=== PATIENT | male | born 1940 | race Hispanic/Latino ===

== ENCOUNTER 2017-06-06 17:58 | Emergency (ER) | payer OTHER ==
[2017-06-06] MEDS ORDERED: ACETAMINOPHEN 325 MG TABLET ONE (19:05)
[2017-06-06 19:48] LABS: Glucose Level 89 mg/dL (65-120)
[2017-06-06 19:49] LABS: BUN Blood Urea Nitrogen 13 mg/dL (6-20); Glomerular Filtration Rate > 90 mL/min (=/>90)
[2017-06-06 19:52] LABS: Bicarbonate 27 mEq/L (21-31); Potassium 4.5 mEq/L (3.6-5.0); Sodium Level 136 mEq/L (135-145)
[2017-06-06 19:55] LABS: Absolute Lymphocytes (CBC) 1.8 K/uL (0.7-4.9); Absolute Neutrophil 14.5 K/uL (1.8-8.0); Basophils % 0.4 % (0-1.3); Eosinophils % 0.9 % (0-4.4); Hematocrit 45.2 % (39.6-49.0); Lymphocytes % 10.1 % (15.3-44.8); MCH 31.7 pg (27.0-35.0); MCV 93.3 fL (80-100); MPV 8.7 fL (7.6-11.3); Monocytes % 5.5 % (3.3-12.3); RBC Red Blood Cell Count 4.85 M/uL (4.33-5.43)
--- NOTE | 2017-06-06 21:01 | RAD REPORT ---
EXAM DESCRIPTION: RAD - Chest Single View - 06/06/2017 7:02 pm CLINICAL HISTORY: Fever, cough and congestion COMPARISON: April 06, 2017 TECHNIQUE: AP portable chest image was obtained 1854 hours . FINDINGS: No peripheral mass or consolidation. Lung markings are prominent but not clearly different from the comparison. Minimal interstitial edema or infiltrate could be masked by the chronic pattern . Sternotomy wires are in place. Heart and vasculature are normal. No measurable pleural effusion and no pneumothorax. No gross bony abnormality seen. No acute aortic findings suspected. IMPRESSION: No peripheral mass or consolidation. Lung markings are prominent but not clearly different from comparison. Early edema or infiltrate coul d be masked by the chronic lung disease.
[2017-06-06 21:11] LABS: Urine Blood NEGATIVE (NEG); Urine Glucose NEGATIVE (NEG); Urine Protein 1+ (NEG)
--- NOTE | 2017-06-06 22:10 | RAD REPORT ---
EXAM DESCRIPTION: CT - Abdomen Pelvis W Contrast - 06/06/2017 9:57 pm CLINICAL HISTORY: Abdominal pain, cough and congestion COMPARISON: CT May 2016 TECHNIQUE: Biphasic, helical CT imaging of the abdomen and pelvis was performed following 100 ml non -ionic IV contrast. No oral contrast administered. All CT scans are performed using dose optimization technique as appropriate and may include automated exposure control or mA/KV adjustment according to patient size. FINDINGS: Interstitial thickening is present compared to the prior study. This is probably an inters titial edema or infiltrate pattern rather than progressive fibrosis. No consolidation. No pleural eff usion, pleural thickening or pericardial effusion. The liver, spleen, and pancreas show no suspicious findings. Cholecystectomy clips are present. No bi liary tree dilatation. Symmetric renal function is seen with no hydronephrosis or suspicious renal mass. No pyelonephritis o r acute renal parenchymal process. Small renal cysts are present. Ingram of the urinary bladder are mi ldly prominent. This is not specific for cystitis but correlation can be made with UA findings. No gastric dilatation or gastric wall thickening. No dilated small bowel loops. Moderate stool volume in the colon. Left-sided diverticulosis is present. Sigmoid colon is redundant. No measurable divert iculitis identifiable. No colon mass suspected. No free air, free fluid or inflammatory stranding. No mass or bulky lymphadenopathy. Fat extends int o the origin of the inguinal canals. No adrenal abnormality. Prominent disc and bony degenerative change present. No acute finding. IMPRESSION: Prominent diverticulosis is present but no diverticulitis confirmed. No bowel obstruction, free air or surgically emergent finding. Urinary bladder ingram are mildly prominent. This is not specific for cystitis but can be correlated w ith UA findings. Bilateral lung base interstitial infiltrate or edema.
--- NOTE | 2017-06-06 22:28 | EDPHYS ---
Physician Documentation [facility] Name: Musa Lindsay Age: 76 yrs Sex: Male : 1940 Arrival Date: 06/06/2017 Time: 18:05 Bed 20 Private MD: ED Physician Clifford Marshall HPI: 06/06 18:37 This 76 yrs old Male presents to ER via EMS with complaints of Productive kb Cough, Vomiting, Chills, Body Aches. 18:37 The patient or guardian reports cough, that is intermittent, described as moderate, kb with no sputum, flu symptoms, low-grade fever, myalgias. Onset: The symptoms/episode began/occurred 3 day(s) ago. Severity of symptoms: At their worst the symptoms were moderate, in the emergency department the symptoms are unchanged. Modifying factors: The symptoms are alleviated by nothing, the symptoms are aggravated by nothing. Associated signs and symptoms: Pertinent positives: fever, Pertinent negatives: chest pain, diarrhea, ear ache, nausea, rhinorrhea, sore throat, vomiting. The patient has not experienced similar symptoms in the past. The patient has not recently seen a physician. Pt c/o cough for 3 days. Malaise, fever and chills started today. Historical: - Allergies: 18:09 NKA; iw - Home Meds: 18:13 carvedilol 25 mg Oral tab 1 tab 2 times per day [Active]; Crestor 10 mg Oral tab 1 tab iw once daily [Active]; lisinopril 5 mg Oral tab 1 tab once daily [Active]; RENEXA 1000 MG twice a day [Active]; 18:24 Plavix 75 mg Oral tab 1 tab once daily [Active]; glimepiride 2 mg Oral tab 2 tabs once iw daily [Active]; multivitamin oral cap [Active]; Tramadol Oral twice a day [Active]; temazepam Oral nightly [Active]; Clonazepam Oral 2 times per day [Active]; - PMHx: 18:08 Diabetes - NIDDM; High Cholesterol; Hypertension; Hypothyroidism; Myocardial infarction;iw - PSHx: 18:08 CABG; Cholecystectomy; iw - Immunization history:: Adult Immunizations up to date. - Social history:: Smoking status: Patient uses tobacco products, unknown amount. ROS: 18:36 ENT: Negative for injury, pain, and discharge, Neck: Negative for injury, pain, and kb swelling, Cardiovascular: Negative for chest pain, palpitations, and edema, Abdomen/GI: Negative for abdominal pain, nausea, vomiting, diarrhea, and constipation, Back: Negative for injury and pain, MS/Extremity: Negative for injury and deformity, Skin: Negative for injury, rash, and discoloration, Neuro: Negative for headache, weakness, numbness, tingling, and seizure. 18:36 Constitutional: Positive for body aches, chills, fever, malaise, Negative for fatigue, poor PO intake, weight loss. 18:36 Respiratory: Positive for cough, Negative for dyspnea on exertion, hemoptysis, orthopnea, pleurisy, shortness of breath, sputum production, wheezing. Exam: 18:36 Constitutional: This is a well developed, well nourished patient who is awake, alert, kb and in no acute distress. Head/Face: Normocephalic, atraumatic. Chest/axilla: Normal chest wall appearance and motion. Nontender with no deformity. No lesions are appreciated. Cardiovascular: Regular rate and rhythm with a normal S1 and S2. No gallops, murmurs, or rubs. Normal PMI, no JVD. No pulse deficits. Respiratory: Lungs have equal breath sounds bilaterally, clear to auscultation and percussion. No rales, rhonchi or wheezes noted. No increased work of breathing, no retractions or nasal flaring. Abdomen/GI: Soft, non-tender, with normal bowel sounds. No distension or tympany. No guarding or rebound. No evidence of tenderness throughout. Skin: Warm, dry with normal turgor. Normal color with no rashes, no lesions, and no evidence of cellulitis. MS/ Extremity: Pulses equal, no cyanosis. Neurovascular intact. Full, normal range of motion. Neuro: Awake and alert, GCS 15, oriented to person, place, time, and situation. Cranial nerves II-XII grossly intact. Motor strength 5/5 in all extremities. Sensory grossly intact. Cerebellar exam normal. Normal gait. Vital Signs: 18:11 BP 162 / 80; Pulse 88; Resp 24 S; Temp 99.4(O); Pulse Ox 99% on R/A; Weight 89.81 kg; iw Height 5 ft. 9 in. (175.26 cm); Pain 0/10; 19:38 BP 133 / 61; Pulse 89; Resp 20; Pulse Ox 96% on R/A; mt 20:00 BP 125 / 66; Pulse 85; Resp 16; Pulse Ox 99% ; bp 21:00 BP 126 / 77; Pulse 85; Resp 14; Pulse Ox 95% on R/A; bp 22:00 BP 120 / 56; Pulse 81; Resp 15; Pulse Ox 96% on R/A; bp 18:11 Body Mass Index 29.24 (89.81 kg, 175.26 cm) iw MDM: 18:30 Patient medically screened. kb 18:36 Data reviewed: vital signs, nurses notes. Data interpreted: Pulse oximetry: on room air kb is 99 %. Interpretation: normal. 22:26 Counseling: I had a detailed discussion with the patient and/or guardian regarding: the kb historical points, exam findings, and any diagnostic results supporting the discharge/admit diagnosis, lab results, radiology results, the need for outpatient follow up, a family practitioner, to return to the emergency department if symptoms worsen or persist or if there are any questions or concerns that arise at home. ED course: Family states pt has been smoking for many years and still smokes. Pt wants to go home. Family will be with him. Educated to follow up with PCP (Macarena) about COPD. 06/06 18:35 Order name: CBC with Diff; Complete Time: 19:57 kb 06/06 18:35 Order name: Basic Metabolic Panel; Complete Time: 19:53 kb 06/06 18:35 Order name: Blood Culture Adult (2) kb 06/06 18:35 Order name: Lactate; Complete Time: 19:53 kb 06/06 18:35 Order name: Flu; Complete Time: 20:20 kb 06/06 21:10 Order name: Urine Dipstick--Ancillary (enter results); Complete Time: 21:15 em1 06/06 18:35 Order name: Chest Single View XRAY; Complete Time: 21:01 kb 06/06 18:35 Order name: IV Start; Complete Time: 19:23 kb 06/06 20:28 Order name: CT Abd/Pelvis - W/Contrast; Complete Time: 22:11 kb 06/06 20:59 Order name: Urine Dipstick-Ancillary (obtain specimen); Complete Time: 21:06 bp 06/06 22:12 Order name: Urine Microscopic Only; Complete Time: 22:33 kb Administered Medications: 19:10 Drug: Tylenol 650 mg Route: PO; bp 20:24 Follow up: Response: No adverse reaction bp Disposition: 06/07 10:04 Co-signature as Attending Physician, Clifford Marshall MD. rn Disposition: 06/06/17 22:27 Discharged to Home. Impression: Acute upper respiratory infection, unspecified, Elevated white blood cell count. - Condition is Stable. - Discharge Instructions: Chronic Obstructive Pulmonary Disease, Upper Respiratory Infection, Adult, [id number]. - Prescriptions for Levaquin 500 mg Oral Tablet - take 1 tablet by ORAL route once daily for 7 days; 7 tablet. Prednisone 20 mg Oral Tablet - take 1 tablet by ORAL route once daily for 5 days; 5 tablet. Albuterol Sulfate 90 mcg/actuation - inhale 1-2 puff by INHALATION route every 4-6 hours; 1 Inhaler. - Medication Reconciliation Form, Thank You Letter, Antibiotic Education, Prescription Opioid Use form. - Follow up: Emergency Department; When: As needed; Reason: Worsening of condition. Follow up: Private Physician; When: 2 - 3 days; Reason: Recheck today's complaints, Continuance of care, Re-evaluation by your physician. Signatures: Dispatcher [employer] Nicol Mina, AIR DEFENSE CONTROL OFFICER-C AIR DEFENSE CONTROL OFFICER-Yelena Barclay, RN OVIDIO Clifford Marshall MD MD rn Peltier, Brian, RN RN bp Corrections: (The following items were deleted from the chart) 06/06 18:24 18:13 Home Meds: Effient 10 mg Oral tab 1 tab once daily; [facility]
--- NOTE | 2017-06-06 22:28 | ER ---
Nurse's Notes [facility] Name: Musa Lindsay Age: 76 yrs Sex: Male : 1940 Arrival Date: 06/06/2017 Time: 18:05 Bed 20 Private MD: Diagnosis: Acute upper respiratory infection, unspecified;Elevated white blood cell count Presentation: 06/06 18:06 Presenting complaint: EMS states: pt has had cough X 3 days, today felt like he had iw chills and body aches, low grade temp of 99.0 on scene, upon arrival to ER pt vomited 100mL yellow/green bile, denies abd pain or diarrhea. Transition of care: patient was not received from another setting of care. Onset of symptoms was June 03, 2017. Care prior to arrival: Glucose check: 83. 18:06 Method Of Arrival: EMS: [facility] iw 18:06 Acuity: GRICEL 3 iw Triage Assessment: 19:00 General: Appears in no apparent distress. comfortable. Respiratory: Onset: The bp symptoms/episode began/occurred 3 DAYS AGO, the patient has mild shortness of breath. Historical: - Allergies: 18:09 NKA; iw - Home Meds: 18:13 carvedilol 25 mg Oral tab 1 tab 2 times per day [Active]; Crestor 10 mg Oral tab 1 tab iw once daily [Active]; lisinopril 5 mg Oral tab 1 tab once daily [Active]; RENEXA 1000 MG twice a day [Active]; 18:24 Plavix 75 mg Oral tab 1 tab once daily [Active]; glimepiride 2 mg Oral tab 2 tabs once iw daily [Active]; multivitamin oral cap [Active]; Tramadol Oral twice a day [Active]; temazepam Oral nightly [Active]; Clonazepam Oral 2 times per day [Active]; - PMHx: 18:08 Diabetes - NIDDM; High Cholesterol; Hypertension; Hypothyroidism; Myocardial infarction;iw - PSHx: 18:08 CABG; Cholecystectomy; iw - Immunization history:: Adult Immunizations up to date. - Social history:: Smoking status: Patient uses tobacco products, unknown amount. Screenin:10 Abuse screen: Denies threats or abuse. Denies injuries from another. Nutritional bp screening: No deficits noted. Tuberculosis screening: No symptoms or risk factors identified. Fall Risk None identified. Assessment: 19:00 Reassessment: RECD REPORT FROM PRICE NOLAN. 76YO HM P/W 3 DAYS OF FLU-LIKE S/S. NO bp APPARENT DISTRESS, VS STABLE AT THIS TIME. General: Appears in no apparent distress. comfortable, Behavior is calm, cooperative, appropriate for age. Pain: Denies pain. Neuro: Level of Consciousness is awake, alert, obeys commands, Oriented to person, place, time, situation, Appropriate for age. Cardiovascular: Rhythm is sinus rhythm. Respiratory: Airway is patent Respiratory effort is even, unlabored, Breath sounds are clear. GI: No deficits noted. Reports vomiting. : No signs and/or symptoms were reported regarding the genitourinary system. EENT: No deficits noted. Derm: No deficits noted. Musculoskeletal: Circulation, motion, and sensation intact. Range of motion: intact in all extremities. 20:00 Reassessment: ALL CURRENT ORDERS COMPLETED, VS STABLE ON MONITOR. AWAITING PROVIDER bp RE-EVAL FOR DISPO. 21:30 Reassessment: PT TO CT. bp 21:54 Reassessment: PIV INFILTRATED DURING CT, NEW PIV PLACED AND CT PROCEEDING. bp 22:00 Reassessment: PT RETURNED FROM CT, VS STABLE ON MONITOR. bp 22:47 Reassessment: PT D/C HOME, DX WITH COPD AND URI. bp Vital Signs: 18:11 BP 162 / 80; Pulse 88; Resp 24 S; Temp 99.4(O); Pulse Ox 99% on R/A; Weight 89.81 kg; iw Height 5 ft. 9 in. (175.26 cm); Pain 0/10; 19:38 BP 133 / 61; Pulse 89; Resp 20; Pulse Ox 96% on R/A; mt 20:00 BP 125 / 66; Pulse 85; Resp 16; Pulse Ox 99% ; bp 21:00 BP 126 / 77; Pulse 85; Resp 14; Pulse Ox 95% on R/A; bp 22:00 BP 120 / 56; Pulse 81; Resp 15; Pulse Ox 96% on R/A; bp 18:11 Body Mass Index 29.24 (89.81 kg, 175.26 cm) iw ED Course: 18:05 Patient arrived in ED. iw 18:06 Price Love, RN is Primary Nurse. aj 18:08 Triage completed. iw 18:11 Arm band placed on. iw 18:30 Nicol Aparicio FNP-C is PHCP. kb 18:30 Clifford Marshall MD is Attending Physician. kb 18:57 X-ray completed. Portable x-ray completed in exam room. Patient tolerated procedure kc2 well. 18:58 Chest Single View XRAY In Process Unspecified. EDMS 19:10 Primary Nurse role handed off by Price Love, OVIDIO bp 19:10 Darian Cortes, RN is Primary Nurse. bp 19:10 Patient has correct armband on for positive identification. Bed in low position. Call bp light in reach. Side rails up X2. Adult w/ patient. 19:23 Inserted saline lock: 20 gauge in right forearm, using aseptic technique. Blood aj collected. 21:38 Patient moved to [place] via stretcher. nj 21:55 Inserted saline lock: 18 gauge in left forearm, using aseptic technique. IV bp discontinued, intact, bleeding controlled, Pressure dressing applied. 21:58 CT Abd/Pelvis - W/Contrast In Process Unspecified. EDMS 21:58 CT completed. Patient tolerated procedure well. Patient moved back from [place]. nj 22:47 No provider procedures requiring assistance completed. IV discontinued, intact, bp bleeding controlled, Pressure dressing applied. Administered Medications: 19:10 Drug: Tylenol 650 mg Route: PO; bp 20:24 Follow up: Response: No adverse reaction bp Outcome: 22:27 Discharge ordered by MD. kb 22:47 Discharged to home via wheelchair, with family. bp 22:47 Condition: stable 22:47 Discharge instructions given to patient, family, Instructed on discharge instructions, follow up and referral plans. medication usage, Demonstrated understanding of instructions, follow-up care, medications, Prescriptions given X 3. 22:49 Patient left the ED. bp Signatures: Dispatcher [employer] EDMS Nicol Aparicio FNP-C STEEL WHEEL ENGRAVER-Ckb Price Love RN RN aj Williams, Irene, RN RN Shobha Kendall kc2 Tyler Zabala Moriah wa Darian Cortes, OVIDIO RN bp Corrections: (The following items were deleted from the chart) 18:20 18:11 BP 162 / 80; Pulse 88bpm; Resp 24bpm; Spontaneous; Pulse Ox 99% RA; Pain 0/10; iw iw 18:24 18:13 Home Meds: Effient 10 mg Oral tab 1 tab once daily; iw iw
[2017-06-06 22:31] LABS: Urine Bacteria <20 /HPF (NONE SEEN); Urine Culture Reflex Order NOT NEEDED
[2017-06-06 23:04] VITALS: TEMP 99.4
[2017-06-06 23:16] VITALS: BP 120/56; O2SAT 96
== END 2017-06-06 22:49 | disposition home or self-care (01) ==
LOC: ER 17:58
DX: J06.9 Acute upper respiratory infection, unspecified (principal); D72.829 Elevated white blood cell count, unspecified; I10 Essential (primary) hypertension; E11.9 Type 2 diabetes mellitus without complications; E78.00 Pure hypercholesterolemia, unspecified; E03.9 Hypothyroidism, unspecified; I25.2 Old myocardial infarction; Z95.1 Presence of aortocoronary bypass graft; Z79.01 Long term (current) use of anticoagulants; Z72.0 Tobacco use
CPT/HCPCS: 36415; 71045; 74177; 80048; 83605; 85025; 87040 ×2; 87804 ×2; 99285; Q9967; 81003; 81015

== ENCOUNTER 2017-10-29 01:33 | Emergency (ER) | payer OTHER ==
[2017-10-29] MEDS ORDERED: FENTANYL CITR 100 MCG/2 ML ONE (02:24)
[2017-10-29] MEDS ORDERED: ACETAMINOPHEN 500 MG TAB ONE (02:25)
[2017-10-29 03:00] LABS: Absolute Lymphocytes (CBC) 0.8 K/uL (0.7-4.9); Absolute Monocytes 0.6 K/uL (0.1-1.3); Absolute Neutrophil 8.7 K/uL (1.8-8.0); Basophils % 0.3 % (0-1.3); Eosinophils % 1.3 % (0-4.4); Hematocrit 46.7 % (39.6-49.0); Lymphocytes % 8.1 % (15.3-44.8); MCH 33.6 pg (27.0-35.0); MCV 94.9 fL (80-100); MPV 9.1 fL (7.6-11.3); Monocytes % 5.4 % (3.3-12.3); RBC Red Blood Cell Count 4.91 M/uL (4.33-5.43)
[2017-10-29 03:02] LABS: Protime INR 1.13
[2017-10-29 03:16] LABS: Urine Blood TRACE (NEG); Urine Glucose 2+ (NEG); Urine Protein 2+ (NEG); Urine Specific Gravity 1.025 (1.005-1.030)
[2017-10-29 03:17] LABS: Albumin 3.9 g/dL (3.4-5.0); Bilirubin Direct 0.4 mg/dL (0-0.2); Bilirubin Total 1.5 mg/dL (0.2-1.0); Magnesium 2.1 mg/dL (1.8-2.4); Potassium 4.4 mmol/L (3.5-5.1); Protein, Total 7.8 g/dL (6.4-8.2)
[2017-10-29 03:21] LABS: NT PRO-BNP 152 pg/mL (<450); Troponin (Emerg Dept Use Only) < 0.02 ng/mL (0.0-0.045)
[2017-10-29 03:21] LABS: Urine Bacteria <20 /HPF (NONE SEEN); Urine Culture Reflex Order NOT NEEDED; Urine Mucus 3+ /HPF (NONE SEEN); Urine Sperm PRESENT (NONE SEEN)
[2017-10-29 03:22] LABS: Urine RBC <5 /HPF (NONE SEEN)
--- NOTE | 2017-10-29 06:07 | ER ---
Nurse's Notes [facility] Name: Musa Lindsay Age: 76 yrs Sex: Male : 1940 Arrival Date: 10/29/2017 Time: 01:43 Bed 6 Private MD: Diagnosis: Fall;Left Knee Sprain;lower back sprain Presentation: 10/29 01:40 Presenting complaint: EMS states: Pt fell trying to ambulate to the restroom and is now jb4 complaining of backpain. 01:40 Method Of Arrival: EMS: [facility] jb4 01:40 Transition of care: patient was not received from another setting of care. Onset of jb4 symptoms was October 29, 2017. Risk Assessment: Do you want to hurt yourself or someone else? Patient reports no desire to harm self or others. Initial Sepsis Screen: Does the patient meet any 2 criteria? No. Patient's initial sepsis screen is negative. Does the patient have a suspected source of infection? No. Patient's initial sepsis screen is negative. Care prior to arrival: None. 01:40 Acuity: GRICEL 3 jb4 Triage Assessment: 02:00 General: Appears in no apparent distress. uncomfortable, Behavior is calm, cooperative, jb4 appropriate for age. Pain: Complains of pain in low back area and sacrum Pain does not radiate. Pain currently is 8 out of 10 on a pain scale. at worst was 10 out of 10 on a pain scale. Quality of pain is described as grinding Pain began 1 hour ago. Is continuous. EENT: No signs and/or symptoms were reported regarding the EENT system. Neuro: Level of Consciousness is awake, alert, obeys commands, Oriented to person, place, time, situation. Cardiovascular: Heart tones S1 S2 present Patient's skin is warm and dry. Pulses are palpable in right dorsalis pedis artery and left dorsalis pedis artery are 3+ in right dorsalis pedis artery and left dorsalis pedis artery. Respiratory: Airway is patent Respiratory effort is even, unlabored, Respiratory pattern is regular, symmetrical, Breath sounds are clear bilaterally. GI: No signs and/or symptoms were reported involving the gastrointestinal system. : No signs and/or symptoms were reported regarding the genitourinary system. Derm: Skin Intact with scabbed areas noted to legs with multiple bug bites noted to both feet. Skin is pink, warm \T\ dry. Musculoskeletal: Reports weakness in right leg and left leg pain in low back area and sacrum. Historical: - Allergies: 02:00 NKA; jb4 - Home Meds: 02:00 carvedilol 25 mg Oral tab 1 tab 2 times per day [Active]; Clonazepam Oral 2 times per jb4 day [Active]; Crestor 10 mg Oral tab 1 tab once daily [Active]; glimepiride 2 mg Oral tab 2 tabs once daily [Active]; lisinopril 5 mg Oral tab 1 tab once daily [Active]; multivitamin Oral cap [Active]; temazepam Oral nightly [Active]; Plavix 75 mg Oral tab 1 tab once daily [Active]; RENEXA 1000 MG twice a day [Active]; Tramadol Oral twice a day [Active]; - PMHx: 02:00 Diabetes - NIDDM; High Cholesterol; Hypothyroidism; Myocardial infarction; Hypertension;jb4 - PSHx: 02:00 CABG; Cholecystectomy; jb4 - Immunization history:: Adult Immunizations up to date. - Social history:: Smoking status: Patient uses tobacco products, smokes one-half pack cigarettes per day. - Ebola Screening: : No symptoms or risks identified at this time. - Family history:: not pertinent. - Hospitalizations: : No recent hospitalization is reported. Screenin:00 Abuse screen: Denies threats or abuse. Nutritional screening: No deficits noted. jb4 Tuberculosis screening: No symptoms or risk factors identified. Fall Risk Fall in past 12 months (25 points). Secondary diagnosis (15 points) DM, HTN. IV access (20 points). Total Pickett Fall Scale indicates High Risk Score (45 or more points). Fall prevention measures have been instituted. Side Rails Up X 2 Placed Close to Nursing Station 1:1 Attendant Assigned Frequent Obs/Assessments Occuring Family Present and informed to notify staff if the need to leave the bedside. Assessment: 02:00 General: See triage assessment . jb4 03:00 Reassessment: Patient appears in no apparent distress at this time. Patient and/or jb4 family updated on plan of care and expected duration. Pain level reassessed. Patient is alert, oriented x 3, equal unlabored respirations, skin warm/dry/pink. Pt is resting with eyes closed, daughter is at the bedside. 04:30 Reassessment: Patient appears in no apparent distress at this time. Patient and/or jb4 family updated on plan of care and expected duration. Pain level reassessed. Patient is alert, oriented x 3, equal unlabored respirations, skin warm/dry/pink. Pt is resting in bed with eyes closed. Daughter is at the bedside. 05:30 Reassessment: Patient appears in no apparent distress at this time. Patient and/or jb4 family updated on plan of care and expected duration. Pain level reassessed. Patient is alert, oriented x 3, equal unlabored respirations, skin warm/dry/pink. 06:20 Reassessment: Patient appears in no apparent distress at this time. No changes from jb4 previously documented assessment. Patient is alert, oriented x 3, equal unlabored respirations, skin warm/dry/pink. Vital Signs: 01:55 BP 149 / 79; Pulse 86; Resp 18; Pulse Ox 100% on R/A; Weight 97.52 kg; Height 5 ft. 9 jb4 in. (175.26 cm); 02:26 Temp 99.7(TE); ak1 03:30 BP 134 / 56; Pulse 92; Resp 18; Pulse Ox 100% on R/A; jb4 04:30 BP 134 / 73; Pulse 98; Resp 16 S; Pulse Ox 97% on R/A; jb4 05:30 BP 110 / 58; Pulse 93; Resp 18; Pulse Ox 98% on R/A; jb4 01:55 Body Mass Index 31.75 (97.52 kg, 175.26 cm) jb4 ED Course: 01:43 Patient arrived in ED. jd3 01:54 Ramiro Navarro, RN is Primary Nurse. jb4 01:55 Arm band placed on left wrist. jb4 01:55 Repositioned patient. Bath given. Cleaned of incontinence. ak1 01:55 Door closed. Lights dimmed. Warm blanket given. Head of bed elevated. ak1 01:56 Triage completed. jb4 02:00 Patient has correct armband on for positive identification. Placed in gown. Bed in low jb4 position. Call light in reach. Side rails up X2. shelter monitor on. Pulse ox on. NIBP on. 02:01 Ramírez Bowman MD is Attending Physician. tx 02:23 Initial lab(s) drawn, by me, sent to lab. EKG done, by ED staff, reviewed by Ramírez Bowman MD. Inserted saline lock: 20 gauge in left antecubital area, using aseptic technique. Blood collected. 03:41 Knee Left 3 View XRAY In Process Unspecified. EDMS 03:41 Lumbar Spine (3 Views) XRAY In Process Unspecified. EDMS 03:41 XRAY Chest (1 view) In Process Unspecified. EDMS 04:[address] via stretcher. kw1 05:12 CT completed. Patient tolerated procedure well. Patient moved back from CT. kw1 05:25 CT Thoracic Spine Wo Cont In Process Unspecified. EDMS 05:36 CT Lumbar Spine Wo Con In Process Unspecified. EDMS 06:20 No provider procedures requiring assistance completed. IV discontinued, intact, jb4 bleeding controlled. Administered Medications: 02:31 Drug: fentaNYL (PF) 50 mcg Route: IVP; Site: left antecubital; jb4 03:05 Follow up: Response: Pain is decreased jb4 02:32 Drug: Tylenol 1000 mg Route: PO; jb4 03:05 Follow up: Response: No adverse reaction; Pain is decreased jb4 Outcome: 06:06 Discharge ordered by . michael 06:20 Discharged to home ambulatory. jb4 06:20 Condition: stable 06:20 Discharge instructions given to patient, Instructed on discharge instructions, follow up and referral plans. Demonstrated understanding of instructions, follow-up care. 06:21 Patient left the ED. jb4 Signatures: Dispatcher [employer] EDMN Rosmery Pierson RN RN ak1 Ramiro Navarro RN RN jb4 Appiah, William, MD MD wa Davies, Jonathon RN RN Manda Koo kw1 Corrections: (The following items were deleted from the chart) 02:14 02:00 Fall Risk Fall in past 12 months (25 points). Secondary diagnosis (15 points) DM, jb4 HTN. IV access (20 points). jb4 04:57 02:00 Cardiovascular: Heart tones S1 S2 present Patient's skin is warm and dry. jb4 jb4 04:57 02:00 Derm: Skin is pink, warm \T\ dry. jb4 jb4
--- NOTE | 2017-10-29 06:07 | EDPHYS ---
Physician Documentation [facility] Name: Musa Lindsay Age: 76 yrs Sex: Male : 1940 Arrival Date: 10/29/2017 Time: 01:43 Bed 6 Private MD: ED Physician Ramírez Bowman HPI: 10/29 02:10 This 76 yrs old Male presents to ER via EMS with complaints of fall. 02:10 Details of fall: The patient fell from a height, while walking briskly to bathroom. 02:12 Onset: The symptoms/episode began/occurred just prior to arrival. Associated injuries: wa The patient sustained c/o L knee and tailbone pain. Severity of symptoms: At their worst the symptoms were moderate, in the emergency department the symptoms are unchanged. The patient has not experienced similar symptoms in the past. The patient has not recently seen a physician. denies chest pain or SOB. h/o DM. h/o CABG. Historical: - Allergies: 02:00 NKA; jb4 - Home Meds: 02:00 carvedilol 25 mg Oral tab 1 tab 2 times per day [Active]; Clonazepam Oral 2 times per jb4 day [Active]; Crestor 10 mg Oral tab 1 tab once daily [Active]; glimepiride 2 mg Oral tab 2 tabs once daily [Active]; lisinopril 5 mg Oral tab 1 tab once daily [Active]; multivitamin Oral cap [Active]; temazepam Oral nightly [Active]; Plavix 75 mg Oral tab 1 tab once daily [Active]; RENEXA 1000 MG twice a day [Active]; Tramadol Oral twice a day [Active]; - PMHx: 02:00 Diabetes - NIDDM; High Cholesterol; Hypothyroidism; Myocardial infarction; Hypertension;jb4 - PSHx: 02:00 CABG; Cholecystectomy; jb4 - Immunization history:: Adult Immunizations up to date. - Social history:: Smoking status: Patient uses tobacco products, smokes one-half pack cigarettes per day. - Ebola Screening: : No symptoms or risks identified at this time. - Family history:: not pertinent. - Hospitalizations: : No recent hospitalization is reported. ROS: 02:13 Constitutional: Negative for fever, chills, and weight loss, Eyes: Negative for injury, wa pain, redness, and discharge, ENT: Negative for injury, pain, and discharge, Neck: Negative for injury, pain, and swelling, Cardiovascular: Negative for chest pain, palpitations, and edema, Respiratory: Negative for shortness of breath, cough, wheezing, and pleuritic chest pain, Abdomen/GI: Negative for abdominal pain, nausea, vomiting, diarrhea, and constipation, : Negative for injury, bleeding, discharge, and swelling, Skin: Negative for injury, rash, and discoloration, Neuro: Negative for headache, weakness, numbness, tingling, and seizure, Psych: Negative for depression, anxiety, suicide ideation, homicidal ideation, and hallucinations. 02:13 Back: Positive for pain at rest, of the lumbar area and sacrum. 02:13 All other systems are negative. 02:14 MS/extremity: Positive for pain, of the L knee pain. wa Exam: 02:15 Constitutional: This is a well developed, well nourished patient who is awake, alert, wa and in no acute distress. Head/Face: Normocephalic, atraumatic. Eyes: Pupils equal round and reactive to light, extra-ocular motions intact. Lids and lashes normal. Conjunctiva and sclera are non-icteric and not injected. Cornea within normal limits. Periorbital areas with no swelling, redness, or edema. ENT: Nares patent. No nasal discharge, no septal abnormalities noted. Tympanic membranes are normal and external auditory canals are clear. Oropharynx with no redness, swelling, or masses, exudates, or evidence of obstruction, uvula midline. Mucous membranes moist. Neck: Trachea midline, no thyromegaly or masses palpated, and no cervical lymphadenopathy. Supple, full range of motion without nuchal rigidity, or vertebral point tenderness. No Meningismus. Chest/axilla: Normal chest wall appearance and motion. Nontender with no deformity. No lesions are appreciated. Cardiovascular: Regular rate and rhythm with a normal S1 and S2. No gallops, murmurs, or rubs. Normal PMI, no JVD. No pulse deficits. Respiratory: Lungs have equal breath sounds bilaterally, clear to auscultation and percussion. No rales, rhonchi or wheezes noted. No increased work of breathing, no retractions or nasal flaring. Abdomen/GI: Soft, non-tender, with normal bowel sounds. No distension or tympany. No guarding or rebound. No evidence of tenderness throughout. Skin: Warm, dry with normal turgor. Normal color with no rashes, no lesions, and no evidence of cellulitis. Neuro: Awake and alert, GCS 15, oriented to person, place, time, and situation. Cranial nerves II-XII grossly intact. Motor strength 5/5 in all extremities. Sensory grossly intact. Cerebellar exam normal. Normal gait. Psych: Awake, alert, with orientation to person, place and time. Behavior, mood, and affect are within normal limits. 02:15 Back: pain, that is moderate, of the lumbar area and sacrum. 02:15 Musculoskeletal/extremity: Extremities: grossly normal except: noted in the left knee: pain, swelling, tenderness. Vital Signs: 01:55 BP 149 / 79; Pulse 86; Resp 18; Pulse Ox 100% on R/A; Weight 97.52 kg; Height 5 ft. 9 jb4 in. (175.26 cm); 02:26 Temp 99.7(TE); ak1 03:30 BP 134 / 56; Pulse 92; Resp 18; Pulse Ox 100% on R/A; jb4 04:30 BP 134 / 73; Pulse 98; Resp 16 S; Pulse Ox 97% on R/A; jb4 05:30 BP 110 / 58; Pulse 93; Resp 18; Pulse Ox 98% on R/A; jb4 01:55 Body Mass Index 31.75 (97.52 kg, 175.26 cm) jb4 MDM: 02:01 Patient medically screened. pa 02:16 Differential diagnosis: contusion, fracture, sprain, strain. pa 06:03 Data reviewed: vital signs, nurses notes. Test interpretation: by ED physician or pa midlevel provider: EKG: HR 92. LAD. RBBB. labs noted for hyperglycemia. CXR: no acute process. L knee x-ray: no acute fx or dislocation. CT T/L spine: no acute fx. . Response to treatment: the patient's symptoms have markedly improved after treatment. 10/29 02:08 Order name: Basic Metabolic Panel; Complete Time: 03:24 pa 10/29 02:08 Order name: CBC with Diff; Complete Time: 03:07 pa 10/29 02:08 Order name: CPK; Complete Time: 03:25 pa 10/29 02:08 Order name: LFT's; Complete Time: 03:24 pa 10/29 02:08 Order name: Magnesium; Complete Time: 03: pa 10/29 02:11 Order name: NT PRO-BNP; Complete Time: 03:25 pa 10/29 02:07 Order name: Knee Left 3 View XRAY 10/29 02:07 Order name: Lumbar Spine (3 Views) XRAY pa 10/29 02:11 Order name: PT-INR; Complete Time: 03:07 pa 10/29 02:11 Order name: Troponin (emerg Dept Use Only); Complete Time: 03:25 pa 10/29 02:11 Order name: Ckmb; Complete Time: 03: pa 10/29 02:11 Order name: Ptt, Activated; Complete Time: 03: pa 10/29 02:35 Order name: Urine Microscopic Only; Complete Time: 03:25 [facility] 10/29 02:37 Order name: Urine Dipstick--Ancillary (enter results); Complete Time: 03:24 [facility] 10/29 02:08 Order name: XRAY Chest (1 view) pa 10/29 02:08 Order name: EKG; Complete Time: 02: pa 10/29 02:08 Order name: Cardiac monitoring; Complete Time: 02: pa 10/29 02:08 Order name: EKG - Nurse/Tech; Complete Time: 02: pa 10/29 02:08 Order name: IV Saline Lock; Complete Time: 02: pa 10/29 02:08 Order name: Labs collected and sent; Complete Time: 02:32 pa 10/29 02:08 Order name: O2 Sat Monitoring; Complete Time: 02: pa 10/29 02:08 Order name: Urine Dipstick-Ancillary (obtain specimen); Complete Time: 02: pa 10/29 02:11 Order name: O2 Per Protocol; Complete Time: 02:31 10/29 03:27 Order name: CT Thoracic Spine Wo Cont 10/29 03:27 Order name: CT Lumbar Spine Wo Con pa Administered Medications: 02:31 Drug: fentaNYL (PF) 50 mcg Route: IVP; Site: left antecubital; jb4 03:05 Follow up: Response: Pain is decreased jb4 02:32 Drug: Tylenol 1000 mg Route: PO; jb4 03:05 Follow up: Response: No adverse reaction; Pain is decreased jb4 Disposition: 10/29/17 06:06 Discharged to Home. Impression: Fall, Left Knee Sprain, lower back sprain. - Condition is Stable. - Discharge Instructions: Fall Prevention in the Home, Back Pain, Adult, [id number], Back Injury Prevention. - Medication Reconciliation Form, Thank You Letter, Antibiotic Education, Prescription Opioid Use form. - Follow up: Private Physician; When: 1 - 2 days; Reason: Re-evaluation by your physician. - Problem is new. - Symptoms have improved. - Notes: take tylenol for pain as needed. return here for any worsening concerns Signatures: Dispatcher [employer] EDMS Ramiro Navarro RN RN jb4 Ramírez Bowman MD MD wa Corrections: (The following items were deleted from the chart) 06:21 06:06 10/29/2017 06:06 Discharged to Home. Impression: Fall; Left Knee Sprain; lower jb4 back sprain. Condition is Stable. Forms are Medication Reconciliation Form, Thank You Letter, Antibiotic Education, Prescription Opioid Use. Follow up: Private Physician; When: 1 - 2 days; Reason: Re-evaluation by your physician. Problem is new. Symptoms have improved. wa
[2017-10-29 06:28] VITALS: TEMP 99.7
[2017-10-29 06:32] VITALS: BP 110/58; O2SAT 98
--- NOTE | 2017-10-29 11:13 | RAD REPORT ---
EXAM DESCRIPTION: RAD - Chest Single View - 10/29/2017 9:37 am CLINICAL HISTORY: fall Chest pain. COMPARISON: Chest Single View dated 06/06/2017; Chest Single View dated 04/06/2017; Chest Single View dated 07/03/2016; Chest Single View dated 06/26/2016 FINDINGS: Portable technique limits examination quality. Mild interstitial pulmonary edema seen. The heart is mildly enlarged in size with sternotomy wires pr esent. No displaced fractures. IMPRESSION: Mild CHF/ volume overload pattern.
--- NOTE | 2017-10-29 11:16 | RAD REPORT ---
EXAM DESCRIPTION: RAD - Lumbar Spine 3 Views - 10/29/2017 9:37 am CLINICAL HISTORY: fall Radiculopathy COMPARISON: Sacrum And Coccyx dated 06/26/2016 FINDINGS: Diffuse osteopenia is seen. Multilevel degenerative changes throughout the lumbar spine is present small posterior osteophytes. No spondylolysis or spondylolisthesis. Aortic atherosclerosis. IMPRESSION: Advanced diffuse spondylosis of the lumbar spine is present without acute finding.
--- NOTE | 2017-10-29 12:52 | RAD REPORT ---
EXAM DESCRIPTION: CT - Thoracic Spine W/o Cont - 10/29/2017 9:53 am CLINICAL HISTORY: Radiculopathy. fall COMPARISON: No comparisons TECHNIQUE: Axial CT imaging through the thoracic spine was performed with coronal and sagittal re-fo rmatted images. All CT scans are performed using dose optimization technique as appropriate and may include automated exposure control or mA/KV adjustment according to patient size. FINDINGS: Vertebral body heights and disc spaces are maintained. A compression fracture is not prese nt. No significant disc space narrowing. Thoracic spine alignment is within normal limits. No paraspinal masses or hematoma. Bridging osteophy tosis is noted. Intervertebral disc detail is inherently limited on CT without gross findings of canal compromise. IMPRESSION: No acute thoracic spine abnormality suspected.
--- NOTE | 2017-10-29 12:53 | RAD REPORT ---
EXAM DESCRIPTION: CT - Spine Lumbar Wo Con - 10/29/2017 9:53 am CLINICAL HISTORY: Radiculopathy. fall COMPARISON: No comparisons TECHNIQUE: Axial noncontrast CT imaging of the lumbar spine was performed with coronal and sagittal re-formatted images. All CT scans are performed using dose optimization technique as appropriate and may include automated exposure control or mA/KV adjustment according to patient size. FINDINGS: No acute lumbar spine fracture seen. No aggressive marrow pattern or malalignment. Paraspinal tissues are normal in thickness. No paraspinal abscess or hematoma seen. Endplate osteophytic changes are present throughout the lumbar spine with loss of vertebral disc spac e. Severe stenosis not seen. IMPRESSION: No acute lumbar spine abnormality. Consider MRI follow-up for assessment of disc disease if clinically desired.
--- NOTE | 2017-10-30 08:56 | EKG ---
Test Date: 2017-10-29 Test Time: 02:15:37 Photocopying Equipment Mechanic: ODESSA MEASUREMENT RESULTS: Intervals: Rate: 92 MD: 132 QRSD: 126 QT: 398 QTc: 492 [place]: P: 66 MD: 132 QRS: -74 T: 60 INTERPRETIVE STATEMENTS: Normal sinus rhythm Left axis deviation Right bundle branch block Abnormal ECG Compared to ECG 04/06/2017 19:38:03 Left-axis deviation now present Left anterior fascicular block no longer present Bifascicular block no longer present Electronically Signed On 10-30-17 08:53:16 CDT by Drew Mcmillan
--- NOTE | 2017-11-04 16:00 | RAD REPORT ---
EXAM DESCRIPTION: RAD - Knee Left 3 View - 11/04/2017 2:55 pm CLINICAL HISTORY: Fall, knee pain Images were resubmitted for interpretation as the original dictation cannot be retrieved due to techn ical malfunction. COMPARISON: March 2017 FINDINGS: No fracture, dislocation or periosteal reaction.No joint effusion suspected. There is spur ring at the quadriceps insertion and patella tendon origin of the patella. Medial compartment is slig htly narrowed. No suspicious soft tissue finding. Surgical clips in the medial soft tissues are proba juliana from vein harvesting. No foreign body. IMPRESSION: Degenerative change as detailed. No acute bone or joint finding suspected. Findings are not substantially different from the comparison. Clinical concerns for internal derangement or occult bony injury could be further assessed with MR im aging.
== END 2017-10-29 06:21 | disposition home or self-care (01) ==
LOC: ER 01:33
DX: S33.5XXA Sprain of ligaments of lumbar spine, initial encounter (principal); S83.92XA Sprain of unspecified site of left knee, initial encounter; W19.XXXA Unspecified fall, initial encounter; Y93.89 Activity, other specified; Y92.89 Other specified places as the place of occurrence of the external cause; Z79.01 Long term (current) use of anticoagulants; Z95.1 Presence of aortocoronary bypass graft; F17.210 Nicotine dependence, cigarettes, uncomplicated; I10 Essential (primary) hypertension; E78.00 Pure hypercholesterolemia, unspecified; I25.2 Old myocardial infarction; E11.9 Type 2 diabetes mellitus without complications
CPT/HCPCS: 36415; 71045; 72100; 72128; 72131; 73562; 80048; 80076; 82550; 82553; 83735; 83880; 84484; 85025; 85610; 85730; 93005; 96374; 99285; J3010; 81003; 81015

== ENCOUNTER 2018-02-27 23:00 | Inpatient (IN) | payer OTHER ==
[2018-02-27 23:34] LABS: Absolute Lymphocytes (CBC) 3.9 K/uL (0.7-4.9); Absolute Monocytes 0.8 K/uL (0.1-1.3); Absolute Neutrophil 5.5 K/uL (1.8-8.0); Basophils % 0.5 % (0-1.3); Eosinophils % 3.3 % (0-4.4); Lymphocytes % 36.7 % (15.3-44.8); MPV 8.7 fL (7.6-11.3); Monocytes % 7.8 % (3.3-12.3)
[2018-02-27 23:36] LABS: Protime INR 1.1
--- NOTE | 2018-02-27 23:43 | ER ---
Nurse's Notes [facility] Name: Musa Lindsay Age: 77 yrs Sex: Male : 1940 Arrival Date: 02/27/2018 Time: 23:01 Bed 3 Private MD: Diagnosis: Chest pain, unspecified;Dyspnea;Tobacco abuse counseling;Tobacco use;Hypotension-resolved;Obesity, unspecified;Hypokalemia;Diverticular disease of intestine;Diverticulitis of large intestine without perforation or abscess without bleeding-sigmoid Presentation: 02/27 23:07 Presenting complaint: EMS states: Chest pain that began prior to EMS arrival; Patient lp1 took ASA 324mg at home and x3 Nitro tablets that were ; BP low per EMS, Hx of ID in 2000. Transition of care: patient was not received from another setting of care. Onset of symptoms was February 27, 2018. Risk Assessment: Do you want to hurt yourself or someone else? Patient reports no desire to harm self or others. Initial Sepsis Screen: Does the patient meet any 2 criteria? No. Patient's initial sepsis screen is negative. Does the patient have a suspected source of infection? No. Patient's initial sepsis screen is negative. Care prior to arrival: IV initiated. 20 GA, in the left forearm. 23:07 Method Of Arrival: EMS: [facility] lp1 23:07 Acuity: GRICEL 2 lp1 Historical: - Allergies: 23:13 NKA; lp1 - Home Meds: 23:13 Crestor 10 mg Oral tab 1 tab once daily [Active]; carvedilol 12.5 mg oral tab 2 times lp1 per day [Active]; Plavix 75 mg Oral tab 1 tab once daily [Active]; tramadol 50 mg oral tab twice a day [Active]; temazepam 15 mg oral cap once daily [Active]; clonazepam 0.5 mg oral tab 2 times per day [Active]; glimepiride 4 mg oral tab twice a day [Active]; finasteride 5 mg oral tab 1 tab once daily [Active]; - PMHx: 23:13 Diabetes - NIDDM; High Cholesterol; Hypertension; Hypothyroidism; Myocardial lp1 infarction; CHF; - PSHx: 23:13 Heart stents; Heart Surgery; lp1 - Immunization history:: Adult Immunizations up to date. - Ebola Screening: : No symptoms or risks identified at this time. - Social history:: Smoking status: Patient uses tobacco products, smokes one-half pack cigarettes per day. - Family history:: not pertinent, pertinent for diabetes, heart disease. Screenin:14 Abuse screen: Denies threats or abuse. Denies injuries from another. Nutritional lp1 screening: No deficits noted. Tuberculosis screening: No symptoms or risk factors identified. 02/28 00:14 Fall Risk Fall in past 12 months (25 points). IV access (20 points). Ambulatory Aid- ak1 Crutches/Cane/Walker (15 pts). Assessment: 02/27 23:43 General: Appears in no apparent distress. Behavior is cooperative. Pain: Complains of ak1 pain in chest. Neuro: No deficits noted. Cardiovascular: No deficits noted. Respiratory: No deficits noted. GI: Reports constipation, pt with large BM. : No signs and/or symptoms were reported regarding the genitourinary system. EENT: No signs and/or symptoms were reported regarding the EENT system. Derm: No signs and/or symptoms reported regarding the dermatologic system. Musculoskeletal: No signs and/or symptoms reported regarding the musculoskeletal system. 02/28 01:58 Reassessment: Patient's daughter, Aiyana Vargas, left contact phone number [phone]; lp1 Niece, Ainsley Nair, who patient lives with can be contacted at [phone]. 02:12 Reassessment: Patient appears in no apparent distress at this time. Patient and/or ak1 family updated on plan of care and expected duration. Pain level reassessed. Patient is alert, oriented x 3, equal unlabored respirations, skin warm/dry/pink. Dr. Aponte notified of pt vitals Patient denies pain at this time. Vital Signs: 02/27 23:09 BP 108 / 68; Pulse 88; Resp 14; Temp 98(O); Pulse Ox 98% on R/A; Weight 88.45 kg; lp1 Height 5 ft. 9 in. (175.26 cm); Pain 8/10; 02/28 00:13 BP 92 / 68; Pulse 95; Resp 16; Temp 98; Pulse Ox 98% on R/A; ak1 00:36 BP 118 / 77; Pulse 83; Resp 16; Temp 98.1; Pulse Ox 98% on R/A; ak1 02:12 BP 89 / 45; Pulse 84; Resp 17; Temp 98.1; Pulse Ox 97% on R/A; ak1 02:26 BP 90 / 58; Pulse 84; Resp 14; Pulse Ox 97% on R/A; ak1 02:47 BP 106 / 69; Pulse 83; Resp 17; Temp 98.1; Pulse Ox 97% on R/A; ak1 02/27 23:09 Body Mass Index 28.80 (88.45 kg, 175.26 cm) lp1 ED Course: 02/27 23:01 Patient arrived in ED. al2 23:09 Triage completed. lp1 23:09 Arm band placed on right wrist. lp1 23:15 Patient has correct armband on for positive identification. Placed in gown. Bed in low lp1 position. Side rails up X2. teletypesetter monitor on. Pulse ox on. NIBP on. 23:16 Kemal Aponte MD is Attending Physician. steffanie 23:41 Ange Tracy MD is Hospitalizing Provider. steffanie 23:42 Rosmery Pierson, OVIDIO is Primary Nurse. ak1 23:46 X-ray completed. Portable x-ray completed in exam room. Patient tolerated procedure kw well. 23:47 XRAY Chest (1 view) In Process Unspecified. EDMS 02/28 00:36 No provider procedures requiring assistance completed. Inserted saline lock: 20 gauge ak1 in left forearm, using aseptic technique. ,using aseptic technique. placed by [facility] Blood collected. 00:37 Patient admitted, IV remains in place. ak1 03:[address] via stretcher. kw1 03:39 CT completed. Patient tolerated procedure well. Patient moved back from CT. kw1 04:05 Notified ED physician of a critical lab result(s). troponin 3.57 Dr Aponte notified. bb 07:14 Primary Nurse role handed off by Rosmery Pierosn, OVIDIO sv 07:14 Keila Rodriguez, OVIDIO is Primary Nurse. sv Administered Medications: 02/27 23:52 Not Given (Duplicate Order): morphine 4 mg IVP once steffanie 23:52 Not Given (Duplicate Order): Coreg 12.5 mg PO once; administer with food steffanie 02/28 00:09 Drug: fentaNYL (PF) 25 mcg Route: IVP; Site: left forearm; ak1 00:35 Follow up: Response: No adverse reaction ak1 00:09 Drug: Potassium Effervescent Tablet 25 mEq Route: PO; ak1 00:33 Follow up: Response: No adverse reaction ak1 00:12 Drug: PlaVIX 300 mg Route: PO; ak1 00:33 Follow up: Response: No adverse reaction ak1 00:12 Drug: Zofran 4 mg Route: IVP; Site: left forearm; ak1 00:34 Follow up: Response: No adverse reaction ak1 00:12 Drug: Pepcid 20 mg Route: IVP; Site: left forearm; ak1 00:34 Follow up: Response: No adverse reaction ak1 00:34 Follow up: Response: No adverse reaction ak1 00:13 Drug: Aspirin 81 mg Route: PO; ak1 00:33 Follow up: Response: No adverse reaction ak1 00:13 Drug: Lovenox 1 mg/kg Route: Sub-Q; Site: right lower abdomen; ak1 00:34 Follow up: Response: No adverse reaction ak1 00:13 Drug: Coreg 3.125 mg Route: PO; ak1 00:35 Follow up: Response: No adverse reaction ak1 02:11 Drug: NS 0.9% 500 ml Route: IV; Rate: bolus; Site: left forearm; ak1 02:47 Follow up: IV Status: Completed infusion; IV Intake: 500ml ak1 03:39 Drug: NS 0.9% 500 ml Route: IV; Rate: bolus; Site: left forearm; ak1 04:14 Follow up: IV Status: Completed infusion; IV Intake: 500ml ak1 06:23 Drug: Rocephin - (cefTRIAXone) 2 grams Route: IVPB; Infused Over: 30 mins; Site: left ak1 forearm; 06:53 Follow up: IV Status: Completed infusion ak1 06:23 Drug: Flagyl 500 mg Volume: 100 ml; Route: IVPB; Rate: 200 ml/hr; Infused Over: 30 ak1 mins; Site: left forearm; 06:52 Follow up: IV Status: Completed infusion ak1 Point of Care Testing: Blood Glucose: 02/27 23:05 Blood Glucose: 213 mg/dL; ms 02/28 05:50 Blood Glucose: 175 mg/dL; lt1 Ranges: Intake: 02:47 IV: 500ml; Total: 500ml. ak1 04:14 IV: 500ml; Total: 1000ml. ak1 Output: 02/27 23:46 Stool: 1 (Formed Stool) ; Total: 0ml. lt1 Outcome: 23:42 Decision to Hospitalize by Provider. [facility] 02/28 00:37 Condition: stable ak1 Instructed on the need for admit. 06:26 Admitted to ER Hold. Please see [facility] for further documentation. ak1 08:44 Admitted to [facility] accompanied by nurse, accompanied by tech, family with patient, sv via stretcher, on monitor, with chart. 08:44 Patient left the ED. sv Signatures: Dispatcher [employer] EDKeila Caruso RN RN Kemal Vergara MD MD cha Ballard, Brenda, RN RN Sondra Maharaj ms, Jasmin Lennon RN RN lp1 Rosmery Pierson RN RN ak1 Manda Ardon Angelica al2 Tran, Leah 1
--- NOTE | 2018-02-27 23:43 | EDPHYS ---
Physician Documentation [facility] Name: Musa Lindsay Age: 77 yrs Sex: Male : 1940 Arrival Date: 02/27/2018 Time: 23:01 Bed 3 Private MD: ED Physician Kemal Aponte HPI: 02/27 23:37 This 77 yrs old Male presents to ER via EMS with complaints of Chest Pain. steffanie 23:37 The patient or guardian reports chest pain that is located primarily in the substernal steffanie area. Onset: just prior to arrival, today. The pain does not radiate. Associated signs and symptoms: Pertinent positives: shortness of breath. The chest pain is described as a heaviness, causing indigestion, a pressure, sharp. Duration: The patient or guardian reports a single episode, that is still ongoing. Modifying factors: The symptoms are alleviated by nothing. the symptoms are aggravated by nothing. Severity of pain: At its worst the pain was severe in the emergency department the pain has improved moderately. The patient has experienced similar episodes in the past, multiple times. Historical: - Allergies: 23:13 NKA; lp1 - Home Meds: 23:13 Crestor 10 mg Oral tab 1 tab once daily [Active]; carvedilol 12.5 mg oral tab 2 times lp1 per day [Active]; Plavix 75 mg Oral tab 1 tab once daily [Active]; tramadol 50 mg oral tab twice a day [Active]; temazepam 15 mg oral cap once daily [Active]; clonazepam 0.5 mg oral tab 2 times per day [Active]; glimepiride 4 mg oral tab twice a day [Active]; finasteride 5 mg oral tab 1 tab once daily [Active]; - PMHx: 23:13 Diabetes - NIDDM; High Cholesterol; Hypertension; Hypothyroidism; Myocardial lp1 infarction; CHF; - PSHx: 23:13 Heart stents; Heart Surgery; lp1 - Immunization history:: Adult Immunizations up to date. - Ebola Screening: : No symptoms or risks identified at this time. - Social history:: Smoking status: Patient uses tobacco products, smokes one-half pack cigarettes per day. - Family history:: not pertinent, pertinent for diabetes, heart disease. ROS: 23:37 Constitutional: Negative for fever, chills, and weight loss, Eyes: Negative for injury, steffanie pain, redness, and discharge, ENT: Negative for injury, pain, and discharge, Neck: Negative for injury, pain, and swelling, Respiratory: Negative for shortness of breath, cough, wheezing, and pleuritic chest pain, Abdomen/GI: Negative for abdominal pain, nausea, vomiting, diarrhea, and constipation, Back: Negative for injury and pain, : Negative for injury, bleeding, discharge, and swelling, MS/Extremity: Negative for injury and deformity, Skin: Negative for injury, rash, and discoloration, Neuro: Negative for headache, weakness, numbness, tingling, and seizure, Psych: Negative for depression, anxiety, suicide ideation, homicidal ideation, and hallucinations, Allergy/Immunology: Negative for hives, rash, and allergies, Endocrine: Negative for neck swelling, polydipsia, polyuria, polyphagia, and marked weight changes, Hematologic/Lymphatic: Negative for swollen nodes, abnormal bleeding, and unusual bruising. 23:37 Cardiovascular: Positive for chest pain, of the chest. Exam: 23:37 Constitutional: This is a well developed, well nourished patient who is awake, alert, steffanie and in no acute distress. Head/Face: Normocephalic, atraumatic. Eyes: Pupils equal round and reactive to light, extra-ocular motions intact. Lids and lashes normal. Conjunctiva and sclera are non-icteric and not injected. Cornea within normal limits. Periorbital areas with no swelling, redness, or edema. ENT: Nares patent. No nasal discharge, no septal abnormalities noted. Tympanic membranes are normal and external auditory canals are clear. Oropharynx with no redness, swelling, or masses, exudates, or evidence of obstruction, uvula midline. Mucous membranes moist. Neck: Trachea midline, no thyromegaly or masses palpated, and no cervical lymphadenopathy. Supple, full range of motion without nuchal rigidity, or vertebral point tenderness. No Meningismus. Chest/axilla: Normal chest wall appearance and motion. Nontender with no deformity. No lesions are appreciated. Abdomen/GI: Soft, non-tender, with normal bowel sounds. No distension or tympany. No guarding or rebound. No evidence of tenderness throughout. Back: No spinal tenderness. No costovertebral tenderness. Full range of motion. Male : Normal genitalia with no discharge or lesions. Skin: Warm, dry with normal turgor. Normal color with no rashes, no lesions, and no evidence of cellulitis. MS/ Extremity: Pulses equal, no cyanosis. Neurovascular intact. Full, normal range of motion. Neuro: Awake and alert, GCS 15, oriented to person, place, time, and situation. Cranial nerves II-XII grossly intact. Motor strength 5/5 in all extremities. Sensory grossly intact. Cerebellar exam normal. Normal gait. Psych: Awake, alert, with orientation to person, place and time. Behavior, mood, and affect are within normal limits. 23:37 Cardiovascular: Rate: normal, Rhythm: regular, Pulses: Pulses are 4+ in bilateral radial, brachial, femoral, popliteal, posterior tibial and and dorsalis pedis arteries.. Heart sounds: normal, Edema: is not appreciated, JVD: is not appreciated. Vital Signs: 23:09 BP 108 / 68; Pulse 88; Resp 14; Temp 98(O); Pulse Ox 98% on R/A; Weight 88.45 kg; lp1 Height 5 ft. 9 in. (175.26 cm); Pain 8/10; 02/28 00:13 BP 92 / 68; Pulse 95; Resp 16; Temp 98; Pulse Ox 98% on R/A; ak1 00:36 BP 118 / 77; Pulse 83; Resp 16; Temp 98.1; Pulse Ox 98% on R/A; ak1 02:12 BP 89 / 45; Pulse 84; Resp 17; Temp 98.1; Pulse Ox 97% on R/A; ak1 02:26 BP 90 / 58; Pulse 84; Resp 14; Pulse Ox 97% on R/A; ak1 02:47 BP 106 / 69; Pulse 83; Resp 17; Temp 98.1; Pulse Ox 97% on R/A; ak1 02/27 23:09 Body Mass Index 28.80 (88.45 kg, 175.26 cm) lp1 MDM: 02/27 23:16 Patient medically screened. [facility] 23:37 Data reviewed: vital signs, nurses notes, lab test result(s), EKG, radiologic studies, steffanie plain films. 02/27 23:05 Order name: glucometer results - FOR PT WITH NO ID; Complete Time: 01:21 ms 02/28 02:04 Interpretation: GLUCATNOID 213. [facility] 02/27 23:06 Order name: Basic Metabolic Panel; Complete Time: 23:53 lp1 02/27 23:06 Order name: CBC with Diff; Complete Time: 23:37 1 02/27 23:06 Order name: LFT's; Complete Time: 23:53 lp1 02/27 23:06 Order name: Magnesium; Complete Time: 23:53 lp1 02/27 23:06 Order name: NT PRO-BNP; Complete Time: 23:53 lp1 02/27 23:06 Order name: PT-INR; Complete Time: 23:53 lp1 02/27 23:06 Order name: Troponin (emerg Dept Use Only); Complete Time: 23:53 lp1 02/27 23:37 Order name: Urine Culture [facility] 02/28 04:04 Order name: Lipid Profile; Complete Time: 04:05 EDPR 02/28 04:06 Order name: Troponin I EDPR 02/28 04:59 Order name: Urine Dipstick--Ancillary (enter results) ag4 02/28 05:07 Order name: Urine Dipstick-Ancillary EDPR 02/28 06:47 Order name: Glucose, Ancillary Testing EDPR 02/27 23:06 Order name: XRAY Chest (1 view) [facility] 02/28 01:23 Order name: CT Aorta for Dissection [facility] 02/28 06:47 Order name: Glucose, Ancillary Testing EDPR 02/28 08:18 Order name: CT EDPR 02/27 23:06 Order name: EKG; Complete Time: 23:07 [facility] 02/27 23:06 Order name: Cardiac monitoring; Complete Time: 23:14 [facility] 02/27 23:06 Order name: EKG - Nurse/Tech; Complete Time: 23:14 1 02/27 23:06 Order name: IV Saline Lock; Complete Time: 23:14 [facility] 02/27 23:06 Order name: Labs collected and sent; Complete Time: 23:14 [facility] 02/27 23:06 Order name: O2 Per Protocol; Complete Time: 23:14 [facility] 02/27 23:06 Order name: O2 Sat Monitoring; Complete Time: 23:14 [facility] 02/27 23:37 Order name: Urine Dipstick-Ancillary (obtain specimen); Complete Time: 05:13 [facility] Administered Medications: 23:52 Not Given (Duplicate Order): morphine 4 mg IVP once steffanie 23:52 Not Given (Duplicate Order): Coreg 12.5 mg PO once; administer with food steffanie 02/28 00:09 Drug: fentaNYL (PF) 25 mcg Route: IVP; Site: left forearm; ak1 00:35 Follow up: Response: No adverse reaction ak1 00:09 Drug: Potassium Effervescent Tablet 25 mEq Route: PO; ak1 00:33 Follow up: Response: No adverse reaction ak1 00:12 Drug: PlaVIX 300 mg Route: PO; ak1 00:33 Follow up: Response: No adverse reaction ak1 00:12 Drug: Zofran 4 mg Route: IVP; Site: left forearm; ak1 00:34 Follow up: Response: No adverse reaction ak1 00:12 Drug: Pepcid 20 mg Route: IVP; Site: left forearm; ak1 00:34 Follow up: Response: No adverse reaction ak1 00:34 Follow up: Response: No adverse reaction ak1 00:13 Drug: Aspirin 81 mg Route: PO; ak1 00:33 Follow up: Response: No adverse reaction ak1 00:13 Drug: Lovenox 1 mg/kg Route: Sub-Q; Site: right lower abdomen; ak1 00:34 Follow up: Response: No adverse reaction ak1 00:13 Drug: Coreg 3.125 mg Route: PO; ak1 00:35 Follow up: Response: No adverse reaction ak1 02:11 Drug: NS 0.9% 500 ml Route: IV; Rate: bolus; Site: left forearm; ak1 02:47 Follow up: IV Status: Completed infusion; IV Intake: 500ml ak1 03:39 Drug: NS 0.9% 500 ml Route: IV; Rate: bolus; Site: left forearm; ak1 04:14 Follow up: IV Status: Completed infusion; IV Intake: 500ml ak1 06:23 Drug: Rocephin - (cefTRIAXone) 2 grams Route: IVPB; Infused Over: 30 mins; Site: left ak1 forearm; 06:53 Follow up: IV Status: Completed infusion ak1 06:23 Drug: Flagyl 500 mg Volume: 100 ml; Route: IVPB; Rate: 200 ml/hr; Infused Over: 30 ak1 mins; Site: left forearm; 06:52 Follow up: IV Status: Completed infusion ak1 Point of Care Testing: Blood Glucose: 02/27 23:05 Blood Glucose: 213 mg/dL; ms 02/28 05:50 Blood Glucose: 175 mg/dL; lt1 Ranges: Critical Glucose Levels:Adult <50 mg/dl or >400 mg/dl <40 mg/dl or >180 mg/dl Disposition: 02/27/18 23:42 Hospitalization ordered by Ange Tracy for Inpatient Admission. Preliminary diagnosis are Chest pain, unspecified, Dyspnea, Tobacco abuse counseling, Tobacco use, Hypotension - resolved, Obesity, unspecified, Hypokalemia, Diverticular disease of intestine, Diverticulitis of large intestine without perforation or abscess without bleeding - sigmoid. - Bed requested for [facility] ER HOLD. - Status is Inpatient Admission. sv - Condition is Fair. - Problem is new. - Symptoms have improved. UTI on Admission? No Signatures: Dispatcher [employer] EDMS Keila Rodriguez RN RN sv Dottie Moore RN Kemal Ellis MD MD cha Pena, Laura RN RN lp1 Rosmery Pierson RN RN ak1 Corrections: (The following items were deleted from the chart) 02/27 23:43 23:42 Hospitalization Ordered by Ange Tracy MD for Observation. Preliminary [facility] diagnosis is Chest pain, unspecified; Dyspnea; Tobacco abuse counseling; Tobacco use. Bed requested for Telemetry/MedSurg (observation). Status is Observation. Condition is Fair. Problem is new. Symptoms have improved. UTI on Admission? No. steffanie 23:46 23:43 02/27/2018 23:42 Hospitalization Ordered by Ange Tracy MD for Observation. steffanie Preliminary diagnosis is Chest pain, unspecified; Dyspnea; Tobacco abuse counseling; Tobacco use; Hypotension - resolved. Bed requested for Telemetry/MedSurg (observation). Status is Observation. Condition is Fair. Problem is new. Symptoms have improved. UTI on Admission? No. steffanie 23:54 23:46 02/27/2018 23:42 Hospitalization Ordered by Ange Tracy MD for Observation. steffanie Preliminary diagnosis is Chest pain, unspecified; Dyspnea; Tobacco abuse counseling; Tobacco use; Hypotension - resolved; Obesity, unspecified. Bed requested for Telemetry/MedSurg (observation). Status is Observation. Condition is Fair. Problem is new. Symptoms have improved. UTI on Admission? No. steffanie 02/28 00:00 01 23:54 02/27/2018 23:42 Hospitalization Ordered by Ange Tracy MD for mw Observation. Preliminary diagnosis is Chest pain, unspecified; Dyspnea; Tobacco abuse counseling; Tobacco use; Hypotension - resolved; Obesity, unspecified; Hypokalemia. Bed requested for Telemetry/MedSurg (observation). Status is Observation. Condition is Fair. Problem is new. Symptoms have improved. UTI on Admission? No. steffanie 02/28 02:04 02:04 Abnormal: GLUCATNOID [facility]. [facility] 02:13 00:00 02/27/2018 23:42 Hospitalization Ordered by Ange Tracy MD for Observation. [facility] Preliminary diagnosis is Chest pain, unspecified; Dyspnea; Tobacco abuse counseling; Tobacco use; Hypotension - resolved; Obesity, unspecified. Bed requested for Telemetry/MedSurg (observation). Status is Observation. Condition is Fair. Problem is new. Symptoms have improved. UTI on Admission? No. mw 02:19 02:13 02/27/2018 23:42 Hospitalization Ordered by Ange Tracy MD for Inpatient Admission. Preliminary diagnosis is Chest pain, unspecified; Dyspnea; Tobacco abuse counseling; Tobacco use; Hypotension - resolved; Obesity, unspecified; Hypokalemia. Bed requested for Intensive Care Unit. Status is Inpatient Admission. Condition is Fair. Problem is new. Symptoms have improved. UTI on Admission? No. steffanie 06:07 02:19 02/27/2018 23:42 Hospitalization Ordered by Ange Tracy MD for Inpatient [facility] Admission. Preliminary diagnosis is Chest pain, unspecified; Dyspnea; Tobacco abuse counseling; Tobacco use; Hypotension - resolved; Obesity, unspecified; Hypokalemia. Bed requested for [facility] ER HOLD. Status is Inpatient Admission. Condition is Fair. Problem is new. Symptoms have improved. UTI on Admission? No. mw 08:44 06:07 02/27/2018 23:42 Hospitalization Ordered by Ange Tracy MD for Inpatient Admission. Preliminary diagnosis is Chest pain, unspecified; Dyspnea; Tobacco abuse counseling; Tobacco use; Hypotension - resolved; Obesity, unspecified; Hypokalemia; Diverticular disease of intestine; Diverticulitis of large intestine without perforation or abscess without bleeding - sigmoid. Bed requested for [facility] ER HOLD. Status is Inpatient Admission. Condition is Fair. Problem is new. Symptoms have improved. UTI on Admission? No. steffanie
[2018-02-27 23:48] LABS: Potassium 3.4 mmol/L (3.5-5.1)
[2018-02-27 23:49] LABS: Albumin 3.6 g/dL (3.4-5.0); Bilirubin Direct 0.3 mg/dL (0-0.2); Bilirubin Total 0.9 mg/dL (0.2-1.0); Magnesium 2.3 mg/dL (1.8-2.4); Protein, Total 7.2 g/dL (6.4-8.2); Troponin (Emerg Dept Use Only) 0.02 ng/mL (0.0-0.045)
[2018-02-28] MEDS ORDERED: CLOPIDOGREL 75 MG TABLET ONE (00:06)
[2018-02-28] MEDS ORDERED: CARVEDILOL 6.25 MG TAB ONE (00:06)
[2018-02-28] MEDS ORDERED: ASPIRIN 81 MG CHEWABLE TABLET ONE (00:06)
[2018-02-28] MEDS ORDERED: FENTANYL CITR 100 MCG/2 ML ONE ×2 (00:06→08:39)
[2018-02-28] MEDS ORDERED: ONDANSETRON 4 MG/2 ML VIAL ONE (00:07)
[2018-02-28] MEDS ORDERED: ENOXAPARIN 80 MG/0.8 ML SQ ONE (00:07)
[2018-02-28] MEDS ORDERED: FAMOTIDINE 20 MG/2 ML VIAL IV ONE (00:07)
[2018-02-28] MEDS ORDERED: POTASSIUM 25 MEQ EFFERV TAB ONE (00:07)
[2018-02-28] MEDS ORDERED: NA CHLORIDE 0.9% 1,000 ML ONE ×2 (02:16→05:14)
[2018-02-28] MEDS ORDERED: ACETAMINOPHEN 500 MG TAB PO PRN (02:47)
[2018-02-28] MEDS ORDERED: ONDANSETRON 4 MG/2 ML VIAL IV PRN (04:54)
--- NOTE | 2018-02-28 04:57 | P.HP ---
Certification for Inpatient Patient admitted to: Observation With expected LOS: <2 Midnights Practitioner: I am a practitioner with admitting privileges, knowledge of patient current condition, hospital course, and medical plan of care. Services: Services provided to patient in accordance with Admission requirements found in Title 42 Section 412.3 of the Code of Federal Regulations Patient History Date of Service: 02/27/18 Reason for admission: NSTEMI History of Present Illness: Mr Lindsay is a 77 years old male with history of CAD, HTN, DM II, Tobacco abuse , who came to ED complaining severe chest pain, substernal, no radiation, 10/10 of intensity, started 45 minutes prior to arrive, he took 3 Nitros SL without relieve, associated with nausea, vomiting and diaphoresis. He denied SOB. His pain was similar to his previous LA in 2000. At arrival, initial troponin I was negative, however, subsequent was 3.57. EKG shows SR with RBBB similar to prvious EKG. CT dissection shows no dissection, awaiting radiology report. His blood pressure was on the lower side. Allergies No Known Allergies Allergy (Verified 04/07/17 03:07) Home Medications: Carvedilol [Coreg*] 1 tab PO BID 04/07/17 Glimepiride 1 tab PO BID 04/07/17 Temazepam [Restoril*] 1 cap PO BEDTIME PRN PRN 04/07/17 Tramadol HCl [Ultram] 50 mg PO BID 04/07/17 clonazePAM [Klonopin*] 1 tab PO BIDP PRN 04/07/17 Clopidogrel Bisulfate [Plavix*] 75 mg PO DAILY #30 tablet 04/12/17 Finasteride [Proscar] 5 mg PO DAILY 02/28/18 Rosuvastatin [Crestor] 10 mg PO DAILY 02/28/18 - Past Medical/Surgical History Has patient received pneumonia vaccine in the past: Yes Diabetic: Yes -: HTN -: CAD -: Hyperlipidemia -: NIDDM -: INOPERABLE CAD -: LA -: Hypothyroidism -: Cholecystectomy -: Heart Bypass-2000 -: Cardiac stents x5 - Family History Father -: Cancer, Other (see notes) Notes: prostate cancer Mother -: Diabetes - Social History Smoking Status: Current every day smoker Alcohol use: No CD- Drugs: No Caffeine use: Yes Place of Residence: Home Review of Systems 10-point ROS is otherwise unremarkable Physical Examination - Vital Signs Temperature: 98.1 F Blood Pressure: 126/59 Pulse: 80 Respirations: 20 Pulse Ox (%): 100 - Physical Exam General: Alert, In no apparent distress HEENT: Atraumatic, PERRLA, Mucous membr. moist/pink, EOMI, Sclerae nonicteric Neck: Supple, 2+ carotid pulse no bruit, No LAD, Without JVD or thyroid abnormality Respiratory: Diminished, Rhonchi/gurgles Cardiovascular: Regular rate/rhythm, Normal S1 S2 Gastrointestinal: Normal bowel sounds, No tenderness Musculoskeletal: No tenderness Integumentary: No rashes Neurological: Normal speech, Normal strength at 5/5 x4 extr, Normal tone, Normal affect Lymphatics: No axilla or inguinal lymphadenopathy - Studies Laboratory Data (last 24 hrs) 02/27/18 23:00: PT 13.0 H, INR 1.10 02/27/18 23:00: WBC 10.7 D, Hgb 14.7, Hct 44.0, Plt Count 194 02/27/18 23:00: Sodium 141, Potassium 3.4 L, BUN 21 H, Creatinine 0.96, Glucose 214 H, Magnesium 2.3, Total Bilirubin 0.9, AST 14 L, ALT 29, Alkaline Phosphatase 84 Assessment and Plan - Problems (Diagnosis) (1) NSTEMI (non-ST elevated myocardial infarction) Current Visit: Yes Status: Acute (2) Chest pain Onset Date: 03/15/16 Current Visit: No Status: Active (3) Diabetes Onset Date: 06/22/16 Current Visit: No Status: Chronic Qualifiers: Diabetes mellitus type: type 2 Diabetes mellitus chcf insulin use: without regional intermodal truck driver use Diabetes mellitus complication status: with other specified complication Qualified Code(s): E11.69 - Type 2 diabetes mellitus with other specified complication (4) HTN (hypertension) Onset Date: 06/22/16 Current Visit: No Status: Chronic Qualifiers: Hypertension type: essential hypertension Qualified Code(s): I10 - Essential (primary) hypertension (5) Hyperlipidemia Onset Date: 06/22/16 Current Visit: No Status: Chronic Qualifiers: Hyperlipidemia type: unspecified (6) Type 2 diabetes mellitus with diabetic peripheral angiopathy without gangrene Current Visit: No Status: Chronic Qualifiers: Diabetes mellitus chcf insulin use: without chcf use Qualified Code(s): E11.51 - Type 2 diabetes mellitus with diabetic peripheral angiopathy without gangrene - Plan The patient was admitted to the hospital due to chest pain, initial troponin I was mormal, subsequent significant elevated, EKG also has been changed showing ST depression in V2-V3 possible consistent with a posterior acute LA vs NSTEMI. Will continue with ASA, Plavix, Full dose lovenox, Statins, Ballistics Teacher has been contacted, aggreed with current medical treatement. Will prepare the patient for emergenct cardiac cath. - Advance Directives Does patient have a Living Will: No Does patient have a Durable POA for Healthcare: No - Code Status/Comfort Care Code Status Assessed: Yes Code Status: Full Code
[2018-02-28 05:09] LABS: Urine Blood NEGATIVE (NEG); Urine Glucose NEGATIVE (NEG); Urine Protein 2+ (NEG); Urine pH 6.5 (5.0-7.0)
[2018-02-28] MEDS: NA CHLORIDE 0.9% 1,000 ML IV SCH ×2 (05:18→15:40)
[2018-02-28] MEDS ORDERED: PROMETHAZINE 25 MG/ML VIAL IV ONE (05:24)
[2018-02-28] MEDS ORDERED: PROMETHAZINE 25 MG/ML VIAL ONE (05:31)
[2018-02-28] MEDS: INSULIN -REGULAR HUMAN 50 UNIT/0.5 ML ML SQ SCH ×4 (06:00→21:00)
[2018-02-28] MEDS ORDERED: NA CHLORIDE 0.9% 100 ML IV ONE (06:24)
[2018-02-28] MEDS ORDERED: CEFTRIAXONE 1000 MG/VIAL ONE (06:24)
[2018-02-28] MEDS ORDERED: METRONIDAZOLE 500mg IVPB 500 MG/100 ML BAG IV ONE (06:24)
--- NOTE | 2018-02-28 07:33 | EKG ---
Test Date: 2018-02-28 Test Time: 04:58:16 Nursing Unit Coordinator: MEASUREMENT RESULTS: Intervals: Rate: 77 [place]: 146 QRSD: 138 QT: 456 QTc: 516 [place]: P: 21 [place]: 146 QRS: -73 T: -1 INTERPRETIVE STATEMENTS: Normal sinus rhythm Right bundle branch block Left axis Abnormal ECG Compared to ECG 02/28/2018 04:09:52 no significant change from previous ECG Electronically Signed On 02-28-18 07:32:59 OPEN TENTER OPERATOR by Andrey Fontaine
--- NOTE | 2018-02-28 07:33 | EKG ---
Test Date: 2018-02-28 Test Time: 05:24:53 Jump Iron Machine Presser: MEASUREMENT RESULTS: Intervals: Rate: 78 [place]: 140 QRSD: 144 QT: 444 QTc: 506 [place]: P: 16 HI: 140 QRS: -72 T: 27 INTERPRETIVE STATEMENTS: Normal sinus rhythm Left axis deviation Nonspecific intraventricular block Cannot rule out Anterior infarct, age undetermined Abnormal ECG Compared to ECG 02/28/2018 04:58:16 Left-axis deviation now present Myocardial infarct finding now present Right bundle-branch block no longer present Electronically Signed On 02-28-18 07:32:29 MOUNTAIN OR GLACIER GUIDE by Andrey Fontaine
--- NOTE | 2018-02-28 07:34 | EKG ---
Test Date: 2018-02-28 Test Time: 04:09:52 [place] Rafting Guide: HUMAIRA MEASUREMENT RESULTS: Intervals: Rate: 77 [place]: 146 QRSD: 138 QT: 452 QTc: 511 [place]: P: 24 [place]: 146 QRS: -71 T: -18 INTERPRETIVE STATEMENTS: Normal sinus rhythm Right bundle branch block Left axis Abnormal ECG Compared to ECG 10/29/2017 02:15:37 no significant change from previous ECG Electronically Signed On 02-28-18 07:33:31 BOX SORTER by Andrey Fontaine
[2018-02-28] MEDS ORDERED: INFLUENZA VACCINE (for 3y+) 0.5 ML DOSE IMVAC ONE (08:00)
--- NOTE | 2018-02-28 08:18 | RAD REPORT ---
EXAM DESCRIPTION: CT - Angio Aorta For Dissection - 02/28/2018 3:39 am CLINICAL HISTORY: . Chest and abdominal pain COMPARISON: CT abdomen May 2001 TECHNIQUE: Computed tomography angiography of the chest, abdomen pelvis were obtained. 100 cc Isovue 370 was administered intravenously. Coronal and sagittal reconstruction were performed. Preliminary report generated by virtual radiologic and reviewed prior to dictation MIP 3D reconstruction was performed. 40 cc of contrast infiltrated into the arm. Patient's nurse was notified. All CT scans are performed using dose optimization technique as appropriate and may include automated exposure control or mA/KV adjustment according to patient size. FINDINGS: An aortic dissection is not seen. An aortic aneurysm is not displayed. Bovine aorta. Thro mbus within the left proximal superficial femoral artery results in a 95% stenosis The celiac, SMA and MAO are patent . A lung consolidation is not present. A pericardial effusion is not seen. A pleural effusion is not n oted. The liver,spleen, pancreas adrenals kidneys demonstrate no significant abnormality. The appendix is normal. Mild stranding adjacent to the proximal sigmoid colon is seen. Diverticulosis present. Small inguinal hernias contain fat IMPRESSION: Negative for an aortic dissection. Thrombus within the left proximal superficial femoral artery results in a 95% stenosis Mild sigmoid diverticulitis
--- NOTE | 2018-02-28 08:19 | RAD REPORT ---
EXAM DESCRIPTION: Lisseth Single View02/27/2018 11:53 pm CLINICAL HISTORY: Chest pain COMPARISON: October 2017 FINDINGS: The lungs appear clear of acute infiltrate. The heart is mildly enlarged. Postsurgical changes involve the chest. IMPRESSION: No acute abnormalities displayed
[2018-02-28] MEDS ORDERED: MIDAZOLAM HCL 2 MG/2 ML INJ ONE (08:38)
[2018-02-28] MEDS ORDERED: ATROPINE SULF 1 MG/10 ML SYR IV ONE (08:39)
[2018-02-28] MEDS ORDERED: NA CHLORIDE 0.9% 0 ML ONE ×2 (08:39→08:58)
[2018-02-28] MEDS ORDERED: LIDOCAINE 1% MPF 5 ML VIAL ONE (08:40)
[2018-02-28] MEDS ORDERED: HEPA 1000U/500MLS 1,000 UNIT/500 ML BAG IV ONE ×2 (08:44→08:45)
[2018-02-28] MEDS: CLOPIDOGREL 75 MG TABLET PO SCH (09:00)
[2018-02-28] MEDS ORDERED: ENOXAPARIN 40 MG/0.4 ML SQ SCH (09:00)
[2018-02-28] MEDS: ASPIRIN EC 81 MG TAB PO SCH (09:00)
[2018-02-28] MEDS ORDERED: ENOXAPARIN 100 MG/ML SYR SQ SCH (09:00)
[2018-02-28] MEDS ORDERED: NITROGLYCERIN 0.4 MG/TAB SL PRN (12:00)
[2018-02-28] MEDS ORDERED: ACETAMINOPHEN 325 MG TABLET PO PRN (12:00)
[2018-02-28] MEDS: ROSUVASTATIN 10 MG TAB PO SCH (12:54)
[2018-02-28] MEDS: TRAMADOL HCL 50 MG TAB PO SCH ×2 (14:59→21:18)
[2018-02-28] MEDS: CARVEDILOL 12.5 MG TAB PO SCH ×2 (14:59→21:18)
[2018-02-28] MEDS: FINASTERIDE 5 MG TAB PO SCH (14:59)
--- NOTE | 2018-02-28 15:29 | P.PN ---
Date of Service: 02/28/18 Patient seen and examined at bedside with RN. Chart reviewed. Case discussed with cardiology. Currently patient is status post cardiac catheterization. No stand needed. Patient with previous bypass surgeries. The occluded OM and RCA graft. However LAD, OM a, RCA still patent. No further surgical intervention required. Cardiology recommended medical management at this time. Will observe patient for next 24-48 hr. Most likely discharge in next 24-48 hr after observations.
[2018-02-28] MEDS ORDERED: D50W 25 GM/50 ML SYRINGE IV PRN (21:05)
[2018-02-28] MEDS ORDERED: GLUCAGON 1 MG/VIAL IM PRN (21:05)
[2018-02-28] MEDS: TEMAZEPAM 15 MG CAP PO PRN (21:18)
[2018-03-01 06:07] VITALS: BMI 31.4
[2018-03-01] MEDS: INSULIN -REGULAR HUMAN 50 UNIT/0.5 ML ML SQ SCH ×4 (07:30→20:27)
[2018-03-01] MEDS: FINASTERIDE 5 MG TAB PO SCH (09:20)
[2018-03-01] MEDS: TRAMADOL HCL 50 MG TAB PO SCH ×2 (09:20→20:25)
[2018-03-01] MEDS: CLOPIDOGREL 75 MG TABLET PO SCH (09:20)
[2018-03-01] MEDS: ASPIRIN EC 81 MG TAB PO SCH (09:20)
[2018-03-01] MEDS: ROSUVASTATIN 10 MG TAB PO SCH (09:20)
[2018-03-01] MEDS: CARVEDILOL 12.5 MG TAB PO SCH ×2 (09:21→20:26)
--- NOTE | 2018-03-01 11:44 | CON ---
Date of Consultation: 02/28/2018 Reason For Request: Non-ST elevation myocardial infarction. History Of Present Illness: Mr. Lindsay is a 77-year-old male. He typically sees Dr. Fischer. He has had a complicated past medical history. He has had a history of coronary artery di sease. He has had coronary artery bypass surgery with a vein graft to the OM, vein graft to the RCA, and the WESTBROOK to the LAD. Since his bypass surgery, he underwent a stent to the graft to the RCA. Jeanne figueroa also has a history of congestive heart failure, hypothyroidism, hypertension, diabetes, and dyslipi demia. Apparently, has not taken his medications for approximately a week and came in with severe ch est pain radiating to the back of the shoulders with shortness of breath, nausea and diaphoresis that has been going on for approximately 12 hours. He denied any PND, orthopnea, pedal edema, palpitatio ns, or syncope. In the emergency room, his troponin was 3.57. His EKG showed right bundle-branch bl ock. Chest x-ray is negative. He was also found to have a stenosis in the left SFA by CT angiogram. Past Medical History: As stated above his. Allergies: NONE. Review of Systems: Negative. Social History: Negative. Family History: Positive for diabetes and heart disease. Medications: At home include Coreg, Plavix, Proscar, glimepiride, Crestor, Ultram, Restoril, and Klo nopin. Physical Examination: General: Mr. Lindsay was obese. He was in no acute distress. Vital Signs: Stable. He was afebrile. He was in a sinus rhythm. HEENT: Negative. Neck: Supple without any bruit, lymphadenopathy, JVD, or thyromegaly. Chest: Clear to auscultation and percussion. Cardiac: Revealed a regular rhythm and rate with S4 gallops. He also had an aortic sclerosis murmur . No rubs. Abdomen: Obese, but benign. Extremities: Revealed trace edema. Skin: Dry and intact. Pulses were decreased bilaterally in the dorsalis pedis and posterior tibial. Neurologic: He was nonfocal. Diagnostic Data: As stated earlier. Impression And Plan: 1.Non-ST elevation myocardial infarction in a patient with history of coronary artery disease status post bypass to the obtuse marginal and right coronary artery, and the left internal mammary artery t o the left anterior descending. He is status post right coronary artery graft stent as well. He has already received some Lovenox, aspirin, and beta-blockers. I will proceed with a left heart cathete rization today. He understands the risk and the benefits of the procedure, and he agreed to proceed. He needs to be on his medications at home, which do include Plavix and Crestor. 2.Left superficial femoral artery stenosis, possibly a thrombus by CT of the abdomen. We will deal with that later. No symptoms in that regard. 3.Right bundle branch block. 4.Diabetes. 5.Benign prostatic hypertrophy. 6.Hypothyroidism. 7.Dyslipidemia. 8.Hypertension, well controlled. 9.History of congestive heart failure, chronic systolic, that is stable. We will see what the heart catheterization showed. Continue present therapy. I will discuss the case further with Dr. Frost. LETICIA/MARY Voice ID: [id number] Report ID: [id number]
--- NOTE | 2018-03-01 16:26 | P.PN ---
Subjective Date of Service: 03/01/18 Primary Care Provider: Dr. Santos; Cardiology-Dr. Fischer Chief Complaint: NSTEMI Subjective: Improving Physical Examination - Vital Signs Temperature: 97.9 F Blood Pressure: 131/73 Pulse: 73 Respirations: 20 Pulse Ox (%): 97 - Physical Exam General: Alert, In no apparent distress, Oriented x3, Cooperative HEENT: Atraumatic Neck: Supple Respiratory: Clear to auscultation bilaterally, Normal air movement Cardiovascular: Normal pulses, Regular rate/rhythm Gastrointestinal: Normal bowel sounds, Soft and benign, Non-distended Musculoskeletal: No erythema, No tenderness, No warmth Integumentary: No erythema, No warmth, No cyanosis Neurological: Normal speech, Normal strength at 5/5 x4 extr, Normal tone, Normal affect - Studies Medications List Reviewed: Yes Assessment & Plan Discharge Plan: Home Plan to discharge in: 24 Hours Physician Review Additional Text: Impression: Non ST wave [place] with history of CAD and CABG status post heart catheterization Left superficial femoral artery stenosis Right bundle branch block Diabetes mellitus type 2 Benign prostatic hyperplasia Hypothyroidism Hyperlipidemia Hypertension Chronic systolic CHF Plan: Non ST wave MO with history of CAD and CABG status post heart catheterization: Cardiology was performed heart catheterization. Case reviewed with cardiology. Continue with medical management. Will transfer patient to the floor. Will have physical therapy ambulate. Anticipate discharge in the next 24 hr. Left superficial femoral artery stenosis: Will monitor closely. Will discuss with cardiology. Right bundle branch block: Will continue to monitor. Diabetes mellitus type 2: Continue sliding scale. Will check A1c. Benign prostatic hyperplasia: Continue the medication Hypothyroidism: Will need to verify him home medication. Will check tsh. Continue the medication. Hyperlipidemia: Continue medication. Hypertension: Continue to adjust medication. Chronic systolic CHF: Continue the medication. Encourage 1500 cc per day fluid restriction. Time Spent Managing Pts Care (In Minutes): 55
[2018-03-01] MEDS ORDERED: INFLUENZA VACCINE (for 3y+) 0.5 ML DOSE IMVAC ONE (17:00)
[2018-03-01 17:45] LABS: Thyroid Stimulating Hormone 21.9 uIU/mL (0.360-3.740)
[2018-03-01] MEDS: TEMAZEPAM 15 MG CAP PO PRN (20:29)
[2018-03-02 06:43] LABS: Absolute Lymphocytes (CBC) 1.9 K/uL (0.7-4.9); Absolute Monocytes 0.8 K/uL (0.1-1.3); Absolute Neutrophil 5.2 K/uL (1.8-8.0); Basophils % 0.3 % (0-1.3); Eosinophils % 4.6 % (0-4.4); Hematocrit 44.2 % (39.6-49.0); MPV 8.4 fL (7.6-11.3); Monocytes % 9.7 % (3.3-12.3); RBC Red Blood Cell Count 4.68 M/uL (4.33-5.43)
[2018-03-02 07:09] LABS: BUN Blood Urea Nitrogen 13 mg/dL (7-18); Bicarbonate 26 mmol/L (21-32); Glucose Level 155 mg/dL (74-106); Potassium 3.7 mmol/L (3.5-5.1); Sodium Level 137 mmol/L (136-145)
[2018-03-02] MEDS: INSULIN -REGULAR HUMAN 50 UNIT/0.5 ML ML SQ SCH ×2 (07:30→11:26)
[2018-03-02] MEDS: ROSUVASTATIN 10 MG TAB PO SCH (08:42)
[2018-03-02] MEDS: TRAMADOL HCL 50 MG TAB PO SCH (08:43)
[2018-03-02] MEDS: CARVEDILOL 12.5 MG TAB PO SCH (08:43)
[2018-03-02] MEDS: ASPIRIN EC 81 MG TAB PO SCH (08:43)
[2018-03-02] MEDS: CLOPIDOGREL 75 MG TABLET PO SCH (08:43)
[2018-03-02] MEDS: FINASTERIDE 5 MG TAB PO SCH (08:44)
[2018-03-02 09:09] VITALS: O2SAT 96
--- NOTE | 2018-03-02 11:46 | P.DS ---
Admission Date: 02/28/18 Discharge Date: 03/02/18 Primary Care Provider: Dr. Santos; Cardiology-Dr. Fischer Disposition: ROUTINE DISCHARGE Discharge Condition: GOOD Reason for Admission: NSTEMI Consultations: Cardiology-Dr. Fontaine/Dr. Mcmillan Procedures: CT scan: COMPARISON: CT abdomen May 2001 TECHNIQUE: Computed tomography angiography of the chest, abdomen pelvis were obtained. 100 cc Isovue 370 was administered intravenously. Coronal and sagittal reconstruction were performed. Preliminary report generated by [facility] and reviewed prior to dictation MIP 3D reconstruction was performed. 40 cc of contrast infiltrated into the arm. Patient's nurse was notified. All CT scans are performed using dose optimization technique as appropriate and may include automated exposure control or mA/KV adjustment according to patient size. FINDINGS: An aortic dissection is not seen. An aortic aneurysm is not displayed. Bovine aorta. Thrombus within the left proximal superficial femoral artery results in a 95% stenosis The celiac, SMA and MAO are patent . A lung consolidation is not present. A pericardial effusion is not seen. A pleural effusion is not noted. The liver,spleen, pancreas adrenals kidneys demonstrate no significant abnormality. The appendix is normal. Mild stranding adjacent to the proximal sigmoid colon is seen. Diverticulosis present. Small inguinal hernias contain fat IMPRESSION: Negative for an aortic dissection. Thrombus within the left proximal superficial femoral artery results in a 95% stenosis Mild sigmoid diverticulitis Heart catheterization: Performed and reviewed with cardiology Medical Problem List: Non ST wave [place] with history of CAD and CABG status post heart catheterization Left superficial femoral artery stenosis Right bundle branch block Diabetes mellitus type 2 Benign prostatic hyperplasia Hypothyroidism Hyperlipidemia Hypertension Chronic systolic CHF Brief History of Present Illness: 77-year-old male presented emergency room with chest pain. Patient found to have non ST wave NJ. Patient with history of CAD and CABG. Patient admitted for further evaluation and treatment. Hospital Course: Patient presented with chest pain secondary to non ST wave NJ with history of CAD and CABG. Patient was evaluated by cardiology. Heart catheterization was performed. Cardiology recommends medical management. Patient will need to follow up with cardiology in 1 week to follow up this hospitalization. At discharge he will continue with aspirin 81 mg daily and Plavix 75 mg daily. Compliance with medication will need to be enforced. Patient also found to have left superficial femoral artery stenosis. Case discussed at length with cardiology. Cardiology plans to follow up with his heat treat supervisor as an outpatient. This will need to be addressed within the next 4 weeks. Patient will likely require intervention and treatment. Cardiology also mention that if he is not able to get in contact with his heat treat supervisor the patient can him to address. Patient with diabetes type 2. A1c 8.6. Patient will continue with glimepiride 4 mg twice daily. Recommendation is to maintain blood sugars less 140 fasting and less than 200 after meals. Further adjustment can be done by his PCP. Patient with BPH. Patient will continue with Proscar 5 mg daily. Patient with hypothyroidism. Patient likely non compliant due to elevated tsh. Patient will be started on medication. At discharge he will continue with Levoxyl 50 mcg daily. Recommendation to recheck tsh and free T4 in 4-6 weeks to monitor his progress. Further adjustment may be required thereafter. Further adjustment can be done by his PCP. Patient with hyperlipidemia. Patient will continue with medication-Crestor 10 mg daily. Patient with hypertension. Patient will continue with medication-carvedilol 12.5 mg 1 pill twice daily. Recommendation to maintain blood pressures less 150 /80. Further adjustment can be done by his PCP. Patient with chronic systolic CHF. Patient encouraged to continue with a 1500 cc per day fluid restriction and low-salt diet. Patient may require Lasix in the future. This can be further addressed by his PCP or cardiology. Patient is to monitor his weight daily. If his weight increases by more than 5 lb he is to contact his PCP or cardiology for further recommendation. Vital Signs/Physical Exam: Temp Pulse Resp BP Pulse Ox 98.0 F 72 18 136/69 97 03/02/18 08:00 03/02/18 08:43 03/02/18 08:00 03/02/18 08:43 03/01/18 16:27 General: Alert, In no apparent distress, Oriented x3, Cooperative HEENT: Atraumatic Neck: Supple Respiratory: Clear to auscultation bilaterally, Normal air movement Cardiovascular: Normal pulses, Regular rate/rhythm Gastrointestinal: Normal bowel sounds, Soft and benign, Non-distended, No tenderness, No masses, No rebound, No guarding Musculoskeletal: No erythema, No tenderness, No warmth Integumentary: No tenderness/swelling, No erythema, No warmth, No cyanosis Neurological: Normal speech, Normal strength at 5/5 x4 extr, Normal tone, Normal affect Lymphatics: No axilla or inguinal lymphadenopathy Laboratory Data at Discharge: WBC 8.4 K/uL (4.3-10.9) D 03/02/18 06:14 Hgb 15.2 g/dL (13.6-17.9) 03/02/18 06:14 Hct 44.2 % (39.6-49.0) 03/02/18 06:14 Plt Count 159 K/uL (152-406) 03/02/18 06:14 PT 13.0 SECONDS (9.5-12.5) H 02/27/18 23:00 INR 1.10 02/27/18 23:00 Sodium 137 mmol/L (136-145) 03/02/18 06:14 Potassium 3.7 mmol/L (3.5-5.1) 03/02/18 06:14 BUN 13 mg/dL (7-18) 03/02/18 06:14 Creatinine 0.63 mg/dL (0.55-1.3) 03/02/18 06:14 Glucose 155 mg/dL (74-106) H 03/02/18 06:14 Magnesium 2.0 mg/dL (1.8-2.4) 03/02/18 06:14 Total Bilirubin 0.9 mg/dL (0.2-1.0) 02/27/18 23:00 AST 14 U/L (15-37) L 02/27/18 23:00 ALT 29 U/L (12-78) 02/27/18 23:00 Alkaline Phosphatase 84 U/L (45-117) 02/27/18 23:00 Troponin I 4.40 ng/mL (0.0-0.045) H* D 02/28/18 18:58 Triglycerides 225 mg/dL (<150) H 02/28/18 03:15 Cholesterol 145 mg/dL (<200) 02/28/18 03:15 HDL Cholesterol 25 mg/dL (40-60) L 02/28/18 03:15 Cholesterol/HDL Ratio 5.80 02/28/18 03:15 Home Medications: Glimepiride 1 tab PO BID 04/07/17 Temazepam [Restoril*] 1 cap PO BEDTIME PRN PRN 04/07/17 Tramadol HCl [Ultram] 50 mg PO BID 04/07/17 clonazePAM [Klonopin*] 1 tab PO BIDP PRN 04/07/17 Finasteride [Proscar*] 5 mg PO DAILY 02/28/18 Aspirin [Aspirin EC 81 MG] 81 mg PO DAILY #90 tablet. 03/02/18 Carvedilol [Coreg*] 1 tab PO BID #60 tab 03/02/18 Clopidogrel Bisulfate [Plavix*] 75 mg PO DAILY #30 tablet 03/02/18 Levothyroxine Sodium 50 mcg PO DAILY #30 tablet 03/02/18 Nitroglycerin [Nitrostat*] 1 mg SL UD PRN #30 tab 03/02/18 Rosuvastatin [Crestor*] 10 mg PO DAILY #30 tab 03/02/18 New Medications: Aspirin [Aspirin EC 81 MG] 81 mg PO DAILY #90 tablet. Carvedilol [Coreg*] 1 tab PO BID #60 tab Clopidogrel Bisulfate [Plavix*] 75 mg PO DAILY #30 tablet Levothyroxine Sodium 50 mcg PO DAILY #30 tablet Nitroglycerin [Nitrostat*] 1 mg SL UD PRN #30 tab PRN Reason: Chest Pain Rosuvastatin [Crestor*] 10 mg PO DAILY #30 tab Patient Discharge Instructions: 1. Patient will need to follow up with a PCP to establish care and follow up this hospitalization. 2. Patient presented with chest pain secondary to non ST wave NJ with history of CAD and CABG. Patient was evaluated by cardiology. Heart catheterization was performed. Cardiology recommends medical management. Patient will need to follow up with cardiology in 1 week to follow up this hospitalization. At discharge he will continue with aspirin 81 mg daily and Plavix 75 mg daily. Compliance with medication will need to be enforced. 3. Patient also found to have left superficial femoral artery stenosis. Case discussed at length with cardiology. Cardiology plans to follow up with his heat treat supervisor as an outpatient. This will need to be addressed within the next 4 weeks. Patient will likely require intervention and treatment. Cardiology also mention that if he is not able to get in contact with his heat treat supervisor the patient can him to address. 4. Patient with diabetes type 2. A1c 8.6. Patient will continue with glimepiride 4 mg twice daily. Recommendation is to maintain blood sugars less 140 fasting and less than 200 after meals. Further adjustment can be done by his PCP. 5. Patient with BPH. Patient will continue with Proscar 5 mg daily. 6. Patient with hypothyroidism. Patient likely non compliant due to elevated tsh. Patient will be started on medication. At discharge he will continue with Levoxyl 50 mcg daily. Recommendation to recheck tsh and free T4 in 4-6 weeks to monitor his progress. Further adjustment may be required thereafter. Further adjustment can be done by his PCP. 7. Patient with hyperlipidemia. Patient will continue with medication-Crestor 10 mg daily. 8. Patient with hypertension. Patient will continue with medication-carvedilol 12.5 mg 1 pill twice daily. Recommendation to maintain blood pressures less 150/80. Further adjustment can be done by his PCP. 9. Patient with chronic systolic CHF. Patient encouraged to continue with a 1500 cc per day fluid restriction and low- salt diet. Patient may require Lasix in the future. This can be further addressed by his PCP or cardiology. Patient is to monitor his weight daily. If his weight increases by more than 5 lb he is to contact his PCP or cardiology for further recommendation. Diet: AHA Activity: Ad kaylee Time spent managing pt's care (in minutes): 55
[2018-03-02 12:25] VITALS: BP 108/64; TEMP 97.5
--- NOTE | 2018-03-03 03:22 | OP ---
Date of Procedure: 02/28/2018 Surgeon: Drew Mcmillan MD Rebrander: Julienne Sylvester. The patient was admitted on 02/28/2018 with [id number] myocardial infarction. The procedure wa s done on 02/28/2018. Procedures: Left heart catheterization, selective coronary arteriogram, left ventriculogram, aortic root injection, left internal mammary artery injection, vein graft injection of the right coronary ar frederick graft and obtuse marginal graft. Indication: [id number] myocardial infarction. Description Of Procedure: The patient was brought from the emergency room to the catheterization lab on 02/28/2018. He was prepped and draped in the routine sterile fashion. He was given 3 mg of Vers ed and 25 of fentanyl for sedation. A 6-Liberian sheath was introduced in the right common femoral art kitty. Angiography there was normal, and Angio-Seal was used to close the case; 6-Liberian catheters wer e used initially for the left main. It was a 6-Liberian JL4. This showed a completely occluded LAD, s evere disease in the proximal circumflex, and a completely occluded OM. A JR4 was used to do the res t of the case. He had actually a patent [place] RCA with some minimal diffuse plaquing throughout the blood vessel. He also had an RCA graft that was cannulated, and it had a flush occlusion at the shane y ostium of the RCA graft with what looked like occluded stents distally in the RCA graft. The OM gr aft was cannulated. There was also an ostial occlusion that appeared to be old. The WESTBROOK was patent to the LAD with good distal flow. Aortogram showed no other graft. LV-gram was positive for infero posterior hypokinesis with an ejection fraction of 40% to 45%. Plan: Plan was for medical therapy for severe coronary artery disease. There were no complications. Blood Loss: 5 cc. Total conscious sedation was 45 minutes. NB/MODL Voice ID: [id number] Report ID: [id number]
== END 2018-03-02 15:16 | disposition home or self-care (01) | DRG 281 ==
LOC: ER 23:00 → ERHOLD 23:42 → OBSVTOIN 02-28 08:17 → 3RD-ICU 02-28 10:11 → 2ND 03-01 11:28
PROVIDERS: ADMIT Internal Medicine; ATTEND Family Medicine
PROC: 4A023N7 Measurement of Cardiac Sampling and Pressure, Left Heart, Percutaneous Approach (ICD-10-PCS; principal; 2018-02-28)
PROC: B211YZZ Fluoroscopy of Multiple Coronary Arteries using Other Contrast (ICD-10-PCS; 2018-02-28)
PROC: B215YZZ Fluoroscopy of Left Heart using Other Contrast (ICD-10-PCS; 2018-02-28)
PROC: B310YZZ Fluoroscopy of Thoracic Aorta using Other Contrast (ICD-10-PCS; 2018-02-28)
PROC: B218YZZ Fluoroscopy of Left Internal Mammary Bypass Graft using Other Contrast (ICD-10-PCS; 2018-02-28)
PROC: B213YZZ Fluoroscopy of Multiple Coronary Artery Bypass Grafts using Other Contrast (ICD-10-PCS; 2018-02-28)
DX: I21.4 Non-ST elevation (NSTEMI) myocardial infarction (principal); I50.22 Chronic systolic (congestive) heart failure; I25.10 Atherosclerotic heart disease of native coronary artery without angina pectoris; Z95.1 Presence of aortocoronary bypass graft; I70.202 Unspecified atherosclerosis of native arteries of extremities, left leg; I45.10 Unspecified right bundle-branch block; N40.0 Benign prostatic hyperplasia without lower urinary tract symptoms; E03.9 Hypothyroidism, unspecified; E78.5 Hyperlipidemia, unspecified; I11.0 Hypertensive heart disease with heart failure; Z79.84 Long term (current) use of oral hypoglycemic drugs; F17.210 Nicotine dependence, cigarettes, uncomplicated; E11.51 Type 2 diabetes mellitus with diabetic peripheral angiopathy without gangrene
CPT/HCPCS: 36415; 71045; 71275; 74175; 80048; 80061; 80076; 81003; 82962; 83036; 83735; 83880; 84439; 84443; 84484; 85025; 85610; 87086; 87088; 93005; 93458; 93567; 96361; 96365; 96368; 96372; 96375; 97110; 97116; 97163; 97530; 99285; C1760; C1893; G0008; J0583; J1650; J2250; J2405; J2550; J3010; J7030; Q2035; Q9967

== ENCOUNTER 2020-02-12 15:02 | Observation (INO) | payer OTHER ==
--- OUTSIDE RECORDS SUMMARY | 2020-02-12 15:04 | XMS REPORT | Continuity of Care Document ---
:1940 Author Organization [facility] t Address [address] [place] [address] Care Team Providers Name Role Phone Unavailable Unavailable Unavailable Payers Payer Name Policy Type Policy Number Effective Date Expiration Date S ource Problems This patient has no known problems. Allergies, Adverse Reactions, Alerts Allergy Allergy Status Severity Reaction(s) Onset Inactive Treating Comm ents Source Name Type Date Date Clinician No Known DA Active U [facility] Allergie 11-16 00:00: [address] Medications This patient has no known medications. Procedures This patient has no known procedures. Results Test Description Test Time Test Comments Results Result Comments Source ACT-ISTAT 2019-10-13 15:07:00 Test Item Value Reference Range Interpretation Comme nts ACT-ISTAT (test code = ACTI) 202 SEC 74-137 H BASIC METABOLIC [id number] 07:50:00 Test Item Value Reference Range Interpretation Comments SODIUM (test code = 140 MMOL/L 137-145 N NA) POTASSIUM (test code = 4.6 MMOL/L 3.5-5.1 N K) CHLORIDE (test code = 102 MMOL/L 98-107 N CL) CARBON DIOXIDE (test 30 MMOL/L 22-30 N code = CO2) ANION GAP (test code = 13 MMOL/L 14-24 L GAP) GLUCOSE (test code = 277 MG/DL 74-106 H GLU) BLOOD UREA NITROGEN 25 MG/DL 9-20 H (test code = BUN) GLOMERULAR FILTRATION > 60 Report ing units: RATE (test code = GFR) ml/mi n/1.73 m2 (Modified MDRD Formula)Referen ce Range: > or = 6 0 ml/min/1.73 m2 CREATININE (test code 0.90 MG/DL 0.66-1.25 N = CREAT) CALCIUM (test code = 9.2 MG/DL 8.4-10.2 N CA) LIPID PROFILE (CORONARY RISK)2019-10-13 07:50:00 Test Item Value Reference Range Interpretation Comments TRIGLYCERIDES (test 218 MG/DL TRIGLYCE RIDES code = TRIG) REFERENCE RANGE:Normal: < 150 mg/dLBorderline High: 150-199 mg/dLHi gh: 200-499 mg/dLVe ry High: >=500 mg/ dL CHOLESTEROL (test code 102 MG/DL <200 = CHOL) HDL CHOLESTEROL (test 21 MG/DL 40-59 L code = HDL) LIPOPROTEIN LDL (test 57 MG/DL 0-99 N code = LDL) OPTIMAL........ .<100 mg/dLNEAR OPTIMAL/ABOVE OPTIMAL........ .100-12 9 mg/dL BORDERLINE HIGH.........13 0-159 mg/dL HIGH.........16 0-189 mg/dL VERY HIGH...... ...>/= 190 mg/dL [id number] 07:50:00 Test Item Value Reference Range Interpretation Comments MAGNESIUM (test code = MAG) 2.2 MG/DL 1.6-2.3 N BASIC METABOLIC [id number] 07:39:00 Test Item Value Reference Range Interpretation Comments SODIUM (test code = 140 MMOL/L 137-145 N NA) POTASSIUM (test code = 4.6 MMOL/L 3.5-5.1 N K) CHLORIDE (test code = 102 MMOL/L 98-107 N CL) CARBON DIOXIDE (test 30 MMOL/L 22-30 N code = CO2) ANION GAP (test code = 13 MMOL/L 14-24 L GAP) GLUCOSE (test code = 277 MG/DL 74-106 H GLU) BLOOD UREA NITROGEN 25 MG/DL 9-20 H (test code = BUN) GLOMERULAR FILTRATION > 60 Report ing units: RATE (test code = GFR) ml/mi n/1.73 m2 (Modified MDRD Formula)Referen ce Range: > or = 6 0 ml/min/1.73 m2 CREATININE (test code 0.90 MG/DL 0.66-1.25 N = CREAT) CALCIUM (test code = 9.2 MG/DL 8.4-10.2 N CA) LIPID PROFILE (CORONARY RISK)2019-10-13 07:39:00 Test Item Value Reference Range Interpretation Comments TRIGLYCERIDES (test 218 MG/DL TRIGLYCE RIDES code = TRIG) REFERENCE RANGE:Normal: < 150 mg/dLBorderline High: 150-199 mg/dLHi gh: 200-499 mg/dLVe ry High: >=500 mg/ dL CHOLESTEROL (test code 102 MG/DL <200 = CHOL) HDL CHOLESTEROL (test 21 MG/DL 40-59 L code = HDL) LIPOPROTEIN LDL (test MG/DL 0-99 code = LDL) [id number] 07:39:00 Test Item Value Reference Range Interpretation Comments MAGNESIUM (test code = MAG) 2.2 MG/DL 1.6-2.3 N BASIC METABOLIC [id number] 07:38:00 Test Item Value Reference Range Interpretation Comments SODIUM (test code = 140 MMOL/L 137-145 N NA) POTASSIUM (test code = 4.6 MMOL/L 3.5-5.1 N K) CHLORIDE (test code = 102 MMOL/L 98-107 N CL) CARBON DIOXIDE (test 30 MMOL/L 22-30 N code = CO2) ANION GAP (test code = 13 MMOL/L 14-24 L GAP) GLUCOSE (test code = 277 MG/DL 74-106 H GLU) BLOOD UREA NITROGEN 25 MG/DL 9-20 H (test code = BUN) GLOMERULAR FILTRATION > 60 Report ing units: RATE (test code = GFR) ml/mi n/1.73 m2 (Modified MDRD Formula)Referen ce Range: > or = 6 0 ml/min/1.73 m2 CREATININE (test code 0.90 MG/DL 0.66-1.25 N = CREAT) CALCIUM (test code = MG/DL 8.7-9.7 CA) LIPID PROFILE (CORONARY RISK)2019-10-13 07:38:00 Test Item Value Reference Range Interpretation Comments TRIGLYCERIDES (test 218 MG/DL TRIGLYCE RIDES code = TRIG) REFERENCE RANGE:Normal: < 150 mg/dLBorderline High: 150-199 mg/dLHi gh: 200-499 mg/dLVe ry High: >=500 mg/ dL CHOLESTEROL (test code 102 MG/DL <200 = CHOL) HDL CHOLESTEROL (test MG/DL 40-59 code = HDL) LIPOPROTEIN LDL (test MG/DL 0-99 code = LDL) [id number] 07:38:00 Test Item Value Reference Range Interpretation Comments MAGNESIUM (test code = MAG) MG/DL 1.6-2.3 BASIC METABOLIC [id number] 07:36:00 Test Item Value Reference Range Interpretation Comments SODIUM (test code = NA) 140 MMOL/L 137-145 N POTASSIUM (test code = K) 4.6 MMOL/L 3.5-5.1 N CHLORIDE (test code = CL) 102 MMOL/L 98-107 N CARBON DIOXIDE (test code = CO2) MMOL/L 22-30 GLUCOSE (test code = GLU) MG/DL 74-106 BLOOD UREA NITROGEN (test code = MG/DL 9-20 BUN) GLOMERULAR FILTRATION RATE (test code = GFR) CREATININE (test code = CREAT) MG/DL 0.66-1.25 CALCIUM (test code = CA) MG/DL 8.7-9.7 LIPID PROFILE (CORONARY RISK)2019-10-13 07:36:00 Test Item Value Reference Range Interpretation Comments TRIGLYCERIDES (test code = TRIG) MG/DL CHOLESTEROL (test code = CHOL) MG/DL <200 HDL CHOLESTEROL (test code = HDL) MG/DL 40-59 LIPOPROTEIN LDL (test code = LDL) MG/DL 0-99 [id number] 07:36:00 Test Item Value Reference Range Interpretation Comments MAGNESIUM (test code = MAG) MG/DL 1.6-2.3 BASIC METABOLIC [id number] 07:35:00 Test Item Value Reference Range Interpretation Comments SODIUM (test code = NA) MMOL/L 137-145 POTASSIUM (test code = K) MMOL/L 3.5-5.1 CHLORIDE (test code = CL) 102 MMOL/L 98-107 N CARBON DIOXIDE (test code = CO2) MMOL/L 22-30 GLUCOSE (test code = GLU) MG/DL 74-106 BLOOD UREA NITROGEN (test code = MG/DL 9-20 BUN) GLOMERULAR FILTRATION RATE (test code = GFR) CREATININE (test code = CREAT) MG/DL 0.66-1.25 CALCIUM (test code = CA) MG/DL 8.7-9.7 LIPID PROFILE (CORONARY RISK)2019-10-13 07:35:00 Test Item Value Reference Range Interpretation Comments TRIGLYCERIDES (test code = TRIG) MG/DL CHOLESTEROL (test code = CHOL) MG/DL <200 HDL CHOLESTEROL (test code = HDL) MG/DL 40-59 LIPOPROTEIN LDL (test code = LDL) MG/DL 0-99 [id number] 07:35:00 Test Item Value Reference Range Interpretation Comments MAGNESIUM (test code = MAG) MG/DL 1.6-2.3 PROTHROMBIN [id number] 07:19:00 Test Item Value Reference Range Interpretation Comments PROTHROMBIN TIME 12.4 SECONDS 9.4-12.5 N PATIENT (test code = PTP) INTERNATIONAL NORMAL 1.1 The INR is to be RATIO (test code = used only for INR) monitoring oral anticoagulantth erap y. INDICATION I NR VALUE ---- ---- ---- -------1. Prophylaxis, de ep venous thrombos is, including hig h risk surgery. 2.0 - 3.0 2. Prophylaxis, de ep venous thrombos is, hip surgery, treatment for d eep venous thrombosis or pulmonary prevention of systemic emboli sm in patients wit h valvular heart disease, atrial fibrillation, tissue heart va lve, or acute myocar dial infarction. 2.0 - 3 .0 3. Mechanical prosthesis hear t valves, recurrent syste ramone embolism. 3.0 - 4.5 PTT [id number] 07:19:00 Test Item Value Reference Range Interpretation Comments PTT ACTIVATED (test code = APTT) 36.5 SECONDS 25.1-36.5 N CBC W/AUTO [id number] 07:06:00 Test Item Value Reference Range Interpretation Comments WHITE BLOOD CELL (test code = 8.8 K/MM3 3.8-9.8 N WBC) RED BLOOD CELL (test code = 4.07 M/MM3 3.95-5.67 N RBC) HEMOGLOBIN (test code = HGB) 13.0 G/DL 12.4-16.7 N HEMATOCRIT (test code = HCT) 40.1 % 35.9-49.5 N MEAN CELL VOLUME (test code = 99 fL 81.7-96.1 H MCV) MEAN CELL HGB (test code = MCH) 31.9 pg 27.6-33.2 N MEAN CELL HGB CONCETRATION 32.4 % 32.9-35.5 L (test code = MCHC) RED CELL DISTRIBUTION WIDTH 14.3 % 12.1-15.2 N (test code = RDW) PLATELET COUNT (test code = 157 K/MM3 129-368 N PLT) MEAN PLATELET VOLUME (test code 10.1 fl 7.4-10.4 N = MPV) NEUTROPHIL % (test code = NT%) 63.8 % 43-75 N IMMATURE GRANULOCYTE % (test 0.2 % 0.0-2.0 N code = IG%) LYMPHOCYTE % (test code = LY%) 22.2 % 14-44 N MONOCYTE % (test code = MO%) 9.1 % 4-13 N EOSINOPHIL % (test code = EO%) 3.9 % 0-6 N BASOPHIL % (test code = BA%) 0.8 % 0-2 N NUCLEATED RBC % (test code = 0.0 % 0-1.0 N NRBC%) NEUTROPHIL # (test code = NT#) 5.59 K/mm3 2.0-7.6 N IMMATURE GRANULOCYTE # (test 0.02 x10 3/uL 0-0.03 N code = IG#) LYMPHOCYTE # (test code = LY#) 1.95 K/mm3 1.0-3.8 N MONOCYTE # (test code = MO#) 0.80 K/mm3 0.1-0.8 N EOSINOPHIL # (test code = EO#) 0.34 K/mm3 0.0-0.2 H BASOPHIL # (test code = BA#) 0.07 K/mm3 0.0-0.2 N NUCLEATED RBC # (test code = 0.00 K/mm3 0.0-0.1 N NRBC#) COVID 19 Asymptomatic IH [id number] 06:16:00 Test Item Value Reference Range Interpretation Comments COVID 19 NEGATIVE Negative "Negative resul ts from Asymptomatic IH AG patients with symptom (test code = onset beyondfiv e days, COVNONPUIAG) should be kiki anastacio as presumptive, andconfirmation with a molecular assay , if necessary forpa tient management may be performed. Nega tive results do notr ule out COVID-19 and sh ould not be used as the sole basisfor treatm ent or patient managem ent decisions, includinginfect ion control decisio ns. Negative result s should beconsidered in the context of a pa tients recent exposure s,history, and the presenc e of clinical signs and symptomsconsist ent with COVID-19.This t est detects both vi able andnon-viable S ARS-CoV and SARS CoV-2. Test performance dep endson the amount of virus (antigen) in the sample." [id number] 09:49:00 Test Item Value Reference Range Interpretation Comments ACT-ISTAT (test code = ACTI) 241 SEC 74-137 H BASIC METABOLIC [id number] 07:42:00 Test Item Value Reference Range Interpretation Comments SODIUM (test code = 134 MMOL/L 137-145 L NA) POTASSIUM (test code = 5.0 MMOL/L 3.5-5.1 N K) CHLORIDE (test code = 100 MMOL/L 98-107 N CL) CARBON DIOXIDE (test 26 MMOL/L 22-30 N code = CO2) GLUCOSE (test code = 243 MG/DL 74-106 H GLU) BLOOD UREA NITROGEN 13 MG/DL 9-20 N (test code = BUN) GLOMERULAR FILTRATION > 60 Report ing units: RATE (test code = GFR) ml/mi n/1.73 m2 (Modified MDRD Formula)Referen ce Range: > or = 6 0 ml/min/1.73 m2 CREATININE (test code 0.50 MG/DL 0.66-1.25 L = CREAT) CALCIUM (test code = 8.9 MG/DL 8.4-10.2 N CA) LIPID PROFILE (CORONARY RISK)2019-08-11 07:42:00 Test Item Value Reference Range Interpretation Comments TRIGLYCERIDES (test 177 MG/DL TRIGLYCE RIDES code = TRIG) REFERENCE RANGE:Normal: < 150 mg/dLBorderline High: 150-199 mg/dLHi gh: 200-499 mg/dLVe ry High: >=500 mg/ dL CHOLESTEROL (test code 116 MG/DL <200 = CHOL) HDL CHOLESTEROL (test 25 MG/DL 40-59 L code = HDL) LIPOPROTEIN LDL (test 70 MG/DL 0-99 N code = LDL) OPTIMAL........ .<100 mg/dLNEAR OPTIMAL/ABOVE OPTIMAL........ .100-12 9 mg/dL BORDERLINE HIGH.........13 0-159 mg/dL HIGH.........16 0-189 mg/dL VERY HIGH...... ...>/= 190 mg/dL [id number] 07:42:00 Test Item Value Reference Range Interpretation Comments MAGNESIUM (test code = MAG) 1.8 MG/DL 1.6-2.3 N BASIC METABOLIC [id number] 07:31:00 Test Item Value Reference Range Interpretation Comments SODIUM (test code = 134 MMOL/L 137-145 L NA) POTASSIUM (test code = 5.0 MMOL/L 3.5-5.1 N K) CHLORIDE (test code = 100 MMOL/L 98-107 N CL) CARBON DIOXIDE (test 26 MMOL/L 22-30 N code = CO2) GLUCOSE (test code = 243 MG/DL 74-106 H GLU) BLOOD UREA NITROGEN 13 MG/DL 9-20 N (test code = BUN) GLOMERULAR FILTRATION > 60 Report ing units: RATE (test code = GFR) ml/mi n/1.73 m2 (Modified MDRD Formula)Referen ce Range: > or = 6 0 ml/min/1.73 m2 CREATININE (test code 0.50 MG/DL 0.66-1.25 L = CREAT) CALCIUM (test code = 8.9 MG/DL 8.4-10.2 N CA) LIPID PROFILE (CORONARY RISK)2019-08-11 07:31:00 Test Item Value Reference Range Interpretation Comments TRIGLYCERIDES (test 177 MG/DL TRIGLYCE RIDES code = TRIG) REFERENCE RANGE:Normal: < 150 mg/dLBorderline High: 150-199 mg/dLHi gh: 200-499 mg/dLVe ry High: >=500 mg/ dL CHOLESTEROL (test code 116 MG/DL <200 = CHOL) HDL CHOLESTEROL (test 25 MG/DL 40-59 L code = HDL) LIPOPROTEIN LDL (test MG/DL 0-99 code = LDL) [id number] 07:31:00 Test Item Value Reference Range Interpretation Comments MAGNESIUM (test code = MAG) 1.8 MG/DL 1.6-2.3 N BASIC METABOLIC [id number] 07:30:00 Test Item Value Reference Range Interpretation Comments SODIUM (test code = NA) 134 MMOL/L 137-145 L POTASSIUM (test code = K) 5.0 MMOL/L 3.5-5.1 N CHLORIDE (test code = CL) 100 MMOL/L 98-107 N CARBON DIOXIDE (test code = CO2) MMOL/L 22-30 GLUCOSE (test code = GLU) MG/DL 74-106 BLOOD UREA NITROGEN (test code = MG/DL 9-20 BUN) GLOMERULAR FILTRATION RATE (test code = GFR) CREATININE (test code = CREAT) MG/DL 0.66-1.25 CALCIUM (test code = CA) MG/DL 8.7-9.7 LIPID PROFILE (CORONARY RISK)2019-08-11 07:30:00 Test Item Value Reference Range Interpretation Comments TRIGLYCERIDES (test code = TRIG) MG/DL CHOLESTEROL (test code = CHOL) 116 MG/DL <200 HDL CHOLESTEROL (test code = HDL) MG/DL 40-59 LIPOPROTEIN LDL (test code = LDL) MG/DL 0-99 [id number] 07:30:00 Test Item Value Reference Range Interpretation Comments MAGNESIUM (test code = MAG) MG/DL 1.6-2.3 BASIC METABOLIC [id number] 07:28:00 Test Item Value Reference Range Interpretation Comments SODIUM (test code = NA) 134 MMOL/L 137-145 L POTASSIUM (test code = K) 5.0 MMOL/L 3.5-5.1 N CHLORIDE (test code = CL) 100 MMOL/L 98-107 N CARBON DIOXIDE (test code = CO2) MMOL/L 22-30 GLUCOSE (test code = GLU) MG/DL 74-106 BLOOD UREA NITROGEN (test code = MG/DL 9-20 BUN) GLOMERULAR FILTRATION RATE (test code = GFR) CREATININE (test code = CREAT) MG/DL 0.66-1.25 CALCIUM (test code = CA) MG/DL 8.7-9.7 LIPID PROFILE (CORONARY RISK)2019-08-11 07:28:00 Test Item Value Reference Range Interpretation Comments TRIGLYCERIDES (test code = TRIG) MG/DL CHOLESTEROL (test code = CHOL) MG/DL <200 HDL CHOLESTEROL (test code = HDL) MG/DL 40-59 LIPOPROTEIN LDL (test code = LDL) MG/DL 0-99 [id number] 07:28:00 Test Item Value Reference Range Interpretation Comments MAGNESIUM (test code = MAG) MG/DL 1.6-2.3 PROTHROMBIN [id number] 07:16:00 Test Item Value Reference Range Interpretation Comments PROTHROMBIN TIME 12.5 SECONDS 9.4-12.5 N PATIENT (test code = PTP) INTERNATIONAL NORMAL 1.1 The INR is to be RATIO (test code = used only for INR) monitoring oral anticoagulantth erap y. INDICATION I NR VALUE ---- ---- ---- -------1. Prophylaxis, de ep venous thrombos is, including hig h risk surgery. 2.0 - 3.0 2. Prophylaxis, de ep venous thrombos is, hip surgery, treatment for d eep venous thrombosis or pulmonary prevention of systemic emboli sm in patients wit h valvular heart disease, atrial fibrillation, tissue heart va lve, or acute myocar dial infarction. 2.0 - 3 .0 3. Mechanical prosthesis hear t valves, recurrent syste ramone embolism. 3.0 - 4.5 PTT [id number] 07:16:00 Test Item Value Reference Range Interpretation Comments PTT ACTIVATED (test code = APTT) 33.9 SECONDS 25.1-36.5 N CBC W/AUTO [id number] 07:05:00 Test Item Value Reference Range Interpretation Comments WHITE BLOOD CELL (test code = 7.1 K/MM3 3.8-9.8 N WBC) RED BLOOD CELL (test code = 4.67 M/MM3 3.95-5.67 N RBC) HEMOGLOBIN (test code = HGB) 14.7 G/DL 12.4-16.7 N HEMATOCRIT (test code = HCT) 44.0 % 35.9-49.5 N MEAN CELL VOLUME (test code = 94 fL 81.7-96.1 N MCV) MEAN CELL HGB (test code = MCH) 31.5 pg 27.6-33.2 N MEAN CELL HGB CONCETRATION 33.4 % 32.9-35.5 N (test code = MCHC) RED CELL DISTRIBUTION WIDTH 13.2 % 12.1-15.2 N (test code = RDW) PLATELET COUNT (test code = 170 K/MM3 129-368 N PLT) MEAN PLATELET VOLUME (test code 10.5 fl 7.4-10.4 H = MPV) NEUTROPHIL % (test code = NT%) 57.3 % 43-75 N IMMATURE GRANULOCYTE % (test 0.4 % 0.0-2.0 N code = IG%) LYMPHOCYTE % (test code = LY%) 27.4 % 14-44 N MONOCYTE % (test code = MO%) 10.0 % 4-13 N EOSINOPHIL % (test code = EO%) 4.2 % 0-6 N BASOPHIL % (test code = BA%) 0.7 % 0-2 N NUCLEATED RBC % (test code = 0.0 % 0-1.0 N NRBC%) NEUTROPHIL # (test code = NT#) 4.07 K/mm3 2.0-7.6 N IMMATURE GRANULOCYTE # (test 0.03 x10 3/uL 0-0.03 N code = IG#) LYMPHOCYTE # (test code = LY#) 1.95 K/mm3 1.0-3.8 N MONOCYTE # (test code = MO#) 0.71 K/mm3 0.1-0.8 N EOSINOPHIL # (test code = EO#) 0.30 K/mm3 0.0-0.2 H BASOPHIL # (test code = BA#) 0.05 K/mm3 0.0-0.2 N NUCLEATED RBC # (test code = 0.00 K/mm3 0.0-0.1 N NRBC#) Novel Coronavirus 03:11:00 Test Item Value Reference Range Interpretation Comments Novel Coronavirus Negative Negative Positive r esults are 2019 Inhouse (test indicativ e of the presence code = [id number]) ofSARS-CoV -2 RNA, clinical correlation wit h patient historyand othe r diagnostic info rmation is necessary to determinepatien t infection status. Positiv e results do not rule out bacterial infection or co -infection with other viru ses. Negative result s do not preclude SARS-C oV-2 infection andsh ould not be used as the daniela e basis for patient managementdecis ions. Negative result s must be combined with otherclinical observations, p atient history, and epidemiological information . Detection of SARS-CoV-2 RNA may be affe cted bysample collec tion methods, storag e conditions, and /or stageof infection. Santa l RNA mutations, vacc inations, antiviraltherap eutics, antibiotics, chemotherapeuti c orimmunosuppres scar drugs have not been e valuated for effectson d etection. Results are for the identification of SARS-CoV-2 RNA usingthe [employer] M2000 Sy stem under the [facility] Emergen cy UseAuthorizatio n. The testing is perf ormed by pancho delvalle in the procedures for the [employer] M2000 molecular diagnostic SARS-CoV-2 assa y in vitro. Novel Coronavirus 03:11:00 Test Item Value Reference Range Interpretation Comments Novel Coronavirus Negative Negative Positive r esults are 2019 Inhouse (test indicativ e of the presence code = [id number]) ofSARS-CoV -2 RNA, clinical correlation wit h patient historyand othe r diagnostic info rmation is necessary to determinepatien t infection status. Positiv e results do not rule out bacterial infection or co -infection with other viru ses. Negative result s do not preclude SARS-C oV-2 infection andsh ould not be used as the daniela e basis for patient managementdecis ions. Negative result s must be combined with otherclinical observations, p atient history, and epidemiological information . Detection of SARS-CoV-2 RNA may be affe cted bysample collec tion methods, storag e conditions, and /or stageof infection. Santa l RNA mutations, vacc inations, antiviraltherap eutics, antibiotics, chemotherapeuti c orimmunosuppres scar drugs have not been e valuated for effectson d etection. Results are for the identification of SARS-CoV-2 RNA usingthe [employer] M2000 Sy stem under the FDA Emergen cy UseAuthorizatio n. The testing is perf ormed by pancho delvalle in the procedures for the [employer] M2000 molecular diagnostic SARS-CoV-2 assa y in vitro.
[2020-02-12] MEDS ORDERED: ACETAMINOPHEN 500 MG TAB ONE (15:56)
[2020-02-12 16:20] LABS: Absolute Lymphocytes (CBC) 1.3 K/uL (0.7-4.9); Basophils % 0.5 % (0-1.3); Hematocrit 42.5 % (39.6-49.0); RBC Red Blood Cell Count 4.57 M/uL (4.33-5.43)
[2020-02-12 16:24] LABS: Protime INR 1.22
[2020-02-12] MEDS ORDERED: NA CHLORIDE 0.9% 500 ML ONE (16:28)
[2020-02-12 16:44] LABS: ALT/SGPT 44 U/L (12-78); AST/SGOT 36 U/L (15-37); Albumin 3.9 g/dL (3.4-5.0); Alkaline Phosphatase 79 U/L (45-117); Amylase 25 U/L (25-115); BUN Blood Urea Nitrogen 17 mg/dL (7-18); Bicarbonate 28 mmol/L (21-32); Bilirubin Direct 0.4 mg/dL (0-0.2); Bilirubin Total 1.4 mg/dL (0.2-1.0); CKMB Creatine Kinase MB < 1.0 ng/mL (0.3-3.6); Creatine Phosphokinase 47 U/L (39-308); Glucose Level 183 mg/dL (74-106); Lipase 37 U/L (73-393); Potassium 4.2 mmol/L (3.5-5.1); Protein, Total 8.1 g/dL (6.4-8.2); Sodium Level 138 mmol/L (136-145); Troponin (Emerg Dept Use Only) < 0.02 ng/mL (0.0-0.045)
--- NOTE | 2020-02-12 16:51 | RAD REPORT ---
EXAM DESCRIPTION: RAD - Chest Single View - 02/12/2020 4:33 pm CLINICAL HISTORY: ams, cough COMPARISON: Portable February 2018 TECHNIQUE: AP portable chest image was obtained 02/12/2020 4:33 pm . FINDINGS: No peripheral mass or consolidation. Interstitial opacification is present, increased over the baseline chronic pattern. Trachea is midline. Heart size within normal limits. Vasculature is in creased slightly. No measurable pleural effusion and no pneumothorax. No acute bony abnormality seen. No acute aortic findings suspected. IMPRESSION: Vasculature and interstitial markings are increased slightly over the baseline pattern f rom February 2018. Mild interstitial edema or infiltrate would be considerations in the acute clinical setting. A mild o r early failure would be possible.
[2020-02-12] MEDS ORDERED: CEFTRIAXONE/SWI 1gm 1 GM/10 ML SYR ONE (18:18)
[2020-02-12] MEDS ORDERED: IBUPROFEN 400 MG TAB ONE (18:18)
[2020-02-12] MEDS ORDERED: IBUPROFEN 200 MG TAB PO ONE (18:18)
--- NOTE | 2020-02-12 18:20 | ER ---
Nurse's Notes [facility] Name: Musa Lindsay Age: 79 yrs Sex: Male : 1940 Arrival Date: 02/12/2020 Time: 15:08 Bed 13 Private MD: Diagnosis: Fever, unspecified;Viral infection, unspecified;Altered mental status, unspecified Presentation: 02/11 15:08 Chief complaint: EMS states: pt from home, family states he is normally a\T\o x 4 but tw2 this morning and last night he started having a new cough and n/v, i have gone by his house before and he is normally at a\T\ox 2 its like his memory comes and goes , bgl 193. Coronavirus screen: cough unrelated to allergies, fever, nausea, vomiting. Ebola Screen: Patient denies travel to an Ebola-affected area in the 21 days before illness onset. Initial Sepsis Screen: Does the patient meet any 2 criteria? Altered Mental Status. HR > 90 bpm. Yes Does the patient have a suspected source of infection? Yes: Productive cough/pneumonia. Risk Assessment: Do you want to hurt yourself or someone else? Patient reports no desire to harm self or others. Onset of symptoms was February 12, 2020. 15:08 Method Of Arrival: EMS: [facility] tw2 15:08 Acuity: GRICEL 3 tw2 Triage Assessment: 21:03 General: Appears in no apparent distress. Behavior is cooperative, nonsensical ll2 speaking. Pain: Denies pain. Neuro: Level of Consciousness is awake, alert, Oriented to person, place, time, situation. Historical: - Allergies: 21:02 NKA; ll2 - PMHx: 15:11 Diabetes - NIDDM; High Cholesterol; Hypertension; Hypothyroidism; Myocardial infarction;tw2 21:02 CHF; ll2 - PSHx: 15:11 Heart stents; Heart Surgery; tw2 - Immunization history:: Adult Immunizations. - Social history:: Smoking status: . Screenin:08 Abuse screen: Denies threats or abuse. Nutritional screening: No deficits noted. tw2 Tuberculosis screening: No symptoms or risk factors identified. Fall Risk None identified. Assessment: 15:50 Reassessment: Received VO from Dr Hurt to input a sepsis workup. sv 16:11 Reassessment: Patient appears in no apparent distress at this time. No changes from tw2 previously documented assessment. Patient and/or family updated on plan of care and expected duration. Pain level reassessed. 17:09 Reassessment: Patient appears in no apparent distress at this time. No changes from tw2 previously documented assessment. Patient and/or family updated on plan of care and expected duration. Pain level reassessed. 17:37 Reassessment: pt urinated on himself when trying to use a urinal, pt cleaned and placed tw2 in brief, linens changed at this time, OVIDIO Tan helped and served as electric drill operator, provider notified. 19:20 Reassessment: Patient and/or family updated on plan of care and expected duration. Pain ll2 level reassessed. Patient is alert, oriented x 3, equal unlabored respirations, skin warm/dry/pink. 19:52 Reassessment: Patient and/or family updated on plan of care and expected duration. Pain ll2 level reassessed. Patient is alert, oriented x 3, equal unlabored respirations, skin warm/dry/pink. assessed with family at family at bedside. 21:01 Reassessment: Patient and/or family updated on plan of care and expected duration. Pain ll2 level reassessed. Patient is alert, oriented x 3, equal unlabored respirations, skin warm/dry/pink. family updated on room assignment and nurse taking over care. Vital Signs: 15:08 BP 133 / 73; Pulse 78; Resp 18; Temp 101.9; Pulse Ox 94% on R/A; Weight 133.81 kg; tw2 Height 5 ft. 9 in. (175.26 cm); 16:10 BP 135 / 72; Pulse 83; Resp 22; Pulse Ox 94% on R/A; tw2 16:46 Temp 99.6(O); jd3 17:09 BP 124 / 67; Pulse 81; Resp 22; Pulse Ox 94% on R/A; tw2 17:38 BP 124 / 67; Pulse 79; Resp 19; Temp 102; Pulse Ox 94% on R/A; tw2 15:08 Body Mass Index 43.56 (133.81 kg, 175.26 cm) tw2 17:38 provider notified tw2 ED Course: 15:08 Patient arrived in ED. tw2 15:08 Bed in low position. Call light in reach. Side rails up X2. apprentice painter neckties on. Pulse tw2 ox on. NIBP on. 15:10 Triage completed. tw2 15:10 Arm band placed on. tw2 15:25 Patrice Hurt MD is Attending Physician. kdr 15:40 Vanessa Germain RN is Primary Nurse. tw2 16:00 Initial lab(s) drawn, by me, sent to lab. First set of blood cultures drawn. Inserted tw2 saline lock: 20 gauge in right wrist, using aseptic technique. ,using aseptic technique. blood collected. 16:05 EKG done, by ED staff, reviewed by Patrice Hurt MD. sv 16:30 Second set of blood cultures drawn by me. tw2 16:33 Chest Single View XRAY In Process Unspecified. EDMS 17:57 Straight cath inserted, using sterile technique, 16 Fr. Specimen obtained. Returned tw2 approx 300 ml urine, OVIDIO Tan served as electric drill operator. Patient tolerated well. 18:13 CT Head Brain wo Cont In Process Unspecified. EDMS 18:18 Mick Marshall MD is Hospitalizing Provider. kdr 18:38 Aston Pineda DO is Hospitalizing Provider. la1 19:00 Report given to OVIDIO Lawson. tw2 20:17 Primary Nurse role handed off by Vanessa Germain RN ar5 20:34 Lulu Lutz RN is Primary Nurse. ll2 21:02 Report given to report given to OVIDIO Soni. ll2 21:02 No provider procedures requiring assistance completed. Patient admitted, IV remains in ll2 place. Administered Medications: 15:45 Drug: Tylenol 1000 mg Route: PO; tw2 16:51 Follow up: Response: No adverse reaction; Temperature is decreased tw2 16:33 Drug: NS 0.9% 500 ml Route: IV; Rate: bolus; Site: right wrist; tw2 17:20 Follow up: Response: No adverse reaction; IV Status: Completed infusion; IV Intake: tw2 500ml 18:02 Drug: Ibuprofen 600 mg Route: PO; tw2 19:05 Follow up: Response: No adverse reaction ll2 18:02 Drug: Rocephin - (cefTRIAXone) 1 grams {Note: IVP available only.} Route: IVPB; Infused tw2 Over: 5 mins; Site: right wrist; 18:07 Follow up: Response: No adverse reaction; IV Status: Completed infusion; IV Intake: [id number] 19:51 Drug: Zithromax 500 mg Route: IVPB; Infused Over: 1 hrs; Site: right wrist; ll2 20:38 Follow up: Response: No adverse reaction; IV Status: Completed infusion ll2 Intake: 17:20 IV: 500ml; Total: 500ml. tw2 18:07 IV: 10ml; Total: 510ml. tw2 Outcome: 18:19 Decision to Hospitalize by Provider. kdr 21:02 Admitted to Med/surg accompanied by tech, via stretcher, Report called to OVIDIO soni ll2 21:04 Condition: stable ll2 21:04 Instructed on the need for admit. 21:05 Patient left the ED. ll2 Signatures: Dispatcher [employer] EDKeila Caruso RN RN sv Rittger, Kevin, MD MD kdr Attema, Jewel, HAND STEMMER-C HAND STEMMER-Cla1 Vanessa Germain RN RN 2 Dallin Yip RN RN jd3 Robles, Autumn msLulu Mcallister RN RN 2 Corrections: (The following items were deleted from the chart) 19:08 19:08 Report given to OVIDIO Lawson 2 tw2 20:18 15:11 Allergies: NKA; 2 2 21:02 15:11 PMHx: CHF; tw2 ll2 21:02 20:18 Allergies: NKA; ll2 ll2
--- NOTE | 2020-02-12 18:20 | EDPHYS ---
Physician Documentation [facility] Name: Musa Lindsay Age: 79 yrs Sex: Male : 1940 Arrival Date: 02/12/2020 Time: 15:08 Bed 13 Private MD: ED Physician Patrice Hurt HPI: 02/12 19:14 This 79 yrs old Male presents to ER via EMS with complaints of Altered Mental kdr Status. 19:14 The patient presents with confusion. Onset: The symptoms/episode began/occurred kdr gradually, at an unknown time. Possible causes: CVA or TIA, sepsis. Associated signs and symptoms: The patient has no apparent associated signs or symptoms, Pertinent positives:. Current symptoms: In the emergency department the patient's symptoms are unchanged from the initial presentation. Patient's baseline: Neuro: alert and fully oriented, Motor: no deficits, Ambulation: walks without assistance, Speech: normal, normal for age. It is unknown whether or not the patient has had similar symptoms in the past. The patient has not recently seen a physician. Historical: - Allergies: 02/11 21:02 NKA; ll2 - PMHx: 15:11 Diabetes - NIDDM; High Cholesterol; Hypertension; Hypothyroidism; Myocardial infarction;tw2 21:02 CHF; ll2 - PSHx: 15:11 Heart stents; Heart Surgery; tw2 - Immunization history:: Adult Immunizations. - Social history:: Smoking status: . ROS: 02/12 19:14 Constitutional: Cecy ble to assess due to AMS kdr Unable to obtain ROS due to altered mental status. Exam: 02/11 18:21 ECG was reviewed by the Attending Physician. kdr 02/12 19:14 Constitutional: This is a well developed, well nourished patient who is awake, alert, kdr and in mild distress. Head/Face: Normocephalic, atraumatic. Eyes: Pupils equal round and reactive to light, extra-ocular motions intact. Lids and lashes normal. Conjunctiva and sclera are non-icteric and not injected. Cornea within normal limits. Periorbital areas with no swelling, redness, or edema. Neck: Trachea midline, no thyromegaly or masses palpated, and no cervical lymphadenopathy. Supple, full range of motion without nuchal rigidity, or vertebral point tenderness. No Meningismus. Chest/axilla: Normal chest wall appearance and motion. Nontender with no deformity. No lesions are appreciated. Cardiovascular: Regular rate and rhythm with a normal S1 and S2. No gallops, murmurs, or rubs. Normal PMI, no JVD. No pulse deficits. Respiratory: Lungs have equal breath sounds bilaterally, clear to auscultation and percussion. No rales, rhonchi or wheezes noted. No increased work of breathing, no retractions or nasal flaring. Abdomen/GI: Soft, non-tender, with normal bowel sounds. No distension or tympany. No guarding or rebound. No evidence of tenderness throughout. Back: No spinal tenderness. No costovertebral tenderness. Full range of motion. Skin: Warm, dry with normal turgor. Normal color with no rashes, no lesions, and no evidence of cellulitis. MS/ Extremity: Pulses equal, no cyanosis. Neurovascular intact. Full, normal range of motion. Neuro: Orientation: to person, Mentation: inappropriate for stated age, slow to respond, confused, Motor: moves all fours, Gait: not tested. Vital Signs: 02/11 15:08 BP 133 / 73; Pulse 78; Resp 18; Temp 101.9; Pulse Ox 94% on R/A; Weight 133.81 kg; tw2 Height 5 ft. 9 in. (175.26 cm); 16:10 BP 135 / 72; Pulse 83; Resp 22; Pulse Ox 94% on R/A; tw2 16:46 Temp 99.6(O); jd3 17:09 BP 124 / 67; Pulse 81; Resp 22; Pulse Ox 94% on R/A; tw2 17:38 BP 124 / 67; Pulse 79; Resp 19; Temp 102; Pulse Ox 94% on R/A; tw2 15:08 Body Mass Index 43.56 (133.81 kg, 175.26 cm) tw2 17:38 provider notified tw2 MDM: 18:19 Patient medically screened. kdr 02/12 19:14 Data reviewed: vital signs, nurses notes, lab test result(s), radiologic studies. kdr Counseling: I had a detailed discussion with the patient and/or guardian regarding: the historical points, exam findings, and any diagnostic results supporting the discharge/admit diagnosis, lab results, radiology results, the need for further work-up and treatment in the hospital. 02/11 15:50 Order name: Amylase, Serum; Complete Time: 17:56 sv 02/11 15:50 Order name: Basic Metabolic Panel; Complete Time: 17:56 sv 02/11 15:50 Order name: Blood Culture Adult (2) sv 02/11 15:50 Order name: CBC with Diff; Complete Time: 17:56 sv 02/11 15:50 Order name: Ckmb; Complete Time: 17:56 sv 02/11 15:50 Order name: CPK; Complete Time: 17:56 sv 02/11 15:50 Order name: Lactate; Complete Time: 17:56 sv 02/11 15:50 Order name: LFT's; Complete Time: 17:56 sv 02/11 15:50 Order name: Lipase; Complete Time: 17:56 sv 02/11 15:50 Order name: Procalcitonin; Complete Time: 17:56 sv 02/11 15:50 Order name: Protime (+inr); Complete Time: 17:56 sv 02/11 15:50 Order name: Ptt, Activated; Complete Time: 17:56 sv 02/11 15:50 Order name: Troponin (emerg Dept Use Only); Complete Time: 17:56 sv 02/11 15:50 Order name: Urine Microscopic Only; Complete Time: 19:07 sv 02/11 15:50 Order name: Chest Single View XRAY; Complete Time: 17:56 sv 02/11 15:50 Order name: Cardiac monitoring; Complete Time: 16:08 sv 02/11 15:50 Order name: EKG - Nurse/Tech; Complete Time: 16:08 sv 02/11 15:50 Order name: IV Saline Lock - Large Bore; Complete Time: 16:09 sv 02/11 15:50 Order name: Labs collected and sent; Complete Time: 16:09 sv 02/11 17:57 Order name: CT Head Brain wo Cont; Complete Time: 19:07 kdr 02/11 18:10 Order name: Urine Dipstick--Ancillary (enter results); Complete Time: 19:07 bd 02/11 19:59 Order name: SARS-COV-2 RT PCR EDMS 02/11 15:50 Order name: O2 Per Protocol; Complete Time: 16:08 sv 02/11 15:50 Order name: O2 Sat Monitoring; Complete Time: 16:08 sv 02/11 15:50 Order name: Urine Dipstick-Ancillary (obtain specimen); Complete Time: 18:19 sv 02/11 17:59 Order name: Straight Cath - Urine; Complete Time: 17:59 tw2 EC/22 18:21 Rate is 88 beats/min. Rhythm is regular, Sinus Rhythm with No ectopy, Right bundle kdr branch block. QRS [place] is Normal. MO interval is normal. QRS interval is normal. QT interval is normal. Clinical impression: NSR w/ Non-specific ST/T Changes. Administered Medications: 15:45 Drug: Tylenol 1000 mg Route: PO; tw2 16:51 Follow up: Response: No adverse reaction; Temperature is decreased tw2 16:33 Drug: NS 0.9% 500 ml Route: IV; Rate: bolus; Site: right wrist; tw2 17:20 Follow up: Response: No adverse reaction; IV Status: Completed infusion; IV Intake: tw2 500ml 18:02 Drug: Ibuprofen 600 mg Route: PO; tw2 19:05 Follow up: Response: No adverse reaction ll2 18:02 Drug: Rocephin - (cefTRIAXone) 1 grams {Note: IVP available only.} Route: IVPB; Infused tw2 Over: 5 mins; Site: right wrist; 18:07 Follow up: Response: No adverse reaction; IV Status: Completed infusion; IV Intake: 22ncyk2 19:51 Drug: Zithromax 500 mg Route: IVPB; Infused Over: 1 hrs; Site: right wrist; ll2 20:38 Follow up: Response: No adverse reaction; IV Status: Completed infusion ll2 Disposition: 02/12/20 18:19 Hospitalization ordered by Astno Pineda for Observation. Preliminary diagnosis are Fever, unspecified, Viral infection, unspecified, Altered mental status, unspecified. - Bed requested for Telemetry/MedSurg (observation). - Status is Observation. ll2 - Condition is Fair. - Problem is new. - Symptoms are unchanged. Signatures: Dispatcher [employer] EDKeila Caruso RN RN sv Woody, Diana, RN RN dw Rittger, Kevin, MD MD kdr Attema, Lee, DICTAPHONE TYPIST-C DICTAPHONE TYPIST-Cla1 Vanessa Germain RN RN tw2 Lulu Lutz RN RN ll2 Corrections: (The following items were deleted from the chart) 16:08 15:50 Accucheck ordered. sv tw2 18:38 18:19 Hospitalization Ordered by Mick Marshall MD for Observation. Preliminary la1 diagnosis is Fever, unspecified; Viral infection, unspecified; Altered mental status, unspecified. Bed requested for Telemetry/MedSurg (observation). Status is Observation. Condition is Fair. Problem is new. Symptoms are unchanged. [facility] 19:09 18:18 CORONAVIRUS ordered. EDUT EDMS 19:22 18:18 CORONAVIRUS+MR.LAB.BRZ ordered. EDUT EDMS 20:14 18:38 02/12/2020 18:19 Hospitalization Ordered by Aston Pineda DO for Observation. dw Preliminary diagnosis is Fever, unspecified; Viral infection, unspecified; Altered mental status, unspecified. Bed requested for Telemetry/MedSurg (observation). Status is Observation. Condition is Fair. Problem is new. Symptoms are unchanged. la1 20:18 15:11 Allergies: NKA; tw2 ll2 20:43 20:14 02/12/2020 18:19 Hospitalization Ordered by Aston Pineda DO for Observation. dw Preliminary diagnosis is Fever, unspecified; Viral infection, unspecified; Altered mental status, unspecified. Bed requested for Telemetry/MedSurg (observation). Status is Observation. Condition is Fair. Problem is new. Symptoms are unchanged. dw 21:02 15:11 PMHx: CHF; tw2 ll2 21:02 20:18 Allergies: NKA; ll2 ll2 21:05 20:43 02/12/2020 18:19 Hospitalization Ordered by Aston Pineda DO for Observation. ll2 Preliminary diagnosis is Fever, unspecified; Viral infection, unspecified; Altered mental status, unspecified. Bed requested for Telemetry/MedSurg (observation). Status is Observation. Condition is Fair. Problem is new. Symptoms are unchanged. dw
--- NOTE | 2020-02-12 18:37 | RAD REPORT ---
EXAM DESCRIPTION: CT - Head Brain Wo Cont - 02/12/2020 6:13 pm CLINICAL HISTORY: CONFUSED, transient alteration of awareness COMPARISON: Head Brain Wo Cont dated 04/11/2017 TECHNIQUE: Axial 5 mm thick images of the head were obtained without IV contrast. All CT scans are performed using dose optimization technique as appropriate and may include automated exposure control or mA/KV adjustment according to patient size. FINDINGS: No intracranial hemorrhage, mass, edema or shift of mid-line structures. No acute infarcti on changes seen. No cortical edema or sulcal effacement. Moderate severity atrophy is present with mo derate chronic ischemic change in the cerebral white matter. Ventricles are in proportion to volume l oss. The intracranial findings are similar to comparison. Mastoid air cells and visualized portions of the paranasal sinuses are clear. No acute bony findings. IMPRESSION: Moderate atrophy moderate chronic ischemic changes are present similar to comparison. No acute intracranial finding.
[2020-02-12 18:45] LABS: Urine Glucose NEGATIVE (NEG); Urine Specific Gravity 1.025 (1.005-1.030)
[2020-02-12 18:46] LABS: Urine Blood NEGATIVE (NEG); Urine Protein 3+ (NEG)
[2020-02-12 19:05] LABS: Urine Bacteria <20 /HPF (NONE SEEN); Urine RBC <5 /HPF (NONE SEEN)
--- NOTE | 2020-02-12 19:33 | P.HP ---
Certification for Inpatient Patient admitted to: Observation With expected LOS: <2 Midnights Patient will require the following post-hospital care: None Practitioner: I am a practitioner with admitting privileges, knowledge of patient current condition, hospital course, and medical plan of care. Services: Services provided to patient in accordance with Admission requirements found in Title 42 Section 412.3 of the Code of Federal Regulations <Jewel Quispe - Last Filed: 02/12/20 19:29> Patient admitted to: Observation <DeniseakilAston - Last Filed: 02/13/20 08:31> Patient History Date of Service: 02/12/20 Reason for admission: Dyspnea, fever History of Present Illness: 79-year-old male with history of diabetes, hypertension, hyperlipidemia, coronary artery disease S/P multiple CABG, tobacco abuse presents emergency department for fever, shortness of breath, cough. Patient r eports he has had cough and shortness of breath for a couple of days but fever just began today. Patient's workup in the emergency department revealed mild elevation white blood cell count with left shift. White blood cell count 14.3 lactic acid 2.2 pro calcitonin 0.07 urine negative for signs of infection chest x-ray shows vascular interstitial markings increased slightly over baseline pattern, mild interstitial edema or infiltrate would be considerations in acute clinical setting. Patient's vital signs stable, does not appear septic at this time. Patient given fluids, Rocephin in the emergency department. When I saw the patient in the ER she was awake, alert, oriented x3. Add on Zithromax to patient's antibiotic regimen and will admit for further evaluation and management. No signs of infection anywhere else on body, neck is supple, patient denies headache, no skin lesions noted on exam. Abdomen soft, nondistended, nontender. - Past Medical/Surgical History Diabetic: Yes -: HTN -: CAD -: Hyperlipidemia -: NIDDM -: INOPERABLE CAD -: [place] -: Hypothyroidism -: Cholecystectomy -: Heart Bypass-2000 -: Cardiac stents x5 Psychosocial/ Personal History: Patient lives at home with his granddaughter and is retired - Family History Father -: Cancer, Other (see notes) Notes: prostate cancer Mother -: Diabetes - Social History Smoking Status: Current every day smoker Counseled patient to stop smoking for: less than 10 minutes Smoking therapy provided: Yes Alcohol use: No CD- Drugs: No Caffeine use: Yes <Jewel Quispe - Last Filed: 02/12/20 19:29> Date of Service: 02/13/20 Home medications list reviewed: Yes - Social History Place of Residence: Home <MiriamAston - Last Filed: 02/13/20 08:31> Allergies No Known Allergies Allergy (Verified 04/07/17 03:07) Home Medications: Glimepiride 1 tab PO BIDWM 04/07/17 Temazepam [Restoril*] 1 cap PO BEDTIME PRN PRN 04/07/17 Tramadol HCl [Ultram] 50 mg PO BID PRN 04/07/17 clonazePAM [Klonopin*] 1 tab PO BID 04/07/17 Finasteride [Proscar*] 5 mg PO DAILY 02/28/18 Clopidogrel Bisulfate [Plavix*] 75 mg PO DAILY #30 tablet 03/02/18 carvediloL [Coreg*] 1 tab PO BID #60 tab 03/02/18 Aspirin [Aspirin EC 81 MG] 81 mg PO DAILY 02/12/20 Isosorbide Mononitrate [Isosorbide Mononitrate ER] 30 mg PO DAILY 02/12/20 Joint Support Advanced Formula 1 tab PO DAILY 02/12/20 Losartan Potassium 100 mg PO DAILY 02/12/20 Metformin HCl 1,000 mg PO BIDWM 02/12/20 Multivit-Min/FA/Lycopen/Lutein [Centrum Silver Tablet] 1 each PO DAILY 02/12/20 Rosuvastatin [Crestor*] 20 mg PO DAILY 02/12/20 Sertraline HCl 50 mg PO DAILY 02/12/20 Review of Systems 10-point ROS is otherwise unremarkable General: Fever, Chills, Weakness, Malaise Respiratory: Cough, Shortness of Breath, SOB with Excertion, Sputum <Jewel Quispe - Last Filed: 02/12/20 19:29> Physical Examination - Physical Exam General: Alert, In no apparent distress HEENT: Atraumatic, PERRLA, Other (Mucous membranes dry) Neck: Supple, 2+ carotid pulse no bruit, No LAD Respiratory: Normal air movement, Diminished (Bilaterally with coarse breath sounds) Cardiovascular: Regular rate/rhythm, Normal S1 S2 Capillary refill: <2 Seconds Gastrointestinal: Normal bowel sounds, No tenderness, No masses, No rebound, No guarding Musculoskeletal: No contractures, No erythema, No tenderness Integumentary: No rashes, No tenderness/swelling, No erythema, No warmth Neurological: Normal gait, Normal speech, Normal strength at 5/5 x4 extr, Normal tone, Normal affect - Studies Laboratory Data (last 24 hrs) 02/12/20 16:00: PT 14.3 H, INR 1.22, APTT 32.2 02/12/20 16:00: WBC 14.3 H, Hgb 14.5, Hct 42.5, Plt Count 175 02/12/20 16:00: Sodium 138, Potassium 4.2, BUN 17, Creatinine 0.91, Glucose 183 H, Total Bilirubin 1.4 H, AST 36, ALT 44, Alkaline Phosphatase 79, Amylase 25, Lipase 37 L <Jewel Quispe - Last Filed: 02/12/20 19:29> - Studies Laboratory Data (last 24 hrs) 02/12/20 16:00: PT 14.3 H, INR 1.22, APTT 32.2 02/12/20 16:00: WBC 14.3 H, Hgb 14.5, Hct 42.5, Plt Count 175 02/12/20 16:00: Sodium 138, Potassium 4.2, BUN 17, Creatinine 0.91, Glucose 183 H, Total Bilirubin 1.4 H, AST 36, ALT 44, Alkaline Phosphatase 79, Amylase 25, Lipase 37 L <Aston Pineda - Last Filed: 02/13/20 08:31> Assessment and Plan - Plan Assessment Dyspnea, fever suspect underlying bacterial pneumonia Diabetes mellitus type 2 Hypertension Hyperlipidemia CAD s/p multiple CABG Depression with anxiety Plan Dyspnea, fever suspect underlying bacterial pneumonia: Blood cultures obtained in the emergency department, lactate 2.2, patient was given IV fluids will trend lactate. Patient does not appear septic at this time. Patient started on Rocephin/Zithromax, will continue to monitor closely overnight. Patient does appear dry, continue with gentle hydration overnight. Recheck labs in the morning. DVT prophylaxis Lovenox 40 mg subcutaneous once daily. Diabetes mellitus type 2: A.c. HS Accu-Cheks, sliding scale insulin therapy. A1c with morning labs. Hypertension: Home medications have been continued Hyperlipidemia: Home medications have been continued CAD s/p multiple CABG: Home medications have been continued Depression with anxiety: Home medications have been continued Discharge Plan: Home Plan to discharge in: 24 Hours - Advance Directives Does patient have a Living Will: No Does patient have a Durable POA for Healthcare: No - Code Status/Comfort Care Code Status Assessed: Yes (Full code) Critical Care: No Time Spent Managing Pts Care (In Minutes): 55 <Jewel Quispe - Last Filed: 02/12/20 19:29> - Plan Case discussed in detail with nurse practitioner. Agree with plan of care. Please review progress no for details. Continue antibiotic therapy. Will adjust medications. Restart thyroid medication. Will check orthostatics. Physical therapy order. <Aston Pineda - Last Filed: 02/13/20 08:31>
[2020-02-12] MEDS ORDERED: AZITHROMYCIN 500 MG INJ IVPB ONE (19:44)
[2020-02-12] MEDS ORDERED: NA CHLORIDE 0.9% 250 ML ONE (19:45)
[2020-02-12] MEDS: INSULIN -REGULAR HUMAN 50 UNIT/0.5 ML ML SQ SCH (21:30)
[2020-02-12] MEDS ORDERED: TEMAZEPAM 15 MG CAP PO PRN (21:30)
[2020-02-12] MEDS: ROSUVASTATIN 10 MG TAB PO SCH (21:30)
[2020-02-12] MEDS ORDERED: ONDANSETRON 4 MG/2 ML VIAL IV PRN (21:30)
[2020-02-12] MEDS ORDERED: NA CHLORIDE 0.9% 1,000 ML IV SCH (21:30)
[2020-02-12] MEDS ORDERED: ACETAMINOPHEN 325 MG TABLET PO PRN (21:30)
[2020-02-12] MEDS: FINASTERIDE 5 MG TAB PO SCH (21:30)
[2020-02-12] MEDS ORDERED: carvediloL 6.25 MG TAB PO SCH (21:30)
[2020-02-12] MEDS ORDERED: clonazePAM 0.5 MG TAB PO PRN (21:30)
[2020-02-12] MEDS ORDERED: TRAMADOL HCL 50 MG TAB PO PRN (21:30)
[2020-02-12 23:00] VITALS: BMI 30.4
[2020-02-13 04:42] LABS: Absolute Lymphocytes (CBC) 1.7 K/uL (0.7-4.9); Basophils % 0.6 % (0-1.3); Hematocrit 38.5 % (39.6-49.0); Lymphocytes % 13.3 % (15.3-44.8); MPV 8.7 fL (7.6-11.3); RBC Red Blood Cell Count 4.17 M/uL (4.33-5.43)
[2020-02-13 05:07] LABS: Magnesium 1.8 mg/dL (1.8-2.4); Potassium 3.6 mmol/L (3.5-5.1)
[2020-02-13 05:11] LABS: Thyroid Stimulating Hormone 19.3 uIU/mL (0.360-3.740)
[2020-02-13] MEDS ORDERED: MAGNESIUM SULFATE 1 gm IVPB 1 GM/100 ML BAG IV ONE (05:26)
[2020-02-13] MEDS ORDERED: POTASSIUM 25 MEQ EFFERV TAB PO ONE (05:26)
--- NOTE | 2020-02-13 07:03 | RAD REPORT ---
EXAM DESCRIPTION: RAD - Chest Single View - 02/13/2020 6:52 am CLINICAL HISTORY: re evaluatepneumonia, shortness of breath COMPARISON: February 11 TECHNIQUE: AP portable chest image was obtained 02/13/2020 6:52 am . FINDINGS: Lung volumes are low compared to prior study. This accentuates the interstitial and centra l vascular pattern. Cardiac silhouette is enlarged. No focal pneumonia identified. Mild failure or vo lume overload component is possible. CABG surgical changes are evident. No measurable pleural effusio n and no pneumothorax. No acute bony abnormality seen. No acute aortic findings suspected. IMPRESSION: No focal consolidation to localize a bacterial pneumonia. Heart, vasculature and lung markings are all prominent, accentuated by shallow inspiration. Mild fail ure or volume overload cannot be excluded.
[2020-02-13] MEDS: INSULIN -REGULAR HUMAN 50 UNIT/0.5 ML ML SQ SCH ×4 (07:30→21:00)
--- NOTE | 2020-02-13 08:29 | P.PN ---
Subjective Date of Service: 02/13/20 Primary Care Provider: Dr. Santos; Cardiology-Dr. Fischer Chief Complaint: Dyspnea, fever Subjective: Other (Patient reports improvement. Some cough and congestion noted.) Physical Examination - Vital Signs Temperature: 97.4 F Blood Pressure: 142/64 Pulse: 73 Respirations: 18 Pulse Ox (%): 94 - Physical Exam General: Alert, In no apparent distress, Oriented x3, Cooperative HEENT: Atraumatic Neck: Supple Respiratory: Crackles/rales (Crackles to the bases) Cardiovascular: Normal pulses, Regular rate/rhythm Musculoskeletal: No erythema, No tenderness, No warmth Integumentary: No tenderness/swelling Neurological: Normal speech, Normal strength at 5/5 x4 extr, Normal tone, Normal affect - Studies Laboratory Data (last 24 hrs) 02/12/20 16:00: PT 14.3 H, INR 1.22, APTT 32.2 02/12/20 16:00: WBC 14.3 H, Hgb 14.5, Hct 42.5, Plt Count 175 02/12/20 16:00: Sodium 138, Potassium 4.2, BUN 17, Creatinine 0.91, Glucose 183 H, Total Bilirubin 1.4 H, AST 36, ALT 44, Alkaline Phosphatase 79, Amylase 25, Lipase 37 L Medications List Reviewed: Yes Assessment & Plan Discharge Plan: Home Plan to discharge in: 24 Hours Physician Review Additional Text: Assessment Dyspnea, fever suspect underlying bacterial pneumonia Diabetes mellitus type 2 Hypertension Hyperlipidemia CAD s/p multiple CABG Depression with anxiety BPH Hypothyroidism Plan Dyspnea, fever suspect underlying bacterial pneumonia: Clinically patient appears to have cough. No longer requiring oxygen. COVID test negative. Strep and flu negative. Continue antibiotic therapy. Blood pressure stable. Discontinue IV fluids. Will check orthostatics. Patient still feeling panel weak. Will have physical therapy assess ambulation. Patient does not require any oxygen. Continue antibiotics. Will reassess later today. If significantly improved possible discharge later or possible tomorrow. Diabetes mellitus type 2: A1c 9.2. Continue Accu-Cheks and sliding scale. Will review home medication. Hypertension: Will adjust blood pressure medication Hyperlipidemia: Continue medication CAD s/p multiple CABG: Continue medication Depression with anxiety: Continue medication BPH: Continue medication Hypothyroidism: Tsh and free T4 abnormal. Patient reports that he stop taking his medication. Will need to restart medication. Will check to confirm if patient has medication at home. Time Spent Managing Pts Care (In Minutes): 55
[2020-02-13] MEDS: MULTIVIT W/ MINERAL TAB PO SCH (08:54)
[2020-02-13] MEDS: SERTRALINE HCL 50 MG TAB PO SCH (08:54)
[2020-02-13] MEDS: CLOPIDOGREL 75 MG TABLET PO SCH (08:54)
[2020-02-13] MEDS: LOSARTAN POTASSIUM 50 MG TABLET PO SCH (08:54)
[2020-02-13] MEDS: ASPIRIN EC 81 MG TAB PO SCH (08:54)
[2020-02-13] MEDS: carvediloL 6.25 MG TAB PO SCH ×2 (08:54→20:26)
[2020-02-13] MEDS: ENOXAPARIN 40 MG/0.4 ML SQ SCH (08:55)
[2020-02-13] MEDS: LEVOTHYROXINE SOD 0.05 MG TABLET PO SCH (08:57)
[2020-02-13] MEDS: ISOSORBIDE MONO SR 30 MG TAB PO SCH ×2 (09:00→11:56)
[2020-02-13] MEDS ORDERED: CEFTRIAXONE 1 GM/NS 50 ML 1 GM/50 ML BAG IV SCH (09:00)
[2020-02-13] MEDS ORDERED: LOSARTAN POTASSIUM 50 MG TABLET PO SCH ×2 (09:00)
[2020-02-13] MEDS ORDERED: carvediloL 12.5 MG TAB PO SCH (09:00)
[2020-02-13] MEDS ORDERED: CEFTRIAXONE/SWI 1gm 1 GM/10 ML SYR IV SCH (18:00)
[2020-02-13] MEDS ORDERED: AZITHROMYCIN IV 500 MG in NA CHLORIDE 0.9% 250 ML IVPB SCH (20:00)
[2020-02-13] MEDS: FINASTERIDE 5 MG TAB PO SCH (20:26)
[2020-02-13] MEDS: ROSUVASTATIN 10 MG TAB PO SCH (20:26)
[2020-02-14 04:11] VITALS: O2SAT 98
[2020-02-14 04:58] LABS: Absolute Lymphocytes (CBC) 1.7 K/uL (0.7-4.9); Basophils % 0.8 % (0-1.3); Hematocrit 36.4 % (39.6-49.0); Lymphocytes % 23.6 % (15.3-44.8); MPV 9.1 fL (7.6-11.3)
[2020-02-14 05:05] LABS: BUN Blood Urea Nitrogen 14 mg/dL (7-18); Bicarbonate 28 mmol/L (21-32); Glucose Level 109 mg/dL (74-106); Potassium 3.6 mmol/L (3.5-5.1); Sodium Level 139 mmol/L (136-145)
[2020-02-14 05:06] LABS: Magnesium 2.2 mg/dL (1.8-2.4)
[2020-02-14 05:34] VITALS: TEMP 97.6
[2020-02-14] MEDS: LEVOTHYROXINE SOD 0.05 MG TABLET PO SCH (05:50)
[2020-02-14] MEDS: INSULIN -REGULAR HUMAN 50 UNIT/0.5 ML ML SQ SCH (07:30)
--- NOTE | 2020-02-14 08:20 | RAD REPORT ---
EXAM DESCRIPTION: Lisseth Cole (2 Views)02/14/2020 7:58 am CLINICAL HISTORY: Cough COMPARISON: February 12 FINDINGS: The lungs appear clear of acute infiltrate. The heart is mildly enlarged. Postsurgical ch anges involve the chest IMPRESSION: No acute abnormalities displayed
[2020-02-14] MEDS ORDERED: POTASSIUM CL SA 10 MEQ TAB PO ONE (09:00)
--- NOTE | 2020-02-14 09:11 | P.DS ---
Admission Date: 02/12/20 Discharge Date: 02/14/20 Primary Care Provider: Dr. Santos; Cardiology-Dr. Fischer Disposition: DC HOME/HOME HEALTH CARE Discharge Condition: GOOD Reason for Admission: Dyspnea, fever Consultations: none Procedures: COVID: Negative CT Head: FINDINGS: No intracranial hemorrhage, mass, edema or shift of mid-line structures. No acute infarction changes seen. No cortical edema or sulcal effacement. Moderate severity atrophy is present with moderate chronic ischemic change in the cerebral white matter. Ventricles are in proportion to volume loss. The intracranial findings are similar to comparison. Mastoid air cells and visualized portions of the paranasal sinuses are clear. No acute bony findings. IMPRESSION: Moderate atrophy moderate chronic ischemic changes are present similar to comparison. No acute intracranial finding. CXR: FINDINGS: Lung volumes are low compared to prior study. This accentuates the interstitial and central vascular pattern. Cardiac silhouette is enlarged. No focal pneumonia identified. Mild failure or volume overload component is possible. CABG surgical changes are evident. No measurable pleural effusion and no pneumothorax. No acute bony abnormality seen. No acute aortic findings suspected. IMPRESSION: No focal consolidation to localize a bacterial pneumonia. Heart, vasculature and lung markings are all prominent, accentuated by shallow inspiration. Mild failure or volume overload cannot be excluded. Follow up CXR: COMPARISON: February 12 FINDINGS: The lungs appear clear of acute infiltrate. The heart is mildly enlarged. Postsurgical changes involve the chest IMPRESSION: No acute abnormalities displayed Medical Problem List: Dyspnea, fever suspect underlying bacterial pneumonia likely with underlying COPD Diabetes mellitus type 2 Hypertension Hyperlipidemia CAD s/p multiple CABG Depression with anxiety BPH Hypothyroidism Brief History of Present Illness: 79-year-old male with history of diabetes, hypertension, hyperlipidemia, coronary artery disease S/P multiple CABG, tobacco abuse presents emergency department for fever, shortness of breath, cough. Patient reports he has had cough and shortness of breath for a couple of days but fever just began today. Patient's workup in the emergency department revealed mild elevation white blood cell count with left shift. White blood cell count 14.3 lactic acid 2.2 pro calcitonin 0.07 urine negative for signs of infection chest x-ray shows vascular interstitial markings increased slightly over baseline pattern, mild interstitial edema or infiltrate would be considerations in acute clinical setting. Patient's vital signs stable, does not appear septic at this time. Patient given fluids, Rocephin in the emergency department. Patient continued with IV antibiotic therapy. Patient admitted for further evaluation and treatment. Hospital Course: Patient presented with dyspnea, fever and dehydration. Initial workup showed COVID test negative. Urine culture negative. Blood culture negative. Chest x- ray showed possible pneumonia. Patient with history of tobacco abuse. Patient was treated with IV antibiotic therapy with improvement. White count now normal. Patient not requiring any oxygen at this time. Patient has significantly improved. Patient without significant shortness of breath or fever. At discharge patient will continue with Augmentin 500 mg 1 pill twice daily for 7 days. Patient may also have underlying COPD due to his chronic tobacco history. Patient still smokes regularly. Tobacco cessation addressed in detail. At discharge will also recommend to start Symbicort 2 puffs twice daily and albuterol 2 puffs 3 times a day as needed for shortness of breath. Patient would benefit with pulmonary function test to further evaluate. This can be done with the help of his PCP or in consultation with pulmonology. Recommend follow up with PCP in 1 week to follow up his care. Patient with diabetes mellitus type 2. A1c 9.2. At discharge patient will continue with his current medication-glimepiride 4 mg 1 pill twice daily and metformin 1000 mg 1 pill twice daily. Recommend to maintain blood sugars less 140 fasting and less than 200 after meals. May need to hold glimepiride if with hypoglycemia. Education provided. Further adjustment can be done by his PCP. Patient with hypertension. Blood pressure was slightly low. Medications were adjusted. Both medications losartan and carvedilol were decreased. At discharge he will continue with carvedilol 6.25 mg 1 pill twice daily and losartan 25 mg daily. Recommend to monitor blood pressure daily. Recommend to maintain blood pressure less than 130/80. Recommend to hold medication if blood pressure systolic less than 110. If blood pressure remains above 140/90 then further adjustment in medication may be required. This can be done with the help of his PCP. Patient with hyperlipidemia and CAD with prior CABG. Patient non operable at this time. At discharge he will continue with his current medications including aspirin 81 mg daily, Plavix 75 mg daily, Crestor 20 mg daily and isosorbide mononitrate 30 mg daily. Recommend follow up with cardiology as directed. The importance of tobacco cessation addressed in detail. Patient with depression anxiety. This appears stable. At discharge he will continue with his medication sertraline 50 mg daily. Will recommend to wean off temazepam and Klonopin. Both medications are addictive and may cause increase sedation. Patient with BPH. At discharge he will continue with his current medications Proscar 5 mg daily. Patient with hypothyroidism. Tsh and free T4 abnormal. Patient had stopped his medication in the past. Will recommend to restart Synthroid 50 mcg daily. Recommend to recheck lab-tsh and free T4 in 4-6 weeks to further adjust. This can be done with the help of his PCP. Patient with diabetic neuropathy. Fall precautions in place. Patient will continue with home health at discharge. Patient will continue with tramadol as directed for pain. Vital Signs/Physical Exam: Temp Pulse Resp BP Pulse Ox 97.6 F 76 18 124/67 96 02/14/20 04:00 02/14/20 04:00 02/14/20 04:00 02/14/20 04:00 02/14/20 04:00 General: Alert, In no apparent distress, Oriented x3, Cooperative HEENT: Atraumatic Neck: Supple Respiratory: Clear to auscultation bilaterally, Normal air movement Cardiovascular: Normal pulses, Regular rate/rhythm Gastrointestinal: Normal bowel sounds, No tenderness, No masses, No rebound, No guarding Musculoskeletal: No tenderness, No warmth, Other (Patient uses wheelchair.) Neurological: Normal speech, Normal strength at 5/5 x4 extr, Normal tone, Normal affect Laboratory Data at Discharge: WBC 7.1 K/uL (4.3-10.9) D 02/14/20 04:32 Hgb 12.3 g/dL (13.6-17.9) L 02/14/20 04:32 Hct 36.4 % (39.6-49.0) L 02/14/20 04:32 Plt Count 145 K/uL (152-406) L 02/14/20 04:32 PT 14.3 SECONDS (9.5-12.5) H 02/12/20 16:00 INR 1.22 02/12/20 16:00 APTT 32.2 SECONDS (24.3-36.9) 02/12/20 16:00 Sodium 139 mmol/L (136-145) 02/14/20 04:32 Potassium 3.6 mmol/L (3.5-5.1) 02/14/20 04:32 BUN 14 mg/dL (7-18) 02/14/20 04:32 Creatinine 0.70 mg/dL (0.55-1.3) 02/14/20 04:32 Glucose 109 mg/dL (74-106) H 02/14/20 04:32 Magnesium 2.2 mg/dL (1.8-2.4) 02/14/20 04:32 Total Bilirubin 1.4 mg/dL (0.2-1.0) H 02/12/20 16:00 AST 36 U/L (15-37) 02/12/20 16:00 ALT 44 U/L (12-78) 02/12/20 16:00 Alkaline Phosphatase 79 U/L (45-117) 02/12/20 16:00 Amylase 25 U/L (25-115) 02/12/20 16:00 Lipase 37 U/L (73-393) L 02/12/20 16:00 Home Medications: Glimepiride 1 tab PO BIDWM 04/07/17 Tramadol HCl [Ultram] 50 mg PO BID PRN 04/07/17 Finasteride [Proscar*] 5 mg PO DAILY 02/28/18 Clopidogrel Bisulfate [Plavix*] 75 mg PO DAILY #30 tablet 03/02/18 Aspirin [Aspirin EC 81 MG] 81 mg PO DAILY 02/12/20 Isosorbide Mononitrate [Isosorbide Mononitrate ER] 30 mg PO DAILY 02/12/20 Joint Support Advanced Formula 1 tab PO DAILY 02/12/20 Metformin HCl 1,000 mg PO BIDWM 02/12/20 Multivit-Min/FA/Lycopen/Lutein [Centrum Silver Tablet] 1 each PO DAILY 02/12/20 Rosuvastatin [Crestor*] 20 mg PO DAILY 02/12/20 Sertraline HCl 50 mg PO DAILY 02/12/20 Albuterol Inhaler [Ventolin Inhaler*] 2 puff IH TID PRN #1 hfa.aer.ad 02/14/20 Amox/Clavulanate [Augmentin 500-125 mg Tab] 500 mg PO BID #14 tab 02/14/20 Budesonide/Formoterol Fumarate [Symbicort 160-4.5 Mcg Inhaler] 2 puff IH BID #1 hfa.aer.ad 02/14/20 Levothyroxine [Synthroid*] 0.05 mg PO DAILYAC #30 tablet 02/14/20 Losartan Potassium 25 mg PO DAILY #30 tablet 02/14/20 carvediloL [Coreg*] 6.25 mg PO BID #60 tab 02/14/20 New Medications: Amox/Clavulanate [Augmentin 500-125 mg Tab] 500 mg PO BID #14 tab carvediloL [Coreg*] 6.25 mg PO BID #60 tab Losartan Potassium 25 mg PO DAILY #30 tablet Budesonide/Formoterol Fumarate [Symbicort 160-4.5 Mcg Inhaler] 2 puff IH BID #1 hfa.aer.ad Levothyroxine [Synthroid*] 0.05 mg PO DAILYAC #30 tablet Albuterol Inhaler [Ventolin Inhaler*] 2 puff IH TID PRN #1 hfa.aer.ad PRN Reason: Shortness Of Breath Patient Discharge Instructions: 1. Follow up with PCP in 1 week. 2. Patient presented with dyspnea, fever and dehydration. Initial workup showed COVID test negative. Urine culture negative. Blood culture negative. Chest x-ray showed possible pneumonia. Patient with history of tobacco abuse. Patient was treated with IV antibiotic therapy with improvement. White count now normal. Patient not requiring any oxygen at this time. Patient has significantly improved. Patient without significant shortness of breath or fever. At discharge patient will continue with Augmentin 500 mg 1 pill twice daily for 7 days. Patient may also have underlying COPD due to his chronic tobacco history. Patient still smokes regularly. Tobacco cessation addressed in detail. At discharge will also recommend to start Symbicort 2 puffs twice daily and albuterol 2 puffs 3 times a day as needed for shortness of breath. Patient would benefit with pulmonary function test to further evaluate. This can be done with the help of his PCP or in consultation with pulmonology. Recommend follow up with PCP in 1 week to follow up his care. 3. Patient with diabetes mellitus type 2. A1c 9.2. At discharge patient will continue with his current medication-glimepiride 4 mg 1 pill twice daily and metformin 1000 mg 1 pill twice daily. Recommend to maintain blood sugars less 140 fasting and less than 200 after meals. May need to hold glimepiride if with hypoglycemia. Education provided. Further adjustment can be done by his PCP. 4. Patient with hypertension. Blood pressure was slightly low. Medications were adjusted. Both medications losartan and carvedilol were decreased. At discharge he will continue with carvedilol 6.25 mg 1 pill twice daily and losartan 25 mg daily. Recommend to monitor blood pressure daily. Recommend to maintain blood pressure less than 130/80. Recommend to hold medication if blood pressure systolic less than 110. If blood pressure remains above 140/90 then further adjustment in medication may be required. This can be done with the help of his PCP. 5. Patient with hyperlipidemia and CAD with prior CABG. Patient non operable at this time. At discharge he will continue with his current medications including aspirin 81 mg daily, Plavix 75 mg daily, Crestor 20 mg daily and isosorbide mononitrate 30 mg daily. Recommend follow up with cardiology as directed. The importance of tobacco cessation addressed in detail. 6. Patient with depression anxiety. This appears stable. At discharge he will continue with his medication sertraline 50 mg daily. Will recommend to wean off temazepam and Klonopin. Both medications are addictive and may cause increase sedation. 7. Patient with BPH. At discharge he will continue with his current medications Proscar 5 mg daily. 8. Patient with hypothyroidism. Tsh and free T4 abnormal. Patient had stopped his medication in the past. Will recommend to restart Synthroid 50 mcg daily. Recommend to recheck lab-tsh and free T4 in 4-6 weeks to further adjust. This can be done with the help of his PCP. 9. Patient with diabetic neuropathy. Fall precautions in place. Patient will continue with home health at discharge. Patient may continue with tramadol as directed. Diet: ADA Activity: Fall precautions Followup: Unknown,U [Primary Care Provider] - Time spent managing pt's care (in minutes): 55
[2020-02-14] MEDS: ISOSORBIDE MONO SR 30 MG TAB PO SCH (09:35)
[2020-02-14] MEDS: ENOXAPARIN 40 MG/0.4 ML SQ SCH (09:35)
[2020-02-14] MEDS: carvediloL 6.25 MG TAB PO SCH (09:36)
[2020-02-14] MEDS: SERTRALINE HCL 50 MG TAB PO SCH (09:36)
[2020-02-14] MEDS: CLOPIDOGREL 75 MG TABLET PO SCH (09:36)
[2020-02-14] MEDS: MULTIVIT W/ MINERAL TAB PO SCH (09:36)
[2020-02-14] MEDS: LOSARTAN POTASSIUM 50 MG TABLET PO SCH (09:36)
[2020-02-14] MEDS: ASPIRIN EC 81 MG TAB PO SCH (09:37)
[2020-02-14 09:38] VITALS: BP 138/62
== END 2020-02-14 11:05 | disposition home health service (06) ==
LOC: ER 15:02 → ERHOLD 19:29 → 2ND 20:40
PROVIDERS: ADMIT Family Medicine; ATTEND Family Medicine
DX: R50.9 Fever, unspecified (principal); J44.9 Chronic obstructive pulmonary disease, unspecified; E11.40 Type 2 diabetes mellitus with diabetic neuropathy, unspecified; I10 Essential (primary) hypertension; E78.5 Hyperlipidemia, unspecified; I25.10 Atherosclerotic heart disease of native coronary artery without angina pectoris; Z95.1 Presence of aortocoronary bypass graft; Z20.828 Contact with and (suspected) exposure to other viral communicable diseases; F41.8 Other specified anxiety disorders; N40.0 Benign prostatic hyperplasia without lower urinary tract symptoms; E03.9 Hypothyroidism, unspecified; R94.31 Abnormal electrocardiogram [ECG] [EKG]; E86.0 Dehydration; Z79.84 Long term (current) use of oral hypoglycemic drugs; Z95.5 Presence of coronary angioplasty implant and graft
CPT/HCPCS: 96365; 96361; 93005; 87040 ×2; 87070; 85025 ×3; 80048 ×3; 36415 ×2; 82150; 83735 ×2; 82550; 85610; 82947 ×6; 80076; 87081; 83605 ×3; 85730; 84443; 83036; 84484; 82553; 84439; 83690; 84145; 87804 ×2; 70450; 71045 ×2; 71046; 97161; 97530; 94010; 51702; 96375; 99285; U0003; J0456 ×3; J1650 ×2; J3475; J0696 ×2; J7050 ×3; J7040; J7030; 81003; 81015; G0378

== ENCOUNTER 2020-05-21 22:24 | Inpatient (IN) | payer OTHER ==
--- OUTSIDE RECORDS SUMMARY | 2020-05-21 22:27 | XMS REPORT | Continuity of Care Document ---
:1940 Author Organization [facility] t Address [address] [place] [address] Care Team Providers Name Role Phone Unavailable Unavailable Unavailable Payers Payer Name Policy Type Policy Number Effective Date Expiration Date S ource Problems This patient has no known problems. Allergies, Adverse Reactions, Alerts Allergy Allergy Status Severity Reaction(s) Onset Inactive Treating Comm ents Source Name Type Date Date Clinician No Known DA Active [facility] Allergie 11-16 s 00:00: [address] Medications This patient has no known medications. Procedures This patient has no known procedures. Results Test Description Test Time Test Comments Results Result Comments Source ACT-ISTAT 2019-10-13 15:07:00 Test Item Value Reference Range Interpretation Comme nts ACT-ISTAT (test code = ACTI) 202 SEC 74-137 H BASIC METABOLIC [id number] 07:50:00 Test Item Value Reference Range Interpretation [...] 0-189 mg/dL VERY HIGH...... ...>/= 190 mg/dL [id number] 07:50:00 Test Item Value Reference Range Interpretation Comments MAGNESIUM (test code = MAG) 2.2 MG/DL 1.6-2.3 N BASIC METABOLIC [id number] 07:39:00 Test Item Value Reference Range Interpretation [...] LDL (test MG/DL 0-99 code = LDL) [id number] 07:39:00 Test Item Value Reference Range Interpretation Comments MAGNESIUM (test code = MAG) 2.2 MG/DL 1.6-2.3 N BASIC METABOLIC [id number] 07:38:00 Test Item Value Reference Range Interpretation [...] LDL (test MG/DL 0-99 code = LDL) [id number] 07:38:00 Test Item Value Reference Range Interpretation Comments MAGNESIUM (test code = MAG) MG/DL 1.6-2.3 BASIC METABOLIC [id number] 07:36:00 Test Item Value Reference Range Interpretation [...] LDL (test code = LDL) MG/DL 0-99 [id number] 07:36:00 Test Item Value Reference Range Interpretation Comments MAGNESIUM (test code = MAG) MG/DL 1.6-2.3 BASIC METABOLIC [id number] 07:35:00 Test Item Value Reference Range Interpretation [...] LDL (test code = LDL) MG/DL 0-99 [id number] 07:35:00 Test Item Value Reference Range Interpretation Comments MAGNESIUM (test code = MAG) MG/DL 1.6-2.3 PROTHROMBIN [id number] 07:19:00 Test Item Value Reference Range Interpretation [...] syste ramone embolism. 3.0 - 4.5 PTT [id number] 07:19:00 Test Item Value Reference Range Interpretation Comments PTT ACTIVATED (test code = APTT) 36.5 SECONDS 25.1-36.5 N CBC W/AUTO [id number] 07:06:00 Test Item Value Reference Range Interpretation [...] 0.0-0.1 N NRBC#) COVID 19 Asymptomatic IH [id number] 06:16:00 Test Item Value Reference Range Interpretation [...] amount of virus (antigen) in the sample." [id number] 09:49:00 Test Item Value Reference Range Interpretation Comments ACT-ISTAT (test code = ACTI) 241 SEC 74-137 H BASIC METABOLIC [id number] 07:42:00 Test Item Value Reference Range Interpretation [...] 0-189 mg/dL VERY HIGH...... ...>/= 190 mg/dL [id number] 07:42:00 Test Item Value Reference Range Interpretation Comments MAGNESIUM (test code = MAG) 1.8 MG/DL 1.6-2.3 N BASIC METABOLIC [id number] 07:31:00 Test Item Value Reference Range Interpretation [...] LDL (test MG/DL 0-99 code = LDL) [id number] 07:31:00 Test Item Value Reference Range Interpretation Comments MAGNESIUM (test code = MAG) 1.8 MG/DL 1.6-2.3 N BASIC METABOLIC [id number] 07:30:00 Test Item Value Reference Range Interpretation [...] LDL (test code = LDL) MG/DL 0-99 [id number] 07:30:00 Test Item Value Reference Range Interpretation Comments MAGNESIUM (test code = MAG) MG/DL 1.6-2.3 BASIC METABOLIC [id number] 07:28:00 Test Item Value Reference Range Interpretation [...] LDL (test code = LDL) MG/DL 0-99 [id number] 07:28:00 Test Item Value Reference Range Interpretation Comments MAGNESIUM (test code = MAG) MG/DL 1.6-2.3 PROTHROMBIN [id number] 07:16:00 Test Item Value Reference Range Interpretation [...] syste ramone embolism. 3.0 - 4.5 PTT [id number] 07:16:00 Test Item Value Reference Range Interpretation Comments PTT ACTIVATED (test code = APTT) 33.9 SECONDS 25.1-36.5 N CBC W/AUTO [id number] 07:05:00 Test Item Value Reference Range Interpretation [...] 0.00 K/mm3 0.0-0.1 N NRBC#) Novel Coronavirus [id number] 03:11:00 Test Item Value Reference Range Interpretation Comments Novel Coronavirus Negative Negative Positive r esults are 2019 Inhouse (test indicativ e of the presence code = [id number]) ofSARS-CoV -2 RNA, clinical correlation wit h [...] for the identification of SARS-CoV-2 RNA usingthe Storrz M2000 Sy stem under the [facility] Emergen cy UseAuthorizatio n. The testing is perf ormed by pancho delvalle in the procedures for the GOBA000 molecular diagnostic SARS-CoV-2 assa y in vitro. Novel Coronavirus [id number] 03:11:00 Test Item Value Reference Range Interpretation Comments Novel Coronavirus Negative Negative Positive r esults are 2019 Inhouse (test indicativ e of the presence code = [id number]) ofSARS-CoV -2 RNA, clinical correlation wit h [...] for the identification of SARS-CoV-2 RNA usingthe Storrz M2000 Sy stem under the FDA Emergen cy UseAuthorizatio n. The testing is perf ormed by pancho delvalle in the procedures for the Storrz M2000 molecular diagnostic SARS-CoV-2 assa y in vitro.
[2020-05-21] MEDS: NA CHLORIDE 0.9% 1,000 ML IV SCH (22:54)
[2020-05-21] MEDS ORDERED: ACETAMINOPHEN 500 MG TAB ONE (23:02)
[2020-05-21] MEDS ORDERED: ONDANSETRON 4 MG/2 ML VIAL ONE (23:03)
[2020-05-21] MEDS ORDERED: NA CHLORIDE 0.9% 1,000 ML ONE (23:03)
[2020-05-21] MEDS ORDERED: MORPHINE 4 MG/ML SYR ONE (23:03)
[2020-05-21 23:14] LABS: Absolute Lymphocytes (CBC) 2.1 K/uL (0.7-4.9); Basophils % 0.6 % (0-1.3); Hematocrit 41.3 % (39.6-49.0); Lymphocytes % 15.5 % (15.3-44.8); MPV 9.4 fL (7.6-11.3); RBC Red Blood Cell Count 4.38 M/uL (4.33-5.43)
[2020-05-21 23:27] LABS: ALT/SGPT 34 U/L (12-78); AST/SGOT 25 U/L (15-37); Albumin 3.9 g/dL (3.4-5.0); Alkaline Phosphatase 86 U/L (45-117); BUN Blood Urea Nitrogen 17 mg/dL (7-18); Bicarbonate 31 mmol/L (21-32); Bilirubin Direct 0.3 mg/dL (0-0.2); Glucose Level 165 mg/dL (74-106); Lipase 78 U/L (73-393); Protein, Total 8.2 g/dL (6.4-8.2); Sodium Level 139 mmol/L (136-145)
[2020-05-21] MEDS ORDERED: PIPER/TAZO/NS 3.375gm 3.375 GM/100 ML BAG ONE (23:48)
[2020-05-22 01:01] LABS: Urine Blood Trace-lysed (Negative); Urine Glucose Negative (Negative); Urine Protein 2+ (Negative)
[2020-05-22 01:21] LABS: Urine Bacteria <20 /HPF (NONE SEEN); Urine RBC <5 /HPF (NONE SEEN); Urine Sperm PRESENT (NONE SEEN)
[2020-05-22 02:16] LABS: SARS-COV-2 RT PCR NEGATIVE (NEGATIVE)
--- NOTE | 2020-05-22 02:53 | EDPHYS ---
Physician Documentation [facility] Name: Musa Lindsay Age: 79 yrs Sex: Male : 1940 Arrival Date: 05/21/2020 Time: 22:25 Bed 7 Private MD: ED Physician Clifford Marshall HPI: 05/22 17:11 This 79 yrs old Male presents to ER via EMS with complaints of Flank Pain. jr8 05/21 22:34 Patient presents via EMS for abd and R sided flank pain. He reports it started today jr8 and also developed nausea. He has extensive cardiac hx and DM. Reports still having appendix. . Historical: - Allergies: 22:30 NKA; sf - Home Meds: 22:30 carvedilol 12.5 mg Oral tab 2 times per day [Active]; clonazepam 0.5 mg Oral tab 2 sf times per day [Active]; Plavix 75 mg Oral tab 1 tab once daily [Active]; finasteride 5 mg Oral tab 1 tab once daily [Active]; glimepiride 4 mg Oral tab twice a day [Active]; Isosorbide Mononitrate Oral [Active]; losartan oral oral [Active]; Metformin Oral [Active]; Crestor 10 mg Oral tab 1 tab once daily [Active]; temazepam 15 mg Oral cap once daily [Active]; tramadol 50 mg Oral tab twice a day [Active]; - PMHx: 22:30 Myocardial infarction; Hypothyroidism; Hypertension; High Cholesterol; Diabetes - sf NIDDM; CHF; - PSHx: 22:30 Heart stents; sf - Immunization history:: Adult Immunizations up to date, Last tetanus immunization: up to date Pneumococcal vaccine is up to date, Flu vaccine is up to date. - Social history:: Smoking status: Patient reports the use of cigarette tobacco products, smokes one-half pack cigarettes per day, Patient/guardian denies using alcohol, street drugs, IV drugs. ROS: 22:35 Cardiovascular: Negative for chest pain, palpitations, and edema, Respiratory: Negative jr8 for shortness of breath, cough, wheezing, and pleuritic chest pain. 22:35 Abdomen/GI: Positive for abdominal pain, nausea, abdominal distension, of the abdomen diffusely. 22:35 Back: Positive for flank pain, on the right. 22:35 Skin: Positive for discoloration. 22:36 All other systems are negative. jr8 Exam: 22:36 Chest/axilla: Normal chest wall appearance and motion. Nontender with no deformity. jr8 No lesions are appreciated. Cardiovascular: Regular rate and rhythm with a normal S1 and S2. No gallops, murmurs, or rubs. Normal PMI, no JVD. No pulse deficits. Respiratory: Lungs have equal breath sounds bilaterally, clear to auscultation and percussion. No rales, rhonchi or wheezes noted. No increased work of breathing, no retractions or nasal flaring. 22:36 Abdomen/GI: Inspection: obese Bowel sounds: normal, in all quadrants, Palpation: severe abdominal tenderness, in all quadrants, Mostly RLQ, involuntary guarding, is elicited in all quadrants. 22:36 : CVA tenderness, on the right. Vital Signs: 22:30 BP 167 / 87; Pulse 80; Resp 20; Temp 102.5; Pulse Ox 96% ; Weight 90.72 kg; Height 5 sf ft. 5 in. (165.10 cm); Pain 6/10; 04 02:04 BP 93 / 48; Pulse 87; Resp 18; Temp 99.8; Pulse Ox 89% ; ea 02:07 BP 110 / 68; ea 05/21 22:30 Body Mass Index 33.28 (90.72 kg, 165.10 cm) sf MDM: 05/21 22:27 Patient medically screened. jr8 05/22 02:51 Differential diagnosis: nephrolithiasis, pyelonephritis, UTI, diverticulitis, rn appendicitis, UTI. Data reviewed: vital signs, nurses notes, lab test result(s), radiologic studies, CT scan, and as a result, I will admit patient. Counseling: I had a detailed discussion with the patient and/or guardian regarding: the historical points, exam findings, and any diagnostic results supporting the discharge/admit diagnosis, lab results, radiology results, the need for outpatient follow up, to return to the emergency department if symptoms worsen or persist or if there are any questions or concerns that arise at home. Response to treatment: the patient's symptoms have mildly improved after treatment, and as a result, I will admit patient. Admission orders: after a detailed discussion of the patient's condition and case, the admit orders are written by me. ED course: Pt with fever of unknown origin, no acute findings on ct, + elevated WBC, still with abd tenderness, neg covid, will obs to Dr. Pineda. . 05/21 22:34 Order name: Basic Metabolic Panel; Complete Time: 04:46 ea 05/21 22:34 Order name: CBC with Diff; Complete Time: 23:17 ea 05/21 22:34 Order name: Hepatic Function; Complete Time: 04:46 ea 05/21 22:34 Order name: Lipase; Complete Time: 04:46 ea 05/21 22:34 Order name: Basic Metabolic Panel [facility] 05/21 22:34 Order name: CBC with Diff [facility] 05/21 22:34 Order name: Hepatic Function [facility] 05/21 22:34 Order name: Lipase [facility] 05/22 00:46 Order name: Urine Microscopic Only; Complete Time: 01:36 ea 05/22 01:01 Order name: Urine Dipstick-Ancillary MS 05/22 02:17 Order name: SARS-COV-2 RT PCR; Complete Time: 02:33 EDMS 05/22 02:55 Order name: Blood Culture Adult (2) [facility] 05/22 02:55 Order name: Procalcitonin; Complete Time: 17:10 co1 05/22 03:16 Order name: COVID-19/FLU A+B; Complete Time: 03:32 EDMS 05/22 03:49 Order name: Troponin (Emerg Dept Use Only); Complete Time: 04:46 EDMS 05/22 03:49 Order name: NT PRO-BNP; Complete Time: 04:46 EDMS 05/22 05:49 Order name: Comprehensive Metabolic Panel; Complete Time: 17:10 EDMS 05/22 05:49 Order name: T4 Free; Complete Time: 17:10 EDMS 05/22 05:49 Order name: Magnesium; Complete Time: 17:10 EDMS 05/22 05:49 Order name: Thyroid Stimulating Hormone; Complete Time: 17:10 EDMS 05/22 06:35 Order name: CBC with Automated Diff; Complete Time: 17:10 EDMS 05/22 07:37 Order name: Glucose, Ancillary Testing; Complete Time: 17:10 EDMS 05/21 22:34 Order name: IV Saline Lock; Complete Time: 22:53 ea 05/21 22:34 Order name: Labs collected and sent; Complete Time: 22:54 05/21 22:34 Order name: IV Saline Lock; Complete Time: 22:54 [facility] 05/21 22:34 Order name: Labs collected and sent; Complete Time: 22:54 [facility] 05/21 22:35 Order name: CT Abd/Pelvis - IV Contrast Only; Complete Time: 17:10 8 05/22 00:46 Order name: Urine Dipstick-Ancillary (obtain specimen); Complete Time: 01:00 05/22 03:06 Order name: XRAY Chest (1 view) 2 05/22 03:06 Order name: Chest Single View; Complete Time: 17:10 EDMS 05/22 07:45 Order name: Hemoglobin A1c; Complete Time: 17:10 EDMS 05/22 08:07 Order name: US; Complete Time: 17:10 EDMS Administered Medications: 05/21 22:34 CANCELLED (Physician Discretion): Tylenol 1000 mg PO once [facility] 22:54 Drug: Tylenol 1000 mg Route: PO; rn 05/22 00:47 Follow up: Response: No adverse reaction 05/21 22:54 Drug: NS 0.9% 1000 ml Route: IV; Rate: 100 ml/hr; Site: right antecubital; rn 05/22 03:31 Follow up: Response: No adverse reaction; IV Status: Infusion continued upon admission 05/21 22:55 Not Given (Duplicate Order): morphine 4 mg Sub-Q once; RASS on ADMIN: Combtv4, Very rn Agttd3, Agttd2, Rstlss1, AlertClm0, Drwsy-1, Lt Sdtn-2, Mod Sdtn-3, Dp Sdtn-4, UnArsble-5 22:55 Drug: Zofran (Ondansetron) 4 mg Route: IVP; Site: right antecubital; rn 05/22 00:47 Follow up: Response: No adverse reaction 05/21 22:56 Drug: morphine 4 mg Route: IVP; Site: right antecubital; rn 05/22 00:47 Follow up: Response: No adverse reaction 05/21 23:44 Drug: Zosyn 3.375 grams Route: IVPB; Infused Over: 60 mins; Site: right antecubital; ea 05/22 03:31 Follow up: Response: No adverse reaction; IV Status: Completed infusion ea 05:46 Drug: NS 0.9% 1000 ml Route: IV; Rate: 100 ml/hr; Site: right forearm; ea Disposition: 05/22/20 02:52 Hospitalization ordered by Aston Pineda for Inpatient Admission. Preliminary diagnosis are Unspecified abdominal pain, Fever of other and unknown origin. - Bed requested for Telemetry/MedSurg (Inpatient). - Status is Inpatient Admission. ss - Condition is Stable. - Problem is new. - Symptoms have improved. Addendum: 05/26/2020 07:09 Co-signature as Attending Physician, Clifford Marshall MD. r n Signatures: Dispatcher [employer] EDDE Clifford Marshall MD MD rn Gui Abernathy [facility] Simi Tena RN RN ss Roszak, Josh, PA PA jr8 Jewel Quispe, COMPUTING MACHINE OPERATOR-C COMPUTING MACHINE OPERATOR-Cla1 Vivi Barlow, Alondra Lima RN, RN RN ea Fitzpatrick, Steven RN RN sf Corrections: (The following items were deleted from the chart) 05/21 22:34 22:34 Tylenol 1000 mg PO once ordered. jr8 jr8 22:35 22:35 Basic Metabolic Panel ordered. [facility] 22:35 22:35 Basic Metabolic Panel ordered. [facility] EDDE 22:35 22:35 CBC with Automated Diff ordered. EDDE EDDE 22:35 22:35 CBC with Automated Diff ordered. EDDE EDDE 22:35 22:35 Liver (Hepatic) Function ordered. [facility] EDDE 22:35 22:35 Liver (Hepatic) Function ordered. EDDE EDDE 22:35 22:35 Lipase ordered. EDDE EDDE 22:35 22:35 [facility]. [facility] 05/[facility] 03:17 02:11 CORONAVIRUS+MR.LAB.BRZ ordered. EDDE EDDE 03:17 02:55 Influenza Screen (A \T\ B)+BA.LAB.BRZ ordered. EDDE EDDE 03:22 02:52 Hospitalization Ordered by Aston Pineda DO for Observation. Preliminary cg diagnosis is Unspecified abdominal pain; Fever of other and unknown origin. Bed requested for Telemetry/MedSurg (observation). Status is Observation. Condition is Stable. Problem is new. Symptoms have improved. rn 03:36 02:55 Chest Pa And Lat (2 Views)+RAD.RAD.BRZ ordered. EDMS EDMS 03:49 03:42 PROBNP+C.LAB.BRZ ordered. EDMS EDMS 03:49 03:42 TROPONIN (EMERG DEPT USE ONLY)+C.LAB.BRZ ordered. EDDE EDMS 04:46 03:22 05/22/2020 02:52 Hospitalization Ordered by Aston Pineda DO for Observation. la1 Preliminary diagnosis is Unspecified abdominal pain; Fever of other and unknown origin. Bed requested for [facility] ER HOLD. Status is Observation. Condition is Stable. Problem is new. Symptoms have improved. cg 10:07 04:46 05/22/2020 02:52 Hospitalization Ordered by Aston Pineda DO for Inpatient em1 Admission. Preliminary diagnosis is Unspecified abdominal pain; Fever of other and unknown origin. Bed requested for [facility] ER HOLD. Status is Inpatient Admission. Condition is Stable. Problem is new. Symptoms have improved. la1 11:23 10:07 05/22/2020 02:52 Hospitalization Ordered by Aston Pineda DO for Inpatient ss Admission. Preliminary diagnosis is Unspecified abdominal pain; Fever of other and unknown origin. Bed requested for Telemetry/MedSurg (Inpatient). Status is Inpatient Admission. Condition is Stable. Problem is new. Symptoms have improved. em1
--- NOTE | 2020-05-22 02:53 | ER ---
Nurse's Notes [facility] Name: Musa Lindsay Age: 79 yrs Sex: Male : 1940 Arrival Date: 05/21/2020 Time: 22:25 Bed 7 Private MD: Diagnosis: Unspecified abdominal pain;Fever of other and unknown origin Presentation: 05/21 22:30 Chief complaint: Patient states: Right flank pain for the last 2 days, worse today with sf nausea. BM yesterday. Coronavirus screen: Client denies travel out of the [place] in the last 14 days. fever, nausea, Client presents with at least one sign or symptom that may indicate coronavirus-19. Standard/surgical mask placed on the client. Provider contacted for isolation considerations. Ebola Screen: Patient negative for fever greater than or equal to 101.5 degrees Fahrenheit, and additional compatible Ebola Virus Disease symptoms Patient denies exposure to infectious person. Patient denies travel to an Ebola-affected area in the 21 days before illness onset. No symptoms or risks identified at this time. 22:30 Method Of Arrival: EMS: [facility] 22:30 Initial Sepsis Screen: Does the patient meet any 2 criteria? Temp <36.0*C (96.8*F)) or sf > 38.3*C (100.9*F). No. Patient's initial sepsis screen is negative. Does the patient have a suspected source of infection? Yes: Acute abdominal pain. Risk Assessment: Do you want to hurt yourself or someone else? Patient reports no desire to harm self or others. Onset of symptoms was May 19, 2020. 22:30 Acuity: GRICEL 2 sf Triage Assessment: 22:30 General: Appears uncomfortable, unkempt, well developed, Behavior is calm, cooperative, sf appropriate for age. Pain: Complains of pain in right lower quadrant Pain does not radiate. Pain currently is 8 out of 10 on a pain scale. EENT: No signs and/or symptoms were reported regarding the EENT system. Neuro: No deficits noted. Level of Consciousness is awake, alert, Oriented to person, place, time, situation. Cardiovascular: No deficits noted. Patient's skin is warm and dry. Respiratory: No deficits noted. Airway is patent Respiratory effort is even, unlabored, Respiratory pattern is regular, symmetrical. GI: Abdomen is round Abdomen is tender to palpation in right lower quadrant Reports lower abdominal pain, nausea, Patient currently denies constipation, diarrhea, vomiting. : No signs and/or symptoms were reported regarding the genitourinary system. Derm: No signs and/or symptoms reported regarding the dermatologic system. Musculoskeletal: No signs and/or symptoms reported regarding the musculoskeletal system. Historical: - Allergies: 22:30 NKA; sf - Home Meds: 22:30 carvedilol 12.5 mg Oral tab 2 times per day [Active]; clonazepam 0.5 mg Oral tab 2 sf times per day [Active]; Plavix 75 mg Oral tab 1 tab once daily [Active]; finasteride 5 mg Oral tab 1 tab once daily [Active]; glimepiride 4 mg Oral tab twice a day [Active]; Isosorbide Mononitrate Oral [Active]; losartan oral oral [Active]; Metformin Oral [Active]; Crestor 10 mg Oral tab 1 tab once daily [Active]; temazepam 15 mg Oral cap once daily [Active]; tramadol 50 mg Oral tab twice a day [Active]; - PMHx: 22:30 Myocardial infarction; Hypothyroidism; Hypertension; High Cholesterol; Diabetes - sf NIDDM; CHF; - PSHx: 22:30 Heart stents; sf - Immunization history:: Adult Immunizations up to date, Last tetanus immunization: up to date Pneumococcal vaccine is up to date, Flu vaccine is up to date. - Social history:: Smoking status: Patient reports the use of cigarette tobacco products, smokes one-half pack cigarettes per day, Patient/guardian denies using alcohol, street drugs, IV drugs. Screenin/01 02:17 Abuse screen: Denies threats or abuse. Nutritional screening: No deficits noted. ea Tuberculosis screening: No symptoms or risk factors identified. Fall Risk IV access (20 points). Assessment: 05/21 22:30 General: Appears in no apparent distress. Behavior is calm, cooperative, appropriate ea for age. Pain: Complains of pain in right lower quadrant. Neuro: Level of Consciousness is awake, alert, obeys commands, Oriented to person, place, situation. Cardiovascular: Patient's skin is warm and dry. Respiratory: Airway is patent Respiratory effort is even, unlabored, Respiratory pattern is regular, symmetrical. Derm: Skin is pink, warm \T\ dry. Vital Signs: 22:30 BP 167 / 87; Pulse 80; Resp 20; Temp 102.5; Pulse Ox 96% ; Weight 90.72 kg; Height 5 sf ft. 5 in. (165.10 cm); Pain 6/10; 05/22 02:04 BP 93 / 48; Pulse 87; Resp 18; Temp 99.8; Pulse Ox 89% ; ea 02:07 BP 110 / 68; ea 05/21 22:30 Body Mass Index 33.28 (90.72 kg, 165.10 cm) ED Course: 05/21 22:25 Patient arrived in ED. cl3 22:27 Maurisio Jeff PA is PHCP. jr8 22:27 Clifford Marshall MD is Attending Physician. jr8 22:30 Arm band placed on. sf 22:34 Triage completed. sf 22:40 Initial lab(s) drawn, by vt, sent to lab. Inserted saline lock: 20 gauge in right sf antecubital area, using aseptic technique. Blood collected. 23:44 Alondra Light, RN is Primary Nurse. ea 05/22 00:23 CT Abd/Pelvis - IV Contrast Only In Process Unspecified. EDMS 02:17 Patient has correct armband on for positive identification. Bed in low position. Call ea light in reach. Side rails up X2. 02:52 Aston Pineda DO is Hospitalizing Provider. rn 03:30 No provider procedures requiring assistance completed. Patient admitted, IV remains in ea place. 03:41 Chest Single View In Process Unspecified. EDMS 04:49 Inserted saline lock: 20 gauge in right forearm, using aseptic technique. ea 07:31 Lipase Sent. sv 07:32 Hepatic Function Sent. sv 07:32 CBC with Diff Sent. sv 07:32 Basic Metabolic Panel Sent. sv 07:32 XRAY Chest (1 view) Sent. sv Administered Medications: 05/21 22:34 CANCELLED (Physician Discretion): Tylenol 1000 mg PO once jr8 22:54 Drug: Tylenol 1000 mg Route: PO; rn 05/22 00:47 Follow up: Response: No adverse reaction ea 05/21 22:54 Drug: NS 0.9% 1000 ml Route: IV; Rate: 100 ml/hr; Site: right antecubital; rn 05/22 03:31 Follow up: Response: No adverse reaction; IV Status: Infusion continued upon admission ea 05/21 22:55 Not Given (Duplicate Order): morphine 4 mg Sub-Q once; RASS on ADMIN: Combtv4, Very rn Agttd3, Agttd2, Rstlss1, AlertClm0, Drwsy-1, Lt Sdtn-2, Mod Sdtn-3, Dp Sdtn-4, UnArsble-5 22:55 Drug: Zofran (Ondansetron) 4 mg Route: IVP; Site: right antecubital; rn 05/22 00:47 Follow up: Response: No adverse reaction ea 05/21 22:56 Drug: morphine 4 mg Route: IVP; Site: right antecubital; rn 05/22 00:47 Follow up: Response: No adverse reaction ea 05/21 23:44 Drug: Zosyn 3.375 grams Route: IVPB; Infused Over: 60 mins; Site: right antecubital; ea 05/22 03:31 Follow up: Response: No adverse reaction; IV Status: Completed infusion ea 05:46 Drug: NS 0.9% 1000 ml Route: IV; Rate: 100 ml/hr; Site: right forearm; ea Outcome: 02:52 Decision to Hospitalize by Provider. rn 03:30 Admitted to ER Hold. Please see [facility] for further documentation. ea 03:30 Condition: stable 03:30 Instructed on the need for admit. 11:23 Patient left the ED. Signatures: Dispatcher [employer] Keila Forbes RN RN sv Nieto, Roman, MD MD rn Smirch, Shelby, RN RN ss Roszak, Josh, PA PA jr8 Alondra Light RN RN ea Lewis, Charde cl3 Franklin Lott RN RN sf
[2020-05-22 04:06] VITALS: BMI 33.3
--- NOTE | 2020-05-22 04:15 | P.HP ---
Certification for Inpatient Patient admitted to: Inpatient With expected LOS: >2 Midnights Patient will require the following post-hospital care: None Practitioner: I am a practitioner with admitting privileges, knowledge of patient current condition, hospital course, and medical plan of care. Services: Services provided to patient in accordance with Admission requirements found in Title 42 Section 412.3 of the Code of Federal Regulations Patient History Date of Service: 05/22/20 Primary Care Provider: Dr. Fiore Reason for admission: Fever, abdominal tenderness History of Present Illness: 79-year-old male with history of diabetes mellitus type 2, hypertension, hyperlipidemia, suspected COPD, CAD status post CABG presents emergency department for right flank/lower quadrant abdominal pain. Patient reports pain for 1 day, history of cholecystectomy. Evaluation in the emergency department demonstrates white blood cell count 13.3 negative for Fischer virus, influenza, UTI. CT abdomen pelvis was negative for any acute findings. Patient does have history of diverticulitis, patient denies any shortness of breath, does report intermittent chronic cough, also reports smoking half pack per day. Rest of ROS is negative, patient was still some right lower quadrant abdominal tenderness on exam. ED provider wishes to admit patient for fever, abdominal tenderness. Allergies No Known Allergies Allergy (Verified 04/07/17 03:07) Home Medications: Glimepiride 1 tab PO BIDWM 04/07/17 Tramadol HCl [Ultram] 50 mg PO BID PRN 04/07/17 Finasteride [Proscar*] 5 mg PO DAILY 02/28/18 Clopidogrel Bisulfate [Plavix*] 75 mg PO DAILY #30 tablet 03/02/18 Aspirin [Aspirin EC 81 MG] 81 mg PO DAILY 02/12/20 Isosorbide Mononitrate [Isosorbide Mononitrate ER] 30 mg PO DAILY 02/12/20 Joint Support Advanced Formula 1 tab PO DAILY 02/12/20 Metformin HCl 1,000 mg PO BIDWM 02/12/20 Multivit-Min/FA/Lycopen/Lutein [Centrum Silver Tablet] 1 each PO DAILY 02/12/20 Rosuvastatin [Crestor*] 20 mg PO DAILY 02/12/20 Sertraline HCl 50 mg PO DAILY 02/12/20 Albuterol Inhaler [Ventolin Inhaler*] 2 puff IH TID PRN #1 hfa.aer.ad 02/14/20 Amox/Clavulanate [Augmentin 500-125 mg Tab] 500 mg PO BID #14 tab 02/14/20 Budesonide/Formoterol Fumarate [Symbicort 160-4.5 Mcg Inhaler] 2 puff IH BID #1 hfa.aer.ad 02/14/20 Fluticasone/Salmeterol [Advair 250-50 Diskus] 1 each IH BID #1 blst.w.dev 02/14/20 Levothyroxine [Synthroid*] 0.05 mg PO DAILYAC #30 tablet 02/14/20 Losartan Potassium 25 mg PO DAILY #30 tablet 02/14/20 carvediloL [Coreg*] 6.25 mg PO BID #60 tab 02/14/20 - Past Medical/Surgical History Diabetic: Yes -: HTN -: CAD -: Hyperlipidemia -: NIDDM -: INOPERABLE CAD s/p CABG -: MO -: Hypothyroidism -: Neuropathy -: Suspected COPD -: Cholecystectomy -: Heart Bypass-2000 -: Cardiac stents x5 Psychosocial/ Personal History: Patient lives at home with his granddaughter and is retired - Family History Father -: Cancer, Other (see notes) Notes: prostate cancer Mother -: Diabetes Brother -: Heart disease - Social History Smoking Status: Current every day smoker Counseled patient to stop smoking for: less than 10 minutes Smoking therapy provided: Yes Alcohol use: No CD- Drugs: No Caffeine use: Yes Place of Residence: Home Review of Systems 10-point ROS is otherwise unremarkable General: Weakness, Malaise Respiratory: Cough Gastrointestinal: Nausea, Abdominal Pain Physical Examination - Physical Exam General: Alert, In no apparent distress HEENT: Atraumatic, PERRLA, Mucous membr. moist/pink Neck: Supple, 2+ carotid pulse no bruit, No LAD Respiratory: Normal air movement, Diminished (Diminished bilaterally) Cardiovascular: Regular rate/rhythm, Normal S1 S2 Capillary refill: <2 Seconds Gastrointestinal: Normal bowel sounds, Tenderness (Mild abdominal tenderness right lower quadrant) Musculoskeletal: No contractures, No erythema, No tenderness Integumentary: No rashes Neurological: Normal speech, Normal strength at 5/5 x4 extr, Normal tone, Normal affect - Studies Laboratory Data (last 24 hrs) 05/21/20 22:50: WBC 13.30 H, Hgb 13.9, Hct 41.3, Plt Count 180 05/21/20 22:50: Sodium 139, Potassium 4.0, BUN 17, Creatinine 0.91, Glucose 165 H, Total Bilirubin 1.0, AST 25, ALT 34, Alkaline Phosphatase 86, Lipase 78 Assessment and Plan - Plan Assessment Fever, leukocytosis, abdominal tenderness suspect early diverticulitis Hypoxia with Bilateral perihilar opacities likely representing early pneumonia with suspected underlying COPD Diabetes mellitus type 2 Hypertension Hyperlipidemia Inoperable CAD status post CABG Plan Fever, leukocytosis, abdominal tenderness suspect early diverticulitis: CT negative for acute findings, still with some right lower quadrant abdominal tenderness on exam, urinalysis negative. Continue with Levaquin/Flagyl for coverage of possible pneumonia as well as abdominal infection. Full liquid diet, advance as tolerated. Patient reports normal bowel movement yesterday denies vomiting, diarrhea. Does have a history of diverticulitis. Feeder could well be related to pneumonia. DVT prophylaxis Lovenox 40 mg subcutaneous once daily. Hypoxia with Bilateral perihilar opacities likely representing early pneumonia with suspected underlying COPD: Patient noted to have oxygen saturation around 89% on room air while in the emergency department. Continue with Levaquin, Flagyl, incentive spirometer, inhalers. No wheezing on exam at this time. Diabetes mellitus type 2: A.c. HS Accu-Cheks, sliding scale insulin therapy. A1c with morning labs Hypertension: Blood pressure soft at this time, hold blood pressure medications. Hyperlipidemia: Continue Crestor Inoperable CAD status post CABG : Continue aspirin, Plavix Discharge Plan: Home Plan to discharge in: 24 Hours - Advance Directives Does patient have a Living Will: Yes Does patient have a Durable POA for Healthcare: Yes - Code Status/Comfort Care Code Status Assessed: Yes (Full code) Critical Care: No Time Spent Managing Pts Care (In Minutes): 55
[2020-05-22] MEDS ORDERED: ALBUTEROL INHALER 60 PUFF/8 GM IH PRN (04:32)
[2020-05-22] MEDS ORDERED: ONDANSETRON 4 MG/2 ML VIAL IV PRN (04:32)
[2020-05-22 04:39] LABS: NT PRO-BNP 233 pg/mL (<450); Troponin (Emerg Dept Use Only) < 0.02 ng/mL (0.0-0.045)
[2020-05-22 05:35] LABS: Albumin 3.1 g/dL (3.4-5.0); Magnesium 1.8 mg/dL (1.8-2.4); Potassium 4.1 mmol/L (3.5-5.1); Protein, Total 6.9 g/dL (6.4-8.2)
[2020-05-22 05:49] LABS: Thyroid Stimulating Hormone 15.5 uIU/mL (0.360-3.740)
[2020-05-22] MEDS ORDERED: NA CHLORIDE 0.9% 1,000 ML ONE (05:56)
[2020-05-22 06:31] LABS: Absolute Lymphocytes (CBC) 2.3 K/uL (0.7-4.9); Basophils % 0.6 % (0-1.3); Hematocrit 37.1 % (39.6-49.0); Lymphocytes % 19.1 % (15.3-44.8); MPV 9.1 fL (7.6-11.3); RBC Red Blood Cell Count 3.93 M/uL (4.33-5.43)
[2020-05-22] MEDS: INSULIN -REGULAR HUMAN 50 UNIT/0.5 ML ML SQ SCH ×4 (07:30→20:38)
--- NOTE | 2020-05-22 08:06 | RAD REPORT ---
EXAM DESCRIPTION: US - Scrotum Testicles - 05/22/2020 7:30 am CLINICAL HISTORY: Testicular pain COMPARISON: None FINDINGS: Right testicle measures 5.1 x 2.7 x 4 centimeters. Echotexture is homogeneous. Normal bloo d flow Left testicle measures 3.5 x 3.2 x 4 centimeters. Echotexture is homogeneous. Normal blood flow The epididymides are normal in size and echotexture. Normal blood flow is seen. Two left spermatoceles. The largest measures 1.4 centimeters. IMPRESSION: Left spermatoceles
[2020-05-22] MEDS: DULERA 100/5 (MOMETASONE/FORMOTEROL) INHALER IH SCH ×2 (09:00→20:38)
[2020-05-22] MEDS ORDERED: PNEUMOCOCCAL VACCINE 0.5 ML IMVAC ONE (09:00)
[2020-05-22] MEDS ORDERED: METRONIDAZOLE 500mg IVPB 500 MG/100 ML BAG IV SCH (09:00)
[2020-05-22] MEDS: CLOPIDOGREL 75 MG TABLET PO SCH (09:45)
[2020-05-22] MEDS: ENOXAPARIN 40 MG/0.4 ML SQ SCH (09:45)
[2020-05-22] MEDS: LEVOTHYROXINE SOD 0.05 MG TABLET PO SCH (09:49)
[2020-05-22] MEDS: Levofloxacin500mg IV 500 MG/100 ML BAG IV SCH (09:49)
[2020-05-22] MEDS: ASPIRIN EC 81 MG TAB PO SCH (09:50)
[2020-05-22] MEDS ORDERED: Levofloxacin500mg IV 500 MG/100 ML BAG IV ONE (09:51)
[2020-05-22] MEDS ORDERED: METRONIDAZOLE 500mg IVPB 500 MG/100 ML BAG IV ONE (09:52)
[2020-05-22] MEDS ORDERED: ENOXAPARIN 40 MG/0.4 ML SQ ONE (09:52)
[2020-05-22] MEDS ORDERED: ASPIRIN EC 81 MG TAB PO ONE (09:52)
[2020-05-22] MEDS ORDERED: CLOPIDOGREL 75 MG TABLET ONE (09:53)
--- NOTE | 2020-05-22 11:03 | RAD REPORT ---
EXAM DESCRIPTION: Lisseth Single View05/22/2020 3:41 am COMPARISON: Chest radiograph February 14, 2020 report only CLINICAL HISTORY: [facility] MAIN COUGH FINDINGS: A single AP view of the chest demonstrates a mildly enlarged cardiomediastinal silhouette with surgical change. No pneumothorax. Small pleural effusions are present. Bilateral perihilar opacities are present. There are degenerative changes of the shoulder and sternotomy. IMPRESSION: Mild cardiomegaly with bilateral perihilar opacities which may represent pulmonary edema or early infection. Electronically signed by: Brooks Hinkle MD 05/22/2020 3:50 AM CDT Due to temporary technical issues with the PACS/Fluency reporting system, reports are being signed by the in house radiologists without review as a courtesy to insure prompt reporting. The interpreting radiologist is fully responsible for the content of the report.
--- NOTE | 2020-05-22 11:46 | RAD REPORT ---
EXAM DESCRIPTION: CT - Abdomen Pelvis W Contrast - 05/22/2020 6:02 am CLINICAL HISTORY: ABD PAIN COMPARISON: 02/28/2018 TECHNIQUE: CT of the abdomen and pelvis performed following IV administration of iodinated contras t. This exam was performed according to our departmental dose-optimization program, which includes au tomated exposure control, adjustment of the mA and/or kV according to patient size and/or use of iter ative reconstruction technique. FINDINGS: Lung Bases: Minimal dependent atelectasis. Right basilar calcified granuloma. Bones: Degenerative endplate spondylosis and facet arthropathy. Abdomen: Liver: The liver has normal size and decreased density. No intrahepatic biliary dilatation. Gallbladder: Prior cholecystectomy. Spleen, Pancreas, and Adrenal Glands: The spleen, pancreas, and adrenal glands are unremarkable. Kidneys: No hydronephrosis or obstructing calculus. Small right renal cyst. Vasculature: Aortoiliac atherosclerosis. IVC is unremarkable. The portal vein is patent. The proxim al visceral and renal arteries are patent. Stomach: The stomach and duodenum have normal course. Other: No free intraperitoneal air. No free fluid or lymphadenopathy. Pelvis: Bladder: Mild wall thickening of the urinary bladder. Bowel: No dilated loops of large or small bowel. Scattered diverticula of the colon. Large amount s tool in the colon. Appendix: Normal appendix. Pelvis: Enlarged prostate. IMPRESSION: 1. Mild wall thickening of the urinary bladder. This could be seen with cystitis or bl adder outlet obstruction. 2. Enlarged prostate. 3. Diverticulosis without evidence of acute diverticulitis. 4. Hepatic steatosis. Electronically signed by: Gopi Allen 05/22/2020 12:36 AM CDT Due to temporary technical issues with the PACS/Fluency reporting system, reports are being signed by the in house radiologists without review as a courtesy to insure prompt reporting. The interpreting radiologist is fully responsible for the content of the report.
[2020-05-22] MEDS: NA CHLORIDE 0.9% 1,000 ML IV SCH ×3 (14:32→21:45)
--- NOTE | 2020-05-22 15:18 | P.PN ---
Subjective Date of Service: 05/22/20 Primary Care Provider: Dr. Fiore Chief Complaint: Fever, abdominal tenderness Subjective: Improving, Doing well Physical Examination - Vital Signs Temperature: 98.7 F Blood Pressure: 132/59 Pulse: 67 Respirations: 22 Pulse Ox (%): 98 - Studies Laboratory Data (last 24 hrs) 05/22/20 05:46: WBC 11.80 H, Hgb 12.4 L, Hct 37.1 L, Plt Count 148 L 05/22/20 04:46: Sodium 138, Potassium 4.1, BUN 16, Creatinine 0.84, Glucose 206 H, Magnesium 1.8, Total Bilirubin 1.0, AST 23, ALT 30, Alkaline Phosphatase 74 05/21/20 22:50: WBC 13.30 H, Hgb 13.9, Hct 41.3, Plt Count 180 05/21/20 22:50: Sodium 139, Potassium 4.0, BUN 17, Creatinine 0.91, Glucose 165 H, Total Bilirubin 1.0, AST 25, ALT 34, Alkaline Phosphatase 86, Lipase 78 Assessment & Plan Discharge Plan: Home Plan to discharge in: 48 Hours Physician Review Additional Text: Physical exam: Patient afebrile. No significant distress noted. Heart: Regular rate and rhythm Lungs: Slight crackles to the bases Abdomen: Soft nontender nondistended Extremities: Good range of motion to the upper lower extremities. Impression: Fever, leukocytosis, abdominal tenderness suspect early diverticulitis Hypoxia with Bilateral perihilar opacities likely representing early pneumonia with suspected underlying COPD Diabetes mellitus type 2 Hypertension Hyperlipidemia Inoperable CAD status post CABG Hypothyroidism Spermatoceles Plan Fever, leukocytosis suspect pneumonia with noted hypoxia: Continue Levaquin. Patient on DVT prophylaxis. No significant abdominal pain noted. Recheck chest x-ray tomorrow. If the patient does well will consider discharge tomorrow. GERD: We will provide Protonix. Patient had reported some abdominal pain. No significant pain noted at this time. COPD: Provide COPD medication.. Diabetes mellitus type 2: A.c. HS Accu-Cheks, sliding scale insulin therapy. A1c with morning labs Hypertension: Blood pressure soft at this time, hold blood pressure medications. Hyperlipidemia: Continue Crestor Inoperable CAD status post CABG : Continue aspirin, Plavix Hypothyroidism: We will start thyroid medication. Spermatoceles: This can be followed up as an outpatient with urology Time Spent Managing Pts Care (In Minutes): 55
[2020-05-22] MEDS ORDERED: ROSUVASTATIN 10 MG TAB PO SCH (21:00)
[2020-05-22] MEDS ORDERED: HYDROCODONE/APAP 5/325 MG TAB PO PRN (22:07)
[2020-05-23] MEDS: Levofloxacin500mg IV 500 MG/100 ML BAG IV SCH (04:22)
[2020-05-23 04:48] LABS: Absolute Lymphocytes (CBC) 2.1 K/uL (0.7-4.9); Basophils % 0.7 % (0-1.3); Hematocrit 37.9 % (39.6-49.0); Lymphocytes % 27.1 % (15.3-44.8); MPV 9.3 fL (7.6-11.3); RBC Red Blood Cell Count 4.03 M/uL (4.33-5.43)
[2020-05-23 04:54] LABS: ALT/SGPT 28 U/L (12-78); AST/SGOT 27 U/L (15-37); Albumin 3.2 g/dL (3.4-5.0); Alkaline Phosphatase 59 U/L (45-117); BUN Blood Urea Nitrogen 10 mg/dL (7-18); Bicarbonate 27 mmol/L (21-32); Bilirubin Total 1.2 mg/dL (0.2-1.0); Glucose Level 110 mg/dL (74-106); Potassium 3.7 mmol/L (3.5-5.1); Protein, Total 7.1 g/dL (6.4-8.2); Sodium Level 140 mmol/L (136-145)
[2020-05-23] MEDS: LEVOTHYROXINE SOD 0.05 MG TABLET PO SCH (05:37)
[2020-05-23] MEDS: INSULIN -REGULAR HUMAN 50 UNIT/0.5 ML ML SQ SCH ×2 (07:30→08:47)
[2020-05-23] MEDS ORDERED: PANTOPRAZOLE 40MG TABLET PO SCH (07:30)
[2020-05-23] MEDS ORDERED: ALPRAZOLAM 0.25 MG TABLET PO PRN (08:28)
[2020-05-23] MEDS ORDERED: TRAMADOL HCL 50 MG TAB PO PRN (08:29)
--- NOTE | 2020-05-23 08:43 | RAD REPORT ---
EXAM DESCRIPTION: RAD - Chest Single View - 05/23/2020 7:11 am CLINICAL HISTORY: follow up pneumonia COMPARISON: Portable May 22February 14, 2020 TECHNIQUE: AP portable chest image was obtained 05/23/2020 7:11 am . FINDINGS: Lung volumes have improved. Interstitial and patchy alveolar opacities are present. Sterno gris wires are in place. Mild cardiomegaly is present. Central vasculature within normal limits for p ortable imaging. No pneumothorax or enlarging pleural effusion. No acute bony abnormality seen. No ac vinicius aortic findings suspected. IMPRESSION: Patchy interstitial and alveolar opacities are present improved from the prior study but not yet at the new baseline appearance. Mild cardiomegaly. Vasculature within normal limits. No new or progressive lung parenchymal finding.
[2020-05-23] MEDS: ASPIRIN EC 81 MG TAB PO SCH (08:46)
[2020-05-23] MEDS: CLOPIDOGREL 75 MG TABLET PO SCH (08:47)
[2020-05-23] MEDS: ENOXAPARIN 40 MG/0.4 ML SQ SCH (08:56)
[2020-05-23 08:58] VITALS: O2SAT 96
[2020-05-23] MEDS ORDERED: SERTRALINE HCL 50 MG TAB PO SCH (09:00)
[2020-05-23] MEDS ORDERED: ISOSORBIDE MONO SR 30 MG TAB PO SCH (09:00)
[2020-05-23] MEDS ORDERED: [UNRECOGNIZED DRUG - OTHER] PO SCH (09:00)
[2020-05-23] MEDS ORDERED: LOSARTAN POTASSIUM 50 MG TABLET PO SCH (09:00)
[2020-05-23] MEDS ORDERED: POTASSIUM 25 MEQ EFFERV TAB PO ONE (09:00)
[2020-05-23] MEDS: DULERA 100/5 (MOMETASONE/FORMOTEROL) INHALER IH SCH (09:00)
[2020-05-23] MEDS ORDERED: FINASTERIDE 5 MG TAB PO SCH (09:00)
--- NOTE | 2020-05-23 09:29 | P.DS ---
Admission Date: 05/22/20 Discharge Date: 05/23/20 Primary Care Provider: Dr. Fiore Disposition: DC HOME/HOME HEALTH CARE Discharge Condition: GOOD Reason for Admission: Fever, abdominal tenderness Consultations: none Procedures: COVID: Negative CT scan: COMPARISON: 02/28/2018 TECHNIQUE: CT of the abdomen and pelvis performed following IV administration of iodinated contrast. This exam was performed according to our departmental dose-optimization program, which includes automated exposure control, adjustment of the mA and/or kV according to patient size and/or use of iterative reconstruction technique. FINDINGS: Lung Bases: Minimal dependent atelectasis. Right basilar calcified granuloma. Bones: Degenerative endplate spondylosis and facet arthropathy. Abdomen: Liver: The liver has normal size and decreased density. No intrahepatic biliary dilatation. Gallbladder: Prior cholecystectomy. Spleen, Pancreas, and Adrenal Glands: The spleen, pancreas, and adrenal glands are unremarkable. Kidneys: No hydronephrosis or obstructing calculus. Small right renal cyst. Vasculature: Aortoiliac atherosclerosis. IVC is unremarkable. The portal vein is patent. The proximal visceral and renal arteries are patent. Stomach: The stomach and duodenum have normal course. Other: No free intraperitoneal air. No free fluid or lymphadenopathy. Pelvis: Bladder: Mild wall thickening of the urinary bladder. Bowel: No dilated loops of large or small bowel. Scattered diverticula of the colon. Large amount stool in the colon. Appendix: Normal appendix. Pelvis: Enlarged prostate. IMPRESSION: 1. Mild wall thickening of the urinary bladder. This could be seen with cystitis or bladder outlet obstruction. 2. Enlarged prostate. 3. Diverticulosis without evidence of acute diverticulitis. 4. Hepatic steatosis. Scrotal US: COMPARISON: None FINDINGS: Right testicle measures 5.1 x 2.7 x 4 centimeters. Echotexture is homogeneous. Normal blood flow Left testicle measures 3.5 x 3.2 x 4 centimeters. Echotexture is homogeneous. Normal blood flow The epididymides are normal in size and echotexture. Normal blood flow is seen. Two left spermatoceles. The largest measures 1.4 centimeters. IMPRESSION: Left spermatoceles Follow up CXR: FINDINGS: Lung volumes have improved. Interstitial and patchy alveolar opacities are present. Sternotomy wires are in place. Mild cardiomegaly is present. Central vasculature within normal limits for portable imaging. No pneumothorax or enlarging pleural effusion. No acute bony abnormality seen. No acute aortic findings suspected. IMPRESSION: Patchy interstitial and alveolar opacities are present improved from the prior study but not yet at the new baseline appearance. Mild cardiomegaly. Vasculature within normal limits. No new or progressive lung parenchymal finding. Medical Problem List: Fever, hypoxia with Bilateral perihilar opacities secondary to pneumonia with underlying COPD Diabetes mellitus type 2 GERD Hypertension Hyperlipidemia Inoperable CAD status post CABG, chronic systolic CHF Hypothyroidism Left spermatoceles Depression with anxiety Severe arthritis, wheelchair bound Tobacco abuse BPH Fatty liver Brief History of Present Illness: 79-year-old male with history of diabetes mellitus type 2, hypertension, hyperlipidemia, suspected COPD, CAD status post CABG presents emergency department for right flank/lower quadrant abdominal pain. Patient reports pain for 1 day, history of cholecystectomy. Evaluation in the emergency department demonstrates white blood cell count 13.3 negative for Fischer virus, influenza, UTI. CT abdomen pelvis was negative for any acute findings. Patient does have history of diverticulitis, patient denies any shortness of breath, does report intermittent chronic cough, also reports smoking half pack per day. Rest of ROS is negative, patient was still some right lower quadrant abdominal tenderness on exam. X-ray shows possible pneumonia. Patient admitted for further evaluation and treatment. Hospital Course: Patient presented with fever, leukocytosis and abdominal pain. Patient found to have pneumonia with hypoxia. This was complicated with his tobacco abuse and COPD. Patient was admitted for treatment. CT abdomen showed no acute finding. Enlarged prostate, fatty liver noted. Chest x-ray showed possible infiltrates to the lower bases. Patient was given IV antibiotic therapy with improvement. Chest x-ray shows improvement. Patient had scrotal ultrasound showing left spermatoceles. Patient has done well. At discharge patient will continue with Levaquin 500 mg daily for 7 days. For his COPD patient will continue with his current medication of Symbicort 2 puffs twice daily and albuterol 2 puffs 3 times a day as needed for shortness of breath. Tobacco cessation education provided. Nicotine patch will be provided to help with cessation. Recommend follow-up with pulmonology in 1 week to follow-up his hospitalization and continue his care. Recommend to recheck chest x-ray in 2 to 4 weeks to monitor resolution. Prior to discharge we will make sure social work continues with home health and physical therapy at discharge. Social work also to help arrange for home oxygen if patient still requires for his COPD and CHF. Patient was currently using 2 L per nasal cannula. Will recheck and verify. Patient had mild abdominal pain. Suspect GERD. Patient may continue with Protonix 40 mg daily. Patient with diabetes mellitus type 2. This appears stable. At discharge patient will continue with Amaryl 4 mg 1 pill twice daily and Metformin 1000 mg 1 pill twice daily. Recommend to maintain blood sugar less than 140 fasting and less than 200 mils. Further adjustment can be done by his PCP. Patient with hypertension. This appears stable. At discharge patient will continue with his current medication of carvedilol 6.25 mg 1 pill twice daily and losartan 25 mg 1 pill daily. Recommend to maintain blood pressure less than 130/80. Further adjustment can be done by his PCP. Patient with history of inoperable CAD with prior CABG and hyperlipidemia. At discharge patient will continue with his current medication of aspirin 81 mg daily, Plavix 75 mg daily, isosorbide mononitrate 30 mg daily, and Crestor 20 mg daily. Recommend follow-up with cardiology to further monitor and adjust. Patient also has chronic systolic CHF. At discharge will recommend to continue with 1500 cc/day fluid restriction and low-salt diet. Patient does not require any diuretic therapy at this time. If his weight increases by more than 5 pounds or with increase edema and shortness of breath then Lasix 20 mg or 40 mg will need to be considered. This can be done with the help of his PCP or farmworker animal. Patient with hypothyroidism. TSH and free T4 abnormal. Patient reports not taking his medication. Compliance of medication addressed in detail. At discharge patient will continue with levothyroxine 50 mcg daily. Recommend to recheck TSH and free T4 in 1 month to monitor his progress. Further adjustment in medication may be required. Patient with BPH. Scrotal ultrasound shows left spermatoceles. At discharge patient will continue with his medication Proscar 5 mg daily. Patient with depression. At discharge patient will continue with sertraline 50 mg daily. Patient with chronic pain and severe arthritis to the lower extremity. Patient reports using wheelchair at home. At discharge patient may continue with tramadol 50 mg 1 pill twice daily as needed for pain. Vital Signs/Physical Exam: Temp Pulse Resp BP Pulse Ox 98.5 F 69 16 133/63 95 05/23/20 08:00 05/23/20 08:00 05/23/20 08:00 05/23/20 08:00 05/23/20 08:00 General: Alert, In no apparent distress, Oriented x3, Cooperative HEENT: Atraumatic Neck: Supple Respiratory: Clear to auscultation bilaterally, Normal air movement Cardiovascular: Normal pulses, Regular rate/rhythm Gastrointestinal: Normal bowel sounds, Soft and benign, Non-distended, No tenderness, No masses, No rebound, No guarding Neurological: Normal speech, Normal strength at 5/5 x4 extr, Normal tone, Normal affect Laboratory Data at Discharge: WBC 7.70 K/uL (4.3-10.9) D 05/23/20 04:18 Hgb 12.8 g/dL (13.6-17.9) L 05/23/20 04:18 Hct 37.9 % (39.6-49.0) L 05/23/20 04:18 Plt Count 147 K/uL (152-406) L 05/23/20 04:18 Sodium 140 mmol/L (136-145) 05/23/20 04:18 Potassium 3.7 mmol/L (3.5-5.1) 05/23/20 04:18 BUN 10 mg/dL (7-18) 05/23/20 04:18 Creatinine 0.57 mg/dL (0.55-1.3) 05/23/20 04:18 Glucose 110 mg/dL (74-106) H 05/23/20 04:18 Magnesium 2.0 mg/dL (1.8-2.4) 05/23/20 04:18 Total Bilirubin 1.2 mg/dL (0.2-1.0) H 05/23/20 04:18 AST 27 U/L (15-37) 05/23/20 04:18 ALT 28 U/L (12-78) 05/23/20 04:18 Alkaline Phosphatase 59 U/L (45-117) 05/23/20 04:18 Lipase 78 U/L (73-393) 05/21/20 22:50 Home Medications: Glimepiride 1 tab PO BIDWM 04/07/17 Tramadol HCl [Ultram] 50 mg PO BID PRN 04/07/17 Finasteride [Proscar*] 5 mg PO DAILY 02/28/18 Clopidogrel Bisulfate [Plavix*] 75 mg PO DAILY #30 tablet 03/02/18 Aspirin [Aspirin EC 81 MG] 81 mg PO DAILY 02/12/20 Isosorbide Mononitrate [Isosorbide Mononitrate ER] 30 mg PO DAILY 02/12/20 Joint Support Advanced Formula 1 tab PO DAILY 02/12/20 Metformin HCl 1,000 mg PO BIDWM 02/12/20 Multivit-Min/FA/Lycopen/Lutein [Centrum Silver Tablet] 1 each PO DAILY 02/12/20 Rosuvastatin [Crestor*] 20 mg PO DAILY 02/12/20 Sertraline HCl 50 mg PO DAILY 02/12/20 Albuterol Inhaler [Ventolin Inhaler*] 2 puff IH TID PRN #1 hfa.aer.ad 02/14/20 Budesonide/Formoterol Fumarate [Symbicort 160-4.5 Mcg Inhaler] 2 puff IH BID #1 hfa.aer.ad 02/14/20 Levothyroxine [Synthroid*] 0.05 mg PO DAILYAC #30 tablet 02/14/20 Losartan Potassium 25 mg PO DAILY #30 tablet 02/14/20 carvediloL [Coreg*] 6.25 mg PO BID #60 tab 02/14/20 Nicotine [Nicoderm] 21 mg TD DAILY #30 patch.td24 05/23/20 Pantoprazole [Protonix Tab] 40 mg PO DAILY #30 tab 05/23/20 levoFLOXacin [Levaquin] 500 mg PO DAILY #7 tab 05/23/20 New Medications: levoFLOXacin [Levaquin] 500 mg PO DAILY #7 tab Nicotine [Nicoderm] 21 mg TD DAILY #30 patch.td24 Pantoprazole [Protonix Tab] 40 mg PO DAILY #30 tab Physician Discharge Instructions: Patient presented with fever, leukocytosis and abdominal pain. Patient found to have pneumonia with hypoxia. This was complicated with his tobacco abuse and COPD. Patient was admitted for treatment. CT abdomen showed no acute finding. Enlarged prostate, fatty liver noted. Chest x-ray showed possible infiltrates to the lower bases. Patient was given IV antibiotic therapy with improvement. Chest x-ray shows improvement. Patient had scrotal ultrasound showing left spermatoceles. Patient has done well. At discharge patient will continue with Levaquin 500 mg daily for 7 days. For his COPD patient will continue with his current medication of Symbicort 2 puffs twice daily and albuterol 2 puffs 3 times a day as needed for shortness of breath. Tobacco cessation education provided. Nicotine patch will be provided to help with cessation. Recommend follow-up with pulmonology in 1 week to follow-up his hospitalization and continue his care. Recommend to recheck chest x-ray in 2 to 4 weeks to monitor resolution. Prior to discharge we will make sure social work continues with home health and physical therapy at discharge. Social work also to help arrange for home oxygen if patient still requires for his COPD and CHF. Patient was currently using 2 L per nasal cannula. Will recheck and verify. Patient had mild abdominal pain. Suspect GERD. Patient may continue with Protonix 40 mg daily. Patient with diabetes mellitus type 2. This appears stable. At discharge patient will continue with Amaryl 4 mg 1 pill twice daily and Metformin 1000 mg 1 pill twice daily. Recommend to maintain blood sugar less than 140 fasting and less than 200 mils. Further adjustment can be done by his PCP. Patient with hypertension. This appears stable. At discharge patient will continue with his current medication of carvedilol 6.25 mg 1 pill twice daily and losartan 25 mg 1 pill daily. Recommend to maintain blood pressure less than 130/80. Further adjustment can be done by his PCP. Patient with history of inoperable CAD with prior CABG and hyperlipidemia. At discharge patient will continue with his current medication of aspirin 81 mg daily, Plavix 75 mg daily, isosorbide mononitrate 30 mg daily, and Crestor 20 mg daily. Recommend follow-up with cardiology to further monitor and adjust. Patient also has chronic systolic CHF. At discharge will recommend to continue with 1500 cc/day fluid restriction and low-salt diet. Patient does not require any diuretic therapy at this time. If his weight increases by more than 5 pounds or with increase edema and shortness of breath then Lasix 20 mg or 40 mg will need to be considered. This can be done with the help of his PCP or cardio logist. Patient with hypothyroidism. TSH and free T4 abnormal. Patient reports not taking his medication. Compliance of medication addressed in detail. At discharge patient will continue with levothyroxine 50 mcg daily. Recommend to recheck TSH and free T4 in 1 month to monitor his progress. Further adjustment in medication may be required. Patient with BPH. Scrotal ultrasound shows left spermatoceles. At discharge patient will continue with his medication Proscar 5 mg daily. Patient with depression. At discharge patient will continue with sertraline 50 mg daily. Patient with chronic pain and severe arthritis to the lower extremity. Patient reports using wheelchair at home. At discharge patient may continue with tramadol 50 mg 1 pill twice daily as needed for pain. Diet: ADA Activity: Fall precautions Followup: Unknown,U [Primary Care Provider] - Time spent managing pt's care (in minutes): 55
[2020-05-23] MEDS ORDERED: FUROSEMIDE 20 MG/ 2ML VIAL IV ONE (09:48)
[2020-05-23 12:07] VITALS: BP 142/66; TEMP 98.1
== END 2020-05-23 13:00 | disposition home health service (06) | DRG 194 ==
LOC: ER 22:24 → ERHOLD 05-22 04:02 → 2ND 05-22 11:06 → OBSVTOIN 05-22 11:28
PROVIDERS: ADMIT Family Medicine; ATTEND Family Medicine
DX: J18.9 Pneumonia, unspecified organism (principal); J44.0 Chronic obstructive pulmonary disease with (acute) lower respiratory infection; I50.22 Chronic systolic (congestive) heart failure; I11.0 Hypertensive heart disease with heart failure; E11.9 Type 2 diabetes mellitus without complications; E78.5 Hyperlipidemia, unspecified; I25.10 Atherosclerotic heart disease of native coronary artery without angina pectoris; N43.40 Spermatocele of epididymis, unspecified; K21.9 Gastro-esophageal reflux disease without esophagitis; E03.9 Hypothyroidism, unspecified; M19.90 Unspecified osteoarthritis, unspecified site; K76.0 Fatty (change of) liver, not elsewhere classified; N40.0 Benign prostatic hyperplasia without lower urinary tract symptoms; F41.8 Other specified anxiety disorders; G89.29 Other chronic pain; M79.606 Pain in leg, unspecified; I25.2 Old myocardial infarction; F17.210 Nicotine dependence, cigarettes, uncomplicated; Z79.02 Long term (current) use of antithrombotics/antiplatelets; Z79.84 Long term (current) use of oral hypoglycemic drugs; Z79.899 Other long term (current) drug therapy; Z95.5 Presence of coronary angioplasty implant and graft; Z95.1 Presence of aortocoronary bypass graft; Z99.3 Dependence on wheelchair; Z79.82 Long term (current) use of aspirin; Z79.51 Long term (current) use of inhaled steroids; Z79.890 Hormone replacement therapy; Z20.822 Contact with and (suspected) exposure to COVID-19
CPT/HCPCS: 0240U; 36415; 71045; 74177; 76870; 80048; 80053; 80076; 81003; 81015; 82947; 83036; 83690; 83735; 83880; 84145; 84439; 84443; 84484; 85025; 87040; 94010; 96361; 96365; 96366; 96375; 99285; G0378; J1650; J2405; J2543; J7030; J7606; Q9967

== ENCOUNTER 2020-08-03 22:22 | Emergency (ER) | payer OTHER ==
[2020-08-03 23:42] LABS: Absolute Lymphocytes (CBC) 1.7 K/uL (0.7-4.9); Basophils % 0.7 % (0-1.3); Hematocrit 41.2 % (39.6-49.0); Lymphocytes % 13.1 % (15.3-44.8); MPV 8.7 fL (7.6-11.3); RBC Red Blood Cell Count 4.39 M/uL (4.33-5.43)
[2020-08-03 23:53] LABS: ALT/SGPT 38 U/L (12-78); AST/SGOT 38 U/L (15-37); Albumin 3.5 g/dL (3.4-5.0); Alkaline Phosphatase 76 U/L (45-117); BUN Blood Urea Nitrogen 21 mg/dL (7-18); Bicarbonate 27 mmol/L (21-32); Bilirubin Direct 0.3 mg/dL (0-0.2); Glucose Level 202 mg/dL (74-106); Lipase 89 U/L (73-393); Potassium 4.1 mmol/L (3.5-5.1); Protein, Total 7.7 g/dL (6.4-8.2); Sodium Level 135 mmol/L (136-145)
[2020-08-04 01:25] LABS: Urine Blood Negative (Negative); Urine Glucose Trace (Negative); Urine Protein 3+ (Negative); Urine pH 6.5 (5.0-7.0)
[2020-08-04 02:08] LABS: Urine Bacteria <20 /HPF (NONE SEEN); Urine RBC <5 /HPF (NONE SEEN)
--- NOTE | 2020-08-04 02:13 | EDPHYS ---
Physician Documentation [facility] Name: Musa Lindsay Age: 79 yrs Sex: Male : 1940 Arrival Date: 08/03/2020 Time: 22:28 Bed 14 Private MD: ED Physician Paula Smalls HPI: 08/03 23:48 This 79 yrs old Male presents to ER via EMS with complaints of Flank Pain. pm1 23:48 The patient complains of pain in the anterior aspect of right lateral abdomen. The pain pm1 does not radiate. Onset: The symptoms/episode began/occurred 2 week(s) ago, resolved and then returned today. Reports onset after fall injury two weeks ago. Modifying factors: The symptoms are alleviated by nothing. the symptoms are aggravated by nothing. Associated signs and symptoms: Pertinent negatives: diarrhea, fever, nausea, vomiting, shortness of breath, chest pain. Severity of pain: in the emergency department the pain is a 5 / 10. The patient has experienced a previous episode, approximately 2 weeks ago. The patient has been recently seen by a physician: the patient's primary care provider, with similar presenting complaints, reports has had imaging for the same complaint. He is unaware fo the results. Historical: - Allergies: 22:34 NKA; zb - Home Meds: 22:34 carvedilol 12.5 mg Oral tab 2 times per day [Active]; clonazepam 0.5 mg Oral tab 2 zb times per day [Active]; Crestor 10 mg Oral tab 1 tab once daily [Active]; finasteride 5 mg Oral tab 1 tab once daily [Active]; glimepiride 4 mg Oral tab twice a day [Active]; temazepam 15 mg Oral cap once daily [Active]; tramadol 50 mg Oral tab twice a day [Active]; Plavix 75 mg Oral tab 1 tab once daily [Active]; Metformin Oral [Active]; losartan Oral [Active]; Isosorbide Mononitrate Oral [Active]; - PMHx: 22:34 CHF; Diabetes - NIDDM; High Cholesterol; Hypertension; Hypothyroidism; Myocardial zb infarction; - PSHx: 22:34 Heart stents; CABG; zb - Immunization history:: Adult Immunizations up to date, Client reports having NOT received the Covid vaccine. - Social history:: Smoking status: Patient reports the use of cigarette tobacco products, smokes one-half pack cigarettes per day. ROS: 23:48 Constitutional: Negative for fever, chills, and weight loss, Eyes: Negative for injury, pm1 pain, redness, and discharge, ENT: Negative for injury, pain, and discharge, Neck: Negative for injury, pain, and swelling, Cardiovascular: Negative for chest pain, palpitations, and edema, Respiratory: Negative for shortness of breath, cough, wheezing, and pleuritic chest pain, Abdomen/GI: Negative for abdominal pain, nausea, vomiting, diarrhea, and constipation. 23:48 MS/Extremity: Negative for injury and deformity, Skin: Negative for injury, rash, and discoloration. 23:48 Neuro: Negative for headache, weakness, numbness, tingling, and seizure. 23:48 Back: Positive for flank pain, on the right. Exam: 23:48 Constitutional: This is a well developed, well nourished patient who is awake, alert, pm1 and in no acute distress. Head/Face: Normocephalic, atraumatic. 23:48 Neck: Trachea midline, no thyromegaly or masses palpated, and no cervical lymphadenopathy. Supple, full range of motion without nuchal rigidity, or vertebral point tenderness. No Meningismus. Chest/axilla: Normal chest wall appearance and motion. Nontender with no deformity. No lesions are appreciated. Cardiovascular: Regular rate and rhythm with a normal S1 and S2. No gallops, murmurs, or rubs. Normal PMI, no JVD. No pulse deficits. Respiratory: Lungs have equal breath sounds bilaterally, clear to auscultation and percussion. No rales, rhonchi or wheezes noted. No increased work of breathing, no retractions or nasal flaring. 23:48 Back: No spinal tenderness. No costovertebral tenderness. Full range of motion. Skin: Warm, dry with normal turgor. Normal color with no rashes, no lesions, and no evidence of cellulitis. MS/ Extremity: Pulses equal, no cyanosis. Neurovascular intact. Full, normal range of motion. 23:48 Eyes: Exam is negative for acute changes, Extraocular movements: intact throughout, Lids and lashes: appear normal, no acute changes, no evidence of trauma. 23:48 ENT: External ear(s): are unremarkable, Ear canal(s): are normal, TM's: are normal, Mouth: Lips: normal, Oral mucosa: normal, pink and intact, moist. 23:48 Abdomen/GI: Inspection: obese Palpation: soft, in all quadrants, mild abdominal tenderness, in the right upper quadrant. 23:48 Neuro: Orientation: is normal, Mentation: is normal, Motor: is normal, moves all fours. Vital Signs: 22:28 BP 154 / 86; Pulse 92; Resp 16; Temp 98.2; Pulse Ox 98% on R/A; Weight 90.72 kg; Height zb 5 ft. 9 in. (175.26 cm); Pain 06/30; 08/04 00:27 BP 149 / 75; Pulse 83; Resp 16; Pulse Ox 97% on R/A; zb 01:30 BP 124 / 69; Pulse 86; Resp 18; Pulse Ox 96% on R/A; lp1 02:30 BP 125 / 80; Pulse 88; Resp 18; Pulse Ox 95% on R/A; lp1 08/03 22:28 Body Mass Index 29.53 (90.72 kg, 175.26 cm) zb MDM: 08/03 22:30 Patient medically screened. pm1 08/04 02:10 Data reviewed: vital signs. Data interpreted: Pulse oximetry: on room air is 97 %. pm1 Interpretation: normal. 08/03 22:37 Order name: Basic Metabolic Panel; Complete Time: 00:20 pm08/03 22:37 Order name: CBC with Diff; Complete Time: 23:48 pm1 08/03 22:37 Order name: Hepatic Function; Complete Time: 00:20 pm08/03 22:37 Order name: Lipase; Complete Time: 00:20 pm1 08/04 01:12 Order name: Urine Microscopic Only; Complete Time: 02:10 pm1 08/04 01:24 Order name: Urine Dipstick-Ancillary; Complete Time: 01:30 EDMS 08/03 22:37 Order name: IV Saline Lock; Complete Time: 00:26 pm08/03 22:37 Order name: Labs collected and sent; Complete Time: 00:26 pm1 08/03 22:37 Order name: Urine Dipstick-Ancillary (obtain specimen); Complete Time: 02:35 pm1 08/03 22:37 Order name: CT Abd/Pelvis - IV Contrast Only pm1 Administered Medications: 02:46 Drug: traMADol 50 mg Route: PO; lp1 03:13 Follow up: Response: Medication administered at discharge. lp1 Disposition: 08/04/20 02:12 Discharged to Home. Impression: Unspecified abdominal pain. - Condition is Stable. - Discharge Instructions: Abdominal Pain, Adult. - Medication Reconciliation Form, Thank You Letter, Antibiotic Education, Prescription Opioid Use form. - Follow up: Emergency Department; When: As needed; Reason: Worsening of condition. Follow up: Private Physician; When: 2 - 3 days; Reason: Recheck today's complaints, Continuance of care, Re-evaluation by your physician. - Problem is new. - Symptoms have improved. Signatures: Dispatcher [employer] EDJasmin Humphries RN RN lp1 Hilton Deras NP POLITICAL ORGANIZER pm1 Luz Madrid RN RN zb Corrections: (The following items were deleted from the chart) 03:18 02:12 08/04/2020 02:12 Discharged to Home. Impression: Unspecified abdominal pain. lp1 Condition is Stable. Forms are Medication Reconciliation Form, Thank You Letter, Antibiotic Education, Prescription Opioid Use. Follow up: Emergency Department; When: As needed; Reason: Worsening of condition. Follow up: Private Physician; When: 2 - 3 days; Reason: Recheck today's complaints, Continuance of care, Re-evaluation by your physician. Problem is new. Symptoms have improved. pm1
--- NOTE | 2020-08-04 02:13 | ER ---
Nurse's Notes [facility] Name: Musa Lindsay Age: 79 yrs Sex: Male : 1940 Arrival Date: 08/03/2020 Time: 22:28 Bed 14 Private MD: Diagnosis: Unspecified abdominal pain Presentation: 08/03 22:28 Chief complaint: EMS states: Patient coming from home. Called EMS c/o right flank pain. zb patient states he fell 2 weeks ago on the side. Pain has now returned. rates pain 5/10. denies fever, SOB, N/V/D. Coronavirus screen: At this time, the client does not indicate any symptoms associated with coronavirus-19. Ebola Screen: No symptoms or risks identified at this time. Initial Sepsis Screen: Does the patient meet any 2 criteria? No. Patient's initial sepsis screen is negative. Does the patient have a suspected source of infection? No. Patient's initial sepsis screen is negative. Risk Assessment: Do you want to hurt yourself or someone else? Patient reports no desire to harm self or others. Onset of symptoms was August 03, 2020. Care prior to arrival: IV initiated. 20 GA, in the right antecubital area. 22:28 Acuity: GRICEL 3 zb 22:28 Method Of Arrival: EMS: [facility] Triage Assessment: 22:34 Pain: Complains of pain in anterior aspect of right lateral abdomen Pain does not zb radiate. Pain currently is 5 out of 10 on a pain scale. Quality of pain is described as sharp, stabbing, Pain began 2-weeks ago. Neuro: Level of Consciousness is awake, alert, obeys commands, Oriented to person, place, time, situation. Cardiovascular: Patient's skin is warm and dry. Respiratory: Airway is patent Respiratory effort is even, unlabored, Respiratory pattern is regular, symmetrical. GI: Abdomen is round. : No signs and/or symptoms were reported regarding the genitourinary system. Derm: Skin is intact, is healthy with good turgor, Skin is dry, Skin is normal. Musculoskeletal: Circulation, motion, and sensation intact. 22:36 General: Appears in no apparent distress. Behavior is anxious. zb Historical: - Allergies: 22:34 NKA; zb - Home Meds: 22:34 carvedilol 12.5 mg Oral tab 2 times per day [Active]; clonazepam 0.5 mg Oral tab 2 zb times per day [Active]; Crestor 10 mg Oral tab 1 tab once daily [Active]; finasteride 5 mg Oral tab 1 tab once daily [Active]; glimepiride 4 mg Oral tab twice a day [Active]; temazepam 15 mg Oral cap once daily [Active]; tramadol 50 mg Oral tab twice a day [Active]; Plavix 75 mg Oral tab 1 tab once daily [Active]; Metformin Oral [Active]; losartan Oral [Active]; Isosorbide Mononitrate Oral [Active]; - PMHx: 22:34 CHF; Diabetes - NIDDM; High Cholesterol; Hypertension; Hypothyroidism; Myocardial zb infarction; - PSHx: 22:34 Heart stents; CABG; zb - Immunization history:: Adult Immunizations up to date, Client reports having NOT received the Covid vaccine. - Social history:: Smoking status: Patient reports the use of cigarette tobacco products, smokes one-half pack cigarettes per day. Screenin:36 Abuse screen: Denies threats or abuse. Denies injuries from another. Nutritional zb screening: No deficits noted. Tuberculosis screening: No symptoms or risk factors identified. Fall Risk None identified. Assessment: 23:30 Reassessment: see triage assessment. zb 08/04 00:00 Reassessment: Patient appears in no apparent distress at this time. Patient and/or zb family updated on plan of care and expected duration. Pain level reassessed. Patient is alert, oriented x 3, equal unlabored respirations, skin warm/dry/pink. 01:00 Reassessment: Patient appears in no apparent distress at this time. Patient resting, lp1 eyes closed, respirations even, unlabored. 02:00 Reassessment: Patient appears in no apparent distress at this time. Patient aware of lp1 waiting for urine results; no apparent discomfort noted. 02:54 Reassessment: Patient waiting for ride home to arrive to ED. lp1 Vital Signs: 08/03 22:28 BP 154 / 86; Pulse 92; Resp 16; Temp 98.2; Pulse Ox 98% on R/A; Weight 90.72 kg; Height zb 5 ft. 9 in. (175.26 cm); Pain 5/10; 08/04 00:27 BP 149 / 75; Pulse 83; Resp 16; Pulse Ox 97% on R/A; zb 01:30 BP 124 / 69; Pulse 86; Resp 18; Pulse Ox 96% on R/A; lp1 02:30 BP 125 / 80; Pulse 88; Resp 18; Pulse Ox 95% on R/A; lp1 08/03 22:28 Body Mass Index 29.53 (90.72 kg, 175.26 cm) zb ED Course: 08/03 22:28 Patient arrived in ED. zb 22:29 Hilton Deras NP is PHCP. pm1 22:29 Paula Smalls MD is Attending Physician. pm1 22:32 Triage completed. zb 22:36 Patient has correct armband on for positive identification. Placed in gown. Bed in low zb position. Call light in reach. kiln placer on. Pulse ox on. NIBP on. Door closed. Noise minimized. 22:37 Arm band placed on. zb 22:37 Maintain EMS IV. Dressing intact. Good blood return noted. Site clean \T\ dry. Gauge \T\ zb site: 20G RAC . 23:21 Luz Madrid RN is Primary Nurse. zb 08/04 00:20 Report received from OVIDIO Escobar. lp1 00:38 CT Abd/Pelvis - IV Contrast Only In Process Unspecified. EDMS 02:40 No provider procedures requiring assistance completed. IV discontinued, No lp1 redness/swelling at site. Pressure dressing applied. Administered Medications: 02:46 Drug: traMADol 50 mg Route: PO; lp1 03:13 Follow up: Response: Medication administered at discharge. lp1 Outcome: 02:12 Discharge ordered by . pm1 02:54 Discharged to home via wheelchair, with family. lp1 02:54 Condition: good 02:54 Discharge instructions given to patient, Instructed on discharge instructions, follow up and referral plans. Demonstrated understanding of instructions, follow-up care. 03:18 Patient left the ED. lp1 Signatures: Dispatcher [employer] EDMS Jasmin Andre RN RN lp1 Hilton Deras, [employer]ER pm1 Luz Madrid RN RN
[2020-08-04] MEDS ORDERED: TRAMADOL HCL 50 MG TAB ONE (02:58)
[2020-08-04 03:45] VITALS: TEMP 98.2
[2020-08-04 03:50] VITALS: BP 125/80; O2SAT 95
--- NOTE | 2020-08-04 19:21 | RAD REPORT ---
EXAM DESCRIPTION: CT Abdomen and Pelvis COMPARISON: CT abdomen pelvis May 21, 2020 CLINICAL HISTORY: [facility] MAIN FLANK PAIN TECHNIQUE: CT of the abdomen and pelvis was acquired with IV contrast material. Coronal and sagitt al reconstructions were obtained. Automated exposure control was utilized on this examination as a dose lowering technique. FINDINGS: Lung bases: Bibasilar calcified granulomas are present. Bibasilar atelectasis or scarring is present. Liver: Mildly enlarged liver measuring 17.3 cm midclavicular line. Gallbladder and biliary: Cholecystectomy. Unremarkable biliary tree. Pancreas: Normal. Spleen: Small calcified granulomas. Adrenal glands: Normal adrenal glands. Kidneys: Small bilateral cortical scars are noted. Small right renal cysts are also noted. Stomach and Small Bowel: The stomach is normal. Small duodenal diverticula are noted. The small bowel is otherwise unremarkable. Urinary bladder: Bladder wall thickening is present. Prostate/Male Urogenital: Normal. Colon and Appendix: Severe descending and sigmoid diverticulosis. No evidence of appendicitis. Retroperitoneum and lymph nodes: Normal. Vascular: Severe multivessel calcified atherosclerosis. Peritoneal cavity: Trace perihepatic ascites. No intraperitoneal free air. Musculoskeletal and soft tissues: Soft tissues are unremarkable. Lumbar spondylosis. No aggressive rohit ne lesions. No compression fracture. IMPRESSION: 1. Bladder wall thickening may be seen with cystitis. 2. Mild hepatomegaly with a small amount of perihepatic ascites. 3. Severe atherosclerosis. 4. Small chronic bilateral renal cortical scars. Electronically signed by: Brooks Hinkle MD 08/04/2020 12:53 AM CDT Due to temporary technical issues with the PACS/Fluency reporting system, reports are being signed by the in house radiologists without review as a courtesy to insure prompt reporting. The interpreting radiologist is fully responsible for the content of the report.
== END 2020-08-04 03:18 | disposition home or self-care (01) ==
LOC: ER 22:22
DX: R10.9 Unspecified abdominal pain (principal); E11.9 Type 2 diabetes mellitus without complications; I10 Essential (primary) hypertension; I50.9 Heart failure, unspecified; Z79.01 Long term (current) use of anticoagulants; Z95.1 Presence of aortocoronary bypass graft; Z95.818 Presence of other cardiac implants and grafts
CPT/HCPCS: 85025; 80048; 36415; 80076; 83690; 74177; Q9967; 81003; 81015; 99284

== ENCOUNTER 2021-03-01 18:42 | Inpatient (IN) | payer OTHER ==
--- OUTSIDE RECORDS SUMMARY | 2021-03-01 18:45 | XMS REPORT | Continuity of Care Document ---
:1940 Author Organization [facility] t Address [address] [place] [address] Care Team Providers Name Role Phone Amado, F Attending Clinician Unavailable Physician, Primary or Family Admitting Clinician Unavailabl e Payers Payer Name Policy Type Policy Number Effective Date Expiration Date S ource Problems This patient has no known problems. Allergies, Adverse Reactions, Alerts Allergy Allergy Status Severity Reaction(s) Onset Inactive Treating Comm ents Source Name Type Date Date Clinician No Known DA Active U [facility] Allergie 11-16 [facility] 00:00: [address] Medications This patient has no known medications. Procedures This patient has no known procedures. Encounters Start End Encounter Admission Attending Care Care Encounter Source Date/Time Date/Time Type Type Clinicians Facility Department ID 2019-09-27 Inpatient Dabaghi, HCAPM LABO [id number] [facility] 14:59:00 [facility] 2019-08-11 Inpatient EL Dabsharon, HCAWU SURG [id number] [facility] 07:00:00 [facility] 2019-08-07 Inpatient Dabsharon, HCAPM LABO [id number] [facility] 12:19:00 [facility] [id number] [facility] 2019-10-13 2019-10-13 Outpatient Dabaghi, HCAWU SURG [id number] [id number] [facility] 07:00:00 07:00:00 [facility] [id number] [facility] 2019-09-04 2019-09-04 Outpatient Dabaghi, HCAPM LABO [id number] [id number] [facility] 11:45:00 11:45:00 [facility] [id number] [facility] 2019-08-11 2019-08-11 Outpatient Dabaghi, HCAWU SURG [id number] [facility] 07:00:00 07:00:[address] [facility] 2019-08-08 2019-08-08 Outpatient Dabaghi, HCACL LABO [id number] 08-10 [facility] 12:14:00 12:14:00 [facility] [id number] [facility] 2019-08-08 2019-08-08 Outpatient Dabaghi, HCAPM LABO [id number] 08-10 [facility] 06:00:00 06:00:00 [facility] [id number] [facility] Results Test Description Test Time Test Comments Results Result Comments Source ACT-ISTAT 2019-10-13 15:07:00 Test Item Value Reference Range Interpretation Comme nts ACT-ISTAT (test code = ACTI) 202 SEC 74-137 H BASIC METABOLIC [id number] 07:50:00 Test Item Value Reference Range Interpretation [...] 0-189 mg/dL VERY HIGH...... ...>/= 190 mg/dL [id number] 07:50:00 Test Item Value Reference Range Interpretation Comments MAGNESIUM (test code = MAG) 2.2 MG/DL 1.6-2.3 N BASIC METABOLIC [id number] 07:39:00 Test Item Value Reference Range Interpretation [...] LDL (test MG/DL 0-99 code = LDL) [id number] 07:39:00 Test Item Value Reference Range Interpretation Comments MAGNESIUM (test code = MAG) 2.2 MG/DL 1.6-2.3 N BASIC METABOLIC [id number] 07:38:00 Test Item Value Reference Range Interpretation [...] LDL (test MG/DL 0-99 code = LDL) [id number] 07:38:00 Test Item Value Reference Range Interpretation Comments MAGNESIUM (test code = MAG) MG/DL 1.6-2.3 BASIC METABOLIC [id number] 07:36:00 Test Item Value Reference Range Interpretation [...] LDL (test code = LDL) MG/DL 0-99 [id number] 07:36:00 Test Item Value Reference Range Interpretation Comments MAGNESIUM (test code = MAG) MG/DL 1.6-2.3 BASIC METABOLIC [id number] 07:35:00 Test Item Value Reference Range Interpretation [...] LDL (test code = LDL) MG/DL 0-99 [id number] 07:35:00 Test Item Value Reference Range Interpretation Comments MAGNESIUM (test code = MAG) MG/DL 1.6-2.3 PROTHROMBIN [id number] 07:19:00 Test Item Value Reference Range Interpretation [...] syste ramone embolism. 3.0 - 4.5 PTT [id number] 07:19:00 Test Item Value Reference Range Interpretation Comments PTT ACTIVATED (test code = APTT) 36.5 SECONDS 25.1-36.5 N CBC W/AUTO [id number] 07:06:00 Test Item Value Reference Range Interpretation [...] 0.0-0.1 N NRBC#) COVID 19 Asymptomatic IH [id number] 06:16:00 Test Item Value Reference Range Interpretation [...] amount of virus (antigen) in the sample." [id number] 09:49:00 Test Item Value Reference Range Interpretation Comments ACT-ISTAT (test code = ACTI) 241 SEC 74-137 H BASIC METABOLIC [id number] 07:42:00 Test Item Value Reference Range Interpretation [...] 0-189 mg/dL VERY HIGH...... ...>/= 190 mg/dL [id number] 07:42:00 Test Item Value Reference Range Interpretation Comments MAGNESIUM (test code = MAG) 1.8 MG/DL 1.6-2.3 N BASIC METABOLIC [id number] 07:31:00 Test Item Value Reference Range Interpretation [...] LDL (test MG/DL 0-99 code = LDL) [id number] 07:31:00 Test Item Value Reference Range Interpretation Comments MAGNESIUM (test code = MAG) 1.8 MG/DL 1.6-2.3 N BASIC METABOLIC [id number] 07:30:00 Test Item Value Reference Range Interpretation [...] LDL (test code = LDL) MG/DL 0-99 [id number] 07:30:00 Test Item Value Reference Range Interpretation Comments MAGNESIUM (test code = MAG) MG/DL 1.6-2.3 BASIC METABOLIC [id number] 07:28:00 Test Item Value Reference Range Interpretation [...] LDL (test code = LDL) MG/DL 0-99 [id number] 07:28:00 Test Item Value Reference Range Interpretation Comments MAGNESIUM (test code = MAG) MG/DL 1.6-2.3 PROTHROMBIN [id number] 07:16:00 Test Item Value Reference Range Interpretation [...] syste ramone embolism. 3.0 - 4.5 PTT [id number] 07:16:00 Test Item Value Reference Range Interpretation Comments PTT ACTIVATED (test code = APTT) 33.9 SECONDS 25.1-36.5 N CBC W/AUTO [id number] 07:05:00 Test Item Value Reference Range Interpretation [...] 0.00 K/mm3 0.0-0.1 N NRBC#) Novel Coronavirus [id number] 03:11:00 Test Item Value Reference Range Interpretation Comments Novel Coronavirus Negative Negative Positive r esults are 2019 Inhouse (test indicativ e of the presence code = [id number]) ofSARS-CoV -2 RNA, clinical correlation wit h [...] for the identification of SARS-CoV-2 RNA usingthe Rolith M2000 Sy stem under the [facility] Emergen cy UseAuthorizatio n. The testing is perf ormed by personneltraine d in the procedures for the Embedster000 molecular diagnostic SARS-CoV-2 assa y in vitro. Novel Coronavirus 03:11:00 Test Item Value Reference Range Interpretation Comments Novel Coronavirus Negative Negative Positive r esults are 2019 Inhouse (test indicativ e of the presence code = [id number]) ofSARS-CoV -2 RNA, clinical correlation wit h [...] for the identification of SARS-CoV-2 RNA usingthe Rolith M2000 Sy stem under the FDA Emergen cy UseAuthorizatio n. The testing is perf ormed by personneltraine d in the procedures for the Embedster000 molecular diagnostic SARS-CoV-2 assa y in vitro.
[2021-03-01] MEDS ORDERED: NA CHLORIDE 0.9% 1,000 ML ONE (19:52)
[2021-03-01] MEDS ORDERED: ONDANSETRON 4 MG/2 ML VIAL ONE (19:52)
[2021-03-01 20:19] LABS: Absolute Lymphocytes (CBC) 0.6 K/uL (0.7-4.9); Hematocrit 47.3 % (39.6-49.0); Lymphocytes % 4.6 % (15.3-44.8); MPV 8.7 fL (7.6-11.3); RBC Red Blood Cell Count 5.06 M/uL (4.33-5.43)
[2021-03-01 20:30] LABS: BUN Blood Urea Nitrogen 24 mg/dL (7-18); Bicarbonate 25 mmol/L (21-32); Glucose Level 306 mg/dL (74-106); Potassium 3.7 mmol/L (3.5-5.1); Sodium Level 137 mmol/L (136-145)
[2021-03-01 20:34] LABS: SARS-COV-2 RT PCR NEGATIVE (NEGATIVE)
[2021-03-01 20:39] LABS: ALT/SGPT 40 U/L (12-78); AST/SGOT 37 U/L (15-37); Albumin 3.6 g/dL (3.4-5.0); Alkaline Phosphatase 100 U/L (45-117); Bilirubin Direct 0.5 mg/dL (0-0.2); Bilirubin Total 1.7 mg/dL (0.2-1.0); Lipase 33 U/L (73-393); Protein, Total 8.2 g/dL (6.4-8.2)
--- NOTE | 2021-03-01 21:10 | RAD REPORT ---
EXAM DESCRIPTION: CT - Abdomen Pelvis W Contrast - 03/01/2021 8:56 pm CLINICAL HISTORY: Abdominal pain/vomiting COMPARISON: November 2020 TECHNIQUE: Computed axial tomography of the abdomen pelvis was obtained. 100 cc Isovue-300 was admin istered intravenously. Oral contrast was not requested which limits evaluation of bowel. All CT scans are performed using dose optimization technique as appropriate and may include automated exposure control or mA/KV adjustment according to patient size. FINDINGS: Cholecystectomy. The liver, spleen, pancreas, adrenal and left kidney appear unremarkable. Small right renal cyst Diverticula stem from the colon without evidence of diverticulitis. Normal appendix Marked thickening of the wall of the bladder with stranding in the adjacent fat. Small inguinal hernias IMPRESSION: Marked bladder wall thickening probably indicating inflammation/infection
[2021-03-01 22:16] LABS: Blood Morphology Comment NOT SEEN (NOT SEEN); Platelet Estimate ADEQ
[2021-03-01 23:23] LABS: Troponin (Emerg Dept Use Only) < 0.02 ng/mL (0.0-0.045)
[2021-03-02] MEDS ORDERED: CEFTRIAXONE 1000 MG/VIAL ONE ×2 (00:29→09:20)
[2021-03-02 00:52] LABS: Urine Bacteria LOADED /HPF (NONE SEEN); Urine Urothelial Cells <5 /HPF (NONE SEEN)
--- NOTE | 2021-03-02 01:22 | EDPHYS ---
Physician Documentation [facility] Name: Musa Lindsay Age: 80 yrs Sex: Male : 1940 Arrival Date: 03/01/2021 Time: 18:44 Bed 15 Private MD: ED Physician Paula Smalls HPI: 03/01 19:06 This 80 yrs old Male presents to ER via EMS with complaints of General pm1 Weakness, Nausea/Vomiting. 19:06 The patient presents to the emergency department with nausea, vomiting. Onset: The pm1 symptoms/episode began/occurred today. Possible causes: unknown. The symptoms are aggravated by nothing. The symptoms are alleviated by nothing. 19:06 Associated signs and symptoms: Pertinent positives: fever, generalized weakness, pm1 Pertinent negatives: abdominal pain, diarrhea. The patient has not recently seen a physician. Historical: - Allergies: 18:46 NKA; ss - PMHx: 18:46 CHF; Diabetes - NIDDM; High Cholesterol; Hypertension; Hypothyroidism; Myocardial ss infarction; - Immunization history:: Adult Immunizations up to date, Client reports receiving the 2nd dose of the Covid vaccine. - Social history:: Patient/guardian denies using Smoking status: Patient denies any tobacco usage or history of. ROS: 19:06 Cardiovascular: Negative for chest pain, palpitations, and edema, Respiratory: Negative pm1 for shortness of breath, cough, wheezing, and pleuritic chest pain. 19:06 Back: Negative for injury and pain, MS/Extremity: Negative for injury and deformity, Skin: Negative for injury, rash, and discoloration. 19:06 Constitutional: Positive for fever. 19:06 Abdomen/GI: Positive for nausea and vomiting, Negative for abdominal pain, diarrhea, constipation. 19:06 Neuro: Positive for generalized weakness. 19:06 All other systems are negative. Exam: 19:06 Constitutional: This is a well developed, well nourished patient who is awake, alert, pm1 and in no acute distress. 19:06 Head/Face: Normocephalic, atraumatic. 19:06 Back: No spinal tenderness. No costovertebral tenderness. Full range of motion. Skin: Warm, dry with normal turgor. Normal color with no rashes, no lesions, and no evidence of cellulitis. MS/ Extremity: Pulses equal, no cyanosis. Neurovascular intact. Full, normal range of motion. 19:06 Constitutional: The patient appears in no acute distress, alert, awake, comfortable, non-diaphoretic, non-toxic, well developed, well hydrated, well nourished, smells of urine. 19:06 Eyes: Exam is negative for acute changes, Periorbital structures: appear normal, Extraocular movements: intact throughout, Sclera: no acute changes, icterus, is not appreciated. 19:06 ENT: Exam is negative for acute changes, Mouth: Lips: normal, moist, Oral mucosa: normal, pink and intact, moist. 19:06 Cardiovascular: Exam negative for acute changes, Rate: normal, Rhythm: regular, Pulses: no pulse deficits are appreciated. 19:06 Respiratory: Exam negative for acute changes, respiratory distress, shortness of breath, Breath sounds: are clear throughout. 19:06 Abdomen/GI: Inspection: obese Palpation: abdomen is soft and non-tender, in all quadrants. 19:06 Neuro: Exam negative for acute changes, Orientation: to person, situation, Mentation: appropriate for stated age, Motor: is normal, moves all fours. Vital Signs: 20:50 BP 120 / 82; Pulse 101; Resp 21; Temp 100.1; Pulse Ox 90% 0 lpm ; Weight 108.86 kg; sv1 Height 5 ft. 8 in. (172.72 cm); Pain 0/10; 22:00 BP 133 / 64; Pulse 100; Resp 30; Pulse Ox 92% 0 lpm ; sv1 03/02 00:01 BP 142 / 77; Pulse 100; Resp 30; Pulse Ox 96% ; sv1 02:23 BP 115 / 67; Pulse 105; Resp 20; Pulse Ox 97% 0 lpm ; Pain 0/10; sv1 03/01 20:50 Body Mass Index 36.49 (108.86 kg, 172.72 cm) sv1 MDM: 03/01 18:52 Patient medically screened. pm1 03/02 00:47 Data reviewed: vital signs. Data interpreted: Pulse oximetry: on room air is 96 %. pm1 Interpretation: normal. 00:48 Counseling: I had a detailed discussion with the patient and/or guardian regarding: the pm1 historical points, exam findings, and any diagnostic results supporting the discharge/admit diagnosis, lab results, radiology results, the need for outpatient follow up, to return to the emergency department if symptoms worsen or persist or if there are any questions or concerns that arise at home. 03/01 18:53 Order name: COVID-19/FLU A+B (Document "Date of Onset" if Symptomatic); Complete Time: pm1 20:36 03/01 18:53 Order name: Basic Metabolic Panel; Complete Time: 23:39 pm1 03/01 18:53 Order name: CBC with Diff; Complete Time: 22:19 pm1 03/01 18:53 Order name: Hepatic Function; Complete Time: 23:39 pm1 03/01 18:53 Order name: Lipase; Complete Time: 23:39 pm03/01 20:42 Order name: Urine Microscopic Only; Complete Time: 00:53 pm03/01 22:05 Order name: Manual Differential; Complete Time: 22:19 EDMS 03/01 22:06 Order name: Troponin (Emerg Dept Use Only); Complete Time: 23:39 EDMS 03/02 00:55 Order name: Urine Culture EDMS 03/02 02:15 Order name: Blood Culture Adult (2) la03/02 02:15 Order name: Procalcitonin la03/02 02:15 Order name: BNP la03/02 03:04 Order name: Glucose, Ancillary Testing; Complete Time: 03:22 EDMS 03/01 18:53 Order name: IV Saline Lock; Complete Time: 19:35 pm03/01 18:53 Order name: Labs collected and sent; Complete Time: 19:48 pm03/01 19:19 Order name: CT Abd/Pelvis - IV Contrast Only; Complete Time: 21:16 pm03/01 19:19 Order name: Urine Dipstick-Ancillary (obtain specimen); Complete Time: 00:01 pm03/01 19:20 Order name: EKG; Complete Time: 19:21 pm03/01 19:20 Order name: EKG - Nurse/Tech; Complete Time: 19:34 pm03/02 01:41 Order name: CT Head Brain wo Cont pm03/02 04:49 Order name: CBC with Automated Diff EDMS 03/02 05:11 Order name: Comprehensive Metabolic Panel EDMS 03/02 05:11 Order name: Magnesium EDMS 03/02 09:24 Order name: Glucose, Ancillary Testing EDMS 03/02 10:28 Order name: CT EDMS 03/02 11:32 Order name: Glucose, Ancillary Testing EDMS 03/02 02:09 Order name: Glucose Level; Complete Time: 07:12 la1 Administered Medications: 00:41 Drug: Rocephin (cefTRIAXone) 1 grams Route: IV; Rate: calculated rate; Site: left sv1 forearm; 03:36 Follow up: Response: No adverse reaction sv1 07:12 Not Given (previous shift): Zofran (Ondansetron) 4 mg IVP once; over 2 minutes jg9 07:13 Not Given (previous shift): NS 0.9% 500 ml IV at bolus once jg9 Disposition Summary: 03/02/21 01:37 Hospitalization Ordered Hospitalization Status: Inpatient Admission pm1 Provider: Paula Caceres pm1 Condition: Stable(03/02/21 01:37) pm1 Problem: new(03/02/21 01:37) pm1 Symptoms: have improved(03/02/21 01:37) pm1 Bed/Room Type: Standard pm1 Location: Telemetry/MedSurg (Inpatient)(03/02/21 13:15) bd Room Assignment: 202(03/02/21 13:15) bd Diagnosis - UTI/ Urinary tract infection, site not specified(03/02/21 01:37) pm1 - Weakness pm1 - Vomiting pm1 Forms: - Medication Reconciliation Form pm1 - SBAR form pm1 Signatures: Dispatcher [employer] EDMA Ana Jones Simi Tena RN RN ss Jewel Quispe, SPINNER CONTINUOUS-C SPINNER CONTINUOUS-Cla1 Vivi Barlow, RN RN Hilton Hernández, NISH BEAUTY PARLOR CLEANER pm1 Franklin Fields RN RN sv1 Bozena Acosta RN jg9 Corrections: (The following items were deleted from the chart) 03/01 22:06 21:56 TROPONIN (EMERG DEPT USE ONLY)+C.LAB.BRZ ordered. EDMA EDMA 03/02 01:36 01:22 Home pm1 pm1 01:36 01:22 new pm1 pm1 01:36 01:22 have improved pm1 pm1 :36 01:22 Stable pm1 pm1 01:36 01:22 UTI/ Urinary tract infection, site not specified pm1 pm1 02:23 01:37 Telemetry/MedSurg (Inpatient) pm1 cg 02:23 01:37 pm1 cg 13:15 02:23 [facility] ER HOLD cg bd 13:15 02:23 ERHOLD- cg bd
--- NOTE | 2021-03-02 01:22 | ER ---
Nurse's Notes [facility] Name: Musa Lindsay Age: 80 yrs Sex: Male : 1940 Arrival Date: 03/01/2021 Time: 18:44 Bed 15 Private MD: Diagnosis: UTI/ Urinary tract infection, site not specified;Weakness;Vomiting Presentation: 03/01 18:44 Chief complaint: EMS states: N/V, generalized weakness and fever that began today. ss Patient stated that for the past few weeks he hasn't been feeling great. Coronavirus screen: Client presents with at least one sign or symptom that may indicate coronavirus-19. Provider contacted for isolation considerations. Ebola Screen: Patient denies exposure to infectious person. Patient denies travel to an Ebola-affected area in the 21 days before illness onset. Initial Sepsis Screen:. Onset of symptoms is unknown. Care prior to arrival: Glucose check: 306. 18:44 Method Of Arrival: EMS: [facility] 18:44 Acuity: GRICEL 3 03/02 07:18 Risk Assessment: Do you want to hurt yourself or someone else? Patient reports no jg9 desire to harm self or others. 07:18 Initial Sepsis Screen: Does the patient meet any 2 criteria? No. Patient's initial jg9 sepsis screen is negative. Does the patient have a suspected source of infection? No. Patient's initial sepsis screen is negative. Triage Assessment: 07:17 General: Appears in no apparent distress. jg9 07:18 General: Behavior is calm. jg9 07:18 GI: Reports lower abdominal pain, upper abdominal pain. jg9 Historical: - Allergies: 03/01 18:46 NKA; ss - PMHx: 18:46 CHF; Diabetes - NIDDM; High Cholesterol; Hypertension; Hypothyroidism; Myocardial ss infarction; - Immunization history:: Adult Immunizations up to date, Client reports receiving the 2nd dose of the Covid vaccine. - Social history:: Patient/guardian denies using Smoking status: Patient denies any tobacco usage or history of. Screenin:50 Abuse screen: Denies threats or abuse. Nutritional screening: No deficits noted. sv1 Tuberculosis screening: No symptoms or risk factors identified. Fall Risk No fall in past 12 months (0 pts). Secondary diagnosis (15 points) IV access (20 points). Ambulatory Aid- None/Bed Rest/Nurse Assist (0 pts). Gait- Weak (10 pts.). Mental Status- Overestimates/Forgets Limitations (15 pts.). Total Pickett Fall Scale indicates Low Risk Score (25-44 pts). Fall prevention measures have been instituted. Placed close to Nursing Station 1:1 attendant Assigned to Pt. Frequent Obs/Assesments occuring. Assessment: 22:58 Reassessment: the patient has become more confused.. sv1 22:59 Reassessment: THe partient is mildly confused.. sv1 22:59 Pain: Denies pain. GI: No deficits noted. No signs and/or symptoms were reported sv1 involving the gastrointestinal system. 03/02 02:17 Reassessment: To ct via [facility].. sv1 07:18 GI: Abdomen is round non-distended. jg9 Vital Signs: 03/01 20:50 BP 120 / 82; Pulse 101; Resp 21; Temp 100.1; Pulse Ox 90% 0 lpm ; Weight 108.86 kg; sv1 Height 5 ft. 8 in. (172.72 cm); Pain 0/10; 22:00 BP 133 / 64; Pulse 100; Resp 30; Pulse Ox 92% 0 lpm ; sv1 01 00:01 BP 142 / 77; Pulse 100; Resp 30; Pulse Ox 96% ; sv1 02:23 BP 115 / 67; Pulse 105; Resp 20; Pulse Ox 97% 0 lpm ; Pain 0/10; sv1 03/01 20:50 Body Mass Index 36.49 (108.86 kg, 172.72 cm) sv1 ED Course: 03/01 18:44 Patient arrived in ED. ss 18:46 Triage completed. ss 18:46 Arm band placed on right wrist. ss 18:52 Hilton Deras NP is PHCP. pm1 18:52 Paula Smalls MD is Attending Physician. pm1 19:08 Franklin Fields, OVIDIO is Primary Nurse. sv1 19:48 Basic Metabolic Panel Sent. sv1 19:48 CBC with Diff Sent. sv1 19:48 Hepatic Function Sent. sv1 19:48 Lipase Sent. sv1 19:48 COVID-19/FLU A+B (Document "Date of Onset" if Symptomatic) Sent. sv1 20:50 Patient has correct armband on for positive identification. Bed in low position. Call sv1 light in reach. Side rails up X2. 20:50 No provider procedures requiring assistance completed. Inserted saline lock: 22 gauge sv1 in right antecubital area, using aseptic technique. 20:56 CT Abd/Pelvis - IV Contrast Only In Process Unspecified. EDMS 03/02 00:01 Urine Microscopic Only Sent. sv1 00:01 Inserted saline lock: 22 gauge in left forearm, using aseptic technique. sv1 01:36 Paula Caceres MD is Hospitalizing Provider. pm1 02:28 BNP Sent. sv1 07:19 Patient admitted, IV remains in place. jg9 07:28 Primary Nurse role handed off by Franklin Fields, OVIDIO 13:40 Bozena Acosta, RN is Primary Nurse. jg9 Administered Medications: 00:41 Drug: Rocephin (cefTRIAXone) 1 grams Route: IV; Rate: calculated rate; Site: left sv1 forearm; 03:36 Follow up: Response: No adverse reaction sv1 07:12 Not Given (previous shift): Zofran (Ondansetron) 4 mg IVP once; over 2 minutes jg9 07:13 Not Given (previous shift): NS 0.9% 500 ml IV at bolus once jg9 Outcome: 01:22 Discharge ordered by . pm1 01:37 Decision to Hospitalize by Provider. pm1 07:11 Admitted to ER Hold. Please see [facility] for further documentation. jg9 07:18 Condition: good jg9 15:41 Patient left the ED. jg9 Signatures: Dispatcher [employer] EDMS Ana Jones bd Simi Tena, OVIDIO RN Hilton Lynne, FABRICATION OPERATOR FABRICATION OPERATOR pm1 Bozena Acosta, RN OVIDIO jg9 Franklin Fields, OVIDIO RN sv1
--- NOTE | 2021-03-02 02:30 | P.HP ---
Certification for Inpatient Patient admitted to: Inpatient With expected LOS: >2 Midnights Patient will require the following post-hospital care: None Practitioner: I am a practitioner with admitting privileges, knowledge of patient current condition, hospital course, and medical plan of care. Services: Services provided to patient in accordance with Admission requirements found in Title 42 Section 412.3 of the Code of Federal Regulations Patient History Date of Service: 03/02/21 Reason for admission: UTI, AMS, fever History of Present Illness: 80-year-old male with history of COPD, diabetes mellitus type [id number], hypertension, hyperlipidemia, inoperable CAD status post CABG, chronic systolic CHF presents emergency department for altered mental status and fever. Family reports patient has been not acting himself over the course of last few days noticed a fever to 102 today at home. Patient was evaluated here in the emergency department found to have white blood cell count 12.5 with left shift 7% bands glucose 306 GFR 60 T bili 1.7D bili 0.5 urinalysis urine microscopic loaded bacteria white blood cells too numerous to count COVID- negative CT abdomen pelvis shows marked bladder wall thickening probably indicating inflammation/infection no other acute findings CT head brain negative for acute findings. Patient slightly altered oriented x2 seems slightly encephalopathic will admit for further evaluation and management of UTI. Allergies No Known Allergies Allergy (Verified 04/07/17 03:07) Home Medications: Glimepiride 1 tab PO BIDWM 04/07/17 Tramadol HCl [Ultram] 50 mg PO BID PRN 04/07/17 Finasteride [Proscar*] 5 mg PO DAILY 02/28/18 Clopidogrel Bisulfate [Plavix*] 75 mg PO DAILY #30 tablet 03/02/18 Aspirin [Aspirin EC 81 MG] 81 mg PO DAILY 02/12/20 Isosorbide Mononitrate [Isosorbide Mononitrate ER] 30 mg PO DAILY 02/12/20 Joint Support Advanced Formula 1 tab PO DAILY 02/12/20 Metformin HCl 1,000 mg PO BIDWM 02/12/20 Multivit-Min/FA/Lycopen/Lutein [Centrum Silver Tablet] 1 each PO DAILY 02/12/20 Rosuvastatin [Crestor*] 20 mg PO DAILY 02/12/20 Sertraline HCl 50 mg PO DAILY 02/12/20 Albuterol Inhaler [Ventolin Inhaler*] 2 puff IH TID PRN #1 hfa.aer.ad 02/14/20 Budesonide/Formoterol Fumarate [Symbicort 160-4.5 Mcg Inhaler] 2 puff IH BID #1 hfa.aer.ad 02/14/20 Levothyroxine [Synthroid*] 0.05 mg PO DAILYAC #30 tablet 02/14/20 Losartan Potassium 25 mg PO DAILY #30 tablet 02/14/20 carvediloL [Coreg*] 6.25 mg PO BID #60 tab 02/14/20 Nicotine [Nicoderm] 21 mg TD DAILY #30 patch.td24 05/23/20 Pantoprazole [Protonix Tab] 40 mg PO DAILY #30 tab 05/23/20 levoFLOXacin [Levaquin] 500 mg PO DAILY #7 tab 05/23/20 - Past Medical/Surgical History Diabetic: Yes -: HTN -: CAD -: Hyperlipidemia -: NIDDM -: INOPERABLE CAD s/p CABG -: NH -: Hypothyroidism -: Neuropathy -: Suspected COPD -: Chronic systolic CHF -: Cholecystectomy -: Heart Bypass-2000 -: Cardiac stents x5 Psychosocial/ Personal History: Patient lives at home with his granddaughter and is retired - Family History Father -: Cancer, Other (see notes) Notes: prostate cancer Mother -: Diabetes Brother -: Heart disease - Social History Alcohol use: No CD- Drugs: No Caffeine use: Yes Place of Residence: Home Review of Systems 10-point ROS is otherwise unremarkable General: Fever, Chills, Weakness, Malaise Genitourinary: Dysuria, Frequency, Urgency Physical Examination - Physical Exam General: Alert, In no apparent distress, Oriented x2, Obese HEENT: Atraumatic, PERRLA, Mucous membr. moist/pink, EOMI, Sclerae nonicteric Neck: Supple, 2+ carotid pulse no bruit, No LAD, Without JVD or thyroid abnormality Respiratory: Clear to auscultation bilaterally, Normal air movement Cardiovascular: Regular rate/rhythm, Normal S1 S2 Gastrointestinal: Normal bowel sounds, No tenderness Musculoskeletal: No tenderness Integumentary: No rashes Neurological: Normal speech, Normal strength at 5/5 x4 extr, Normal tone, Normal affect, Other (Confused) Lymphatics: No axilla or inguinal lymphadenopathy - Studies Laboratory Data (last 24 hrs) 03/01/21 19:30: WBC 12.50 H, Hgb 15.8, Hct 47.3, Plt Count 173 03/01/21 19:30: Sodium 137, Potassium 3.7, BUN 24 H, Creatinine 1.16, Glucose 306 H, Total Bilirubin 1.7 H, AST 37, ALT 40, Alkaline Phosphatase 100, Lipase 33 L Assessment and Plan - Plan Assessment: Metabolic encephalopathy secondary to urinary tract infection, fever Diabetes mellitus type [id number] with hyperglycemia Inoperable CAD status post CABG, Chronic systolic congestive heart failure Hypertension Hyperlipidemia COPD Hypothyroidism Severe arthritis, wheelchair-bound BPH Plan: Metabolic encephalopathy secondary to urinary tract infection, fever: Continue to antibioticsRocephin, urine and blood cultures obtained pending result. As needed antipyretics we will hold off on IV fluids as patient is tolerating p.o. and has chronic systolic congestive heart failure. Patient does not appear to be septic at this time. Has been clinical improvement over the course the next 48 to 72 hours. PT consulted for additional assistance and patient mobility /ambulation. Diabetes mellitus type [id number] with hyperglycemia: ACH S Accu- Chek, moderate sliding scale insulin. Inoperable CAD status post CABG, Chronic systolic congestive heart failure: Home medications continued monitor volume status closely. Hypertension: Home medications have been continued Hyperlipidemia:Home medications have been continued COPD: We will provide nebulizer treatment as needed Hypothyroidism: Home medications have been continued Severe arthritis, wheelchair-bound: Home medications have been continued BPH: Home medication continued DVT PPX: Lovenox Code status: Full Discharge Plan: Home Plan to discharge in: 48 Hours - Advance Directives Does patient have a Living Will: Yes Does patient have a Durable POA for Healthcare: Yes - Code Status/Comfort Care Code Status Assessed: Yes (Full code) Critical Care: No Time Spent Managing Pts Care (In Minutes): 55
[2021-03-02] MEDS ORDERED: ONDANSETRON 4 MG/2 ML VIAL IV PRN (04:09)
[2021-03-02] MEDS ORDERED: ACETAMINOPHEN 500 MG TAB PO PRN (04:09)
[2021-03-02 04:46] LABS: Absolute Lymphocytes (CBC) 0.6 K/uL (0.7-4.9); Hematocrit 42.5 % (39.6-49.0); Lymphocytes % 3.6 % (15.3-44.8); MPV 8.5 fL (7.6-11.3); RBC Red Blood Cell Count 4.56 M/uL (4.33-5.43)
[2021-03-02 05:03] LABS: Albumin 3.2 g/dL (3.4-5.0); Magnesium 1.8 mg/dL (1.8-2.4); Potassium 3.9 mmol/L (3.5-5.1); Protein, Total 7.6 g/dL (6.4-8.2)
[2021-03-02] MEDS: LEVOTHYROXINE SOD 0.05 MG TABLET PO SCH (06:30)
[2021-03-02] MEDS: INSULIN -REGULAR HUMAN 50 UNIT/0.5 ML ML SQ SCH ×4 (07:30→20:18)
[2021-03-02] MEDS: HEPARIN 5000 UNIT/ML 1 ML VIAL SQ SCH ×2 (09:00→20:25)
[2021-03-02] MEDS: ASPIRIN EC 81 MG TAB PO SCH (09:00)
[2021-03-02] MEDS: SERTRALINE HCL 50 MG TAB PO SCH (09:00)
[2021-03-02] MEDS: carvediloL 6.25 MG TAB PO SCH ×2 (09:00→20:24)
[2021-03-02] MEDS: ISOSORBIDE MONO SR 30 MG TAB PO SCH (09:00)
[2021-03-02] MEDS: LOSARTAN POTASSIUM 50 MG TABLET PO SCH (09:00)
[2021-03-02] MEDS: CLOPIDOGREL 75 MG TABLET PO SCH (09:00)
[2021-03-02] MEDS ORDERED: HEPARIN 5000 UNIT/ML 1 ML VIAL ONE (09:19)
[2021-03-02] MEDS ORDERED: LOSARTAN POTASSIUM 50 MG TABLET ONE (09:19)
[2021-03-02] MEDS ORDERED: ASPIRIN EC 81 MG TAB PO ONE (09:20)
[2021-03-02] MEDS ORDERED: NA CHLORIDE 0.9% 50 ML ONE (09:20)
[2021-03-02] MEDS ORDERED: CLOPIDOGREL 75 MG TABLET ONE (09:20)
[2021-03-02] MEDS ORDERED: carvediloL 6.25 MG TAB ONE (09:20)
[2021-03-02] MEDS: CEFTRIAXONE 1,000 MG in NA CHLORIDE 0.9% 50 ML IVPB SCH (09:50)
--- NOTE | 2021-03-02 10:27 | RAD REPORT ---
EXAM DESCRIPTION: CT - Head Brain Wo Cont - 03/02/2021 5:47 am CLINICAL HISTORY: 80 years, Male, WEAKNESS COMPARISON: 02/12/2020. FINDINGS: Multiple transaxial tomograms of the brain were obtained from the base of the skull to the vertex without contrast. 2-D multiplanar reformats and the coronal and sagittal plane were performed and reviewed. This exam was performed according to our departmental dose-optimization protocol, which includes auto mated exposure control, adjustment of the mA and/or kV according to patient size and/or use of iterat ruddy reconstruction technique. Brain parenchyma demonstrate mild prominence of the sulci and gyri are corresponding to mild cerebral and cerebellar atrophy. There is very minimal periventricular white matter changes of microvascular ischemia. There is no midline shift and/or mass effect. There is no evidence for acute intracranial h emorrhage. Vascular calcifications are identified within the cavernous sinus and minimally along the posterior circulation. Lateral ventricles and cisterns displace normal appearance. No intra or extr a axial fluid collections were seen. The calvarium is intact with no evidence for fracture. The visua lized portions of the paranasal sinuses and orbits demonstrate to be clear. IMPRESSION: BRAIN ATROPHY WITH PERIVENTRICULAR MATTER CHANGES OF MICROVASCULAR ISCHEMIA. NO ACUTE INTRACRANIAL HEMORRHAGE. Electronically signed by: Alfonzo Grijalva MD 03/02/2021 2:57 AM HUMAN CAPITAL ANALYST Due to temporary technical issues with the PACS/Fluency reporting system, reports are being signed by the in house radiologist without review as a courtesy to ensure prompt reporting. The interpreting r adiologist is fully responsible for the content of the report.
[2021-03-02] MEDS ORDERED: INSULIN -REGULAR HUMAN 50 UNIT/0.5 ML ML ONE (12:52)
[2021-03-02] MEDS ORDERED: TRAMADOL HCL 50 MG TAB ONE (13:56)
[2021-03-02] MEDS: TRAMADOL HCL 50 MG TAB PO PRN (14:13)
[2021-03-02 16:38] VITALS: BMI 36.3
[2021-03-02] MEDS ORDERED: INFLUENZA VACCINE (for 6+ mo) 0.5 ML DOSE IMVAC ONE (17:00)
[2021-03-02] MEDS ORDERED: PNEUMOCOCCAL VACCINE 0.5 ML IMVAC ONE (17:00)
--- NOTE | 2021-03-02 18:42 | P.PN ---
Subjective Date of Service: 03/02/21 Subjective: Improving Review of Systems 10-point ROS is otherwise unremarkable Physical Examination - Vital Signs Temperature: 97.5 F Blood Pressure: 97/55 Pulse: 71 Respirations: 18 Pulse Ox (%): 96 - Physical Exam General: Alert, In no apparent distress Respiratory: Diminished, Expiratory wheezes Cardiovascular: Regular rate/rhythm, Normal S1 S2, No murmurs Gastrointestinal: Normal bowel sounds, Soft and benign, Non-distended, No tenderness Musculoskeletal: No clubbing, No swelling, No tenderness Neurological: Sensation intact, Cranial nerves 3-12 intact - Studies Laboratory Data (last 24 hrs) 03/01/21 19:30: WBC 12.50 H, Hgb 15.8, Hct 47.3, Plt Count 173 03/01/21 19:30: Sodium 137, Potassium 3.7, BUN 24 H, Creatinine 1.16, Glucose 306 H, Total Bilirubin 1.7 H, AST 37, ALT 40, Alkaline Phosphatase 100, Lipase 33 L Medications List Reviewed: Yes Assessment & Plan - Problems (Diagnosis) (1) Aphasia Onset Date: 03/31/17 Current Visit: No Status: Acute (2) NSTEMI (non-ST elevated myocardial infarction) Onset Date: 02/28/18 Current Visit: No Status: Acute (3) Coronary artery disease Onset Date: 06/22/16 Current Visit: No Status: Chronic Qualifiers: Coronary Disease-Associated Artery/Lesion type: [place] artery (4) Diabetes Onset Date: 06/22/16 Current Visit: No Status: Chronic Qualifiers: Diabetes mellitus type: type 2 Diabetes mellitus intermediate school teacher insulin use: without snf use Diabetes mellitus complication status: with other specified complication Qualified Code(s): E11.69 - Type 2 diabetes mellitus with other specified complication (5) HTN (hypertension) Onset Date: 06/22/16 Current Visit: No Status: Chronic Qualifiers: Hypertension type: essential hypertension Qualified Code(s): I10 - E ssential (primary) hypertension (6) Hyperlipidemia Onset Date: 06/22/16 Current Visit: No Status: Chronic Qualifiers: Hyperlipidemia type: unspecified (7) Hypothyroidism Current Visit: No Status: Chronic Qualifiers: Hypothyroidism type: unspecified Qualified Code(s): E03.9 - Hypothyroidism, unspecified (8) UTI (urinary tract infection) Current Visit: Yes Status: Acute (9) Toxic encephalopathy Current Visit: Yes Status: Acute - Advance Directives Does patient have a Living Will: Yes Does patient have a Durable POA for Healthcare: Yes
[2021-03-02] MEDS: FINASTERIDE 5 MG TAB PO SCH (20:25)
[2021-03-02] MEDS: ATORVASTATIN 20 MG TAB PO SCH (20:25)
[2021-03-03] MEDS: LEVOTHYROXINE SOD 0.05 MG TABLET PO SCH (05:58)
[2021-03-03 06:21] LABS: Absolute Lymphocytes (CBC) 1.6 K/uL (0.7-4.9); Hematocrit 40.1 % (39.6-49.0); Lymphocytes % 14.6 % (15.3-44.8); RBC Red Blood Cell Count 4.29 M/uL (4.33-5.43)
[2021-03-03 06:39] LABS: Albumin 2.9 g/dL (3.4-5.0); Bilirubin Total 0.9 mg/dL (0.2-1.0); Magnesium 2.3 mg/dL (1.8-2.4); Potassium 3.5 mmol/L (3.5-5.1); Protein, Total 7.3 g/dL (6.4-8.2)
[2021-03-03] MEDS: INSULIN -REGULAR HUMAN 50 UNIT/0.5 ML ML SQ SCH ×4 (07:30→21:34)
[2021-03-03] MEDS: LOSARTAN POTASSIUM 50 MG TABLET PO SCH (08:59)
[2021-03-03] MEDS: ISOSORBIDE MONO SR 30 MG TAB PO SCH (08:59)
[2021-03-03] MEDS: CLOPIDOGREL 75 MG TABLET PO SCH (09:00)
[2021-03-03] MEDS ORDERED: POTASSIUM CL SA 10 MEQ TAB PO ONE (09:00)
[2021-03-03] MEDS: ASPIRIN EC 81 MG TAB PO SCH (09:00)
[2021-03-03] MEDS: CEFTRIAXONE 1,000 MG in NA CHLORIDE 0.9% 50 ML IVPB SCH (09:00)
[2021-03-03] MEDS: SERTRALINE HCL 50 MG TAB PO SCH (09:00)
[2021-03-03] MEDS: HEPARIN 5000 UNIT/ML 1 ML VIAL SQ SCH ×2 (09:00→21:33)
[2021-03-03] MEDS: carvediloL 6.25 MG TAB PO SCH ×2 (09:00→21:32)
[2021-03-03] MEDS: TRAMADOL HCL 50 MG TAB PO PRN ×2 (11:16→21:35)
[2021-03-03] MEDS: FINASTERIDE 5 MG TAB PO SCH (21:32)
[2021-03-03] MEDS: ATORVASTATIN 20 MG TAB PO SCH (21:33)
[2021-03-03 21:49] VITALS: O2SAT 95
[2021-03-04] MEDS: LEVOTHYROXINE SOD 0.05 MG TABLET PO SCH (05:54)
[2021-03-04 06:01] LABS: Absolute Lymphocytes (CBC) 1.9 K/uL (0.7-4.9); Hematocrit 38.5 % (39.6-49.0); Lymphocytes % 26.7 % (15.3-44.8); MPV 8.6 fL (7.6-11.3); RBC Red Blood Cell Count 4.11 M/uL (4.33-5.43)
[2021-03-04 06:21] LABS: ALT/SGPT 87 U/L (12-78); AST/SGOT 75 U/L (15-37); Albumin 2.9 g/dL (3.4-5.0); Alkaline Phosphatase 74 U/L (45-117); BUN Blood Urea Nitrogen 35 mg/dL (7-18); Bicarbonate 28 mmol/L (21-32); Bilirubin Total 0.7 mg/dL (0.2-1.0); Glucose Level 179 mg/dL (74-106); Magnesium 2.4 mg/dL (1.8-2.4); Potassium 3.8 mmol/L (3.5-5.1); Protein, Total 7.1 g/dL (6.4-8.2); Sodium Level 138 mmol/L (136-145)
[2021-03-04] MEDS: INSULIN -REGULAR HUMAN 50 UNIT/0.5 ML ML SQ SCH ×2 (08:32→12:09)
[2021-03-04] MEDS ORDERED: POTASSIUM CL SA 10 MEQ TAB PO ONE (09:00)
[2021-03-04] MEDS: CEFTRIAXONE 1,000 MG in NA CHLORIDE 0.9% 50 ML IVPB SCH (09:00)
[2021-03-04] MEDS: TRAMADOL HCL 50 MG TAB PO PRN (10:02)
[2021-03-04] MEDS: SERTRALINE HCL 50 MG TAB PO SCH (10:02)
[2021-03-04] MEDS: ISOSORBIDE MONO SR 30 MG TAB PO SCH (10:02)
[2021-03-04] MEDS: LOSARTAN POTASSIUM 50 MG TABLET PO SCH (10:02)
[2021-03-04] MEDS: carvediloL 6.25 MG TAB PO SCH (10:03)
[2021-03-04] MEDS: CLOPIDOGREL 75 MG TABLET PO SCH (10:03)
[2021-03-04] MEDS: HEPARIN 5000 UNIT/ML 1 ML VIAL SQ SCH (10:03)
[2021-03-04] MEDS: ASPIRIN EC 81 MG TAB PO SCH (10:03)
[2021-03-04] MEDS ORDERED: Levofloxacin500mg IV 500 MG/100 ML BAG IV SCH (12:00)
[2021-03-04] MEDS ORDERED: Levofloxacin 250mg IV 250 MG/50 ML BAG IV ONE (13:00)
[2021-03-04 17:38] VITALS: BP 124/69; TEMP 98.4
[2021-03-05] MEDS ORDERED: Levofloxacin 750mg IV 750 MG/150 ML BAG IV SCH (09:00)
== END 2021-03-04 17:03 | disposition home health service (06) | DRG 689 ==
LOC: ER 18:42 → ERHOLD 03-02 02:20 → 2ND 03-02 16:29
PROVIDERS: ADMIT Hospitalist; ATTEND Hospitalist
DX: N39.0 Urinary tract infection, site not specified (principal); I21.4 Non-ST elevation (NSTEMI) myocardial infarction; G92.9 Unspecified toxic encephalopathy; I50.22 Chronic systolic (congestive) heart failure; R47.01 Aphasia; I11.0 Hypertensive heart disease with heart failure; E11.65 Type 2 diabetes mellitus with hyperglycemia; E11.69 Type 2 diabetes mellitus with other specified complication; J44.9 Chronic obstructive pulmonary disease, unspecified; E03.9 Hypothyroidism, unspecified; N40.0 Benign prostatic hyperplasia without lower urinary tract symptoms; M19.90 Unspecified osteoarthritis, unspecified site; I25.10 Atherosclerotic heart disease of native coronary artery without angina pectoris; I25.2 Old myocardial infarction; Z95.1 Presence of aortocoronary bypass graft; Z79.84 Long term (current) use of oral hypoglycemic drugs; Z79.02 Long term (current) use of antithrombotics/antiplatelets; Z79.899 Other long term (current) drug therapy; Z79.890 Hormone replacement therapy; Z95.5 Presence of coronary angioplasty implant and graft; Z90.49 Acquired absence of other specified parts of digestive tract; Z99.3 Dependence on wheelchair; Z20.822 Contact with and (suspected) exposure to COVID-19
CPT/HCPCS: 0240U; 36415; 70450; 74177; 80048; 80053; 80076; 81015; 82947; 83690; 83735; 84145; 84484; 85025; 87040; 87077; 87086; 87088; 87186; 93005; 96374; 97161; 97530; 97542; 99285; J1644; J2405; J7030; Q9967

== ENCOUNTER 2021-09-01 16:51 | Inpatient (IN) | payer OTHER ==
--- NOTE | 2021-09-01 17:51 | RAD REPORT ---
EXAM DESCRIPTION: RAD - Chest Single View - 09/01/2021 5:44 pm CLINICAL HISTORY: hypotension Chest pain. COMPARISON: Chest Single View dated 05/23/2020; Chest Single View dated 05/22/2020; Chest Pa And Lat (2 Views) dated 02/14/2020; Chest Single View dated 02/13/2020; Abdomen Pelvis W Contrast dated 021 FINDINGS: Portable technique limits examination quality. The lungs are grossly clear. The heart is upper limit of normal in size. No displaced fractures.Silva otomy wires. IMPRESSION: No acute intrathoracic process suspected.
[2021-09-01 18:29] LABS: Protime INR 1.19
[2021-09-01 18:30] LABS: Absolute Lymphocytes (CBC) 1.3 K/uL (0.7-4.9); Hematocrit 28.3 % (39.6-49.0); Lymphocytes % 88.4 % (15.3-44.8); MCV 96.4 fL (80-100); MPV 8.1 fL (7.6-11.3); RBC Red Blood Cell Count 2.93 M/uL (4.33-5.43)
[2021-09-01 18:53] LABS: Albumin 3.2 g/dL (3.4-5.0); Bilirubin Direct 0.2 mg/dL (0-0.2); Bilirubin Total 0.9 mg/dL (0.2-1.0); Protein, Total 6.8 g/dL (6.4-8.2); Troponin High Sensitivity 7.6 pg/mL (<58.9)
[2021-09-01 18:54] LABS: Potassium 4.5 mmol/L (3.5-5.1)
[2021-09-01 19:29] LABS: Urine Blood Trace-lysed (Negative); Urine Glucose Trace (Negative); Urine Protein 2+ (Negative); Urine pH 6.5 (5.0-7.0)
[2021-09-01 19:42] LABS: Blood Morphology Comment NOT SEEN (NOT SEEN); Platelet Estimate DECR
[2021-09-01 20:17] LABS: Urine Bacteria >50 /HPF (NONE SEEN); Urine RBC NONE SEEN /HPF (NONE SEEN)
--- NOTE | 2021-09-01 21:06 | RAD REPORT ---
EXAM DESCRIPTION: CTAbdomen Pelvis W Contrast - 09/01/2021 8:42 pm CLINICAL HISTORY: Abdominal pain. Abdominal pain, acute, nonlocalized COMPARISON: Abdomen Pelvis W Contrast dated 03/01/2021; Abdomen Pelvis W Contrast dated 08/04/2020; Abdomen Pelvis W Contrast dated 05/21/2020; Abdomen Pelvis W Contrast dated 06/06/2017 TECHNIQUE: Biphasic CT imaging of the abdomen and pelvis was performed with 100 ml non-ionic IV cont rast. All CT scans are performed using dose optimization technique as appropriate and may include automated exposure control or mA/KV adjustment according to patient size. FINDINGS: The lung bases are clear. Mild diffuse fatty liver is present. Cholecystectomy clips. The spleen, pancreas, adrenal glands and kidneys are within normal limits. No bowel obstruction, free air, free fluid or abscess. Significant stool is retained throughout the c olon. Sigmoid diverticulosis coli noted without diverticulitis. The appendix is normal. Diffuse urina ry wall thickening is present with mild adjacent fat stranding. No evidence of significant lymphadeno nadir. Mild lumbar degenerative changes. IMPRESSION: Sigmoid diverticulosis coli without diverticulitis. Moderate upstream fecal retention no anastacio. Urinary bladder wall thickening with reticulation in the adjacent fat could indicate cystitis.
--- NOTE | 2021-09-01 21:23 | EDPHYS ---
Physician Documentation [facility] Name: Musa Lindsay Age: 80 yrs Sex: Male : 1940 Arrival Date: 09/01/2021 Time: 16:52 Bed 15 Private MD: ED Physician Clifford Marshall HPI: 09/01 17:20 This 80 yrs old Male presents to ER via EMS with complaints of Weakness, Blood cp Pressure Problem. 17:20 The patient presents to the emergency department with weakness of the entire body, cp generalized weakness. 17:20 Onset: The symptoms/episode began/occurred today. cp 17:20 Associated signs and symptoms: Pertinent positives: nausea, Pertinent negatives: cp altered mental status, fever, headache, syncope, chest pain. Severity of symptoms: in the emergency department the symptoms are unchanged despite home interventions. Historical: - Allergies: 16:57 NKA; ll1 - PMHx: 16:57 CHF; Hypothyroidism; Hypertension; High Cholesterol; Diabetes - NIDDM; Myocardial ll1 infarction; Angina pectoris; - PSHx: 16:57 Appendectomy; cataract repair; ll1 - Immunization history:: Client reports having NOT received the Covid vaccine. - Social history:: Smoking status: Patient reports the use of cigarette tobacco products, smokes one-half pack cigarettes per day. ROS: 17:25 Constitutional: Negative for body aches, chills, fever, poor PO intake. cp 17:25 Neuro: Positive for weakness, Negative for altered mental status, headache, loss of cp consciousness, syncope. 17:25 Eyes: Negative for injury, pain, redness, and discharge. cp 17:25 ENT: Negative for drainage from ear(s), ear pain, sore throat, difficulty swallowing, difficulty handling secretions. 17:25 Cardiovascular: Negative for chest pain. 17:25 Respiratory: Negative for cough, shortness of breath, wheezing. 17:25 Abdomen/GI: Positive for nausea, Negative for abdominal pain, vomiting, diarrhea, constipation, black/tarry stool, rectal bleeding. 17:25 Back: Negative for pain at rest, pain with movement. 17:25 : Negative for urinary symptoms. 17:25 All other systems are negative. Exam: 17:30 Constitutional: The patient appears in no acute distress, alert, awake, cp non-diaphoretic, non-toxic, well developed, well nourished, uncomfortable. 17:30 Head/Face: Normocephalic, atraumatic. cp 17:30 Eyes: Periorbital structures: appear normal, Pupils: equal, round, and reactive to light and accomodation, Extraocular movements: intact throughout, Conjunctiva: normal, no exudate, no injection, Sclera: no appreciated abnormality, Lids and lashes: appear normal, bilaterally. 17:30 ENT: External ear(s): are unremarkable, Nose: is normal, Mouth: Lips: moist, Oral mucosa: moist, Posterior pharynx: Airway: no evidence of obstruction, patent. 17:30 Neck: ROM/movement: is normal, is supple, without pain, no range of motions limitations. 17:30 Chest/axilla: Inspection: normal, Palpation: is normal, no crepitus, no tenderness. 17:30 Cardiovascular: Rate: normal, Rhythm: regular, Edema: is not appreciated, JVD: is not appreciated. 17:30 Respiratory: the patient does not display signs of respiratory distress, Respirations: normal, no use of accessory muscles, no retractions, labored breathing, is not present, Breath sounds: are clear throughout, no decreased breath sounds, no stridor, no wheezing. 17:30 Abdomen/GI: Inspection: obese Bowel sounds: active, all quadrants, Palpation: abdomen is soft and non-tender, in all quadrants. 17:30 Back: pain, is absent, ROM is normal. 17:30 Skin: cellulitis, is not appreciated, no rash present. 17:30 Neuro: Orientation: to person, place \\T\\ time. Mentation: able to follow commands, slow cp to respond, Motor: moves all fours, general weakness with no focal deficits, Sensation: no obvious gross deficits. 18:17 ECG was reviewed by the Attending Physician. cp Vital Signs: 16:53 BP 113 / 67; Pulse 81; Resp 18; Temp 98.8; Pulse Ox 96% on R/A; Pain 0/10; ll1 18:59 BP 107 / 71; Pulse 79; Resp 18; Pulse Ox 97% on R/A; kr3 22:10 BP 93 / 52; Pulse 76; Resp 18; Pulse Ox 97% on R/A; ke1 NIH Stroke Scale Scores: 18:57 NIHSS Score: 0 kr3 MDM: 17:04 Patient medically screened. cp 21:15 Data reviewed: vital signs, nurses notes, lab test result(s), EKG, radiologic studies, cp CT scan, plain films. 21:15 Test interpretation: by ED physician or midlevel provider: ECG, plain radiologic cp studies. Counseling: I had a detailed discussion with the patient and/or guardian regarding: the historical points, exam findings, and any diagnostic results supporting the discharge/admit diagnosis, lab results, the need for further work-up and treatment in the hospital. Physician consultation: Heidi CASTRO was contacted at 21:00, regarding admission, patient's condition. 09/01 17:17 Order name: Basic Metabolic Panel; Complete Time: 19:13 cp / 19:14 Interpretation: Normal except: GLUC 179; GFR 87. cp 09/01 17:17 Order name: CBC with Diff cp / 19:33 Interpretation: Normal except: WBC 1.5; RBC 2.93; HGB 9.9; HCT 28.3; PLT 82; RDW 17.3; cp CLEOPATRA% 6.3; LYM% 88.4; NEUT A 0.1. 09/01 17:17 Order name: LFT's; Complete Time: 19:13 cp 09/01 17:17 Order name: Magnesium; Complete Time: 19:13 cp 09/01 17:17 Order name: NT PRO-BNP; Complete Time: 19:13 cp 09/01 17:17 Order name: PT-INR; Complete Time: 18:30 cp 09/01 17:17 Order name: Troponin HS; Complete Time: 19:13 cp 09/01 19:14 Interpretation: Reviewed. cp 09/01 17:17 Order name: Lactate; Complete Time: 18:48 cp 09/01 17:17 Order name: Procalcitonin; Complete Time: 19:19 cp 09/01 19:20 Interpretation: Reviewed. 09/01 17:17 Order name: Blood Culture Adult (2) cp 09/01 17:17 Order name: Urine Microscopic Only; Complete Time: 20:59 cp / 21:00 Interpretation: Reviewed. 09/01 17:17 Order name: COVID-19 SARS RT PCR (Document "Date of Onset" if Symptomatic); Complete cp Time: 18:48 09/01 17:17 Order name: Influenza Screen (a \\T\\ B); Complete Time: 18:30 cp 09/01 19:29 Order name: Urine Dipstick-Ancillary; Complete Time: 19:30 EDMS 09/01 19:30 Interpretation: Normal except: UBLD Trace-lysed; UPROT 2+; U NIT Positive; UESTR 3+. cp 09/01 17:17 Order name: XRAY Chest (1 view); Complete Time: 18:30 cp 09/01 19:33 Order name: CT Abd/Pelvis - IV Contrast Only; Complete Time: 21:14 cp 09/01 19:43 Order name: Manual Differential EDMS 09/01 20:20 Order name: Urine Culture EDMS 09/02 02:43 Order name: CBC with Automated Diff EDMS 09/02 03:07 Order name: Hemoglobin A1c EDMS 09/02 03:24 Order name: Basic Metabolic Panel EDMS 09/02 03:24 Order name: Phosphorus EDMS 09/02 03:24 Order name: Lipid Profile EDMS 09/02 03:24 Order name: Magnesium EDMS 09/02 03:24 Order name: Thyroid Stimulating Hormone EDMS 09/02 03:24 Order name: Transferrin Sat/Iron Binding EDMS 09/02 03:24 Order name: Folic Acid, (Folate) EDMS 09/02 03:24 Order name: Vitamin B12 Level EDMS 09/02 03:38 Order name: T4 Free EDMS 09/01 17:17 Order name: EKG; Complete Time: 17:18 cp 09/01 17:17 Order name: Cardiac monitoring; Complete Time: 18:12 cp 09/01 17:17 Order name: EKG - Nurse/Tech; Complete Time: 18:04 cp 09/01 17:17 Order name: IV Saline Lock; Complete Time: 18:04 cp 09/01 17:17 Order name: Labs collected and sent; Complete Time: 18:04 cp 09/01 17:17 Order name: O2 Per Protocol; Complete Time: 17:22 cp 09/01 17:17 Order name: O2 Sat Monitoring; Complete Time: 17:21 cp 12 17:17 Order name: Urine Dipstick-Ancillary (obtain specimen); Complete Time: 19:30 cp EC:17 Rate is 78 beats/min. Rhythm is regular. MI interval is normal. QRS interval is cp prolonged at 150 msec. T waves are Inverted in leads V2, V3. Interpreted by me. Reviewed by me. Administered Medications: 17:21 Drug: NS 0.9% 500 ml Route: IV; Rate: bolus; Site: right antecubital; ll1 19:51 Drug: Rocephin (cefTRIAXone) 1 grams Route: IV; Rate: calculated rate; Site: right ke1 wrist; Disposition: 09/02 07:23 Co-signature as Attending Physician, Clifford Marshall MD. rn Disposition Summary: 09/01/21 21:22 Hospitalization Ordered Hospitalization Status: Inpatient Admission cp Provider: Paula Caceres cp Condition: Stable cp Problem: new cp Symptoms: have improved cp Bed/Room Type: Standard cp Location: Intensive Care Unit(09/02/21 03:07) cg Room Assignment: 1-(09/02/21 03:07) cg Diagnosis - Other pancytopenia cp - UTI/ Urinary tract infection, site not specified cp Discharge Instructions: - Discharge Summary Sheet ll1 Forms: - Medication Reconciliation Form cp - SBAR form ll1 NIH Stroke Scale - NIH Stroke Score Date: 09/01/2021 Time: 18:57 Total Score = 0 1a. Level of Consciousness (LOC) - 0(Alert) 1b. Level of Consciousness (LOC) (Month \\T\\ Age) - 0(Both) 1c. LOC Commands (Open \\T\\ Closes Eyes/Senior Solutions Engineer) - 0(Both) 2. Best Gaze (Lateral Gaze Paresis) - 0(Normal) 3. Visual Field Loss - 0(No visual loss) 4. Facial Palsy - 0(Normal) 5a. Left Arm: Motor (10-second hold) - 0(No drift) 5b. Right Arm: Motor (10-second hold) - 0(No drift) 6a. Left Leg: Motor (5-second hold - always test supine) - 0(No drift) 6b. Right Leg: Motor (5-second hold - always test supine) - 0(No drift) 7. Limb Ataxia (finger/nose \\T\\ heel/moreno - test with eyes open) - 0(Absent) 8. Sensory Loss (pinprick arms/legs/face) - 0(Normal) 9. Best Language: Aphasia (description/naming/reading) - 0(No aphasia) 10. Dysarthria (speech clarity - read or repeat words) - 0(Normal) 11. Extinction and Inattention (visual/tactile/auditory/spatial/personal) - 0(No abnormality) Initials: kr3 Signatures: Dispatcher [employer] EDClifford Godwin MD MD rn Page, Corey, PA PA cp Garcia, Cindy, RN RN Mayco Velez RN RN ll1 Geo Kilgore RN RN ke1 Corrections: (The following items were deleted from the chart) 09/01 22:00 21:22 Telemetry/MedSurg (Inpatient) cp cg 22:00 21:22 cp cg 09/02 03:07 09/01 22:00 [facility] ER HOLD cg cg 09/02 03:09/01 22:00 ERHOLD- cg cg
--- NOTE | 2021-09-01 21:23 | ER ---
Nurse's Notes [facility] Name: Musa Lindsay Age: 80 yrs Sex: Male : 1940 Arrival Date: 09/01/2021 Time: 16:52 Bed 15 Private MD: Diagnosis: Other pancytopenia;UTI/ Urinary tract infection, site not specified Presentation: 09/01 16:53 Chief complaint: Patient states: Feels weak today. Had abd pain with nausea earlier, ll1 none now. States his symptoms are off/on today. Noticed he was weaker than usual earlier today. No known fever. EMS states: At clinic today, BP 88/58, so they called EMS. \T\) G R wrist, NS 100 ml bolus given. Initial BP 110/69. Fingerstick 251. Patient sleeps 18 hours/day. Doesn't walk, just transfers with assist. Coronavirus screen: Vaccine status: Patient reports being unvaccinated. Client denies travel out of the [place] in the last 14 days. fatigue, nausea, Client presents with at least one sign or symptom that may indicate coronavirus-19. Standard/surgical mask placed on the client. Ebola Screen: Patient denies travel to an Ebola-affected area in the 21 days before illness onset. No acute neurological deficit is noted. Initial Sepsis Screen: Does the patient meet any 2 criteria? No. Patient's initial sepsis screen is negative. Does the patient have a suspected source of infection? No. Patient's initial sepsis screen is negative. Risk Assessment: Do you want to hurt yourself or someone else? Patient reports no desire to harm self or others. Onset of symptoms was September 01, 2021. 16:53 Method Of Arrival: EMS ll1 16:53 Acuity: GRICEL 3 ll1 Triage Assessment: 16:58 The onset of the patients symptoms was more than six hours ago. General: Appears in no ll1 apparent distress. comfortable, Behavior is cooperative, appropriate for age. Pain: Denies pain. Neuro: Reports weakness low BP. Cardiovascular: Reports chest pain, Heart tones S1 S2 Capillary refill < 3 seconds Clubbing of nail beds is absent Patient's skin is warm and dry. Stroke Activation: Symptom onset > 6 hours Physician: Stroke Attending; Name: ; Notified At: ; Arrived At: Physician: Chief Stroke Resident; Name: ; Notified At: ; Arrived At: Physician: Stroke Resident; Name: ; Notified At: ; Arrived At: Physician: ED Attending; Name: ; Notified At: ; Arrived At: Physician: ED Resident; Name: ; Notified At: ; Arrived At: Historical: - Allergies: 16:57 NKA; ll1 - PMHx: 16:57 CHF; Hypothyroidism; Hypertension; High Cholesterol; Diabetes - NIDDM; Myocardial ll1 infarction; Angina pectoris; - PSHx: 16:57 Appendectomy; cataract repair; ll1 - Immunization history:: Client reports having NOT received the Covid vaccine. - Social history:: Smoking status: Patient reports the use of cigarette tobacco products, smokes one-half pack cigarettes per day. Screenin:52 Abuse screen: Denies threats or abuse. Nutritional screening: No deficits noted. ke1 Tuberculosis screening: No symptoms or risk factors identified. Fall Risk No fall in past 12 months (0 pts). Secondary diagnosis (15 points) impaired mobility, IV access (20 points). Ambulatory Aid- Furniture (30 pts.). Gait- Impaired (20 pts.). Mental Status- Oriented to own ability (0 pts). Total Pickett Fall Scale indicates High Risk Score (45 or more points). Fall prevention measures have been instituted. Side Rails Up X 2 Placed Close to Nursing Station Frequent Obs/Assessments Occuring As available patient and family educated on Fall Prevention Program and Strategies. Assessment: 17:30 Reassessment: No changes from previously documented assessment. Patient and/or family kr3 updated on plan of care and expected duration. Pain level reassessed. 18:47 Reassessment: Dr. Marshall notified of critical lab value WBC 1.5. ss 18:57 VAN Scoring: Arm Drift: Patients demonstrates NO arm weakness. Patient is VAN Negative. kr3 Patient has been NPO before screening. The patient is alert, and able to follow commands. The patient does not exhibit slurred or garbled speech. The patient is not exhibiting difficulty speaking. The patient does not exhibit difficulty understanding words. The patient is able to swallow own secretions with no drooling or need for suction. Patient tolerated one teaspoon of water. No drooling, immediate coughing, gurgling, or clearing of the throat was noted. The patient tolerated 90mL of water. No drooling, immediate coughing, gurgling, or clearing of the throat was noted. The patient passed the bedside swallow screening. Oral medications may be given as ordered. Contact Physician for further diet orders. 21:32 Reassessment: Patient appears in no apparent distress at this time. Patient and/or ke1 family updated on plan of care and expected duration. Pain level reassessed. Patient is alert, oriented x 3, equal unlabored respirations, skin warm/dry/pink. Vital Signs: 16:53 BP 113 / 67; Pulse 81; Resp 18; Temp 98.8; Pulse Ox 96% on R/A; Pain 0/10; ll1 18:59 BP 107 / 71; Pulse 79; Resp 18; Pulse Ox 97% on R/A; kr3 22:10 BP 93 / 52; Pulse 76; Resp 18; Pulse Ox 97% on R/A; ke1 NIH Stroke Scale Scores: 18:57 NIHSS Score: 0 kr3 ED Course: 16:52 Patient arrived in ED. ll1 16:55 Kemal Vu PA is PHCP. cp 16:55 Clifford Marshall MD is Attending Physician. cp 16:57 Triage completed. ll1 16:59 Arm band placed on Patient placed in an exam room, on a stretcher. ll1 17:45 XRAY Chest (1 view) In Process Unspecified. EDMS 18:04 Elvira Brizuela, RN is Primary Nurse. kr3 19:00 Maintain EMS IV. Dressing intact. Gauge \T\ site: 20 g r wrist. ke1 19:53 Bed in low position. Call light in reach. Side rails up X 1. Side rails up X2. ke1 20:43 CT Abd/Pelvis - IV Contrast Only In Process Unspecified. EDMS 21:21 Paula Caceres MD is Hospitalizing Provider. cp Administered Medications: 17:21 Drug: NS 0.9% 500 ml Route: IV; Rate: bolus; Site: right antecubital; ll1 19:51 Drug: Rocephin (cefTRIAXone) 1 grams Route: IV; Rate: calculated rate; Site: right ke1 wrist; Outcome: 21:22 Decision to Hospitalize by Provider. cp 09/02 04:03 Patient left the ED. bb NIH Stroke Scale - NIH Stroke Score Date: 09/01/2021 Time: 18:57 Total Score = 0 1a. Level of Consciousness (LOC) - 0(Alert) 1b. Level of Consciousness (LOC) (Month \T\ Age) - 0(Both) 1c. LOC Commands (Open \T\ Closes Eyes/Staff Trainer) - 0(Both) 2. Best Gaze (Lateral Gaze Paresis) - 0(Normal) 3. Visual Field Loss - 0(No visual loss) 4. Facial Palsy - 0(Normal) 5a. Left Arm: Motor (10-second hold) - 0(No drift) 5b. Right Arm: Motor (10-second hold) - 0(No drift) 6a. Left Leg: Motor (5-second hold - always test supine) - 0(No drift) 6b. Right Leg: Motor (5-second hold - always test supine) - 0(No drift) 7. Limb Ataxia (finger/nose \T\ heel/moreno - test with eyes open) - 0(Absent) 8. Sensory Loss (pinprick arms/legs/face) - 0(Normal) 9. Best Language: Aphasia (description/naming/reading) - 0(No aphasia) 10. Dysarthria (speech clarity - read or repeat words) - 0(Normal) 11. Extinction and Inattention (visual/tactile/auditory/spatial/personal) - 0(No abnormality) Initials: kr3 Signatures: Dispatcher [employer] EDAilyn Peterson RN RN bb Smirch, Shelby, RN RN ss Page, Corey, PA PA cp Lewis, Lynsay, RN RN ll1 Geo Kilgore RN RN ke1 Elvira Brizuela RN RN kr3 Corrections: (The following items were deleted from the chart) 09/01 18:57 17:05 Reassessment: No changes from previously documented assessment. Patient kr3 and/or family updated on plan of care and expected duration. Pain level reassessed. kr3
--- NOTE | 2021-09-01 21:59 | P.HP ---
Certification for Inpatient Patient admitted to: Inpatient With expected LOS: <2 Midnights Patient will require the following post-hospital care: None Practitioner: I am a practitioner with admitting privileges, knowledge of patient current condition, hospital course, and medical plan of care. Services: Services provided to patient in accordance with Admission requirements found in Title 42 Section 412.3 of the Code of Federal Regulations <Heidi Madrid - Last Filed: 09/01/21 23:36> Patient History Date of Service: 09/01/21 Reason for admission: UTI, Pancytopenia, Weakness History of Present Illness: Patient is an 80-year-old male with history of COPD, IDDM, hypertension, hyperlipidemia, inoperable CAD status post CABG, chronic systolic CHF who presented to the ED with hypotension and generalized weakness. Patient was seen at [facility] clinic today and noted to have BP of 88/58, given 100 mL bolus, and was taken via EMS to this facility. BP 110/69 upon arrival. to He was found to have UTI. Labs also significant for WBC 1.5, hgb 9.9, hct 28, plt 82, procal 0.07. Per chart review, in February 2021- WBC 7.2, Hgb 13, platelets 155. CT abdomen/pelvis showed "sigmoid diverticulosis coli without diverticulitis. Moderate upstream fecal retention noted. Urinary bladder wall thickening with reticulation in the adjacent fat could indicate cystitis." He was given 500 mL bolus and rocephin in ED. ED provider wishes to admit patient for further evaluation and treatment. Home medications list reviewed: Yes - Past Medical/Surgical History Diabetic: Yes -: HTN -: CAD -: Hyperlipidemia -: NIDDM -: INOPERABLE CAD s/p CABG -: [place] -: Hypothyroidism -: Neuropathy -: COPD -: Chronic systolic CHF -: Cholecystectomy -: Heart Bypass-2000 -: Cardiac stents x5 Psychosocial/ Personal History: Patient lives at home with his granddaughter and is retired - Family History Father -: Cancer, Other (see notes) Notes: prostate cancer Mother -: Diabetes Brother -: Heart disease - Social History Smoking Status: Current every day smoker Alcohol use: No CD- Drugs: No Caffeine use: Yes Place of Residence: Home <Heidi Madrid - Last Filed: 09/01/21 23:36> Date of Service: 09/01/21 <CaceresMoe maoadelia Sujatha - Last Filed: 09/02/21 21:42> Allergies No Known Allergies Allergy (Verified 04/07/17 03:07) Home Medications: Glimepiride 1 tab PO BIDWM 04/07/17 Tramadol HCl [Ultram] 50 mg PO BID PRN 04/07/17 Finasteride [Proscar*] 5 mg PO DAILY 02/28/18 Clopidogrel Bisulfate [Plavix*] 75 mg PO DAILY #30 tablet 03/02/18 Aspirin [Aspirin EC 81 MG] 81 mg PO DAILY 02/12/20 Isosorbide Mononitrate [Isosorbide Mononitrate ER] 30 mg PO DAILY 02/12/20 Joint Support Advanced Formula 1 tab PO DAILY 02/12/20 Metformin HCl 1,000 mg PO BIDWM 02/12/20 Multivit-Min/FA/Lycopen/Lutein [Centrum Silver Tablet] 1 each PO DAILY 02/12/20 Rosuvastatin [Crestor*] 20 mg PO DAILY 02/12/20 Sertraline HCl 50 mg PO DAILY 02/12/20 Albuterol Inhaler [Ventolin Inhaler*] 2 puff IH TID PRN #1 hfa.aer.ad 02/14/20 Budesonide/Formoterol Fumarate [Symbicort 160-4.5 Mcg Inhaler] 2 puff IH BID #1 hfa.aer.ad 02/14/20 Levothyroxine [Synthroid*] 0.05 mg PO DAILYAC #30 tablet 02/14/20 Losartan Potassium 25 mg PO DAILY #30 tablet 02/14/20 carvediloL [Coreg*] 6.25 mg PO BID #60 tab 02/14/20 Nicotine [Nicoderm] 21 mg TD DAILY #30 patch.td24 05/23/20 Pantoprazole [Protonix Tab] 40 mg PO DAILY #30 tab 05/23/20 Review of Systems General: Weakness Gastrointestinal: Nausea, Abdominal Pain <Heidi Madrid - Last Filed: 09/01/21 23:36> Physical Examination - Physical Exam General: Alert, In no apparent distress, Obese HEENT: Atraumatic, PERRLA, EOMI, Sclerae nonicteric Neck: Supple, 2+ carotid pulse no bruit, No LAD, Without JVD or thyroid abnorm ality Respiratory: Clear to auscultation bilaterally, Normal air movement Cardiovascular: No edema, Regular rate/rhythm, Normal S1 S2 Gastrointestinal: Normal bowel sounds, No tenderness Musculoskeletal: No tenderness Integumentary: No rashes Neurological: Normal speech, Normal strength at 5/5 x4 extr, Normal tone, Normal affect - Studies Laboratory Data (last 24 hrs) 09/01/21 17:53: PT 13.1 H, INR 1.19 09/01/21 17:52: WBC 1.5 L*, Hgb 9.9 L, Hct 28.3 L, Plt Count 82 L 09/01/21 17:51: Sodium 136, Potassium 4.5, BUN 15, Creatinine 0.83, Glucose 179 H, Magnesium 2.0, Total Bilirubin 0.9, AST 36, ALT 29, Alkaline Phosphatase 72 Microbiology Data (last 24 hrs): 09/01/21 17:17 Nasopharnyx Influenza Type A Antigen Screen - Final 09/01/21 17:17 Nasopharnyx Influenza Type B Antigen Screen - Final <Heidi Madrid - Last Filed: 09/01/21 23:36> - Studies Microbiology Data (last 24 hrs): 09/01/21 17:17 Nasopharnyx Influenza Type A Antigen Screen - Final 09/01/21 17:17 Nasopharnyx Influenza Type B Antigen Screen - Final <Paula Caceres - Last Filed: 09/02/21 21:42> Assessment and Plan - Problems (Diagnosis) (1) UTI (urinary tract infection) Current Visit: Yes Status: Acute Qualifiers: Urinary tract infection type: acute cystitis Hematuria presence: with hematuria Qualified Code(s): N30.01 - Acute cystitis with hematuria (2) Pancytopenia Current Visit: Yes Status: Acute (3) COPD (chronic obstructive pulmonary disease) Current Visit: Yes Status: Chronic (4) Systolic CHF Current Visit: Yes Status: Chronic Qualifiers: Heart failure chronicity: chronic Qualified Code(s): I50.22 - Chronic systolic (congestive) heart failure (5) Coronary artery disease Current Visit: Yes Status: Chronic Qualifiers: Coronary Disease-Associated Artery/Lesion type: bypass graft [place] vs. transplanted heart: [place] heart Associated angina: without angina Qualified Code(s): I25.810 - Atherosclerosis of coronary artery bypass graft(s) without angina pectoris (6) Diabetes Current Visit: Yes Status: Chronic Qualifiers: Diabetes mellitus type: type 2 Diabetes mellitus program professional insulin use: with program professional use Diabetes mellitus complication status: with hyperglycemia Qualified Code(s): E11.65 - Type 2 diabetes mellitus with hyperglycemia; Z79.4 - extruder (current) use of insulin (7) Hypothyroidism Current Visit: Yes Status: Chronic Qualifiers: Hypothyroidism type: unspecified Qualified Code(s): E03.9 - Hypothyroidism, unspecified - Plan -Hematology consulted -Monitor CBC daily -Iron studies, B12, and folate ordered -Continue Rocephin for UTI -ACHS accu checks with mild sliding scale insulin and diabetic diet. A1C ordered. -Monitor on telemetry -Reconcile and continue home medications per protocol -Hold home antihypertensives as BP has been soft -Monitor and replete electrolytes per protocol -SCDs for VTE ppx -Full code Discharge Plan: Home Plan to discharge in: 48 Hours - Advance Directives Does patient have a Living Will: Yes Does patient have a Durable POA for Healthcare: Yes - Code Status/Comfort Care Code Status Assessed: Yes (Full) Critical Care: No Time Spent Managing Pts Care (In Minutes): 50 <Heidi Madrid - Last Filed: 09/01/21 23:36> Date of Service: 09/01/21 SUBJECTIVE: Agree with the HPI as mentioned above OBJECTIVE: Vital Signs: reviewed General: WNL HEENT:WNL CV: WNL Lungs: WNL Abd: WNL Ext: WNL ASSESSMENT: 1. UTI PLAN: Plan as mentioned above <Paula Caceres - Last Filed: 09/02/21 21:42>
[2021-09-02] MEDS ORDERED: ACETAMINOPHEN 500 MG TAB PO PRN (00:42)
[2021-09-02] MEDS ORDERED: ONDANSETRON 4 MG/2 ML VIAL IV PRN (00:42)
[2021-09-02 02:37] LABS: Absolute Lymphocytes (CBC) 1.3 K/uL (0.7-4.9); MCV 93.9 fL (80-100); MPV 7.5 fL (7.6-11.3); RBC Red Blood Cell Count 3.09 M/uL (4.33-5.43)
[2021-09-02 03:23] LABS: BUN Blood Urea Nitrogen 12 mg/dL (7-18); Bicarbonate 27 mmol/L (21-32); Folic Acid, (Folate) > 20.0 ng/mL (3.1-17.5); Glomerular Filtration Rate 92 ml/min (=/>90); Glucose Level 161 mg/dL (74-106); HDL Cholesterol 22 mg/dL (40-60); LDL Cholesterol, Calculated 32 mg/dL (<130); Magnesium 1.8 mg/dL (1.8-2.4); Phosphorus 3.1 mg/dL (2.5-4.9); Sodium Level 134 mmol/L (136-145); Transferrin 189 mg/dL (200-360)
[2021-09-02] MEDS: INSULIN -REGULAR HUMAN 50 UNIT/0.5 ML ML SQ SCH ×4 (07:30→20:34)
--- NOTE | 2021-09-02 07:50 | EKG ---
Test Date: 2021-09-01 Test Time: 18:12:27 Network Architect: TIFFANIE MEASUREMENT RESULTS: Intervals: Rate: 78 VT: 154 QRSD: 150 QT: 708 QTc: 807 [place]: P: 29 VT: 154 QRS: -68 T: -81 INTERPRETIVE STATEMENTS: Normal sinus rhythm Right bundle branch block Left anterior fascicular block Bifascicular block Minimal voltage criteria for LVH, may be normal variant T wave abnormality, consider lateral ischemia Abnormal ECG Compared to ECG 09/01/2021 18:11:27 Left ventricular hypertrophy now present Bifascicular block still present T-wave abnormality still present Possible ischemia still present Electronically Signed On 09-02-21 07:48:21 CDT by Drew Mcmillan
[2021-09-02] MEDS ORDERED: MAGNESIUM SULFATE 1 gm IVPB 1 GM/100 ML BAG IV ONE (08:00)
[2021-09-02] MEDS ORDERED: CEFTRIAXONE 1,000 MG in NA CHLORIDE 0.9% 50 ML IVPB SCH (20:00)
[2021-09-02] MEDS ORDERED: LACTULOSE 20 GM/30 ML UCUP PO ONE (20:00)
[2021-09-02] MEDS ORDERED: TRAMADOL HCL 50 MG TAB PO PRN (21:43)
[2021-09-02] MEDS ORDERED: ALBUTEROL INHALER 60 PUFF/8 GM IH PRN (21:43)
[2021-09-02] MEDS ORDERED: METOPROLOL TARTRATE 5 MG/5 ML INJ IV STA (21:45)
--- NOTE | 2021-09-02 21:47 | P.PN ---
Subjective Date of Service: 09/02/21 Subjective: No new changes, No C/O voiced, Improving Review of Systems 10-point ROS is otherwise unremarkable Physical Examination - Vital Signs Temperature: 97.2 F Blood Pressure: 166/58 Pulse: 70 Respirations: 18 Pulse Ox (%): 99 - Physical Exam General: Alert, In no apparent distress HEENT: Atraumatic, PERRLA, EOMI Neck: Supple, JVD not distended Respiratory: Clear to auscultation bilaterally, Normal air movement Cardiovascular: Regular rate/rhythm, Normal S1 S2 Gastrointestinal: Normal bowel sounds, No tenderness Musculoskeletal: No tenderness Integumentary: No rashes Neurological: Normal speech, Normal tone, Normal affect Lymphatics: No axilla or inguinal lymphadenopathy - Studies Microbiology Data (last 24 hrs): 09/01/21 17:17 Nasopharnyx Influenza Type A Antigen Screen - Final 09/01/21 17:17 Nasopharnyx Influenza Type B Antigen Screen - Final Medications List Reviewed: Yes Assessment & Plan - Problems (Diagnosis) (1) Pancytopenia Current Visit: Yes Status: Acute (2) UTI (urinary tract infection) Current Visit: Yes Status: Acute Qualifiers: Urinary tract infection type: acute cystitis Hematuria presence: with hematuria Qualified Code(s): N30.01 - Acute cystitis with hematuria (3) COPD (chronic obstructive pulmonary disease) Current Visit: Yes Status: Chronic (4) Coronary artery disease Current Visit: Yes Status: Chronic Qualifiers: Coronary Disease-Associated Artery/Lesion type: bypass graft [place] vs. transplanted heart: [place] heart Associated angina: without angina Qualified Code(s): I25.810 - Atherosclerosis of coronary artery bypass graft(s) without angina pectoris (5) Diabetes Current Visit: Yes Status: Chronic Qualifiers: Diabetes mellitus type: type 2 Diabetes mellitus termite control representative insulin use: with termite control representative use Diabetes mellitus complication status: with hyperglycemia Qualified Code(s): E11.65 - Type 2 diabetes mellitus with hyperglycemia; Z79.4 - long term care administrator (current) use of insulin (6) Hypothyroidism Current Visit: Yes Status: Chronic Qualifiers: Hypothyroidism type: unspecified Qualified Code(s): E03.9 - Hypothyroidism, unspecified (7) Arthritis Current Visit: No Status: Chronic (8) HTN (hypertension) Current Visit: No Status: Chronic Qualifiers: Hypertension type: essential hypertension (9) Hyperlipidemia Onset Date: 06/22/16 Current Visit: No Status: Chronic Qualifiers: Hyperlipidemia type: unspecified Qualified Code(s): E78.5 - Hyperlipidemia, unspecified - Plan Plan: 1. IV fluids 2. Antibiotic therapy 3. Outpatient follow-up with Hematology as we do not have inpatient hematology 4. Spoke with family and explained discharge the patient is almost back to his baseline 5. Strict blood pressure and blood sugar control 6. Gi and DVT prophylaxis Discharge Plan: Home Plan to discharge in: Greater than 2 days - Advance Directives Does patient have a Living Will: No Does patient have a Durable POA for Healthcare: Yes - Code Status/Comfort Care Code Status Assessed: Yes Code Status: Full Code Critical Care: No Time Spent Managing PTS Care (In Minutes): 35
[2021-09-02] MEDS: DULERA 100/5 (MOMETASONE/FORMOTEROL) INHALER IH SCH (21:50)
--- NOTE | 2021-09-02 21:50 | P.DS ---
Discharge Date: 09/03/21 Disposition: DC HOME/HOME HEALTH CARE Discharge Condition: GOOD Reason for Admission: UTI, Pancytopenia, Weakness - Problems (1) Pancytopenia Status: Acute (2) UTI (urinary tract infection) Status: Acute Qualifiers: Urinary tract infection type: acute cystitis Hematuria presence: with hematuria Qualified Code(s): N30.01 - Acute cystitis with hematuria (3) COPD (chronic obstructive pulmonary disease) Status: Chronic (4) Coronary artery disease Status: Chronic Qualifiers: Coronary Disease-Associated Artery/Lesion type: bypass graft [place] vs. transplanted heart: [place] heart Associated angina: without angina Qualified Code(s): I25.810 - Atherosclerosis of coronary artery bypass graft(s) without angina pectoris (5) Diabetes Status: Chronic Qualifiers: Diabetes mellitus type: type 2 Diabetes mellitus detention insulin use: with terminal makeup operator use Diabetes mellitus complication status: with hyperglycemia Qualified Code(s): E11.65 - Type 2 diabetes mellitus with hyperglycemia; Z79.4 - halfway (current) use of insulin (6) Hypothyroidism Status: Chronic Qualifiers: Hypothyroidism type: unspecified Qualified Code(s): E03.9 - Hypothyroidism, unspecified (7) Arthritis Status: Chronic (8) HTN (hypertension) Status: Chronic Qualifiers: Hypertension type: essential hypertension (9) Hyperlipidemia Onset Date: 06/22/16 Status: Chronic Qualifiers: Hyperlipidemia type: unspecified Qualified Code(s): E78.5 - Hyperlipidemia, unspecified Brief History of Present Illness: Patient is an 80-year-old male with history of COPD, IDDM, hypertension, hyperlipidemia, inoperable CAD status post CABG, chronic systolic CHF who presented to the ED with hypotension and generalized weakness. Patient was seen at [facility] clinic today and noted to have BP of 88/58, given 100 mL bolus, and was taken via EMS to this facility. BP 110/69 upon arrival. to He was found to have UTI. Labs also significant for WBC 1.5, hgb 9.9, hct 28, plt 82, procal 0.07. Per chart review, in February 2021- WBC 7.2, Hgb 13, platelets 155. CT abdomen/pelvis showed "sigmoid diverticulosis coli without diverticulitis. Moderate upstream fecal retention noted. Urinary bladder wall thickening with reticulation in the adjacent fat could indicate cystitis." He was given 500 mL bolus and rocephin in ED. ED provider wishes to admit patient for further evaluation and treatment. Hospital Course: Patient's urinary tract infection is much improved. Patient clinically is doing much better. Patient will need to follow up with his PCP as an outpatient in Hematology as an outpatient for pancytopenia. At this time, patient is stable for discharge home with outpatient follow-up. Vital Signs/Physical Exam: Temp Pulse Resp BP Pulse Ox 97.2 F 70 18 166/58 H 99 09/02/21 21:47 09/02/21 21:47 09/02/21 21:47 09/02/21 21:47 09/02/21 21:47 General: Alert, In no apparent distress, Oriented x3 Laboratory Data at Discharge: WBC 1.5 K/uL (4.3-10.9) L* 09/02/21 02:14 Hgb 10.4 g/dL (13.6-17.9) L 09/02/21 02:14 Hct 29.0 % (39.6-49.0) L 09/02/21 02:14 Plt Count 90 K/uL (152-406) L 09/02/21 02:14 PT 13.1 SECONDS (9.5-12.5) H 09/01/21 17:53 INR 1.19 09/01/21 17:53 Sodium 134 mmol/L (136-145) L 09/02/21 02:14 Potassium 4.0 mmol/L (3.5-5.1) 09/02/21 02:14 BUN 12 mg/dL (7-18) 09/02/21 02:14 Creatinine 0.71 mg/dL (0.55-1.3) 09/02/21 02:14 Glucose 161 mg/dL (74-106) H 09/02/21 02:14 Phosphorus 3.1 mg/dL (2.5-4.9) 09/02/21 02:14 Magnesium 1.8 mg/dL (1.8-2.4) 09/02/21 02:14 Total Bilirubin 0.9 mg/dL (0.2-1.0) 09/01/21 17:51 AST 36 U/L (15-37) 09/01/21 17:51 ALT 29 U/L (12-78) 09/01/21 17:51 Alkaline Phosphatase 72 U/L (45-117) 09/01/21 17:51 Triglycerides 245 mg/dL (<150) H 09/02/21 02:14 Cholesterol 103 mg/dL (<200) 09/02/21 02:14 HDL Cholesterol 22 mg/dL (40-60) L 09/02/21 02:14 Cholesterol/HDL Ratio 4.68 09/02/21 02:14 Home Medications: Glimepiride 1 tab PO BIDWM 04/07/17 Tramadol HCl [Ultram] 50 mg PO BID PRN 04/07/17 Finasteride [Proscar*] 5 mg PO DAILY 02/28/18 Clopidogrel Bisulfate [Plavix*] 75 mg PO DAILY #30 tablet 03/02/18 Aspirin [Aspirin EC 81 MG] 81 mg PO DAILY 02/12/20 Isosorbide Mononitrate [Isosorbide Mononitrate ER] 30 mg PO DAILY 02/12/20 Joint Support Advanced Formula 1 tab PO DAILY 02/12/20 Metformin HCl 1,000 mg PO BIDWM 02/12/20 Multivit-Min/FA/Lycopen/Lutein [Centrum Silver Tablet] 1 each PO DAILY 02/12/20 Rosuvastatin [Crestor*] 20 mg PO DAILY 02/12/20 Sertraline HCl 50 mg PO DAILY 02/12/20 Albuterol Inhaler [Ventolin Inhaler*] 2 puff IH TID PRN #1 hfa.aer.ad 02/14/20 Budesonide/Formoterol Fumarate [Symbicort 160-4.5 Mcg Inhaler] 2 puff IH BID #1 hfa.aer.ad 02/14/20 Levothyroxine [Synthroid*] 0.05 mg PO DAILYAC #30 tablet 02/14/20 Losartan Potassium 25 mg PO DAILY #30 tablet 02/14/20 carvediloL [Coreg*] 6.25 mg PO BID #60 tab 02/14/20 Nicotine [Nicoderm*] 21 mg TD DAILY #30 patch.td24 05/23/20 Pantoprazole [Protonix Tab*] 40 mg PO DAILY #30 tab 05/23/20 Cefdinir [Omnicef] 300 mg PO BID #20 capsule 09/02/21 New Medications: Cefdinir [Omnicef] 300 mg PO BID #20 capsule Physician Discharge Instructions: OK TO DC IV AND DC HOME FOLLOW-UP WITH PRIMARY CARE PROVIDER IN 1-2 WEEKS FOLLOW-UP WITH HEMAOLOGY IN 1-2 WEEKS RETURN TO THE ER IF symptoms worsens CALL DR. BLEVINS AT [phone] IF ANY QUESTIONS REGARDING HOSPITAL STAY. PLEASE CALL THE FLOOR AT [phone] IF ANY MEDICATION OR NURSING QUESTIONS. Diet: ADA Activity: Fall precautions Followup: NONE,NONE [Primary Care Provider] - Time spent managing pt's care (in minutes): 35
[2021-09-02 22:16] VITALS: O2SAT 98
[2021-09-02] MEDS: carvediloL 6.25 MG TAB PO SCH (22:51)
[2021-09-03 04:18] VITALS: BMI 27.4
[2021-09-03 05:27] LABS: Absolute Lymphocytes (CBC) 1.4 K/uL (0.7-4.9); Hematocrit 29.2 % (39.6-49.0); Lymphocytes % 88.1 % (15.3-44.8); MCV 94.9 fL (80-100); MPV 8.1 fL (7.6-11.3); RBC Red Blood Cell Count 3.07 M/uL (4.33-5.43)
[2021-09-03 05:43] LABS: Albumin 3.1 g/dL (3.4-5.0); Bilirubin Total 0.7 mg/dL (0.2-1.0); Protein, Total 6.8 g/dL (6.4-8.2)
[2021-09-03] MEDS ORDERED: LEVOTHYROXINE SOD 0.05 MG TABLET PO SCH (06:30)
[2021-09-03] MEDS: INSULIN -REGULAR HUMAN 50 UNIT/0.5 ML ML SQ SCH ×2 (07:30→11:47)
[2021-09-03] MEDS ORDERED: GLIMEPIRIDE 2 MG TABLET PO SCH (08:00)
[2021-09-03] MEDS ORDERED: METFORMIN ER 500 MG TAB PO SCH (08:00)
[2021-09-03] MEDS: carvediloL 6.25 MG TAB PO SCH (08:10)
[2021-09-03] MEDS: DULERA 100/5 (MOMETASONE/FORMOTEROL) INHALER IH SCH (08:12)
[2021-09-03 08:13] VITALS: BP 107/55
[2021-09-03] MEDS ORDERED: ASPIRIN EC 81 MG TAB PO SCH (09:00)
[2021-09-03] MEDS ORDERED: ISOSORBIDE MONO SR 30 MG TAB PO SCH (09:00)
[2021-09-03] MEDS ORDERED: CLOPIDOGREL 75 MG TABLET PO SCH (09:00)
[2021-09-03] MEDS ORDERED: FINASTERIDE 5 MG TAB PO SCH (09:00)
[2021-09-03] MEDS ORDERED: PANTOPRAZOLE 40MG TABLET PO SCH (09:00)
[2021-09-03] MEDS ORDERED: LOSARTAN POTASSIUM 50 MG TABLET PO SCH (09:00)
[2021-09-03] MEDS ORDERED: SERTRALINE HCL 50 MG TAB PO SCH (09:00)
[2021-09-03] MEDS ORDERED: ROSUVASTATIN 10 MG TAB PO SCH (09:00)
[2021-09-03 11:15] VITALS: TEMP 97.5
--- OUTSIDE RECORDS SUMMARY | 2021-09-10 01:56 | XMS REPORT | Continuity of Care Document ---
:1940 Author Organization [facility] t Address [address] [place] [address] [address] [place] [address] Care Team Providers Name Role Phone Amado, Becka Attending Clinician Unavailable Physician, Primary or Family Admitting Clinician Unavailabl e Payers Payer Name Policy Type Policy Number Effective Date Expiration Date S ource Problems This patient has no known problems. Allergies, Adverse Reactions, Alerts Allergy Allergy Status Severity Reaction(s) Onset Inactive Treating Comm ents Source Name Type Date Date Clinician No Known DA Active U [facility] Allergie 11-16 [facility] 00:00: [address] Medications This patient has no known medications. Procedures This patient has no known procedures. Encounters Start End Encounter Admission Attending Care Care Encounter Source Date/Time Date/Time Type Type Clinicians Facility Department ID 2019-09-27 Inpatient Dabsharon, HCAPM LABO [id number] [facility] 14:59:00 [facility] 2019-08-11 Inpatient EL Amado [facility]G [id number] [facility] 07:00:00 [facility] 2019-08-07 Inpatient Amado, HCAPM LABO [id number] [facility] 12:19:00 [facility] [id number] [facility] 2019-10-13 2019-10-13 Outpatient Dabaghi, [facility]G [id number] [facility] 07:00:00 07:00:00 [facility] [id number] [facility] 2019-09-04 2019-09-04 Outpatient Dabaghi, HCAPM LABO [id number] [facility] 11:45:00 11:45:00 [facility] [id number] [facility] 2019-08-11 2019-08-11 Outpatient Dabaghi, [facility] SURG [id number] [facility] 07:00:00 07:00:00 [facility] 2019-08-08 2019-08-08 Outpatient Dabaghi, HCACL LABO [id number] - [facility] 12:14:00 12:14:00 [facility] [id number] [facility] 2019-08-08 2019-08-08 Outpatient Dabaghi, HCAPM LABO [id number] - [facility] 06:00:00 06:00:00 [facility] [id number] [facility] Results Test Description Test Time Test Comments Results Result Comments Source ACT-ISTAT 2019-10-13 15:07:00 Test Item Value Reference Range Interpretation Comme nts ACT-ISTA (test code = ACTI) 202 SEC 74-137 H BASIC METABOLIC [id number] 07:50:00 Test Item Value Reference Range Interpretation [...] 0-189 mg/dL VERY HIGH...... ...>/= 190 mg/dL [id number] 07:50:00 Test Item Value Reference Range Interpretation Comments MAGNESIUM (test code = MAG) 2.2 MG/DL 1.6-2.3 N BASIC METABOLIC [id number] 07:39:00 Test Item Value Reference Range Interpretation [...] LDL (test MG/DL 0-99 code = LDL) [id number] 07:39:00 Test Item Value Reference Range Interpretation Comments MAGNESIUM (test code = MAG) 2.2 MG/DL 1.6-2.3 N BASIC METABOLIC [id number] 07:38:00 Test Item Value Reference Range Interpretation [...] LDL (test MG/DL 0-99 code = LDL) [id number] 07:38:00 Test Item Value Reference Range Interpretation Comments MAGNESIUM (test code = MAG) MG/DL 1.6-2.3 BASIC METABOLIC [id number] 07:36:00 Test Item Value Reference Range Interpretation [...] LDL (test code = LDL) MG/DL 0-99 [id number] 07:36:00 Test Item Value Reference Range Interpretation Comments MAGNESIUM (test code = MAG) MG/DL 1.6-2.3 BASIC METABOLIC [id number] 07:35:00 Test Item Value Reference Range Interpretation [...] LDL (test code = LDL) MG/DL 0-99 [id number] 07:35:00 Test Item Value Reference Range Interpretation Comments MAGNESIUM (test code = MAG) MG/DL 1.6-2.3 PROTHROMBIN [id number] 07:19:00 Test Item Value Reference Range Interpretation [...] syste ramone embolism. 3.0 - 4.5 PTT [id number] 07:19:00 Test Item Value Reference Range Interpretation Comments PTT ACTIVATED (test code = APTT) 36.5 SECONDS 25.1-36.5 N CBC W/AUTO [id number] 07:06:00 Test Item Value Reference Range Interpretation [...] 0.0-0.1 N NRBC#) COVID 19 Asymptomatic IH [id number] 06:16:00 Test Item Value Reference Range Interpretation [...] amount of virus (antigen) in the sample." [id number] 09:49:00 Test Item Value Reference Range Interpretation Comments ACT-ISTAT (test code = ACTI) 241 SEC 74-137 H BASIC METABOLIC [id number] 07:42:00 Test Item Value Reference Range Interpretation [...] 0-189 mg/dL VERY HIGH...... ...>/= 190 mg/dL [id number] 07:42:00 Test Item Value Reference Range Interpretation Comments MAGNESIUM (test code = MAG) 1.8 MG/DL 1.6-2.3 N BASIC METABOLIC [id number] 07:31:00 Test Item Value Reference Range Interpretation [...] LDL (test MG/DL 0-99 code = LDL) [id number] 07:31:00 Test Item Value Reference Range Interpretation Comments MAGNESIUM (test code = MAG) 1.8 MG/DL 1.6-2.3 N BASIC METABOLIC [id number] 07:30:00 Test Item Value Reference Range Interpretation [...] LDL (test code = LDL) MG/DL 0-99 [id number] 07:30:00 Test Item Value Reference Range Interpretation Comments MAGNESIUM (test code = MAG) MG/DL 1.6-2.3 BASIC METABOLIC [id number] 07:28:00 Test Item Value Reference Range Interpretation [...] LDL (test code = LDL) MG/DL 0-99 [id number] 07:28:00 Test Item Value Reference Range Interpretation Comments MAGNESIUM (test code = MAG) MG/DL 1.6-2.3 PROTHROMBIN [id number] 07:16:00 Test Item Value Reference Range Interpretation [...] syste ramone embolism. 3.0 - 4.5 PTT [id number] 07:16:00 Test Item Value Reference Range Interpretation Comments PTT ACTIVATED (test code = APTT) 33.9 SECONDS 25.1-36.5 N CBC W/AUTO [id number] 07:05:00 Test Item Value Reference Range Interpretation [...] 0.00 K/mm3 0.0-0.1 N NRBC#) Novel Coronavirus [id number] 03:11:00 Test Item Value Reference Range Interpretation Comments Novel Coronavirus Negative Negative Positive r esults are 2019 Inhouse (test indicativ e of the presence code = QHCBO50NO) ofSARS-CoV -2 RNA, clinical correlation wit h [...] for the identification of SARS-CoV-2 RNA usingthe [employer] M2000 Sy stem under the FDA Emergen cy UseAuthorizatio n. The testing is perf ormed by personneltraine d in the procedures for the Visible Path000 molecular diagnostic SARS-CoV-2 assa y in vitro. Novel Coronavirus [id number] 03:11:00 Test Item Value Reference Range Interpretation Comments Novel Coronavirus Negative Negative Positive r esults are 2019 Inhouse (test indicativ e of the presence code = LLWMG41DS) ofSARS-CoV -2 RNA, clinical correlation wit h [...] for the identification of SARS-CoV-2 RNA usingthe Visible Path000 Sy stem under the FDA Emergen cy UseAuthorizatio n. The testing is perf ormed by personneltraine d in the procedures for the Visible Path000 molecular diagnostic SARS-CoV-2 assa y in vitro.
== END 2021-09-03 12:20 | disposition home health service (06) | DRG 690 ==
LOC: ER 16:51 → ERHOLD 21:54 → 3RD-ICU 09-02 03:26
PROVIDERS: ADMIT Hospitalist; ATTEND Hospitalist
DX: N39.0 Urinary tract infection, site not specified (principal); D61.818 Other pancytopenia; I50.22 Chronic systolic (congestive) heart failure; E78.5 Hyperlipidemia, unspecified; I25.10 Atherosclerotic heart disease of native coronary artery without angina pectoris; E03.9 Hypothyroidism, unspecified; J44.9 Chronic obstructive pulmonary disease, unspecified; M19.90 Unspecified osteoarthritis, unspecified site; I11.0 Hypertensive heart disease with heart failure; E11.40 Type 2 diabetes mellitus with diabetic neuropathy, unspecified; F17.210 Nicotine dependence, cigarettes, uncomplicated; Z79.4 Long term (current) use of insulin; Z95.1 Presence of aortocoronary bypass graft; Z95.5 Presence of coronary angioplasty implant and graft; Z20.822 Contact with and (suspected) exposure to COVID-19
CPT/HCPCS: 36415; 71045; 74177; 80048; 80053; 80061; 80076; 81003; 81015; 82607; 82746; 82947; 83036; 83540; 83605; 83735; 83880; 84100; 84145; 84439; 84443; 84466; 84484; 85025; 85610; 87040; 87077; 87086; 87088; 87186; 87804; 93005; 96374; 97110; 97161; 97530; 99283; J1815; J3475; J3535; Q9967; U0003

== ENCOUNTER 2021-09-09 05:22 | Inpatient (IN) | payer OTHER ==
[2021-09-09 05:29] LABS: Absolute Lymphocytes (CBC) 1.1 K/uL (0.7-4.9); Hematocrit 27.4 % (39.6-49.0); Lymphocytes % 84.2 % (15.3-44.8); MCV 96.4 fL (80-100); RBC Red Blood Cell Count 2.85 M/uL (4.33-5.43)
[2021-09-09 05:34] LABS: Blood Morphology Comment NOT SEEN (NOT SEEN); Platelet Estimate DECR
[2021-09-09 05:46] LABS: Potassium 4.6 mmol/L (3.5-5.1)
[2021-09-09 05:54] LABS: Urine Bacteria None Seen /HPF (<20)
--- NOTE | 2021-09-09 06:02 | P.HP ---
Certification for Inpatient Patient admitted to: Inpatient With expected LOS: >2 Midnights Patient will require the following post-hospital care: None Practitioner: I am a practitioner with admitting privileges, knowledge of patient current condition, hospital course, and medical plan of care. Services: Services provided to patient in accordance with Admission requirements found in Title 42 Section 412.3 of the Code of Federal Regulations <Jose EnriqueJewel Juarez - Last Filed: 09/09/21 05:59> Patient History Date of Service: 09/09/21 Reason for admission: COVID-19 pneumonia, pancytopenia History of Present Illness: 80-year-old male history of chronic systolic congestive heart failure, diabetes mellitus type [id number], hyperlipidemia, hypertension and CAD who was recently admitted for UTI, pancytopenia presented to the emergency department for shortness of breath, low-grade fever. He was discharged on 2021 with a prescription for Omnicef for the UTI, he did have pancytopenia during his previous admission. He was evaluated here in the emergency department his COVID test was positive chest x-ray appears to show developing left-sided pneumonia. ED provider was to admit for further evaluation and management of COVID-19 pneumonia, dyspnea, pancytopenia. - Past Medical/Surgical History Diabetic: Yes -: HTN -: CAD -: Hyperlipidemia -: NIDDM -: INOPERABLE CAD s/p CABG -: [place] -: Hypothyroidism -: Neuropathy -: COPD -: Chronic systolic CHF -: Cholecystectomy -: CABG x 5-2001 -: Cardiac stents x5 Psychosocial/ Personal History: Patient lives at home with his granddaughter and is retired - Family History Father -: Cancer, Other (see notes) Notes: prostate cancer Mother -: Diabetes Brother -: Heart disease - Social History Smoking Status: Current every day smoker Alcohol use: No CD- Drugs: No Caffeine use: Yes Place of Residence: Home <Jewel Quispe - Last Filed: 09/09/21 05:59> Date of Service: 09/09/21 <Mick Marshall - Last Filed: 09/09/21 21:02> Allergies No Known Allergies Allergy (Verified 04/07/17 03:07) Home Medications: Glimepiride 1 tab PO BIDWM 04/07/17 Finasteride [Proscar*] 5 mg PO DAILY 02/28/18 Clopidogrel Bisulfate [Plavix*] 75 mg PO DAILY #30 tablet 03/02/18 Aspirin [Aspirin EC 81 MG] 81 mg PO DAILY 02/12/20 Isosorbide Mononitrate [Isosorbide Mononitrate ER] 30 mg PO DAILY 02/12/20 Metformin HCl 1,000 mg PO BIDWM 02/12/20 Multivit-Min/FA/Lycopen/Lutein [Centrum Silver Tablet] 1 each PO DAILY 02/12/20 Rosuvastatin [Crestor*] 20 mg PO DAILY 02/12/20 Sertraline HCl 50 mg PO DAILY 02/12/20 Albuterol Inhaler [Ventolin Inhaler*] 2 puff IH TID PRN #1 hfa.aer.ad 02/14/20 Budesonide/Formoterol Fumarate [Symbicort 160-4.5 Mcg Inhaler] 2 puff IH BID #1 hfa.aer.ad 02/14/20 Levothyroxine [Synthroid*] 0.05 mg PO DAILYAC #30 tablet 02/14/20 Pantoprazole [Protonix Tab*] 40 mg PO DAILY #30 tab 05/23/20 Review of Systems 10-point ROS is otherwise unremarkable General: Fever, Chills, Weakness, Malaise Respiratory: Cough, Shortness of Breath <Jewel Quispe - Last Filed: 09/09/21 05:59> Physical Examination - Physical Exam General: Alert, In no apparent distress, Oriented x3, Obese HEENT: Atraumatic, PERRLA, Mucous membr. moist/pink, EOMI, Sclerae nonicteric Neck: Supple, 2+ carotid pulse no bruit, No LAD, Without JVD or thyroid abnormality Respiratory: Normal air movement, Diminished Cardiovascular: Regular rate/rhythm, Normal S1 S2 Gastrointestinal: Normal bowel sounds, No tenderness Musculoskeletal: No tenderness Integumentary: No rashes Neurological: Normal speech, Normal strength at 5/5 x4 extr, Normal tone, Normal affect - Studies Laboratory Data (last 24 hrs) 09/09/21 02:58: Sodium 133 L, Potassium 4.6, BUN 14, Creatinine 0.88, Glucose 213 H 09/09/21 02:58: WBC 1.3 L* D, Hgb 10.0 L, Hct 27.4 L, Plt Count 99 L D Microbiology Data (last 24 hrs): 09/09/21 02:58 Nasopharnyx Influenza Type A Antigen Screen - Final 09/09/21 02:58 Nasopharnyx Influenza Type B Antigen Screen - Final <Jewel Quispe - Last Filed: 09/09/21 05:59> - Studies Laboratory Data (last 24 hrs) 09/09/21 05:02: PT Cancelled, INR Cancelled 09/09/21 05:01: Total Bilirubin Cancelled, AST Cancelled, ALT Cancelled, Alkaline Phosphatase Cancelled 09/09/21 02:58: Sodium 133 L, Potassium 4.6, BUN 14, Creatinine 0.88, Glucose 213 H 09/09/21 02:58: WBC 1.3 L* D, Hgb 10.0 L, Hct 27.4 L, Plt Count 99 L D 09/09/21 02:33: Sodium Cancelled, Potassium Cancelled, BUN Cancelled, Creatinine Cancelled, Glucose Cancelled 09/09/21 02:33: WBC Cancelled, Hgb Cancelled, Hct Cancelled, Plt Count Cancelled Microbiology Data (last 24 hrs): 09/09/21 02:58 Nasopharnyx Influenza Type A Antigen Screen - Final 09/09/21 02:58 Nasopharnyx Influenza Type B Antigen Screen - Final <Mick Marshall - Last Filed: 09/09/21 21:02> Assessment and Plan - Plan Assessment: Dyspnea, COVID-19 pneumonia Pancytopenia Chronic systolic congestive heart failure CAD status post CABG Diabetes was type [id number] Hypertension Hyperlipidemia Plan: Dyspnea, COVID-19 pneumonia: We will obtain CRP level, D-dimer. Currently on room air continue p.o. Decadron pulmonology consulted. Given pancytopenia, fever patient covered with antibiotics Rocephin/of the mass. Pancytopenia: Monitor daily labs, follow-up with hematology. Chronic systolic congestive heart failure: Continue home medications, patient reports he is not on any diuretics currently BNP pending. CAD status post CABG: Obtain and continue home medications. Diabetes was type IJecg-bzyqiya-tshpfizoe: ACH S Accu-Chek, sliding scale insulin. Hypertension: Continue home medications as appropriate. Hyperlipidemia:Continue home medications as appropriate. DVT PPX: SCD Code status: Full Discharge Plan: Home Plan to discharge in: 48 Hours - Advance Directives Does patient have a Living Will: No Does patient have a Durable POA for Healthcare: Yes - Code Status/Comfort Care Code Status Assessed: Yes (Full) Critical Care: No Time Spent Managing Pts Care (In Minutes): 70 <Jewel Quispe - Last Filed: 09/09/21 05:59> - Plan Plan of care reviewed as noted above. Patient seen and examined on rounds this morning. Dyspneic at rest intermittently mildly improved continue steroids, antibiotics as noted above pulmonology consulted home in ~1-2 days, wean O2 <Mick Marshall - Last Filed: 09/09/21 21:02>
[2021-09-09] MEDS ORDERED: NA CHLORIDE 0.9% 50 ML ONE (06:42)
[2021-09-09] MEDS ORDERED: CEFTRIAXONE 1000 MG/VIAL ONE (06:42)
[2021-09-09 06:48] LABS: Protime INR 1.27
[2021-09-09 06:58] LABS: Albumin 3.3 g/dL (3.4-5.0); Bilirubin Direct 0.3 mg/dL (0-0.2); Bilirubin Total 0.9 mg/dL (0.2-1.0); C-Reactive Protein 91.4 mg/L (<3.00); Protein, Total 7.4 g/dL (6.4-8.2)
[2021-09-09] MEDS: INSULIN -REGULAR HUMAN 50 UNIT/0.5 ML ML SQ SCH ×4 (07:30→21:17)
--- NOTE | 2021-09-09 07:33 | ER ---
Nurse's Notes [facility] Name: Musa Lindsay Age: 80 yrs Sex: Male : 1940 Arrival Date: 09/09/2021 Time: 02:31 Bed 18 Private MD: Diagnosis: Pneumonia due to SARS-associated coronavirus;Neutropenia, unspecified;Other pancytopenia Presentation: 09/09 02:43 Chief complaint: EMS states: pt seen here yesterday and dx with UTI, pt has been sob 5 since yesterday. Coronavirus screen: Vaccine status: Patient reports being unvaccinated. Ebola Screen: No symptoms or risks identified at this time. Initial Sepsis Screen: Does the patient meet any 2 criteria? HR > 90 bpm. No. Patient's initial sepsis screen is negative. Does the patient have a suspected source of infection? Yes: Dysuria/Frequency/Urgency/UTI. Risk Assessment: Do you want to hurt yourself or someone else? Patient reports no desire to harm self or others. Onset of symptoms was September 09, 2021. 02:43 Method Of Arrival: EMS: [facility] 02:43 Acuity: GRICEL 3 [facility] Triage Assessment: 02:47 General: Appears in no apparent distress. Behavior is cooperative. Pain: Denies pain. [facility] Neuro: Level of Consciousness is awake, alert, obeys commands, Oriented to person, place, time, situation. Cardiovascular: Capillary refill < 3 seconds Patient's skin is warm and dry. Respiratory: Reports shortness of breath Airway is patent Trachea midline Respiratory effort is even, unlabored, Onset: The symptoms/episode began/occurred yesterday, the patient has mild shortness of breath. Historical: - Allergies: 02:46 NKA; sm5 - Home Meds: 02:46 carvedilol 12.5 mg Oral tab 2 times per day [Active]; clonazepam 0.5 mg Oral tab 2 sm5 times per day [Active]; Crestor 10 mg Oral tab 1 tab once daily [Active]; finasteride 5 mg Oral tab 1 tab once daily [Active]; glimepiride 4 mg Oral tab twice a day [Active]; Isosorbide Mononitrate Oral [Active]; losartan Oral [Active]; Metformin Oral [Active]; Plavix 75 mg Oral tab 1 tab once daily [Active]; temazepam 15 mg Oral cap once daily [Active]; tramadol 50 mg Oral tab twice a day [Active]; - PMHx: 02:46 angina pectoris; CHF; Diabetes - NIDDM; High Cholesterol; Myocardial infarction; sm5 Hypothyroidism; Hypertension; - PSHx: 02:46 Appendectomy; cataract repair; sm5 - Immunization history:: Client reports having NOT received the Covid vaccine. - Social history:: Smoking status: Patient reports the use of cigarette tobacco products, smokes .25 packs per day. - Family history:: not pertinent. - Hospitalizations: : The patient was recently seen at [facility]. Screenin:48 Abuse screen: Denies threats or abuse. Denies injuries from another. Nutritional sm5 screening: No deficits noted. Tuberculosis screening: No symptoms or risk factors identified. Fall Risk None identified. Assessment: 03:00 Reassessment: see triage assessment. sm5 04:14 Reassessment: No changes from previously documented assessment. Cardiovascular: Rhythm sm5 is regular. Respiratory: Airway is patent Trachea midline Respiratory effort is even, unlabored, Breath sounds are clear bilaterally. 05:19 Reassessment: No changes from previously documented assessment. Patient and/or family sm5 updated on plan of care and expected duration. Pain level reassessed. 06:50 Reassessment: No changes from previously documented assessment. sm5 08:18 General: Appears in no apparent distress. comfortable, Behavior is calm, cooperative, jd3 appropriate for age. Pain: Complains of pain in right shoulder Quality of pain is described as aching. Neuro: Denson Agitation-Sedation Scale (RASS): 0 - Alert and Calm Level of Consciousness is awake, alert, obeys commands, Oriented to person, place, time, situation. Cardiovascular: Capillary refill < 3 seconds Patient's skin is warm and dry. Respiratory: Airway is patent Respiratory effort is even, unlabored, Respiratory pattern is regular, symmetrical, Breath sounds with wheezes bilaterally. GI: No signs and/or symptoms were reported involving the gastrointestinal system. : No signs and/or symptoms were reported regarding the genitourinary system. EENT: No signs and/or symptoms were reported regarding the EENT system. Derm: No signs and/or symptoms reported regarding the dermatologic system. Musculoskeletal: No signs and/or symptoms reported regarding the musculoskeletal system. Vital Signs: 02:43 BP 133 / 54; Pulse 96; Resp 19; Temp 99.6(O); Pulse Ox 97% on R/A; sm5 02:46 Weight 108.8 kg; Height 5 ft. 8 in. (172.72 cm); sm5 05:19 BP 123 / 68; Pulse 94; Resp 19; Pulse Ox 95% on R/A; sm5 06:50 BP 137 / 69; Pulse 89; Resp 18; Pulse Ox 95% on R/A; sm5 07:49 BP 135 / 69; Pulse 88; Resp 19; Temp 99.9(O); Pulse Ox 97% on R/A; jd3 02:46 Body Mass Index 36.47 (108.80 kg, 172.72 cm) 5 ED Course: 02:31 Patient arrived in ED. ja2 02:31 Clifford Marshall MD is Attending Physician. rn 02:43 Sabina Ladd RN is Primary Nurse. 5 02:44 Triage completed. 5 02:48 Arm band placed on right wrist. sm5 02:48 Patient has correct armband on for positive identification. Bed in low position. Call 5 light in reach. Side rails up X2. Client placed on continuous cardiac and pulse oximetry monitoring. NIBP monitoring applied. 04:12 Inserted saline lock: 20 gauge in left forearm, using aseptic technique. Blood tw5 collected. Ultrasound guided IV. 04:29 Notified ED physician of a critical lab result(s). Covid +. tw5 04:56 Garland Dias MD is Hospitalizing Provider. rn 05:19 No provider procedures requiring assistance completed. 5 06:49 IV discontinued, intact, bleeding controlled, No redness/swelling at site. Pressure sm5 dressing applied, removed by patient. 06:49 Inserted saline lock: 20 gauge in left antecubital area, using aseptic technique. sm5 07:24 Primary Nurse role handed off by Sabina Ladd, OVIDIO jl7 07:31 Dallin Yip RN is Primary Nurse. jd3 Administered Medications: 06:49 Drug: Rocephin (cefTRIAXone) 1 grams Route: IV; Rate: calculated rate; Site: left sm5 antecubital; 07:40 Follow up: Response: No adverse reaction; IV Status: Completed infusion jd3 07:48 Drug: Zithromax (azithromycin) 500 mg Route: IVPB; Infused Over: 1 hrs; Site: left [facility] antecubital; 08:45 Follow up: Response: No adverse reaction; IV Status: Completed infusion jd3 Medication: 02:48 VIS not applicable for this client. sm5 Outcome: 04:57 Decision to Hospitalize by Provider. rn 08:18 Admitted to ER Hold. Please see [facility] for further documentation. jd3 08:18 Condition: stable 08:18 Instructed on the need for admit. 14:12 Patient left the ED. jd3 Signatures: Clifford Marshall MD MD rn Leal, Jahala RN RN jl7 Dallin Yip RN RN jd3 Agnes Grullon Tiffany tw5 Sabina Ladd RN RN sm5
--- NOTE | 2021-09-09 07:33 | EDPHYS ---
Physician Documentation [facility] Name: Musa Lindsay Age: 80 yrs Sex: Male : 1940 Arrival Date: 09/09/2021 Time: 02:31 Bed 18 Private MD: ED Physician Clifford Marshall HPI: 09/09 03:23 This 80 yrs old Male presents to ER via EMS with complaints of Shortness Of rn Breath, cough. 03:23 The patient has shortness of breath while coughing. Onset: The symptoms/episode rn began/occurred last night. Duration: The symptoms are intermittent. The patient's shortness of breath is aggravated by coughing, is alleviated by rest, sitting up. Associated signs and symptoms: Pertinent positives: non-productive cough, fever, Pertinent negatives: hemoptysis, loss of consciousness. Severity of symptoms: At their worst the symptoms were mild in the emergency department the symptoms have improved. The patient has experienced similar episodes in the past. The patient has been recently been admitted at [facility]. Pt reports recent admission to hospital for UTI. States was coughing at that time, sent home with abx. Returns for persistent cough and generalized malaise. . Historical: - Allergies: 02:46 NKA; sm5 - Home Meds: 02:46 carvedilol 12.5 mg Oral tab 2 times per day [Active]; clonazepam 0.5 mg Oral tab 2 sm5 times per day [Active]; Crestor 10 mg Oral tab 1 tab once daily [Active]; finasteride 5 mg Oral tab 1 tab once daily [Active]; glimepiride 4 mg Oral tab twice a day [Active]; Isosorbide Mononitrate Oral [Active]; losartan Oral [Active]; Metformin Oral [Active]; Plavix 75 mg Oral tab 1 tab once daily [Active]; temazepam 15 mg Oral cap once daily [Active]; tramadol 50 mg Oral tab twice a day [Active]; - PMHx: 02:46 angina pectoris; CHF; Diabetes - NIDDM; High Cholesterol; Myocardial infarction; sm5 Hypothyroidism; Hypertension; - PSHx: 02:46 Appendectomy; cataract repair; sm5 - Immunization history:: Client reports having NOT received the Covid vaccine. - Social history:: Smoking status: Patient reports the use of cigarette tobacco products, smokes .25 packs per day. - Family history:: not pertinent. - Hospitalizations: : The patient was recently seen at [facility]. ROS: 03:23 Constitutional: + fever Eyes: Negative for injury, pain, redness, and discharge, ENT: rn Negative for injury, pain, and discharge, Neck: Negative for injury, pain, and swelling, Cardiovascular: Negative for chest pain, palpitations, and edema, Respiratory: + cough and sob Abdomen/GI: Negative for abdominal pain, nausea, vomiting, diarrhea, and constipation, Back: Negative for injury and pain, : Negative for injury, bleeding, discharge, and swelling, MS/Extremity: Negative for injury and deformity, Skin: Negative for injury, rash, and discoloration, Neuro: Negative for headache, numbness, tingling, and seizure. Exam: 03:23 Constitutional: This is a well developed, well nourished patient who is awake, alert, rn and in no acute distress. Head/Face: Normocephalic, atraumatic. Eyes: Periorbital areas with no swelling, redness, or edema. ENT: No stridor, no swelling Cardiovascular: Regular rate and rhythm. No pulse deficits. Respiratory: Occasional cough. No increased work of breathing, no retractions or nasal flaring. Abdomen/GI: Soft, non-tender Skin: Warm, dry MS/ Extremity: Pulses equal, no cyanosis. Neuro: Awake and alert, GCS 15 Vital Signs: 02:43 BP 133 / 54; Pulse 96; Resp 19; Temp 99.6(O); Pulse Ox 97% on R/A; sm5 02:46 Weight 108.8 kg; Height 5 ft. 8 in. (172.72 cm); sm5 05:19 BP 123 / 68; Pulse 94; Resp 19; Pulse Ox 95% on R/A; sm5 06:50 BP 137 / 69; Pulse 89; Resp 18; Pulse Ox 95% on R/A; sm5 07:49 BP 135 / 69; Pulse 88; Resp 19; Temp 99.9(O); Pulse Ox 97% on R/A; jd3 02:46 Body Mass Index 36.47 (108.80 kg, 172.72 cm) 5 MDM: 02:31 Patient medically screened. rn 04:54 Differential diagnosis: pneumonia, Pneumothorax pulmonary edema, COVID. Data reviewed: rn vital signs, nurses notes, lab test result(s), radiologic studies, plain films, and as a result, I will admit patient. Counseling: I had a detailed discussion with the patient and/or guardian regarding: the historical points, exam findings, and any diagnostic results supporting the discharge/admit diagnosis, lab results, radiology results, the need for further work-up and treatment in the hospital. Response to treatment: There is no appreciated change of the patient's symptoms at this time, and as a result, I will admit patient. Admission orders: after a detailed discussion of the patient's condition and case, the admit orders are written by me. ED course: Pt now COVID +, reports breathing not any better, oxygen decent at 95% on RA, still neutropenic, cxr appears worse. . 09/09 02:33 Order name: CBC with Diff rn 09/09 02:33 Order name: Basic Metabolic Panel 09/09 02:33 Order name: Procalcitonin 09/09 02:33 Order name: SARS-COV-2 RT PCR (Document "Date of Onset" if Symptomatic) 09/09 02:33 Order name: Flu 09/09 03:30 Order name: Urine Microscopic Only rn 09/09 05:01 Order name: Blood Culture Adult (2) [facility] 09/09 05:01 Order name: LFT's [facility] 09/09 05:02 Order name: PT-INR [facility] 09/09 05:04 Order name: Lactate [facility] 09/09 05:04 Order name: CRP [facility] 09/09 05:18 Order name: BNP [facility] 09/09 07:33 Order name: CBC with Automated Diff [facility] 09/09 07:33 Order name: Manual Differential [facility] 09/09 02:33 Order name: XRAY Chest (1 view) rn 09/09 07:33 Order name: SARS-COV-[address] [facility] 09/09 07:33 Order name: Basic Metabolic Panel [facility] 09/09 07:33 Order name: Influenza Screen (A [facility] 09/09 07:33 Order name: Procalcitonin [facility] 09/09 07:33 Order name: Urine Microscopic Only [facility] 09/09 07:33 Order name: Protime (+INR) [facility] 09/09 07:33 Order name: Lactate [facility] 09/09 07:33 Order name: Liver (Hepatic) Function [facility] 09/09 07:33 Order name: NT PRO-BNP [facility] 09/09 07:33 Order name: C-Reactive Protein [facility] 09/09 08:45 Order name: RAD [facility] 09/09 08:46 Order name: Glucose, Ancillary Testing [facility] 09/09 09:11 Order name: Influenza Screen (A [facility] 09/09 09:11 Order name: Blood Culture [facility] 09/09 12:27 Order name: Glucose, Ancillary Testing [facility] 09/09 02:33 Order name: IV Start; Complete Time: 04:14 rn Administered Medications: 06:49 Drug: Rocephin (cefTRIAXone) 1 grams Route: IV; Rate: calculated rate; Site: left 5 antecubital; 07:40 Follow up: Response: No adverse reaction; IV Status: Completed infusion jd3 07:48 Drug: Zithromax (azithromycin) 500 mg Route: IVPB; Infused Over: 1 hrs; Site: left [facility] antecubital; 08:45 Follow up: Response: No adverse reaction; IV Status: Completed infusion jd3 Disposition Summary: 09/09/21 04:57 Hospitalization Ordered Hospitalization Status: Observation rn Provider: Garland Dias rn Condition: Stable rn Problem: new rn Symptoms: are unchanged rn Bed/Room Type: Standard rn Location: Telemetry/MedSurg (observation)(09/09/21 11:55) dw Room Assignment: [facility](09/09/21 11:55) dw Diagnosis - Pneumonia due to SARS-associated coronavirus rn - Neutropenia, unspecified rn - Other pancytopenia rn Forms: - Medication Reconciliation Form rn - SBAR form rn Signatures: Dispatcher [employer] [facility] Palak Abebe RN RN dw Clifford Marshall MD MD rn Attema, Lee, TECHNICAL RESEARCH SCIENTIST-C [id number] Dallin Yip RN RN Charbel Gayle mw2 Sabina Ladd RN RN 5 Corrections: (The following items were deleted from the chart) 05:57 04:57 Telemetry/MedSurg (observation) rn mw2 05:57 04:57 rn mw2 07:01 03:30 Urine Dipstick-Ancillary ordered. rn sm5 11:55 05:57 [facility] ER HOLD mw2 dw 11:55 05:57 ERHOLD- mw2 dw
[2021-09-09] MEDS ORDERED: NA CHLORIDE 0.9% 250 ML ONE (07:42)
[2021-09-09] MEDS ORDERED: AZITHROMYCIN 500 MG INJ IVPB ONE (07:42)
[2021-09-09] MEDS: AZITHROMYCIN IV 500 MG in NA CHLORIDE 0.9% 250 ML IVPB SCH (08:38)
[2021-09-09] MEDS: CEFTRIAXONE 1,000 MG in NA CHLORIDE 0.9% 50 ML IVPB SCH (08:39)
--- NOTE | 2021-09-09 08:43 | RAD REPORT ---
EXAM DESCRIPTION: RAD - Chest Single View - 09/09/2021 7:52 am CLINICAL HISTORY: PAIN Chest pain. COMPARISON: Chest Single View dated 09/01/2021; Chest Single View dated 05/23/2020; Chest Single View d ated 05/22/2020; Chest Pa And Lat (2 Views) dated 02/14/2020 FINDINGS: Portable technique limits examination quality. Mild interstitial pulmonary edema seen. Small bilateral pleural effusions. The heart is upper limit n ormal in size. Sternotomy wires. IMPRESSION: Mild CHF.
[2021-09-09] MEDS ORDERED: ACETAMINOPHEN 500 MG TAB ONE (08:53)
[2021-09-09] MEDS ORDERED: dexAMETHasone 4 MG TAB ONE (08:53)
[2021-09-09] MEDS: dexAMETHasone 4 MG TAB PO SCH (08:58)
[2021-09-09] MEDS: ACETAMINOPHEN 500 MG TAB PO PRN (08:58)
[2021-09-09] MEDS ORDERED: INSULIN -REGULAR HUMAN 50 UNIT/0.5 ML ML ONE (12:34)
[2021-09-10 06:17] LABS: Absolute Lymphocytes (CBC) 0.6 K/uL (0.7-4.9); Hematocrit 24.3 % (39.6-49.0); Lymphocytes % 76.1 % (15.3-44.8); MCV 95.1 fL (80-100); MPV 8.2 fL (7.6-11.3); RBC Red Blood Cell Count 2.56 M/uL (4.33-5.43)
--- NOTE | 2021-09-10 06:25 | P.PN ---
Date of Service: 09/10/21 Subjective: feeling slightly better today, no oxygen requirement cell lines down today no new symptoms ROS: 10 point ROS otherwise negative Physical Exam: Gen: AAOx3, NAD HEENT: normal conjunctiva, sclera anicteric Pulm: non-labored respirations on room air, dry cough CV: regular rate/rhythm Abd: soft, Nontender, nondistended MKS: no tenderness Neuro: normal speech, normal strength Problem List Dyspnea, COVID-19 pneumonia Pancytopenia Chronic systolic congestive heart failure CAD status post CABG Diabetes was type VGyso-stavmtz-rsilpqams Hypertension Hyperlipidemia CRP increasing, high ferritin, high d-dimer CTA ordered - negative for PE, mild ground glass opacities bilaterally pulmonology consulted, continue steroids pancytopenia - first noted last hospitalization 09/01-09/03, without any significant recovery family report patient was improving from UTI but before fully recovered began to have cough on 09/05 COVID+ in ED this admission possibly from infectious etiology flow cytometry performed on 09/01, resulted this morning with lymphoblasts, ~5% briefly reviewed with Dr. John, and this is in realm of mild-mod MDS, would benefit from bone marrow biopsy for further evaluation / confirmation; recommended dose of granix today can follow up as outpatient family report patient has "not been himself" for the last 1-2 months, more weak and tired than usual CBC was normal back in February 2021 continue aspirin/plavix DVT PPX: SCD Code status: Full Dispo: home, ~1-2 days
[2021-09-10] MEDS: INSULIN -REGULAR HUMAN 50 UNIT/0.5 ML ML SQ SCH ×4 (07:30→22:24)
[2021-09-10] MEDS ORDERED: ENOXAPARIN 100 MG/ML SYR SQ SCH (09:00)
[2021-09-10 09:14] LABS: Bilirubin Total 0.7 mg/dL (0.2-1.0); Ferritin 579.6 ng/mL (26-388); Protein, Total 7.3 g/dL (6.4-8.2)
[2021-09-10] MEDS: dexAMETHasone 4 MG TAB PO SCH ×2 (09:34→22:24)
[2021-09-10] MEDS: AZITHROMYCIN IV 500 MG in NA CHLORIDE 0.9% 250 ML IVPB SCH (09:34)
[2021-09-10] MEDS: CEFTRIAXONE 1,000 MG in NA CHLORIDE 0.9% 50 ML IVPB SCH (09:34)
--- NOTE | 2021-09-10 10:33 | RAD REPORT ---
EXAM DESCRIPTION: CT - Chest Angio - 09/10/2021 10:23 am CLINICAL HISTORY: Chest pain. covid, r/o PE COMPARISON: Chest For Pe Angio dated 07/03/2016 TECHNIQUE: CT angiogram of the pulmonary arteries was performed with MIP. All CT scans are performed using dose optimization technique as appropriate and may include automated exposure control or mA/KV adjustment according to patient size. FINDINGS: No evidence of pulmonary thromboembolism. No acute aortic finding demonstrated. Subtle areas of ground-glass opacity bilaterally may represent mild alveolitis. No significant pericardial or pleural fluid. No concerning bony finding. Cholecystectomy clips. IMPRESSION: No evidence of pulmonary thromboembolism. Subtle areas of ground-glass opacity bilaterally probably related to alveolitis.
--- NOTE | 2021-09-10 12:56 | P.CNS ---
Date of Consult: 09/10/21 Reason for Consult: Pancytopenia and COVID Chief Complaint: COVID-19 pneumonia, pancytopenia History of Present Illness: Age 80 metabolic synd AW pancytopenia and COVID , SOB and Low grade fever, Pancytopenia prev admission/ Normal CB 03/14 Allergies No Known Allergies Allergy (Verified 04/07/17 03:07) Home Medications: Glimepiride 1 tab PO BIDWM 04/07/17 Finasteride [Proscar*] 5 mg PO DAILY 02/28/18 Clopidogrel Bisulfate [Plavix*] 75 mg PO DAILY #30 tablet 03/02/18 Aspirin [Aspirin EC 81 MG] 81 mg PO DAILY 02/12/20 Isosorbide Mononitrate [Isosorbide Mononitrate ER] 30 mg PO DAILY 02/12/20 Metformin HCl 1,000 mg PO BIDWM 02/12/20 Multivit-Min/FA/Lycopen/Lutein [Centrum Silver Tablet] 1 each PO DAILY 02/12/20 Rosuvastatin [Crestor*] 20 mg PO DAILY 02/12/20 Sertraline HCl 50 mg PO DAILY 02/12/20 Albuterol Inhaler [Ventolin Inhaler*] 2 puff IH TID PRN #1 hfa.aer.ad 02/14/20 Budesonide/Formoterol Fumarate [Symbicort 160-4.5 Mcg Inhaler] 2 puff IH BID #1 hfa.aer.ad 02/14/20 Levothyroxine [Synthroid*] 0.05 mg PO DAILYAC #30 tablet 02/14/20 Pantoprazole [Protonix Tab*] 40 mg PO DAILY #30 tab 05/23/20 - Past Medical/Surgical History Diabetic: Yes -: HTN -: CAD -: Hyperlipidemia -: NIDDM -: INOPERABLE CAD s/p CABG -: [place] -: Hypothyroidism -: Neuropathy -: COPD -: Chronic systolic CHF -: Cholecystectomy -: CABG x 5-2000 -: Cardiac stents x5 Psychosocial/ Personal History: Patient lives at home with his granddaughter and is retired - Family History Father Medical History: Cancer, Other (see notes) Notes: prostate cancer Mother Medical History: Diabetes Brother Medical History: Heart disease - Social History Smoking Status: Current every day smoker Alcohol use: No CD- Drugs: No Caffeine use: Yes Place of Residence: Home Review of Systems General: Weakness, As per HPI Respiratory: Cough, Shortness of Breath Physical Examination Temp Pulse Resp BP Pulse Ox 97.2 F 64 20 116/56 L 95 09/10/21 08:00 09/10/21 08:00 09/10/21 08:00 09/10/21 08:00 09/10/21 08:00 General: Delirious Respiratory: Clear to auscultation bilaterally - Problems (1) COVID Current Visit: Yes Status: Acute Plan: Increase Steroids 6 BID. DC Zithromax, No evidence of bacterial sepsis/ Panctopenia is acute sec to COVID?. O2 satisfactory. Minimla GG changes on CT / F/u as outpatient bone marow in worsening, CW steroids Dexameth 4 mg as outpatient for 1 wk
--- OUTSIDE RECORDS SUMMARY | 2021-09-10 14:59 | XMS REPORT | Continuity of Care Document ---
:1940 Author Organization [facility] t Address [address] [place] [address] [address] [place] [address] Care Team Providers Name Role Phone Amado, [...] Date Clinician No Known DA Active U [facility] Allergie 11-16 [facility] 00:00: [address] Medications This patient has no known medications. Procedures This patient has no known procedures. Encounters Start End Encounter Admission Attending Care Care Encounter Source Date/Time Date/Time Type Type Clinicians Facility Department ID 2019-09-27 Inpatient Dabsharon, HCAPM LABO [id number] [facility] 14:59:00 [facility] 2019-08-11 Inpatient EL Amado HCAWU SURG [id number] [facility] 07:00:[address] [facility] 2019-08-07 Inpatient Amado, HCAPM LABO [id number] [facility] 12:19:00 [facility] [id number] [facility] 2019-10-13 2019-10-13 Outpatient Dabaghi, HCAWU SURG [id number] [facility] 07:00:00 07:00:00 [facility] [id number] [facility] 2019-09-04 2019-09-04 Outpatient Dabaghi, HCAPM LABO [id number] [id number] [facility] 11:45:00 11:45:00 [facility] [id number] [facility] 2019-08-11 2019-08-11 Outpatient Dabaghi, HCAWU SURG [id number] [facility] 07:00:00 07:00:[address] [facility] 2019-08-08 2019-08-08 Outpatient Dabaghi, HCACL LABO [id number] - [facility] 12:14:00 12:14:00 [facility] [id number] [facility] 2019-08-08 2019-08-08 Outpatient Dabaghi, HCAPM LABO [id number] - [facility] 06:00:00 06:00:00 [facility] [id number] [facility] Results Test Description Test Time Test Comments Results Result Comments Source ACT-ISTAT 2019-10-13 15:07:00 Test Item Value Reference Range Interpretation Comme nts ACT-ISTA (test code = ACTI) 202 SEC 74-137 H BASIC METABOLIC [id number] 07:50:00 Test Item Value Reference Range Interpretation [...] 0-189 mg/dL VERY HIGH...... ...>/= 190 mg/dL [id number] 07:50:00 Test Item Value Reference Range Interpretation Comments MAGNESIUM (test code = MAG) 2.2 MG/DL 1.6-2.3 N BASIC METABOLIC [id number] 07:39:00 Test Item Value Reference Range Interpretation [...] LDL (test MG/DL 0-99 code = LDL) [id number] 07:39:00 Test Item Value Reference Range Interpretation Comments MAGNESIUM (test code = MAG) 2.2 MG/DL 1.6-2.3 N BASIC METABOLIC [id number] 07:38:00 Test Item Value Reference Range Interpretation [...] LDL (test MG/DL 0-99 code = LDL) [id number] 07:38:00 Test Item Value Reference Range Interpretation Comments MAGNESIUM (test code = MAG) MG/DL 1.6-2.3 BASIC METABOLIC [id number] 07:36:00 Test Item Value Reference Range Interpretation [...] LDL (test code = LDL) MG/DL 0-99 [id number] 07:36:00 Test Item Value Reference Range Interpretation Comments MAGNESIUM (test code = MAG) MG/DL 1.6-2.3 BASIC METABOLIC [id number] 07:35:00 Test Item Value Reference Range Interpretation [...] LDL (test code = LDL) MG/DL 0-99 [id number] 07:35:00 Test Item Value Reference Range Interpretation Comments MAGNESIUM (test code = MAG) MG/DL 1.6-2.3 PROTHROMBIN [id number] 07:19:00 Test Item Value Reference Range Interpretation [...] syste ramone embolism. 3.0 - 4.5 PTT [id number] 07:19:00 Test Item Value Reference Range Interpretation Comments PTT ACTIVATED (test code = APTT) 36.5 SECONDS 25.1-36.5 N CBC W/AUTO [id number] 07:06:00 Test Item Value Reference Range Interpretation [...] 0.0-0.1 N NRBC#) COVID 19 Asymptomatic IH [id number] 06:16:00 Test Item Value Reference Range Interpretation [...] amount of virus (antigen) in the sample." [id number] 09:49:00 Test Item Value Reference Range Interpretation Comments ACT-ISTAT (test code = ACTI) 241 SEC 74-137 H BASIC METABOLIC [id number] 07:42:00 Test Item Value Reference Range Interpretation [...] 0-189 mg/dL VERY HIGH...... ...>/= 190 mg/dL [id number] 07:42:00 Test Item Value Reference Range Interpretation Comments MAGNESIUM (test code = MAG) 1.8 MG/DL 1.6-2.3 N BASIC METABOLIC [id number] 07:31:00 Test Item Value Reference Range Interpretation [...] LDL (test MG/DL 0-99 code = LDL) [id number] 07:31:00 Test Item Value Reference Range Interpretation Comments MAGNESIUM (test code = MAG) 1.8 MG/DL 1.6-2.3 N BASIC METABOLIC [id number] 07:30:00 Test Item Value Reference Range Interpretation [...] LDL (test code = LDL) MG/DL 0-99 [id number] 07:30:00 Test Item Value Reference Range Interpretation Comments MAGNESIUM (test code = MAG) MG/DL 1.6-2.3 BASIC METABOLIC [id number] 07:28:00 Test Item Value Reference Range Interpretation [...] LDL (test code = LDL) MG/DL 0-99 [id number] 07:28:00 Test Item Value Reference Range Interpretation Comments MAGNESIUM (test code = MAG) MG/DL 1.6-2.3 PROTHROMBIN [id number] 07:16:00 Test Item Value Reference Range Interpretation [...] syste ramone embolism. 3.0 - 4.5 PTT [id number] 07:16:00 Test Item Value Reference Range Interpretation Comments PTT ACTIVATED (test code = APTT) 33.9 SECONDS 25.1-36.5 N CBC W/AUTO [id number] 07:05:00 Test Item Value Reference Range Interpretation [...] 0.00 K/mm3 0.0-0.1 N NRBC#) Novel Coronavirus [id number] 03:11:00 Test Item Value Reference Range Interpretation Comments Novel Coronavirus Negative Negative Positive r esults are 2019 Inhouse (test indicativ e of the presence code = [id number]) ofSARS-CoV -2 RNA, clinical correlation wit h [...] for the identification of SARS-CoV-2 RNA usingthe [employer] M2000 Sy stem under the FDA Emergen cy UseAuthorizatio n. The testing is perf ormed by personneltraine d in the procedures for the [employer] molecular diagnostic SARS-CoV-2 assa y in vitro. Novel Coronavirus [id number] 03:11:00 Test Item Value Reference Range Interpretation Comments Novel Coronavirus Negative Negative Positive r esults are 2019 Inhouse (test indicativ e of the presence code = [id number]) ofSARS-CoV -2 RNA, clinical correlation wit h [...] for the identification of SARS-CoV-2 RNA usingthe [employer] Sy stem under the FDA Emergen cy UseAuthorizatio n. The testing is perf ormed by personneltraine d in the procedures for the [employer] molecular diagnostic SARS-CoV-2 assa y in vitro.
[2021-09-11] MEDS: MELATONIN 5 MG TABLET PO PRN ×2 (00:42→22:21)
[2021-09-11 03:26] LABS: Absolute Lymphocytes (CBC) 0.6 K/uL (0.7-4.9); Hematocrit 24.1 % (39.6-49.0); Lymphocytes % 70.3 % (15.3-44.8); MCV 95.5 fL (80-100); MPV 8.4 fL (7.6-11.3); RBC Red Blood Cell Count 2.52 M/uL (4.33-5.43)
[2021-09-11 03:49] LABS: Albumin 2.9 g/dL (3.4-5.0); Bilirubin Total 0.4 mg/dL (0.2-1.0); Ferritin 626.2 ng/mL (26-388); Potassium 4.1 mmol/L (3.5-5.1); Protein, Total 7.2 g/dL (6.4-8.2)
[2021-09-11] MEDS: ASPIRIN EC 81 MG TAB PO SCH (09:49)
[2021-09-11] MEDS: CLOPIDOGREL 75 MG TABLET PO SCH (09:49)
[2021-09-11] MEDS: dexAMETHasone 4 MG TAB PO SCH ×2 (09:49→20:14)
[2021-09-11] MEDS: levoFLOXacin 500 MG TAB PO SCH (09:49)
[2021-09-11] MEDS: INSULIN -REGULAR HUMAN 50 UNIT/0.5 ML ML SQ SCH ×4 (09:49→22:20)
[2021-09-11 15:44] LABS: Protime INR 1.28
[2021-09-11] MEDS ORDERED: TBO-FILGRASTIM 300 MCG/0.5 ML SYR SQ ONE (16:47)
--- NOTE | 2021-09-11 16:55 | RAD REPORT ---
EXAM DESCRIPTION: US - Extrem Venous W Compress Hossein - 09/11/2021 4:49 pm CLINICAL HISTORY: b/l leg pain, elevated dimer, r/o DVT Bilateral leg edema and swelling. COMPARISON: Upper Lower Extrem Art Multi dated 04/08/2017 TECHNIQUE: Real-time sonographic interrogation of the left and right lower extremity deep venous sys tems was performed. FINDINGS: Normal compressibility, flow augmentation, phasic flow and spontaneous flow is identified in both the left and right lower extremity deep venous systems. IMPRESSION: No sonographic evidence of left or right lower extremity deep venous thrombosis.
[2021-09-11] MEDS: BENZONATATE 100 MG CAP PO PRN (17:14)
[2021-09-11] MEDS: TRAMADOL HCL 50 MG TAB PO PRN (17:15)
[2021-09-11 22:01] LABS: Specific Gravity 1.025 (1.005-1.030); Urine Bilirubin Negative (Negative); Urine Blood 1+ (Negative); Urine Clarity Clear (Clear); Urine Color Yellow (Yellow); Urine Glucose Trace (Negative); Urine Protein 2+ (Negative)
[2021-09-11] MEDS: ACETAMINOPHEN 500 MG TAB PO PRN (22:21)
[2021-09-11 22:47] LABS: Urine Bacteria <20 /HPF (<20)
[2021-09-11] MEDS ORDERED: ALBUTEROL INHALER 60 PUFF/8 GM IH PRN (23:09)
--- NOTE | 2021-09-11 23:15 | P.PN ---
Date of Service: 09/11/21 Subjective: feeling slightly better today, no oxygen requirement occasional short of breath states he hasn't ambulated in 2 yrs, pivots / transfers, gets around in wheelchair no new symptoms ROS: 10 point ROS otherwise negative Physical Exam: Gen: AAOx3, NAD HEENT: normal conjunctiva, sclera anicteric Pulm: non-labored respirations on room air, dry cough CV: regular rate/rhythm Abd: soft, Nontender, nondistended MSK: paresthesias b/l legs, contracted at knee Skin: no petechiae Neuro: normal speech, normal strength Problem List Dyspnea, COVID-19 pneumonia Pancytopenia, suspected myelodysplastic syndrome Chronic systolic congestive heart failure CAD status post CABG Diabetes was type VScru-xtxxzmu-liwaltcor Hypertension Hyperlipidemia inflammatory markers improved today d-dimer significantly elevated b/l leg U/S (09/11) negative for DVT DIC labs ordered d-dimer likely elevated from covid, patient clinically does not appear to be in DIC CTA - negative for PE, mild ground glass opacities bilaterally pulmonology consulted, continue steroids pancytopenia - first noted last hospitalization 09/01-09/03, without any significant recovery family report patient was improving from UTI but before fully recovered began to have cough on 09/05 COVID+ in ED this admission possibly from infectious etiology flow cytometry performed on 09/01, resulted this morning with lymphoblasts, ~5% briefly reviewed with Dr. John, and this is in realm of mild-mod MDS, would benefit from bone marrow biopsy for further evaluation / confirmation; recommended dose of granix - given 09/10 can follow up as outpatient, will order bone marrow biopsy for outpatient family report patient has "not been himself" for the last 1-2 months, more weak and tired than usual CBC was normal back in February 2021 continue aspirin/plavix restart home tramadol. BASE ENGINEER reviewed ,no red flags Code status: Full Dispo: home, ~possibly tomorrow, pending further improvement in symptoms, CBC
[2021-09-12] MEDS: BENZONATATE 100 MG CAP PO PRN ×4 (03:29→23:36)
[2021-09-12] MEDS ORDERED: HYDROCODONE/APAP 5/325 MG TAB PO ONE (03:38)
[2021-09-12 03:42] LABS: Absolute Lymphocytes (CBC) 0.7 K/uL (0.7-4.9); Hematocrit 25.7 % (39.6-49.0); Lymphocytes % 35.3 % (15.3-44.8); MCV 96.5 fL (80-100); MPV 7.9 fL (7.6-11.3); RBC Red Blood Cell Count 2.66 M/uL (4.33-5.43)
[2021-09-12 03:51] LABS: Bilirubin Total 0.6 mg/dL (0.2-1.0); C-Reactive Protein 72.3 mg/L (<3.00); Ferritin 913.9 ng/mL (26-388); Protein, Total 7.2 g/dL (6.4-8.2)
[2021-09-12] MEDS: PANTOPRAZOLE 40MG TABLET PO SCH (05:28)
[2021-09-12] MEDS: LEVOTHYROXINE SOD 0.05 MG TABLET PO SCH (05:28)
[2021-09-12] MEDS: INSULIN -REGULAR HUMAN 50 UNIT/0.5 ML ML SQ SCH ×4 (07:30→22:13)
[2021-09-12] MEDS: dexAMETHasone 4 MG TAB PO SCH (08:49)
[2021-09-12] MEDS: levoFLOXacin 500 MG TAB PO SCH (08:49)
[2021-09-12] MEDS: TRAMADOL HCL 50 MG TAB PO PRN ×2 (08:49→22:14)
[2021-09-12] MEDS: ROSUVASTATIN 10 MG TAB PO SCH (08:49)
[2021-09-12] MEDS: ASPIRIN EC 81 MG TAB PO SCH (08:50)
[2021-09-12] MEDS: CLOPIDOGREL 75 MG TABLET PO SCH (08:50)
[2021-09-12] MEDS: SERTRALINE HCL 50 MG TAB PO SCH (08:50)
[2021-09-12] MEDS: FINASTERIDE 5 MG TAB PO SCH (08:50)
[2021-09-12] MEDS: ONDANSETRON 4 MG/2 ML VIAL IV PRN (09:43)
[2021-09-12] MEDS: ACETAMINOPHEN 500 MG TAB PO PRN ×2 (09:43→15:57)
--- NOTE | 2021-09-12 10:33 | P.PN ---
Date of Service: 09/12/21 Subjective: coughing more,, short of breath hypoxic, now requiring 2-3LNC desaturates with coughing fits to low-mid 80s ROS: 10 point ROS otherwise negative Physical Exam: Gen: AAOx3, coughing, mild distress HEENT: normal conjunctiva, sclera anicteric Pulm: labored respirations, +Cough, desaturating to mid 80s on 3L NC CV: regular rate/rhythm Abd: soft, Nontender, nondistended MSK: paresthesias b/l legs, contracted at knee Skin: no petechiae Neuro: normal speech, normal affect Problem List acute hypoxemic respiratory failure secondary to COVID-19 pneumonia Pancytopenia, suspected myelodysplastic syndrome Chronic systolic congestive heart failure CAD status post CABG Diabetes was type KGevy-kaebgqs-ydzheivyf Hypertension Hyperlipidemia inflammatory markers improved d-dimer significantly elevated b/l leg U/S (09/11) negative for DVT no evidence of DIC suspect d-dimer from COVID CTA - negative for PE, mild ground glass opacities bilaterally worsening respiratory function today CXR with worsening opacities, possibly edema/fluid IV lasix x1 now pulmonology consulted, continue steroids broadened antibiotics low grade temp to 100.0; chills tachycardia and hypoxia from pneumonia / pulm edema pancytopenia - first noted last hospitalization 09/01-09/03, without any significant recovery family report patient was improving from UTI but before fully recovered began to have cough on 09/05 COVID+ in ED this admission possibly from infectious etiology flow cytometry performed on 09/01, resulted this morning with lymphoblasts, ~5% briefly reviewed with Dr. John, and this is in realm of mild-mod MDS, would benefit from bone marrow biopsy for further evaluation / confirmation; recommended dose of granix - given 09/10 can follow up as outpatient, will order bone marrow biopsy for outpatient family report patient has "not been himself" for the last 1-2 months, more weak and tired than usual CBC was normal back in February 2021 continue aspirin/plavix restarted home tramadol. SR. PAYROLL PROCESSOR reviewed ,no red flags Code status: Full Dispo: home vs SNF, patient clinically worsening today, oxygen requirement increased
--- NOTE | 2021-09-12 11:10 | RAD REPORT ---
EXAM DESCRIPTION: RAD - Chest Single View - 09/12/2021 10:46 am CLINICAL HISTORY: increasing resp difficulty COMPARISON: Chest Single View dated 09/09/2021; Chest Single View dated 09/01/2021; Chest Single View dated 05/23/2020; Chest Single View dated 05/22/2020 FINDINGS: Lines: None. Lungs: Increasing bilateral airspace disease, left greater than right. Pleural: No significant pleural effusions or pneumothorax. Cardiac: Cardiomegaly. Bones: No acute fractures. Sternotomy Other: IMPRESSION: Increasing interstitial and airspace opacities likely reflecting developing edema, pneum onia less likely.
--- NOTE | 2021-09-12 11:13 | P.PN ---
Subjective Date of Service: 09/12/21 Chief Complaint: Fever chills pancytopenia Patient was improving he experiences sudden dramatic deterioration this morning started having chills all of some fever and some shortness of breath Review of Systems is unable to be obtained Physical Examination - Vital Signs Temperature: 100.0 F Blood Pressure: 150/73 Pulse: 75 Respirations: 18 Pulse Ox (%): 94 - Physical Exam General: Alert, Moderate distress Neck: Supple Respiratory: Crackles/rales Cardiovascular: No edema, Normal S1 S2 Assessment And Plan - Current Problems (Diagnosis) (1) COVID Current Visit: Yes Status: Acute Plan: Admitted with COVID possible secondary pancytopenia (2) Fever Current Visit: Yes Status: Acute Plan: Patient has new onset fever blood cultures start patient on cefepime and vancomycin he has had pancytopenia white count is now elevated progressive thrombocytopenia chest x-ray looks little worse Qualifiers: Encounter type: initial encounter
[2021-09-12 11:27] LABS: Arterial Blood Carboxyhemoglob 1.2 % (0-1.5); Blood Gas Oxyhemoglobin 93.4 % (94-97); Blood O2 Saturation 95.8 % (92-98.5)
[2021-09-12] MEDS: CEFEPIME 1 GM in NA CHLORIDE 0.9% 100 ML IV SCH ×2 (12:53→22:12)
[2021-09-12] MEDS ORDERED: VANCOMYCIN 2.75 GM in NA CHLORIDE 0.9% 500 ML IVPB ONE (13:00)
[2021-09-12] MEDS ORDERED: FUROSEMIDE 20 MG/ 2ML VIAL IV ONE (13:00)
[2021-09-12] MEDS: MELATONIN 5 MG TABLET PO PRN (22:12)
[2021-09-13] MEDS ORDERED: GUAIFENESIN 600 MG SA TAB PO ONE (00:02)
[2021-09-13 03:47] LABS: Absolute Lymphocytes (CBC) 0.6 K/uL (0.7-4.9); Hematocrit 25.9 % (39.6-49.0); Lymphocytes % 30.5 % (15.3-44.8); MCV 96.5 fL (80-100); MPV 7.3 fL (7.6-11.3); RBC Red Blood Cell Count 2.69 M/uL (4.33-5.43)
[2021-09-13 04:04] LABS: Ferritin 1043.6 ng/mL (26-388); Magnesium 1.9 mg/dL (1.8-2.4); Potassium 4.1 mmol/L (3.5-5.1)
[2021-09-13 05:23] LABS: Blood Morphology Comment NOT SEEN (NOT SEEN); Platelet Estimate DECR; Platelets, Giant OCC
[2021-09-13] MEDS: ONDANSETRON 4 MG/2 ML VIAL IV PRN (05:25)
[2021-09-13] MEDS ORDERED: ALPRAZOLAM 0.25 MG TABLET PO PRN (05:41)
[2021-09-13] MEDS: PANTOPRAZOLE 40MG TABLET PO SCH (05:47)
[2021-09-13] MEDS: LEVOTHYROXINE SOD 0.05 MG TABLET PO SCH (05:47)
[2021-09-13] MEDS ORDERED: ALPRAZOLAM 0.25 MG TABLET ONE (05:54)
[2021-09-13] MEDS ORDERED: HYDROMORPHONE HCL 0.5 MG/0.5 ML INJ ONE (06:33)
[2021-09-13 07:01] LABS: Arterial Blood Carboxyhemoglob 0.9 % (0-1.5)
[2021-09-13 07:29] LABS: Protime INR 1.56
[2021-09-13] MEDS: INSULIN -REGULAR HUMAN 50 UNIT/0.5 ML ML SQ SCH ×4 (07:30→21:00)
[2021-09-13] MEDS: VANCOMYCIN 2 GM in NA CHLORIDE 0.9% 500 ML IVPB SCH (07:53)
--- NOTE | 2021-09-13 08:06 | RAD REPORT ---
EXAM DESCRIPTION: RAD - Chest Single View - 09/13/2021 7:00 am CLINICAL HISTORY: f/u opacities, hypoxia COMPARISON: Chest Single View dated 09/12/2021; Chest Single View dated 09/09/2021; Chest Single View dated 09/01/2021; Chest Single View dated 05/23/2020 FINDINGS: Lines: None. Lungs: Widespread pulmonary opacities, left greater than right overall similar to 09/12/2021. Pleural: No significant pleural effusions or pneumothorax. Cardiac: Cardiomegaly. Sternotomy. Bones: No acute fractures. Other: IMPRESSION: Similar widespread pulmonary opacities bilaterally that may represent pulmonary edema an d/or multifocal pneumonia.
[2021-09-13] MEDS ORDERED: dexAMETHasone 4 MG TAB PO SCH (09:00)
[2021-09-13] MEDS: CEFEPIME 1 GM in NA CHLORIDE 0.9% 100 ML IV SCH ×2 (10:24→20:28)
[2021-09-13] MEDS: dexAMETHasone 4 MG/ML VIAL IV SCH ×2 (10:25→20:28)
[2021-09-13] MEDS: SERTRALINE HCL 50 MG TAB PO SCH (10:25)
[2021-09-13] MEDS: ROSUVASTATIN 10 MG TAB PO SCH (10:25)
[2021-09-13] MEDS: FINASTERIDE 5 MG TAB PO SCH (10:25)
[2021-09-13] MEDS: ASPIRIN EC 81 MG TAB PO SCH (10:26)
[2021-09-13] MEDS: Enoxaparin 120 MG/0.8 ML SYR SQ SCH ×2 (10:47→21:28)
[2021-09-13] MEDS ORDERED: HYDROMORPHONE HCL 0.5 MG/0.5 ML INJ IV PRN (11:24)
[2021-09-13] MEDS ORDERED: CYCLOBENZAPRINE 10 MG TAB PO PRN (12:47)
[2021-09-13] MEDS ORDERED: DEXMEDETOMIDINE HCL 200 MCG in NA CHLORIDE 0.9% 98 ML IV SCH (15:00)
[2021-09-13] MEDS: HYDROMORPHONE HCL 1 MG/ML INJ IV PRN (20:35)
--- NOTE | 2021-09-13 21:32 | P.PN ---
Date of Service: 09/13/21 Subjective: rapid response called early this morning feels more short of breath, coughing, can't catch his breath anxious ROS: 10 point ROS otherwise negative Physical Exam: Gen: AAOx3, coughing, distressed Pulm: labored respirations, +Cough, on HFNC CV: sinus tachycardia Abd: soft, Nontender, nondistended Skin: no petechiae Neuro: moves extremities, anxious Problem List acute hypoxemic respiratory failure secondary to COVID-19 pneumonia Pancytopenia, suspected myelodysplastic syndrome Chronic systolic congestive heart failure CAD status post CABG Diabetes was type LIqqo-jdvvrtq-dqtswygur Hypertension Hyperlipidemia initially improved; now worsening bilateral opacities; increasing d-dimer and inflammatory markers b/l leg U/S (09/11) negative for DVT no evidence of DIC suspect d-dimer from COVID CTA - negative for PE, mild ground glass opacities bilaterally given worsening hypoxia and increasing d-dimer, start lovenox 1mg/kg BID IV lasix x1 on 09/12 with no improvement, BP low-normal pulmonology consulted, change to IV steroids on 09/13 broadened antibiotics tachycardia and hypoxia from COVID pneumonia pancytopenia - first noted last hospitalization 09/01-09/03, without any significant recovery. CBC was normal back in February 2021 family report patient was improving from UTI but before fully recovered began to have cough on 09/05 COVID+ in ED this admission; possibly from infectious etiology flow cytometry performed on 09/01, resulted 09/10 with lymphoblasts, ~5% briefly reviewed with Dr. John, and this is in realm of mild-mod MDS, would benefit from bone marrow biopsy for further evaluation / confirmation; recommended dose of granix - given 09/10 can follow up as outpatient with Dr. John - she is to order bone marrow biopsy for outpatient - send facesheet at time of discharge family report patient has "not been himself" for the last 1-2 months, more weak and tired than usual was continued on aspirin/plavix, plavix dc'd 09/13 after discussion with cardiology, continued on aspirin and lovenox added 09/13; monitor platelets restarted home tramadol. SKILLED LABORER reviewed, no red flags anxiety medications as needed patient improved with 0.5 IV dilaudid, xanax Code: Full, confirmed on 09/13 with patient Dispo: poor prognosis transferred to ICU 09/13 granddaughter updated
[2021-09-14] MEDS: VANCOMYCIN 2 GM in NA CHLORIDE 0.9% 500 ML IVPB SCH (01:00)
[2021-09-14] MEDS ORDERED: VANCOMYCIN 1 GM/VIAL ONE (02:13)
[2021-09-14] MEDS ORDERED: NA CHLORIDE 0.9% 500 ML ONE (02:13)
[2021-09-14 05:04] LABS: Absolute Lymphocytes (CBC) 0.4 K/uL (0.7-4.9); Lymphocytes % 55.3 % (15.3-44.8); MCV 95.7 fL (80-100); MPV 7.6 fL (7.6-11.3); RBC Red Blood Cell Count 2.11 M/uL (4.33-5.43)
[2021-09-14 05:12] LABS: Hematocrit 20.2 % (39.6-49.0)
[2021-09-14 05:26] LABS: Magnesium 2.1 mg/dL (1.8-2.4); Potassium 4.2 mmol/L (3.5-5.1)
[2021-09-14 05:32] LABS: Troponin High Sensitivity 9091.3 pg/mL (<58.9)
[2021-09-14] MEDS ORDERED: NA CHLORIDE 0.9% 250 ML IV SCH (06:00)
--- NOTE | 2021-09-14 06:09 | P.PN ---
Date of Service: 09/14/21 Subjective: feels about the same dilaudid increased yesterday with some relief nursing staff report patient drinking lots of water CXR worsening ROS: 10 point ROS otherwise negative Physical Exam: Gen: AAOx2, coughing, mild distress Pulm: labored respirations, +Cough, on HFNC CV: sinus tachycardia, 1+ b/l edema Abd: soft, Nontender, nondistended Skin: no petechiae, no rash Neuro: moves extremities, anxious Problem List acute hypoxemic respiratory failure secondary to COVID-19 pneumonia Pancytopenia, suspected myelodysplastic syndrome Chronic systolic congestive heart failure CAD status post CABG Diabetes was type LZbst-pjkngkh-uzrjhlibo Hypertension Hyperlipidemia initially improved; now worsening bilateral opacities; increasing d-dimer and inflammatory markers b/l leg U/S (09/11) negative for DVT no evidence of DIC; suspect d-dimer from COVID CTA - negative for PE, mild ground glass opacities bilaterally given worsening hypoxia and increasing d-dimer, started lovenox 1mg/kg BID 09/13 no change, plt decreasing, hgb down, will dc lovenox, no obvious bleed IV 20mg lasix x1 on 09/12 with no improvement, BP low-normal pt noted to have some bigeminy and trigeminy over weekend; echo ordered for today increased pulmonary opacities, possibly edema, h/o CAD, watch for cardiogenic shock, likely has elevated pulm hypertension last echo with normal EF, no comment on diastolic function pulmonology consulted, change to IV steroids on 09/13 broadened antibiotics tachycardia and hypoxia from COVID pneumonia pancytopenia - first noted last hospitalization 09/01-09/03, without any significant recovery. CBC was normal back in February 2021 family report patient was improving from UTI but before fully recovered began to have cough on 09/05 COVID+ in ED this admission; possibly from infectious etiology flow cytometry performed on 09/01, resulted 09/10 with lymphoblasts, ~5% briefly reviewed with Dr. John, and this is in realm of mild-mod MDS, would benefit from bone marrow biopsy for further evaluation / confirmation; recommended dose of granix - given 09/10 can follow up as outpatient with Dr. John - she is to order bone marrow biopsy for outpatient - send facesheet at time of discharge family report patient has "not been himself" for the last 1-2 months, more weak and tired than usual was continued on aspirin/plavix, plavix dc'd 09/13 after discussion with cardiology, continued on aspirin and lovenox added 09/13 (dc'd 09/14); monitor platelets 1u PRBC ordered 09/14 SENIOR BIOINFORMATICS SCIENTIST reviewed, no red flags anxiety medications as needed Code: Full, confirmed on 09/13 with patient Dispo: guarded prognosis transferred to ICU 09/13
[2021-09-14] MEDS: LEVOTHYROXINE SOD 0.05 MG TABLET PO SCH (06:21)
[2021-09-14] MEDS: PANTOPRAZOLE 40MG TABLET PO SCH (06:21)
[2021-09-14 06:54] VITALS: BMI 36.1
--- NOTE | 2021-09-14 07:07 | RAD REPORT ---
EXAM DESCRIPTION: RAD - Chest Single View - 09/14/2021 6:45 am CLINICAL HISTORY: SOB COMPARISON: Portable September 13, September 12, September 09 and September 01 TECHNIQUE: AP portable chest image was obtained 09/14/2021 6:45 am . FINDINGS: Extensive peripheral airspace opacification is present and has shown progression over seri al imaging. Central lung markings also show progressive opacification. Heart size is stable. Upper lobe vasculature within range of normal. Sternotomy wires are in place. No measurable pleural effusion and no pneumothorax. IMPRESSION: Continued worsening of the bilateral airspace opacification from edema or infiltrate.
[2021-09-14] MEDS: ROSUVASTATIN 10 MG TAB PO SCH (08:57)
[2021-09-14] MEDS: FINASTERIDE 5 MG TAB PO SCH (08:58)
[2021-09-14] MEDS: ASPIRIN EC 81 MG TAB PO SCH (08:58)
[2021-09-14] MEDS: CEFEPIME 1 GM in NA CHLORIDE 0.9% 100 ML IV SCH ×2 (08:59→22:36)
[2021-09-14] MEDS: SERTRALINE HCL 50 MG TAB PO SCH (09:00)
[2021-09-14] MEDS: dexAMETHasone 4 MG/ML VIAL IV SCH ×2 (09:00→22:36)
[2021-09-14] MEDS: INSULIN -REGULAR HUMAN 50 UNIT/0.5 ML ML SQ SCH ×4 (09:06→22:37)
[2021-09-14] MEDS: FLUCONAZOLE 400 MG IVPB 400 MG/200 ML BAG IV SCH (09:20)
--- NOTE | 2021-09-14 09:29 | EKG ---
Test Date: 2021-09-12 Test Time: 18:37:23 Electromechanical Engineer: MEASUREMENT RESULTS: Intervals: Rate: 76 RI: 148 QRSD: 140 QT: 444 QTc: 499 [place]: P: 28 RI: 148 QRS: -62 T: -56 INTERPRETIVE STATEMENTS: Sinus rhythm with frequent premature ventricular complexes Right bundle branch block Left anterior fascicular block Bifascicular block T wave abnormality, consider inferolateral ischemia Abnormal ECG Compared to ECG 09/01/2021 18:12:27 Ventricular premature complex(es) now present Left ventricular hypertrophy no longer present Bifascicular block still present T-wave abnormality still present Possible ischemia still present Electronically Signed On 09-14-21 09:25:03 CDT by Drew Mcmillan
[2021-09-14] MEDS: HYDROMORPHONE HCL 1 MG/ML INJ IV PRN ×4 (10:41→21:45)
[2021-09-14] MEDS ORDERED: NA CHLORIDE 0.9% 250 ML ONE (10:54)
--- NOTE | 2021-09-14 12:24 | P.PN ---
Subjective Date of Service: 09/14/21 Chief Complaint: Respiratory failure Patient's condition worsened his chest x-ray looks worse was transferred to the ICU is more settled on Dilaudid not tolerate dexmedetomidine is a 90% FiO2 still pancytopenic cultures are negative Review of Systems is unable to be obtained Physical Examination - Vital Signs Temperature: 98.4 F Blood Pressure: 125/63 Pulse: 74 Respirations: 31 Pulse Ox (%): 94 - Physical Exam General: Alert, Oriented x3 Respiratory: Rhonchi/gurgles Cardiovascular: No edema, Regular rate/rhythm Assessment And Plan - Current Problems (Diagnosis) (1) COVID Current Visit: Yes Status: Acute Plan: Respiratory failure I suspect is from COVID (2) Respiratory failure Current Visit: Yes Status: Acute Plan: Patient is pancytopenic becoming progressively worse add Diflucan patient is also on cefepime and vancomycin cultures are so far negative chest x-ray looks worse prognosis is very poor he is eating and drinking patient is on dexamethasone IV Qualifiers: Chronicity: acute
--- NOTE | 2021-09-14 14:28 | ECHO ---
HEIGHT: 5 ft 8 in WEIGHT: 238 lb 0 oz DATE OF STUDY: 09/14/[address]: Drew Mcmillan MD 2-DIMENSIONAL: YES M.MODE: YES DOPPLER: YES COLOR FLOW: YES TDS: NO PORTABLE: YES DEFINITY: NO BUBBLE STUDY: NO DIAGNOSIS: CONGESTIVE HEART FAILURE CARDIAC HISTORY: CATHERIZATION:YES SURGERY: YES PROSTHETIC VALVE: NO PACEMAKER: NO MEASUREMENTS (cm) DIASTOLIC (NORMALS) SYSTOLIC (NORMALS) IVSd 1.3 (0.6-1.2) LA Diam 3.4 (1.9-4.0) LVEF 40-45% LVIDd 5.2 (3.5-5.7) LVIDs 4.3 (2.0-3.5) %FS 18% LVPWd 1.2 (0.6-1.2) Ao Diam 2.7 (2.0-3.7) 2 DIMENSIONAL ASSESSMENT: RIGHT ATRIUM: NORMAL LEFT ATRIUM: NORMAL RIGHT VENTRICLE: NORMAL LEFT VENTRICLE: DEPRESSED LV TRICUSPID VALVE: MITRAL VALVE: THICKENED VALVE PULMONIC VALVE: NORMAL AORTIC VALVE: NORMAL PERICARDIAL EFFUSION: NONE AORTIC ROOT: NORMAL LEFT VENTRICULAR WALL MOTION: MILD GLOBAL HYPOKINESIS. DOPPLER/COLOR FLOW: MILD MITRAL AND TRICUSPID REGURGITATION. COMMENTS: MILDLY DEPRESSED LEFT VENTRICULAR EJECTION FRACTION 40-45%. MILD GLOBAL HYPOKINESIS. MILD MITRAL AND TRICUSPID REGURGITATION. SEVERE PULMONARY HYPERTENSION WITH RIGHT VENTRICULAR SYSTOLIC PRESSURE OF > 60 mmHg. MODERATE DIASTOLIC DYSFUNCTION. TECHNOLOGIST: Wilton GOMEZ
[2021-09-14] MEDS ORDERED: FUROSEMIDE 40 MG/4 ML VIAL IV ONE (14:30)
[2021-09-14 17:39] LABS: Hematocrit 25.4 % (39.6-49.0)
[2021-09-14] MEDS: LORazepam 2 MG/ML VIAL IV PRN (22:30)
[2021-09-15] MEDS: VANCOMYCIN 2 GM in NA CHLORIDE 0.9% 500 ML IVPB SCH (03:09)
[2021-09-15 05:15] LABS: MCV 94.8 fL (80-100); RBC Red Blood Cell Count 2.07 M/uL (4.33-5.43)
[2021-09-15 05:16] LABS: Absolute Lymphocytes (CBC) 0.2 K/uL (0.7-4.9); Lymphocytes % 45.2 % (15.3-44.8); MPV 7.4 fL (7.6-11.3)
[2021-09-15 05:27] LABS: Hematocrit 19.6 % (39.6-49.0)
[2021-09-15 05:30] LABS: Magnesium 1.9 mg/dL (1.8-2.4); Potassium 3.5 mmol/L (3.5-5.1)
[2021-09-15] MEDS: PANTOPRAZOLE 40MG TABLET PO SCH (05:51)
[2021-09-15] MEDS: LEVOTHYROXINE SOD 0.05 MG TABLET PO SCH (05:51)
[2021-09-15] MEDS ORDERED: CALCIUM GLUC 10% INJ 9.3 MEQ in NA CHLORIDE 0.9% 100 ML IV ONE (06:20)
[2021-09-15] MEDS: CALCIUM GLUCONATE 1 GM IVPB 1 GM/50 ML BAG IV SCH ×2 (06:45→07:42)
[2021-09-15] MEDS: HYDROMORPHONE HCL 2 MG/ML inj IV PRN ×3 (07:01→23:30)
[2021-09-15] MEDS ORDERED: POTASSIUM 25 MEQ EFFERV TAB PO ONE (07:20)
[2021-09-15] MEDS: INSULIN -REGULAR HUMAN 50 UNIT/0.5 ML ML SQ SCH ×4 (07:30→21:00)
[2021-09-15 07:43] LABS: Anisocytosis 1+; Basophilic Stippling 1+; Blood Morphology Comment NOTED (NOT SEEN); Platelet Estimate DECR; Rouleau NOTED
[2021-09-15] MEDS: ROSUVASTATIN 10 MG TAB PO SCH (08:23)
[2021-09-15] MEDS: SERTRALINE HCL 50 MG TAB PO SCH (08:24)
[2021-09-15] MEDS: VITAMIN D 5,000 UNIT CAP PO SCH (08:24)
[2021-09-15] MEDS: CEFEPIME 1 GM in NA CHLORIDE 0.9% 100 ML IV SCH ×2 (08:24→22:41)
[2021-09-15] MEDS: FINASTERIDE 5 MG TAB PO SCH (08:24)
[2021-09-15] MEDS: ASPIRIN EC 81 MG TAB PO SCH (08:25)
[2021-09-15] MEDS: dexAMETHasone 4 MG/ML VIAL IV SCH ×2 (08:25→22:41)
--- NOTE | 2021-09-15 08:41 | P.PN ---
Subjective Date of Service: 09/15/21 Chief Complaint: Respiratory failure and pancytopenia No change in patient's condition he still requiring high concentrations of oxygen eating and drinking with high flow oxygen device is still alert responsive and cooperative Review of Systems General: Weakness Respiratory: Shortness of Breath Physical Examination - Vital Signs Temperature: 98 F Blood Pressure: 146/69 Pulse: 81 Respirations: 21 Pulse Ox (%): 93 Assessment And Plan - Current Problems (Diagnosis) (1) COVID Current Visit: Yes Status: Acute Plan: Prognosis poor continue with supportive therapy there is been no progression in his respiratory infiltrates (2) Respiratory failure Current Visit: Yes Status: Acute Plan: No change continue with supportive therapy add Lasix Qualifiers: Chronicity: acute (3) Pancytopenia Current Visit: Yes Status: Acute Plan: Pancytopenia continues to worsen patient is on antibiotics prophylactic Diflucan blood pressure stable
[2021-09-15] MEDS ORDERED: NA CHLORIDE 0.9% 250 ML IV SCH (09:00)
[2021-09-15] MEDS: FLUCONAZOLE 400 MG IVPB 400 MG/200 ML BAG IV SCH (09:09)
[2021-09-15] MEDS: FUROSEMIDE 20 MG/ 2ML VIAL IV SCH ×2 (09:37→16:14)
--- NOTE | 2021-09-15 13:38 | P.PN ---
Subjective Date of Service: 09/15/21 Chief Complaint: Respiratory failure and pancytopenia Patient is awake and interactive. He did not tolerate high flow oxygen overnight and has been on BiPAP since last night. Physical Examination - Vital Signs Temperature: 98 F Blood Pressure: 118/59 Pulse: 70 Respirations: 22 Pulse Ox (%): 96 Assessment And Plan - Plan Physical Exam: Gen: Mild respiratory distress, awake and interactive. HEENT: BiPAP Pulm: Moderately labored breathing, bilateral crackles. CV: sinus tachycardia, 1+ b/l edema Abd: soft, Nontender, nondistended Skin: no rash Neuro: moves extremities, anxious Problem List acute hypoxemic respiratory failure secondary to COVID-19 pneumonia Pancytopenia, suspected myelodysplastic syndrome Chronic systolic congestive heart failure CAD status post CABG Diabetes was type NSxld-jyymkzm-iqggvvchk Hypertension Hyperlipidemia Plan: Worsening bilateral opacities; increasing d-dimer and inflammatory markers b/l leg U/S (09/11) negative for DVT no evidence of DIC; elevated D-dimer d-dimer secondary to COVID CTA - negative for PE, Ground glass opacities bilaterally given worsening hypoxia and increasing d-dimer, started lovenox 1mg/kg BID 09/13 He developed thrombocytopenia with drop in hemoglobin, no active bleeding. Full dose Lovenox discontinued. pt noted to have some bigeminy and trigeminy over weekend; echo: Mildly reduced EF 40 to 45% and severe pulmonary hypertension. Pulmonary is following, continue IV steroid. Antibiotics broadened to IV cefepime and vancomycin pancytopenia - first noted last hospitalization 09/01-09/03, without any significant recovery. CBC was normal back in February 2021 Prior flow cytometry performed on 09/01, resulted 09/10 with lymphoblasts, ~5% Hematology-oncology- Dr. John suspect MDS He would benefit from bone marrow biopsy for further evaluation / confirmation as outpatient. Status post granix - given 09/10 He was on aspirin/plavix, plavix dc'd 09/13. Status post 1u PRBC on 09/14 anxiety medications as needed. DVT prophylaxis: SCD Code: Full Dispo: guarded prognosis
[2021-09-15] MEDS: TRAMADOL HCL 50 MG TAB PO PRN (17:01)
[2021-09-15] MEDS: LORazepam 2 MG/ML VIAL IV PRN ×2 (19:15→23:45)
[2021-09-16] MEDS: VANCOMYCIN 2 GM in NA CHLORIDE 0.9% 500 ML IVPB SCH (03:00)
[2021-09-16] MEDS: LEVOTHYROXINE SOD 0.05 MG TABLET PO SCH (04:30)
[2021-09-16] MEDS: PANTOPRAZOLE 40MG TABLET PO SCH (04:30)
[2021-09-16] MEDS: HYDROMORPHONE HCL 2 MG/ML inj IV PRN (04:30)
[2021-09-16 04:48] LABS: Absolute Lymphocytes (CBC) 0.2 K/uL (0.7-4.9); Lymphocytes % 54.4 % (15.3-44.8); MCV 94.9 fL (80-100); MPV 7.6 fL (7.6-11.3); RBC Red Blood Cell Count 2.18 M/uL (4.33-5.43)
[2021-09-16 04:52] LABS: Potassium 4.4 mmol/L (3.5-5.1)
[2021-09-16 05:15] LABS: Hematocrit 20.7 % (39.6-49.0)
[2021-09-16 05:43] VITALS: TEMP 97
[2021-09-16] MEDS: FUROSEMIDE 20 MG/ 2ML VIAL IV SCH ×2 (09:00→17:00)
[2021-09-16] MEDS: INSULIN -REGULAR HUMAN 50 UNIT/0.5 ML ML SQ SCH ×3 (10:12→17:13)
[2021-09-16] MEDS: ROSUVASTATIN 10 MG TAB PO SCH (10:15)
[2021-09-16] MEDS: dexAMETHasone 4 MG/ML VIAL IV SCH (10:15)
[2021-09-16] MEDS: CEFEPIME 1 GM in NA CHLORIDE 0.9% 100 ML IV SCH (10:16)
[2021-09-16] MEDS: VITAMIN D 5,000 UNIT CAP PO SCH (10:17)
[2021-09-16] MEDS: FINASTERIDE 5 MG TAB PO SCH (10:17)
[2021-09-16] MEDS: ASPIRIN EC 81 MG TAB PO SCH (10:17)
[2021-09-16] MEDS: FLUCONAZOLE 400 MG IVPB 400 MG/200 ML BAG IV SCH (10:17)
[2021-09-16] MEDS: SERTRALINE HCL 50 MG TAB PO SCH (10:17)
--- NOTE | 2021-09-16 12:26 | P.PN ---
Subjective Date of Service: 09/16/21 Chief Complaint: Respiratory failure and pancytopenia Not doing well he is becoming progressively more hypoxic requiring continuous bilevel support still pancytopenic Review of Systems is unable to be obtained Physical Examination - Vital Signs Temperature: 97 F Blood Pressure: 112/54 Pulse: 72 Respirations: 18 Pulse Ox (%): 98 - Physical Exam General: Unresponsive Respiratory: Diminished, Crackles/rales Cardiovascular: No edema, Regular rate/rhythm Assessment And Plan - Current Problems (Diagnosis) (1) COVID Current Visit: Yes Status: Acute Plan: Prognosis poor continue with supportive therapy there is been no progression in his respiratory infiltrates (2) Respiratory failure Current Visit: Yes Status: Acute Plan: Respiratory failure secondary to COVID on 90% FiO2 prognosis poor Qualifiers: Chronicity: acute (3) Pancytopenia Current Visit: Yes Status: Acute Plan: Pancytopenia stable blood cultures negative
--- NOTE | 2021-09-16 14:16 | P.PN ---
Subjective Date of Service: 09/16/21 Chief Complaint: Respiratory failure and pancytopenia Patient's patient declined overnight. Patient became less responsive, requiring more oxygen, transition from high flow oxygen to BiPAP, borderline hypotensive. He did not tolerate high flow oxygen overnight and has been on BiPAP since last night. Physical Examination - Vital Signs Temperature: 97 F Blood Pressure: 112/54 Pulse: 72 Respirations: 18 Pulse Ox (%): 98 Assessment And Plan - Plan Physical Exam: Gen: Somnolent. HEENT: BiPAP Pulm: Moderately labored breathing, bilateral crackles. CV: sinus tachycardia, 1+ b/l edema Abd: soft, Nontender, nondistended Skin: no rash Neuro: moves extremities. Problem List acute hypoxemic respiratory failure secondary to COVID-19 pneumonia Pancytopenia, suspected myelodysplastic syndrome Chronic systolic congestive heart failure CAD status post CABG Diabetes was type ELajn-ikpjliw-cbsiaszeu Hypertension Hyperlipidemia Plan: Worsening bilateral opacities; increasing d-dimer and inflammatory markers b/l leg U/S (09/11) negative for DVT no evidence of DIC; elevated D-dimer d-dimer secondary to COVID CTA - negative for PE, Ground glass opacities bilaterally Worsening hypoxia needing noninvasive pressure ventilation pt noted to have some bigeminy and trigeminy over weekend; echo: Mildly reduced EF 40 to 45% and severe pulmonary hypertension. Pulmonary is following. No change in pancytopenia Family made patient DNR/DNI and requested for comfort measures. Patient will be transition to inpatient hospice for comfort measures.
[2021-09-16 17:38] VITALS: O2SAT 99
[2021-09-16 18:58] VITALS: BP 126/67
[2021-09-17] MEDS ORDERED: VANCOMYCIN 1.75 GM in NA CHLORIDE 0.9% 500 ML IVPB SCH (02:00)
--- NOTE | 2021-09-19 17:55 | P.DS ---
Admission Date: 09/09/21 Discharge Date: 09/19/21 Disposition: HOSPICE-MEDICAL FACILITY Discharge Condition: CRITICAL Reason for Admission: Respiratory failure and pancytopenia Brief History of Present Illness: 80-year-old male history of chronic systolic congestive heart failure, diabetes mellitus type [id number], hyperlipidemia, hypertension and CAD who was recently admitted for UTI, pancytopenia presented to the emergency department for shortness of breath, low-grade fever. He was discharged on 09/03/2021 with a prescription for Omnicef for the UTI, he did have pancytopenia during his previous admission. He was evaluated here in the emergency department his COVID test was positive chest x-ray appears to show developing left-sided pneumonia. ED provider was to admit for further evaluation and management of COVID-19 pneumonia, dyspnea, pancytopenia. Hospital Course: Diagnosis acute hypoxemic respiratory failure secondary to COVID-19 pneumonia Pancytopenia, suspected myelodysplastic syndrome Chronic systolic congestive heart failure CAD status post CABG Diabetes was type LIpqz-mxbqpzq-fshqxehit Hypertension Hyperlipidemia Plan: Patient admitted to the medical floor and started treatment for COVID-pneumonia with IV dexamethasone. Patient seen in consultation by pulmonary. His clinical condition worsened. Patient developed severe neutropenia and was given Granix. He had bilateral lung infiltrates which worsened, his oxygen requirement also increased as well as inflammatory markers. b/l leg U/S negative for DVT CTA - negative for PE but showed ground glass opacities bilaterally given worsening hypoxia and increasing d-dimer, started lovenox 1mg/kg BID 09/13 He developed thrombocytopenia with drop in hemoglobin, no active bleeding. Full dose Lovenox discontinued. pt noted to have some bigeminy and trigeminy. Echo: Mildly reduced EF 40 to 45% and severe pulmonary hypertension. Patient placed on IV antibiotics-IV cefepime and vancomycin He was transfused 1u PRBC for neutropenia Patient's respiratory condition continued to worsen, became BiPAP dependent, developed hypotension and altered mental status. He did not respond to aggressive treatment. Family decided to proceed with comfort measures. Hospice consulted and patient discharged to inpatient hospice. Vital Signs/Physical Exam: Temp Pulse Resp BP Pulse Ox 97 F 68 25 H 126/67 99 09/16/21 14:16 09/16/21 18:00 09/16/21 18:00 09/16/21 18:00 09/16/21 18:00 Laboratory Data at Discharge: WBC 0.4 K/uL (4.3-10.9) L* D 09/16/21 04:24 Hgb 7.5 g/dL (13.6-17.9) L 09/16/21 04:24 Hct 20.7 % (39.6-49.0) L* 09/16/21 04:24 Plt Count 45 K/uL (152-406) L* 09/16/21 04:24 PT 17.3 SECONDS (9.5-12.5) H 09/13/21 07:02 INR 1.56 09/13/21 07:02 APTT 30.5 SECONDS (24.3-36.9) 09/11/21 14:11 Sodium 137 mmol/L (136-145) 09/16/21 04:24 Potassium 4.4 mmol/L (3.5-5.1) 09/16/21 04:24 BUN 32 mg/dL (7-18) H 09/16/21 04:24 Creatinine 0.77 mg/dL (0.55-1.3) 09/16/21 04:24 Glucose 222 mg/dL (74-106) H 09/16/21 04:24 Magnesium 1.9 mg/dL (1.8-2.4) 09/15/21 04:42 Total Bilirubin 0.6 mg/dL (0.2-1.0) 09/12/21 03:01 AST 27 U/L (15-37) 09/12/21 03:01 ALT 22 U/L (12-78) 09/12/21 03:01 Alkaline Phosphatase 71 U/L (45-117) 09/12/21 03:01 Home Medications: Glimepiride 1 tab PO BIDWM 04/07/17 Finasteride [Proscar*] 5 mg PO DAILY 02/28/18 Clopidogrel Bisulfate [Plavix*] 75 mg PO DAILY #30 tablet 03/02/18 Aspirin [Aspirin EC 81 MG] 81 mg PO DAILY 02/12/20 Isosorbide Mononitrate [Isosorbide Mononitrate ER] 30 mg PO DAILY 02/12/20 Metformin HCl 1,000 mg PO BIDWM 02/12/20 Multivit-Min/FA/Lycopen/Lutein [Centrum Silver Tablet] 1 each PO DAILY 02/12/20 Rosuvastatin [Crestor*] 20 mg PO DAILY 02/12/20 Sertraline HCl 50 mg PO DAILY 02/12/20 Albuterol Inhaler [Ventolin Inhaler*] 2 puff IH TID PRN #1 hfa.aer.ad 02/14/20 Budesonide/Formoterol Fumarate [Symbicort 160-4.5 Mcg Inhaler] 2 puff IH BID #1 hfa.aer.ad 02/14/20 Levothyroxine [Synthroid*] 0.05 mg PO DAILYAC #30 tablet 02/14/20 Pantoprazole [Protonix Tab*] 40 mg PO DAILY #30 tab 05/23/20 Tramadol HCl [Ultram] 50 mg PO Q12H PRN 09/11/21 Followup: Unknown,U [Primary Care Provider] -
--- NOTE | 2021-09-24 14:15 | CON ---
Date of Consultation: 09/12/[address] Marshall on 09/09/2021 with COVID pneumonia. I saw the patient on 09/13/2021 with trige alissa and bigeminy with an elevated troponin. History Of Present Illness: is 80 years with history of CABG. Last catheterization showe d an ejection fraction 45%, occluded graft to the RCA and circumflex. [place] RCA was fairly normal. LAD was completely occluded. [place] to the LAD was patent. He came in with COVID pneumonia with all the aspect of COVID including severely elevated D-dimer, CRP, ferritin as well as troponin. He had a hemoglobin of 9.3, white count of 1.9, glucose 299. EKG showed bifascicular block. Chest x-ray as[place] wed pneumonia. PO2 of 77, pCO2 of 24, pH of 7.48, magnesium of 1.9. trigeminy and bigemi ny without any hemodynamic compromise. Past Medical History: Includes CABG, diabetes, congestive heart failure diastolic, hypothyroidism, a nd dyslipidemia. Medications: Include aspirin, Plavix, Lasix, insulin, Proscar, thyroid, Crestor, and multiple antibi otics. Allergies: NONE. Review of Systems: Negative. Social History: Negative. Family History: Negative. Physical Examination: Vital Signs: Stable, afebrile. HEENT: Negative. Neck: Supple with no bruit. Chest: Clear. Cardiac: Revealed regular rhythm and rate with ectopy. Abdomen: Benign. Extremities: Revealed no clubbing, cyanosis, or edema. Diagnostic Data: As stated earlier. Impression And Plan: Trigeminy and bigeminy and the patient with chronic systolic congestive heart f ailure with ejection fraction of 45%, presented with COVID pneumonia and low magnesium. I will suppl ement with magnesium, obtain a 2D echocardiogram to rule out worsening congestive heart failure, cont inue his medications which are appropriate. At this point, he does take Imdur at home, which may now resume. He may be a candidate for a low-dose beta-russell as well. We will see what the echocardio gram shows first. He has elevated troponin, CRP, ferritin and D-dimer, low white count and hemoglobi n 9.3, all consistent with COVID. He is on multiple antibiotics at home. He has dyslipidemia for wh ich he takes Crestor, hypothyroidism for which he takes Synthroid, chronic systolic congestive heart failure for which he takes Lasix. He is on aspirin and Plavix for CAD. He has severe coronary arter y disease. The only vessel he has open is the RCA, the graft to that is closed, the graft to the OM is closed, the OM is completely occluded, LAD is completely occluded. [place] is open to that. He is n ot a surgical candidate for his graft occlusion, only medical therapy which should include statin and maybe low-dose beta-russell, aspirin and Plavix which he is on already. I will continue to follow h im. LETICIA/MARY Voice ID: [id number] Report ID: [id number]
== END 2021-09-16 19:40 | disposition hospice, inpatient (51) | DRG 177 ==
LOC: ER 05:22 → ERHOLD 05:23 → 4TH 13:48 → 3RD-ICU 09-13 10:17
PROVIDERS: ADMIT Hospitalist; ATTEND Hospitalist
PROC: 5A09457 Assistance with Respiratory Ventilation, 24-96 Consecutive Hours, Continuous Positive Airway Pressure (ICD-10-PCS; principal; 2021-09-13)
DX: U07.1 COVID-19 (principal); J12.82 Pneumonia due to coronavirus disease 2019; J96.01 Acute respiratory failure with hypoxia; D61.818 Other pancytopenia; I50.22 Chronic systolic (congestive) heart failure; D46.9 Myelodysplastic syndrome, unspecified; I11.0 Hypertensive heart disease with heart failure; I25.10 Atherosclerotic heart disease of native coronary artery without angina pectoris; E11.9 Type 2 diabetes mellitus without complications; E78.5 Hyperlipidemia, unspecified; D70.9 Neutropenia, unspecified; D69.6 Thrombocytopenia, unspecified; I27.20 Pulmonary hypertension, unspecified; R00.8 Other abnormalities of heart beat; I95.9 Hypotension, unspecified; Z95.1 Presence of aortocoronary bypass graft; Z66 Do not resuscitate
CPT/HCPCS: 36415; 36430; 71045; 71275; 80048; 80053; 80076; 80202; 81001; 81015; 82728; 82805; 82947; 83605; 83735; 83880; 84145; 84484; 85014; 85018; 85025; 85379; 85384; 85610; 85730; 86140; 86850; 86900; 86901; 87040; 87804; 93005; 93306; 93970; 94002; 94003; 94660; 96365; 96367; 97161; 97530; 99285; J0456; J0610; J0692; J1100; J1170; J1447; J1450; J1650; J1815; J1940; J2405; J3370; J7040; J7050; J8540; P9016; Q9967; U0003

== ENCOUNTER 2021-09-16 19:40 | Inpatient (IN) | payer OTHER ==
[2021-09-16 20:27] VITALS: BMI 36.1
[2021-09-16] MEDS ORDERED: ONDANSETRON 4 MG/2 ML VIAL IV PRN (20:34)
[2021-09-16] MEDS ORDERED: SCOPOLAMINE HYDROBROMIDE PATCH TD SCH (20:45)
[2021-09-16] MEDS: HYDROMORPHONE HCL 2 MG/ML inj IV PRN (21:10)
[2021-09-16] MEDS: LORazepam 2 MG/ML VIAL IV PRN (22:33)
[2021-09-17] MEDS: HYDROMORPHONE HCL 2 MG/ML inj IV PRN (00:20)
[2021-09-17] MEDS: LORazepam 2 MG/ML VIAL IV PRN (00:26)
[2021-09-17 09:04] VITALS: BP 62/33; TEMP 97.3
== END 2021-09-17 08:20 | disposition expired | DRG 951 ==
LOC: 3RD-ICU 19:40
PROVIDERS: ADMIT Internal Medicine Geriatric Medicine; ATTEND Internal Medicine Geriatric Medicine
DX: Z51.5 Encounter for palliative care (principal); U07.1 COVID-19; J12.82 Pneumonia due to coronavirus disease 2019; J96.01 Acute respiratory failure with hypoxia
CPT/HCPCS: 94002; 94660; J1170